=== PATIENT | male | born 1960 | race Asian ===

== ENCOUNTER 2016-04-14 18:49 | Inpatient (IN) | payer MEDICAID ==
[~2016-04-14] VITALS: Ht 200.7 cm; Wt 71.2 kg
[~2016-04-14 18:49] MED LIST: AMIO200T GTB; FOLI1CAP PO; KEP100S GTB; KLO5 GTB; OMEP40CA3 GTB; SEVE0.8P GTB; UDCOL GTB
[2016-04-14] MEDS ORDERED: PIPER-TAZO 3.375 GM IV (PMX) 100 ML IVPB STA (18:53)
[2016-04-14] MEDS ORDERED: VANCOMYCIN 1 GM (PMX) 250 ML IVPB ONE (19:00)
[2016-04-14] MEDS ORDERED: SOD CHLORIDE 0.9% 1,000 ML IV ONE ×2 (19:00→22:00)
--- NOTE | 2016-04-14 19:47 | RADRPT ---
PROCEDURE: XR Chest. CLINICAL INDICATION: Patient experiencing possible Sepsis TECHNIQUE: Single frontal view of the chest was obtained. COMPARISON: 01/19/2016 FINDINGS: The cardiomediastinal silhouette is normal size. Pulmonary vasculature is within normal limits. Th ere is a tracheostomy in place. There is a right internal jugular catheter extending to the cavoatr ial junction region. There is increased markings at the left lung base. There is moderate aortic c alcification. There is mild scarring at the lung apices. No signs of pleural fluid or pneumothorax are seen. The osseous structures and soft tissues are unre markable. IMPRESSION: 1. Tracheostomy and right internal jugular catheter in place. 2. Left base atelectasis, versus minimal infiltrate. 3. Moderate aortic calcification. RPTAT: HBST .Rahul Mcdonnell MD, MD Date Time Electronically viewed and signed by .Rahul Mcdonnell MD, on 04/14/2016 19:47 .T/
[2016-04-14 20:03] LABS: HEMATOCRIT 33.9 % (42.0-52.0); HEMOGLOBIN 11.5 g/dl (14.0-18.0); MEAN CORPUSCULAR HEMOGLOBIN 33.8 pg (29.0-33.0); MEAN CORPUSCULAR HGB CONC 34.1 g/dl (32.0-37.0); MEAN CORPUSCULAR VOLUME 99.2 fl (82.0-101.0); MEAN PLATELET VOLUME 8.5 fl (7.4-10.4); PLATELET COUNT 182 10^3/UL (140-440); RED BLOOD COUNT 3.41 10^6/ul (4.70-6.10); RED CELL DISTRIBUTION WIDTH 17.2 % (11.5-14.5); UNCORRECTED WBC 15.9 10^3/ul (4.8-10.8); WHITE BLOOD COUNT 15.9 10^3/ul (4.8-10.8)
[2016-04-14 20:06] LABS: CONDITION 1; LH ANALYZER COMMENTS 1; SUSPECT 1
[2016-04-14 20:16] LABS: INR 1.07; PROTIME 13.9 Sec (12.2-14.2); PT RATIO 1.1
[2016-04-14 20:17] LABS: PARTIAL THROMBOPLASTIN TIME 41.8 Sec (25.0-35.0)
[2016-04-14 20:43] LABS: ALBUMIN 4.6 g/dl (3.3-4.9)
[2016-04-14 20:45] LABS: CREATININE 5.92 mg/dl (0.61-1.24)
[2016-04-14 20:46] LABS: ALANINE AMINOTRANSFERASE 63 IU/L (13-69); ALBUMIN/GLOBULIN RATIO 1.04; ALKALINE PHOSPHATASE 141 IU/L (42-121); ASPARTATE AMINO TRANSFERASE 47 IU/L (15-46); BILIRUBIN,INDIRECT 0.3 mg/dl (0-1.1); BILIRUBIN,TOTAL 0.3 mg/dl (0.2-1.3); BLOOD UREA NITROGEN 54 mg/dl (7-20); CARBON DIOXIDE 24 mmol/L (21-31); GLUCOSE 112 mg/dl (70-220)
[2016-04-14 20:47] LABS: CALCIUM 11.4 mg/dl (8.4-10.2)
[2016-04-14 20:52] LABS: ANION GAP 27 (8-16); CHLORIDE 96 mmol/L (97-110); POTASSIUM 5.2 mmol/L (3.5-5.1); SODIUM 142 mmol/L (135-144)
[2016-04-14 21:05] LABS: TROPONIN-I < 0.012 ng/ml (0.00-0.12)
[2016-04-14 21:22] LABS: MONOCYTE # 0.5 10^3/ul (0.3-0.9); NEUTROPHIL # 13.4 10^3/ul (1.6-7.5)
[2016-04-14] MEDS ORDERED: ACETAMINOPHEN 325 MG TAB PO PRN (22:00)
[2016-04-14] MEDS ORDERED: ONDANSETRON 4 MG INJ IV PRN (22:00)
--- NOTE | 2016-04-14 22:05 | ERA ---
ER Documentation Chief Complaint Date/Time DATE: 04/14/16 TIME: 21:54 Chief Complaint tachycardia rate 108-110 since 1500, temp as high as 99-100. from SNF HPI This 55-year-old male presents to the room his group home facility because of tachycardia and stated elevated temperature since the middle of the day. There is suspecting pneumonia because the patient is on a ventilator may have coughed. Patient is a dialysis patient does not make urine. No other history is possible as patient is nonverbal. ROS Unobtainable Medications Home Meds Reported Medications Folic Acid/Vitamin B Comp W-C (Nephrocaps Capsule) 1 Mg Capsule, 1 MG PO DAILY, CAP 10/14/15 Sevelamer Carbonate* (Renvela*) 0.8 Gm Powd.pack, 1.6 GM GTB WITH MEALS, PACKET 10/14/15 Levetiracetam* (Keppra* (Ped)) 100 Mg/Ml Liq, 1000 MG GTB DAILY for 30 Days, BOTTLE 10/14/15 Docusate Sodium* (Docusate Sodium* Liq) 50 Mg/5 Ml Liquid, 100 MG GTB BID, ML 10/14/15 Omeprazole* (Prilosec*) 40 Mg Capsule.dr, 40 MG GTB DAILY 04/12/12 Clonazepam* (Klonopin*) 0.5 Mg Tab, 0.5 MG GTB Q12 04/12/12 Amiodarone Hcl* (Amiodarone Hcl*) 200 Mg Tablet, 200 MG GTB DAILY 04/12/12 Allergies Allergies: Coded Allergies: No Known Allergy (Unverified , 11/14/15) PMhx/Soc History of Surgery: Yes (TRACHEOSTOMY, PEG PLACEMENT) Anesthesia Reaction: No Hx Neurological Disorder: Yes (WITH ENCEPHALOPATHY) Hx Respiratory Disorders: Yes (TRACH TO VENT) Hx Cardiac Disorders: Yes (PAROXYSMAL AFIB) Hx Psychiatric Problems: No Hx Miscellaneous Medical Probl: Yes (CHF) Hx Alcohol Use: No Hx Substance Use: No Hx Tobacco Use: No Smoking Status: Never smoker Physical Exam Vitals Vital Signs Date Time Temp Pulse Resp B/P Pulse Ox O2 Delivery O2 Flow Rate FiO2 04/14/16 18:55 98.1 97 20 83/67 100 04/14/16 18:50 98 16 98 30 Physical Exam Const: [] Mild distress, appears uncomfortable on vent Head: Atraumatic Eyes: Normal Conjunctiva, PRL, EOMI may ENT: Normal External Ears, Nose and Mouth., Tympanic membranes clear bilaterally Neck: No deformities or JVD Resp: Childhood upper airway rhonchorous breath sounds bilaterally Cardio: Regular tachycardia, no murmurs Abd: Soft, no apparent tenderness,, non distended. Normal bowel sounds Skin: No petechiae or rashes Ext: No cyanosis,, sacral decubitus ulcers as described in nursing notes. No obvious signs of acute infection surrounding. Neur: Awake and alert, opens eyes and looks around, spot to touch and Result Diagram: 04/14/16194404/14/161944 Results 24 hrs Laboratory Tests Test 04/14/16 19:45 04/14/16 21:12 Activated Partial Thromboplast Time 41.8Sec Alanine Aminotransferase (ALT/SGPT) 63IU/L Albumin 4.6g/dl Albumin/Globulin Ratio 1.04 Alkaline Phosphatase 141IU/L Anion Gap 27 Aspartate Amino Transf (AST/SGOT) 47IU/L Band Neutrophils % 7.0% Blood Morphology Comment Blood Urea Nitrogen 54mg/dl Calcium Level 11.4mg/dl Carbon Dioxide Level 24mmol/L Chloride Level 96mmol/L Creatinine 5.92mg/dl Direct Bilirubin 0.00mg/dl Globulin 4.40g/dl Glucose Level 112mg/dl Hematocrit 33.9% Hemoglobin 11.5g/dl INR International Normalized Ratio 1.07 Indirect Bilirubin 0.3mg/dl Lactic Acid Level 3.1mmol/L 2.7mmol/L Lymphocytes # 1.010^3/ul Lymphocytes % 6.0% Mean Corpuscular Hemoglobin 33.8pg Mean Corpuscular Hemoglobin Concent 34.1g/dl Mean Corpuscular Volume 99.2fl Mean Platelet Volume 8.5fl Monocytes # 0.510^3/ul Monocytes % 3.0% Neutrophils # 13.410^3/ul Neutrophils % 84.0% Platelet Count 28212^3/UL Potassium Level 5.2mmol/L Prothrombin Time 13.9Sec Prothrombin Time Ratio 1.1 Red Blood Count 3.4110^6/ul Red Cell Distribution Width 17.2% Sodium Level 142mmol/L Total Bilirubin 0.3mg/dl Total Protein 9.0g/dl Troponin I < 0.012ng/ml White Blood Count 15.910^3/ul Current Medications Medications (Trade) Dose Ordered Sig/Sujey Route PRN Reason Start Time Stop Time Status Last Admin Dose Admin Vancomycin HCl 250 ml @ 125 mls/hr ONCE ONCE IVPB 04/14/16 19:00 04/14/16 20:59 DC 04/14/16 20:14 Piperacillin Sod/ Tazobactam Sod 100 ml @ 200 mls/hr ONCE STAT IVPB 04/14/16 18:53 04/14/16 19:22 DC 04/14/16 19:49 Sodium Chloride 1,000 ml @ 1,000 mls/hr Q1H ONCE IV 04/14/16 19:00 04/14/16 19:59 DC 04/14/16 19:50 Sodium Chloride (NS) 1,000 ml @ 1,000 mls/hr Q1H ONCE IV 04/14/16 22:00 04/14/16 22:59 Ondansetron HCl (Zofran Inj) 4 mg ER BRIDGE PRN IV NAUSEA AND/OR VOMITING 04/14/16 22:00 04/15/16 21:59 Acetaminophen (Tylenol Tab) 650 mg ER BRIDGE PRN PO MILD PAIN/FEVER 04/14/16 22:00 04/15/16 21:59 Procedures/MDM 55-year-old debilitated male with likely ventilator associated pneumonia with sepsis. Patient has a left elevated lactic acid was given 30 mL/mL fluid bolus. He was dialyzed yesterday and has no signs of pulmonary edema. His also immediately given vancomycin and Zosyn for hospital-acquired infection. Chest x -ray reveals obscuration of the paraspinal paravertebral lines as well as mild left lower lobe infiltrate. Patient did not have any obvious abdominal tenderness and abdomen was soft. She did remain stable on current vent settings. Does have lactic acidosis. Spoke with Dr. Avila who will be admitting the patient. He requests Dr. Nair for pulmonology. Patient is being admitted to telemetry further monitoring as septic condition. EKG interpretation: Normal sinus rhythm rate of 99, first-degree AV block, T- wave inversions in lead V5 and V6, consistent with slightly more pronounced than EKG in February. No ST elevations or depressions concerning for acute ischemia, indeterminate axis. Monitor interpretation sinus tachycardia with intermittent normal sinus rhythm, no other arrhythmias Chest x-ray interpretation, small left lower lobe infiltrate with obscuration of left paraspinal line suspicious for another left-sided infiltrate, no obvious pulmonary edema, no pneumothorax, no fractures Critical care time 41 minutes: This includes management of sepsis in an debilitated patient, very clear fluid fluid administration and patient with dialysis and sepsis, early antibiotic administration, ventilator management, chart review, all to visits the patient's bedside to reassess status discussion with admitting doctor. This is not include any billable procedures. Departure Diagnosis: Primary Impression: Sepsis due to pneumonia Additional Impressions: Lactic acidosis Hyperkalemia Condition: Serious SHERIN BETANCUR DO Apr 14, 2016 22:05
[2016-04-14] MEDS ORDERED: SOD CHLORIDE 0.9% 250 ML IV ONE (22:30)
[2016-04-14] MEDS ORDERED: NA POLYST SULFON 15 GM/60 ML BTL GTB ONE (23:00)
[2016-04-14 23:13] LABS: AADO2 Arterial 89.9 mmHg (7.0-24.0); Allen Test ACCEPTAB; Arterial Base Excess -0.7 mmol/L (-3.0-3); Arterial COHb 0.5 % (0.0-3.0); Arterial Fraction of Oxyhgb 94.6 % (93.0-99.0); Arterial HCO3 23.2 mmol/L (22.0-26.0); Arterial MetHb 0.2 % (0.0-1.5); Arterial Total Hemglobin 11.7 g/dl (12.0-18.0); MODE VENT - AC
[2016-04-15] MEDS ORDERED: ONDANSETRON 4 MG INJ IV PRN
[2016-04-15] MEDS ORDERED: ACETAMINOPHEN 325 MG TAB PO PRN
[2016-04-15] MEDS ORDERED: morphine 2 MG INJ IV PRN
[2016-04-15] MEDS ORDERED: NACL 0.9% 3 ML SYG IV SCH
[2016-04-15] MEDS ORDERED: PIPER-TAZO 3.375 GM IV (PMX) 100 ML IVPB SCH
[2016-04-15] MEDS: HEPARIN 5,000 UNIT/0.5 ML SYG SC SCH ×2 (05:44→14:32)
[2016-04-15 05:47] LABS: ALBUMIN 3.9 g/dl (3.3-4.9); POTASSIUM 4.7 mmol/L (3.5-5.1)
[2016-04-15 05:49] LABS: BILIRUBIN,INDIRECT 0.4 mg/dl (0-1.1); BILIRUBIN,TOTAL 0.4 mg/dl (0.2-1.3); CREATININE 6.25 mg/dl (0.61-1.24)
[2016-04-15 05:50] LABS: CALCIUM 10.4 mg/dl (8.4-10.2); TOTAL PROTEIN 7.8 g/dl (6.1-8.1)
[2016-04-15 05:52] LABS: BASOPHILS % 0.2 % (0.0-2.0); EOSINOPHILS # 0.1 10^3/ul (0.0-0.5); EOSINOPHILS % 0.5 % (0.0-7.0); HEMATOCRIT 30.1 % (42.0-52.0); HEMOGLOBIN 10.2 g/dl (14.0-18.0); LYMPHOCYTES # 0.7 10^3/ul (0.8-2.9); LYMPHOCYTES % 6.4 % (15.0-51.0); MEAN CORPUSCULAR HEMOGLOBIN 33.9 pg (29.0-33.0); MEAN CORPUSCULAR HGB CONC 33.8 g/dl (32.0-37.0); MEAN CORPUSCULAR VOLUME 100.2 fl (82.0-101.0); MEAN PLATELET VOLUME 7.4 fl (7.4-10.4); MONOCYTE # 0.5 10^3/ul (0.3-0.9); MONOCYTES % 5.1 % (0.0-11.0); NEUTROPHIL # 9.2 10^3/ul (1.6-7.5); NEUTROPHILS % 87.8 % (39.0-77.0); PLATELET COUNT 168 10^3/UL (140-440); RED CELL DISTRIBUTION WIDTH 16.5 % (11.5-14.5); UNCORRECTED WBC 10.5 10^3/ul (4.8-10.8); WHITE BLOOD COUNT 10.5 10^3/ul (4.8-10.8)
[2016-04-15] MEDS: PIPER-TAZO 2.25 GM (PMX) 50 ML IVPB SCH ×2 (05:58→14:30)
[2016-04-15 06:01] LABS: CONDITION 1; LH ANALYZER COMMENTS 1
[2016-04-15] MEDS ORDERED: FAMOTIDINE 20 MG INJ IV SCH (09:00)
[2016-04-15] MEDS: FAMOTIDINE 20 MG INJ IV SCH (09:29)
--- NOTE | 2016-04-15 13:05 | CONS ---
DATE OF ADMISSION: 04/14/2016 DATE OF CONSULTATION: 04/14/2016 REASON FOR CONSULTATION: Maintenance hemodialysis with hyperkalemia. REFERRING PHYSICIAN: Dr. Palacio. HISTORY OF PRESENT ILLNESS: This is a 55-year-old male with a past medical history of hypertension, hyperlipidemia, end-stage renal disease on hemodialysis Saturday, and Saturday. The patien t was brought in from a halfway facility because of her fever, tachycardia. The patient had a suspecting pneumonia. The patient is on a ventilator. Has been having some cough. The patient was supposed to get hemodialysis, but did not have hemodialysis and came to the ____ and [place] [facility] [place] fever, sepsis and noted to have hyperkalemia. The patient also received a fluid resuscitation overnight. Also received a treatment for hyperkalem ia, lactic acid was 3.1, calcium was 11.4. At the time of my evaluation, the patient was hemodynami fina stable, awaiting to get hemodialysis. REVIEW OF SYSTEMS: Unable to obtain the patient since the patient is on ventilator. PAST MEDICAL HISTORY: As per HPI. PAST SURGICAL HISTORY: History of tracheostomy, history of dialysis access surgery. 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 FAMILY HISTORY: Not available. PHYSICAL EXAMINATION: VITAL SIGNS: Temperature 98.2, heart rate 105, respiration 18, blood pressure 101/75, saturation is 100% on FIO2 30% on mechanical ventilator. GENERAL: Awake but not cooperative. The patient is on ventilator. HEENT: Tracheostomy in place. LUNGS: With decreased breath sounds at both lung bases, bibasilar crackles. HEART: S1, S2, tachycardia, no murmur. ABDOMEN: Soft. G-tube in place. EXTREMITIES: No clubbing, cyanosis, edema. NEUROLOGICAL: Uncooperative for exam. LABORATORY DATA/DIAGNOSTIC IMAGING: Sodium 142, potassium 5.2, chloride 96, bicarbonate 24, BUN 54, creatinine 5.9, glucose 112, calcium 11.4. LFTs are normal. WBC 10.5, hemoglobin 10.2, platelet c ount is 168. PT 13.9, PTT 41.8, INR 1.07. IMPRESSION: This is a 55-year-old male with: 1. Acute hyperkalemia secondary to missed hemodialysis. 2. Sepsis, possibly secondary to pneumonia. 3. End-stage renal disease on Saturday, , Saturday dialysis schedule. 4. Chronic encephalopathy, status post tracheostomy. 5. Vent dependent respiratory failure. 6. PEG tube placement for nutrition and dysphagia. 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 PLAN: Thank you, Dr. Palacio, for this consultation. The patient is ordered to have a plan to ord er to have hemodialysis today. Potassium has been slightly improved with a potassium of hyperkalemi a treatment. Continue the other intermediate medications. The patient will get IV antibiotics for sepsis. The patient is okay to have IV fluid resuscitation for his sepsis. We will plan for hemodi alysis depending on the patient's course in the hospital. Plan is to do hemodialysis today and then we will reassess him tomorrow for further hemodialysis needs. Dictated By: GEM MULLEN MD, KP/AMNA Conf#: [id number] DID#: [id number]
--- NOTE | 2016-04-15 13:17 | HP ---
Date/Time of Note Date/Time of Note DATE: 04/15/16 TIME: 13:14 Assessment/Plan VTE Prophylaxis VTE Prophylaxis Intervention: LMWH Assessment/Plan Chief Complaint/Hosp Course 1) pnuemonia - intravenous antibiotics 2) respiratory failure - consult pulmonary - continue vent support 3) renal failure - consult nephrology for continued hemodialysis 4) hypertension - monitor blood pressure and continue medications Problems: HPI/ROS Admit Date/Time Admit Date/Time Hx of Present Illness Patient with respiratory failure, hypertension, renal failure on hemodialysis comes in the ER with evidence of sepsis. Patient was found to have pneumonia and so is admitted for further treatment. ROS Subjective hx not possible: pt non-verbal PMH/Family/Social Past Medical History respiratory failure, renal failure Medical History: hypertension, renal disease Social History Alcohol Use: none Smoking Status: Never smoker Exam/Review of Systems Vital Signs Vitals Vital Signs Date Time Temp Pulse Resp B/P Pulse Ox O2 Delivery O2 Flow Rate FiO2 04/15/16 12:58 97 18 100 30 04/15/16 10:41 98.2 101/75 Mechanical Ventilator Intake and Output 04/14/16 04/14/16 04/15/16 15:00 23:00 07:00 Intake Total 1000 ml Balance 1000 ml Exam Constitutional: non-verbal, well developed Respiratory: diminished breath sounds Cardiovascular: regular rate and rhythm Gastrointestinal: non-tender, soft Extremities: normal pulses Labs Result Diagram: 04/15/1651604/15/16516 Medications Medications Current Medications Ondansetron HCl (Zofran Inj) 4 mg Q6H PRN IV NAUSEA AND/OR VOMITING; Start at 00:00 Acetaminophen (Tylenol Tab) 650 mg Q6H PRN PO PAIN LEVEL 1-3 OR FEVER; Start 04/15/16 at 00:00 Morphine Sulfate (morphine) 2 mg Q4H PRN IV PAIN LEVEL 7-10; Start 04/15/16 at 00:00 Heparin Sodium (Porcine) (Heparin (5000 Units/0.5 ml)) 5,000 unit Q8 SC Last administered on 04/15/16at 05:44; Admin Dose 5,000 UNIT; Start 04/15/16 at 06: 00 Famotidine 20 mg 20 mg DAILY IV Last administered on 04/15/16at 09:29; Admin Dose 20 MG; Start 04/15/16 at 09:00 Piperacillin Sod/ Tazobactam Sod (Zosyn 2.25gm/ 50ml (Pmx)) 50 ml @ 200 mls/hr Q8 IVPB Last administered on 04/15/16at 05:58; Admin Dose 200 MLS/HR; Start at 06:00 MARTHA SOSA Apr 15, 2016 13:17
[2016-04-16] VITALS (27 sets, daily range): BP systolic 76–129; BP diastolic 59–96; PULSE 79–116; RESP 13–33; TEMP 98.6; Ht 200.7 cm; Wt 71.2 kg
[2016-04-16] MEDS: HEPARIN 5,000 UNIT/0.5 ML SYG SC SCH ×4 (01:16→21:44)
[2016-04-16] MEDS: PIPER-TAZO 2.25 GM (PMX) 50 ML IVPB SCH ×4 (01:29→21:39)
[2016-04-16] MEDS: FAMOTIDINE 20 MG INJ IV SCH (09:00)
[2016-04-16] MEDS ORDERED: UDREG GTB (13:08)
[2016-04-16] MEDS ORDERED: MIDO5TAB19 GTB (13:09)
[2016-04-16] MEDS ORDERED: CINA60TA GTB (13:10)
[2016-04-16] MEDS ORDERED: NEPH GTB (13:11)
--- NOTE | 2016-04-16 14:41 | CONS ---
Date/Time of Note Date/Time of Note DATE: 04/16/16 TIME: 14:40 Assessment/Plan Assessment/Plan Chief Complaint/Hosp Course IMPRESSION: This is a 55-year-old male with: 1. Acute hyperkalemia secondary to missed hemodialysis.better 2. Sepsis, possibly secondary to pneumonia. 3. End-stage renal disease on Saturday, , Saturday dialysis schedule. 4. Chronic encephalopathy, status post tracheostomy. 5. Vent dependent respiratory failure. 6. PEG tube placement for nutrition and dysphagia. 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 8 hypocalcemia plan hd Problems: Consultation Date/Type/Reason Admit Date/Time Initial Consult Date Type of Consultation: renal Exam/Review of Systems Vital Signs Vitals Vital Signs Date Time Temp Pulse Resp B/P Pulse Ox O2 Delivery O2 Flow Rate FiO2 04/16/16 13:26 88 16 100 30 04/16/16 12:30 97.9 132/96 Mechanical Ventilator Exam Respiratory: diminished breath sounds Cardiovascular: regular rate and rhythm Gastrointestinal: bowel sounds (+), soft Extremities: edema (+) Results Result Diagram: 04/15/1651604/15/16516 Medications Medications Current Medications Ondansetron HCl (Zofran Inj) 4 mg Q6H PRN IV NAUSEA AND/OR VOMITING; Start at 00:00 Acetaminophen (Tylenol Tab) 650 mg Q6H PRN PO PAIN LEVEL 1-3 OR FEVER; Start 04/15/16 at 00:00 Morphine Sulfate (morphine) 2 mg Q4H PRN IV PAIN LEVEL 7-10; Start 04/15/16 at 00:00 Heparin Sodium (Porcine) (Heparin (5000 Units/0.5 ml)) 5,000 unit Q8 SC Last administered on 04/16/16at 14:16; Admin Dose 5,000 UNIT; Start 04/15/16 at 06: 00 Famotidine 20 mg 20 mg DAILY IV Last administered on 04/16/16at 09:00; Admin Dose 20 MG; Start 04/15/16 at 09:00 Piperacillin Sod/ Tazobactam Sod (Zosyn 2.25gm/ 50ml (Pmx)) 50 ml @ 200 mls/hr Q8 IVPB Last administered on 04/16/16at 14:25; Admin Dose 200 MLS/HR; Start at 06:00 CHUYITA PASTOR MD Apr 16, 2016 14:41
--- NOTE | 2016-04-16 15:47 | PN ---
Date/Time of Note Date/Time of Note DATE: 04/16/16 TIME: 15:38 Assessment/Plan VTE Prophylaxis VTE Prophylaxis Intervention: other Assessment/Plan Assessment/Plan 1) pnuemonia - intravenous antibiotics 2 Sepsis - ID consulted 2) respiratory failure - consult pulmonary - continue vent support 3) renal failure - consult nephrology for continued hemodialysis 4) hypertension - monitor blood pressure and continue medications gemma Palacio Subjective 24 Hr Interval Summary Subjective hx not possible: pt non-verbal Constitutional: requiring IVF, requiring O2 Exam/Review of Systems Vital Signs Vitals Vital Signs Date Time Temp Pulse Resp B/P Pulse Ox O2 Delivery O2 Flow Rate FiO2 04/16/16 14:30 98.5 84 20 118/89 99 Mechanical Ventilator 04/16/16 13:26 30 Exam Constitutional: frail, non-verbal Eyes: nl sclera ENMT: nl external ears & nose Respiratory: diminished breath sounds Cardiovascular: nl pulses Gastrointestinal: non-tender, soft Musculoskeletal: muscle weakness Extremities: normal pulses Neurological: lethargic Lymph: nontender Results Result Diagram: 04/15/1651604/15/16516 Medications Medications Current Medications Ondansetron HCl (Zofran Inj) 4 mg Q6H PRN IV NAUSEA AND/OR VOMITING; Start at 00:00 Acetaminophen (Tylenol Tab) 650 mg Q6H PRN PO PAIN LEVEL 1-3 OR FEVER; Start 04/15/16 at 00:00 Morphine Sulfate (morphine) 2 mg Q4H PRN IV PAIN LEVEL 7-10; Start 04/15/16 at 00:00 Heparin Sodium (Porcine) (Heparin (5000 Units/0.5 ml)) 5,000 unit Q8 SC Last administered on 04/16/16at 14:16; Admin Dose 5,000 UNIT; Start 04/15/16 at 06: 00 Famotidine 20 mg 20 mg DAILY IV Last administered on 04/16/16at 09:00; Admin Dose 20 MG; Start 04/15/16 at 09:00 Piperacillin Sod/ Tazobactam Sod (Zosyn 2.25gm/ 50ml (Pmx)) 50 ml @ 200 mls/hr Q8 IVPB Last administered on 04/16/16at 14:25; Admin Dose 200 MLS/HR; Start at 06:00 PAXTON RETANA Apr 16, 2016 15:47
[2016-04-16] MEDS ORDERED: PANTOPRAZOLE (EC) 40 MG TAB PO ONE (16:00)
[2016-04-16] MEDS ORDERED: PANTOPRAZOLE 40 MG INJ IV ONE (17:30)
[2016-04-16] MEDS: SEVELAMER CARBONATE 0.8 GM PKT GTB SCH (17:51)
[2016-04-16] MEDS: DEXTROSE 5%-0.45% NACL 1,000 ML IV SCH (17:51)
[2016-04-16] MEDS: ALBUMIN HUMAN 25% 100 ML IV PRN ×2 (19:24→19:34)
[2016-04-16] MEDS: MIDODRINE 5 MG TAB GTB SCH (19:31)
[2016-04-16] MEDS ORDERED: ALTEPLASE (CATHFLO) 2 MG INJ CATHETER ONE (20:00)
[2016-04-16] MEDS: DOCUSATE SODIUM 10 MG/ML (10ML CUP) GTB SCH (21:42)
[2016-04-16] MEDS: METOCLOPRAMIDE (1 MG/ML) 10 ML CUP GTB SCH (21:42)
[2016-04-16] MEDS: clonAZEPAM 0.5 MG TAB GTB SCH (21:43)
[2016-04-17] VITALS (48 sets, daily range): BP systolic 68–120; BP diastolic 54–98; PULSE 66–98; RESP 13–19
[2016-04-17] MEDS: METOCLOPRAMIDE (1 MG/ML) 10 ML CUP GTB SCH ×3 (05:31→21:29)
[2016-04-17] MEDS: MIDODRINE 5 MG TAB GTB SCH ×3 (05:31→21:29)
[2016-04-17] MEDS: PIPER-TAZO 2.25 GM (PMX) 50 ML IVPB SCH ×3 (05:32→21:28)
[2016-04-17] MEDS: HEPARIN 5,000 UNIT/0.5 ML SYG SC SCH ×3 (05:33→21:51)
[2016-04-17 05:48] LABS: POTASSIUM 3.9 mmol/L (3.5-5.1)
[2016-04-17 05:50] LABS: CREATININE 7.37 mg/dl (0.61-1.24)
[2016-04-17 05:51] LABS: CALCIUM 10.9 mg/dl (8.4-10.2)
[2016-04-17 05:57] LABS: BASOPHILS % 0.4 % (0.0-2.0); EOSINOPHILS # 0.2 10^3/ul (0.0-0.5); EOSINOPHILS % 2.9 % (0.0-7.0); HEMATOCRIT 26.2 % (42.0-52.0); LYMPHOCYTES # 0.8 10^3/ul (0.8-2.9); LYMPHOCYTES % 15.4 % (15.0-51.0); MEAN CORPUSCULAR HEMOGLOBIN 34.3 pg (29.0-33.0); MEAN CORPUSCULAR HGB CONC 34.4 g/dl (32.0-37.0); MEAN CORPUSCULAR VOLUME 99.6 fl (82.0-101.0); MEAN PLATELET VOLUME 7.3 fl (7.4-10.4); MONOCYTE # 0.5 10^3/ul (0.3-0.9); MONOCYTES % 9.1 % (0.0-11.0); NEUTROPHIL # 3.9 10^3/ul (1.6-7.5); NEUTROPHILS % 72.2 % (39.0-77.0); PLATELET COUNT 151 10^3/UL (140-440); RED BLOOD COUNT 2.64 10^6/ul (4.70-6.10); RED CELL DISTRIBUTION WIDTH 16.3 % (11.5-14.5); UNCORRECTED WBC 5.4 10^3/ul (4.8-10.8); WHITE BLOOD COUNT 5.4 10^3/ul (4.8-10.8)
[2016-04-17 06:09] LABS: CONDITION 1; LH ANALYZER COMMENTS 1
[2016-04-17] MEDS: SEVELAMER CARBONATE 0.8 GM PKT GTB SCH ×3 (07:35→17:35)
[2016-04-17] MEDS: MULTIVIT/CA CARB/B CMPLX/FA TAB GTB SCH (09:44)
[2016-04-17] MEDS: CINACALCET 30 MG TAB GTB SCH (09:44)
[2016-04-17] MEDS: clonAZEPAM 0.5 MG TAB GTB SCH ×2 (09:45→21:29)
[2016-04-17] MEDS: DOCUSATE SODIUM 10 MG/ML (10ML CUP) GTB SCH ×2 (09:45→20:14)
[2016-04-17] MEDS: AMIODARONE 200 MG TAB GTB SCH (09:45)
[2016-04-17] MEDS: FAMOTIDINE 20 MG INJ IV SCH (09:49)
[2016-04-17] MEDS: LEVETIRACETAM (100 MG/ML) 5ML CUP GTB SCH (09:49)
--- NOTE | 2016-04-17 13:58 | PN ---
Date/Time of Note Date/Time of Note DATE: 04/17/16 TIME: 13:57 Assessment/Plan VTE Prophylaxis VTE Prophylaxis Intervention: heparin, other Lines/Catheters IV Catheter Type (from Nrs): Peripheral IV Central line still needed: Yes Urinary Cath still in place: No Reason Cath still needed: skin wounds contaminated by urine Assessment/Plan Chief Complaint/Hosp Course 1) pnuemonia - intravenous antibiotics 2) respiratory failure - consult pulmonary - continue vent support 3) renal failure - consult nephrology for continued hemodialysis 4) hypertension - monitor blood pressure and continue medications Problems: Subjective 24 Hr Interval Summary Free Text/Dictation Patient is resting comfortably, tracheostomy in place Exam/Review of Systems Vital Signs Vitals Vital Signs Date Time Temp Pulse Resp B/P Pulse Ox O2 Delivery O2 Flow Rate FiO2 04/17/16 12:10 78 04/17/16 11:10 16 100 30 04/17/16 07:00 104/79 Mechanical Ventilator Trach Collar 04/17/16 04:00 97.5 Intake and Output 04/16/16 04/16/16 04/17/16 15:00 23:00 07:00 Intake Total 50 ml 910 ml 410 ml Output Total 2500 ml 0 ml Balance 50 ml -1590 ml 410 ml Exam Constitutional: well developed Respiratory: diminished breath sounds Cardiovascular: regular rate and rhythm Gastrointestinal: non-tender, soft Results Result Diagram: 04/17/16 0525 04/17/16 0525 Results 24 hrs Laboratory Tests Test 04/16/16 18:14 04/17/16 05:25 Ionized Calcium (Measured) 1.5 H Anion Gap 25 H Basophils # 0.0 Basophils % 0.4 Blood Morphology Comment Blood Urea Nitrogen 51 H Calcium Level 10.9 H Carbon Dioxide Level 25 Chloride Level 101 Creatinine 7.37 H Eosinophils # 0.2 Eosinophils % 2.9 Glucose Level 101 Hematocrit 26.2 L Hemoglobin 9.0 L Lymphocytes # 0.8 Lymphocytes % 15.4 Mean Corpuscular Hemoglobin 34.3 H Mean Corpuscular Hemoglobin Concent 34.4 Mean Corpuscular Volume 99.6 Mean Platelet Volume 7.3 L Monocytes # 0.5 Monocytes % 9.1 Neutrophils # 3.9 Neutrophils % 72.2 Nucleated Red Blood Cells # 0.0 Nucleated Red Blood Cells % 0.0 Platelet Count 151 Potassium Level 3.9 Red Blood Count 2.64 L Red Cell Distribution Width 16.3 H Sodium Level 147 H White Blood Count 5.4 # Medications Medications Current Medications Ondansetron HCl (Zofran Inj) 4 mg Q6H PRN IV NAUSEA AND/OR VOMITING; Start at 00:00 Acetaminophen (Tylenol Tab) 650 mg Q6H PRN PO PAIN LEVEL 1-3 OR FEVER; Start 04/15/16 at 00:00 Morphine Sulfate (morphine) 2 mg Q4H PRN IV PAIN LEVEL 7-10; Start 04/15/16 at 00:00 Heparin Sodium (Porcine) (Heparin (5000 Units/0.5 ml)) 5,000 unit Q8 SC Last administered on 04/17/16 05:33; Admin Dose 5,000 UNIT; Start 04/15/16 at 06: 00 Famotidine 20 mg 20 mg DAILY IV Last administered on 04/17/16 09:49; Admin Dose 20 MG; Start 04/15/16 at 09:00 Piperacillin Sod/ Tazobactam Sod (Zosyn 2.25gm/ 50ml (Pmx)) 50 ml @ 200 mls/hr Q8 IVPB Last administered on 04/17/16 05:32; Admin Dose 200 MLS/HR; Start at 06:00 Amiodarone HCl (Cordarone) 200 mg DAILY GTB Last administered on 04/17/16 09: 45; Admin Dose 200 MG; Start 04/17/16 at 09:00 Cinacalcet (Sensipar) 60 mg DAILY GTB Last administered on 04/17/16 09:44; Admin Dose 60 MG; Start 04/17/16 at 09:00 Clonazepam (Klonopin) 0.5 mg Q12 GTB Last administered on 04/17/16 09:45; Admin Dose 0.5 MG; Start 04/16/16 at 21:00 Docusate Sodium (Colace Liquid Cup) 100 mg BID GTB Last administered on 09:45; Admin Dose 100 MG; Start 04/16/16 at 21:00 Levetiracetam (Keppra Liquid) 1,000 mg DAILY GTB Last administered on 09:49; Admin Dose 1,000 MG; Start 04/17/16 at 09:00 Metoclopramide HCl (Reglan Liq) 10 mg Q8 GTB Last administered on 04/17/16 05 :31; Admin Dose 10 MG; Start 04/16/16 at 22:00 Midodrine (Proamatine) 5 mg Q8 GTB Last administered on 04/17/16at 05:31; Admin Dose 5 MG; Start 04/16/16 at 22:00 Multivit/Ca Carb/ B Cmplx/FA/Prenat 1 tab 1 tab DAILY GTB Last administered on 04/17/16at 09:44; Admin Dose 1 TAB; Start 04/17/16 at 09:00 Dextrose/Sodium Chloride (D5-1/2ns) 1,000 ml @ 40 mls/hr Q24H IV Last administered on 04/16/16at 17:51; Admin Dose 40 MLS/HR; Start 04/16/16 at 16:00 MARTHA SOSA Apr 17, 2016 13:58
[2016-04-17] MEDS: DEXTROSE 5%-0.45% NACL 1,000 ML IV SCH ×2 (16:00→21:28)
--- NOTE | 2016-04-17 17:24 | CONS ---
Date/Time of Note Date/Time of Note DATE: 04/17/16 TIME: 17:23 Assessment/Plan Assessment/Plan Chief Complaint/Hosp Course IMPRESSION: This is a 55-year-old male with: 1. Acute hyperkalemia secondary to missed hemodialysis.better 2. Sepsis, possibly secondary to pneumonia. 3. End-stage renal disease on Saturday, , Saturday dialysis schedule. 4. Chronic encephalopathy, status post tracheostomy. 5. Vent dependent respiratory failure. 6. PEG tube placement for nutrition and dysphagia. 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 8 hypercalcemia plan hd Problems: Consultation Date/Type/Reason Admit Date/Time Apr 14, 2016 at 21:52 Type of Consultation: renal 24 HR Interval Summary Subjective hx not possible: pt non-verbal Exam/Review of Systems Vital Signs Vitals Vital Signs Date Time Temp Pulse Resp B/P Pulse Ox O2 Delivery O2 Flow Rate FiO2 04/17/16 16:00 71 04/17/16 15:45 16 04/17/16 15:30 106/75 100 04/17/16 11:10 30 04/17/16 08:00 98.4 04/17/16 07:00 Mechanical Ventilator Trach Collar Intake and Output 04/16/16 04/16/16 04/17/16 15:00 23:00 07:00 Intake Total 50 ml 910 ml 410 ml Output Total 2500 ml 0 ml Balance 50 ml -1590 ml 410 ml Exam Respiratory: diminished breath sounds Cardiovascular: regular rate and rhythm Gastrointestinal: bowel sounds (+), soft Musculoskeletal: nl extremities to inspection Extremities: normal pulses Results Result Diagram: 04/17/16 0525 04/17/16 0525 Results 24 hrs Laboratory Tests Test 04/16/16 18:14 04/17/16 05:25 Ionized Calcium (Measured) 1.5 H Anion Gap 25 H Basophils # 0.0 Basophils % 0.4 Blood Morphology Comment Blood Urea Nitrogen 51 H Calcium Level 10.9 H Carbon Dioxide Level 25 Chloride Level 101 Creatinine 7.37 H Eosinophils # 0.2 Eosinophils % 2.9 Glucose Level 101 Hematocrit 26.2 L Hemoglobin 9.0 L Lymphocytes # 0.8 Lymphocytes % 15.4 Mean Corpuscular Hemoglobin 34.3 H Mean Corpuscular Hemoglobin Concent 34.4 Mean Corpuscular Volume 99.6 Mean Platelet Volume 7.3 L Monocytes # 0.5 Monocytes % 9.1 Neutrophils # 3.9 Neutrophils % 72.2 Nucleated Red Blood Cells # 0.0 Nucleated Red Blood Cells % 0.0 Platelet Count 151 Potassium Level 3.9 Red Blood Count 2.64 L Red Cell Distribution Width 16.3 H Sodium Level 147 H White Blood Count 5.4 # Medications Medications Current Medications Ondansetron HCl (Zofran Inj) 4 mg Q6H PRN IV NAUSEA AND/OR VOMITING; Start at 00:00 Acetaminophen (Tylenol Tab) 650 mg Q6H PRN PO PAIN LEVEL 1-3 OR FEVER; Start 04/15/16 at 00:00 Morphine Sulfate (morphine) 2 mg Q4H PRN IV PAIN LEVEL 7-10; Start 04/15/16 at 00:00 Heparin Sodium (Porcine) (Heparin (5000 Units/0.5 ml)) 5,000 unit Q8 SC Last administered on 04/17/16 14:50; Admin Dose 5,000 UNIT; Start 04/15/16 at 06: 00 Famotidine 20 mg 20 mg DAILY IV Last administered on 04/17/16at 09:49; Admin Dose 20 MG; Start 04/15/16 at 09:00 Piperacillin Sod/ Tazobactam Sod (Zosyn 2.25gm/ 50ml (Pmx)) 50 ml @ 200 mls/hr Q8 IVPB Last administered on 04/17/16 14:43; Admin Dose 200 MLS/HR; Start at 06:00 Amiodarone HCl (Cordarone) 200 mg DAILY GTB Last administered on 04/17/16 09: 45; Admin Dose 200 MG; Start 04/17/16 at 09:00 Cinacalcet (Sensipar) 60 mg DAILY GTB Last administered on 04/17/16 09:44; Admin Dose 60 MG; Start 04/17/16 at 09:00 Clonazepam (Klonopin) 0.5 mg Q12 GTB Last administered on 04/17/16 09:45; Admin Dose 0.5 MG; Start 04/16/16 at 21:00 Docusate Sodium (Colace Liquid Cup) 100 mg BID GTB Last administered on 09:45; Admin Dose 100 MG; Start 04/16/16 at 21:00 Levetiracetam (Keppra Liquid) 1,000 mg DAILY GTB Last administered on 09:49; Admin Dose 1,000 MG; Start 04/17/16 at 09:00 Metoclopramide HCl (Reglan Liq) 10 mg Q8 GTB Last administered on 04/17/16at 14 :43; Admin Dose 10 MG; Start 04/16/16 at 22:00 Midodrine (Proamatine) 5 mg Q8 GTB Last administered on 04/17/16at 14:42; Admin Dose 5 MG; Start 04/16/16 at 22:00 Multivit/Ca Carb/ B Cmplx/FA/Prenat 1 tab 1 tab DAILY GTB Last administered on 04/17/16 09:44; Admin Dose 1 TAB; Start 04/17/16 at 09:00 Dextrose/Sodium Chloride (D5-1/2ns) 1,000 ml @ 40 mls/hr Q24H IV Last administered on 04/16/16 17:51; Admin Dose 40 MLS/HR; Start 04/16/16 at 16:00 CHUYITA PASTOR MD Apr 17, 2016 17:24
[2016-04-18] VITALS (38 sets, daily range): BP systolic 87–131; BP diastolic 56–99; PULSE 66–98; RESP 12–29
[2016-04-18] MEDS: HEPARIN 5,000 UNIT/0.5 ML SYG SC SCH ×3 (05:08→21:26)
[2016-04-18] MEDS: METOCLOPRAMIDE (1 MG/ML) 10 ML CUP GTB SCH ×3 (05:08→21:24)
[2016-04-18] MEDS: PIPER-TAZO 2.25 GM (PMX) 50 ML IVPB SCH ×3 (05:08→21:25)
[2016-04-18] MEDS: MIDODRINE 5 MG TAB GTB SCH ×3 (05:08→21:25)
[2016-04-18 06:24] LABS: ALBUMIN 4.2 g/dl (3.3-4.9); POTASSIUM 3.6 mmol/L (3.5-5.1)
[2016-04-18 06:27] LABS: ALBUMIN/GLOBULIN RATIO 1.13; BILIRUBIN,INDIRECT 0.3 mg/dl (0-1.1); BILIRUBIN,TOTAL 0.3 mg/dl (0.2-1.3); CALCIUM 9.9 mg/dl (8.4-10.2); CREATININE 8.93 mg/dl (0.61-1.24); TOTAL PROTEIN 7.9 g/dl (6.1-8.1)
[2016-04-18] MEDS: SEVELAMER CARBONATE 0.8 GM PKT GTB SCH ×3 (06:54→18:00)
[2016-04-18] MEDS ORDERED: HEPARIN 1000 UNITS/ML 10 ML INJ CATHETER SCH (07:00)
[2016-04-18] MEDS: AMIODARONE 200 MG TAB GTB SCH (09:00)
[2016-04-18] MEDS: FAMOTIDINE 20 MG INJ IV SCH (09:00)
[2016-04-18] MEDS: clonAZEPAM 0.5 MG TAB GTB SCH ×2 (09:00→21:24)
[2016-04-18] MEDS: MULTIVIT/CA CARB/B CMPLX/FA TAB GTB SCH (09:00)
[2016-04-18] MEDS: DOCUSATE SODIUM 10 MG/ML (10ML CUP) GTB SCH ×2 (09:00→21:00)
[2016-04-18] MEDS: CINACALCET 30 MG TAB GTB SCH (09:00)
[2016-04-18] MEDS: LEVETIRACETAM (100 MG/ML) 5ML CUP GTB SCH (09:00)
--- NOTE | 2016-04-18 12:46 | PN ---
Date/Time of Note Date/Time of Note DATE: 04/18/16 TIME: 12:45 Assessment/Plan VTE Prophylaxis VTE Prophylaxis Intervention: other Lines/Catheters IV Catheter Type (from Nrsg): Peripheral IV Urinary Cath still in place: Yes Reason Cath still needed: skin wounds contaminated by urine Assessment/Plan Chief Complaint/Hosp Course 1) pnuemonia - intravenous antibiotics 2) respiratory failure - consult pulmonary - continue vent support 3) renal failure - consult nephrology for continued hemodialysis 4) hypertension - monitor blood pressure and continue medications Problems: Subjective 24 Hr Interval Summary Free Text/Dictation Patient is resting comfortably, trach in place Exam/Review of Systems Vital Signs Vitals Vital Signs Date Time Temp Pulse Resp B/P Pulse Ox O2 Delivery O2 Flow Rate FiO2 04/18/16 12:00 77 04/18/16 11:05 16 100 30 04/18/16 08:00 98.1 96/68 Mechanical Ventilator Intake and Output 04/17/16 04/17/16 04/18/16 14:59 22:59 06:59 Intake Total 0 ml 210 ml 735 ml Output Total 0 ml 0 ml Balance 0 ml 210 ml 735 ml Exam Constitutional: well developed Neck: supple Respiratory: diminished breath sounds Cardiovascular: regular rate and rhythm Gastrointestinal: non-tender, soft Extremities: normal pulses Results Result Diagram: 04/17/1625 04/18/16 0523 Results 24 hrs Laboratory Tests Test 04/18/16 05:23 Alanine Aminotransferase (ALT/SGPT) 79 H Albumin 4.2 Albumin/Globulin Ratio 1.13 Alkaline Phosphatase 106 Anion Gap 23 H Aspartate Amino Transf (AST/SGOT) 40 Blood Urea Nitrogen 62 H Calcium Level 9.9 Carbon Dioxide Level 23 Chloride Level 101 Creatinine 8.93 H Direct Bilirubin 0.00 Globulin 3.70 H Glucose Level 109 Indirect Bilirubin 0.3 Potassium Level 3.6 Prealbumin 43.8 H Sodium Level 143 Total Bilirubin 0.3 Total Protein 7.9 Medications Medications Current Medications Ondansetron HCl (Zofran Inj) 4 mg Q6H PRN IV NAUSEA AND/OR VOMITING; Start at 00:00 Acetaminophen (Tylenol Tab) 650 mg Q6H PRN PO PAIN LEVEL 1-3 OR FEVER; Start 04/15/16 at 00:00 Morphine Sulfate (morphine) 2 mg Q4H PRN IV PAIN LEVEL 7-10; Start 04/15/16 at 00:00 Heparin Sodium (Porcine) (Heparin (5000 Units/0.5 ml)) 5,000 unit Q8 SC Last administered on 04/18/16 05:08; Admin Dose 5,000 UNIT; Start 04/15/16 at 06: 00 Famotidine 20 mg 20 mg DAILY IV Last administered on 04/17/16 09:49; Admin Dose 20 MG; Start 04/15/16 at 09:00 Piperacillin Sod/ Tazobactam Sod (Zosyn 2.25gm/ 50ml (Pmx)) 50 ml @ 200 mls/hr Q8 IVPB Last administered on 04/18/16 05:08; Admin Dose 200 MLS/HR; Start at 06:00 Amiodarone HCl (Cordarone) 200 mg DAILY GTB Last administered on 04/17/16 09: 45; Admin Dose 200 MG; Start 04/17/16 at 09:00 Cinacalcet (Sensipar) 60 mg DAILY GTB Last administered on 04/17/16 09:44; Admin Dose 60 MG; Start 04/17/16 at 09:00 Clonazepam (Klonopin) 0.5 mg Q12 GTB Last administered on 04/17/16 21:29; Admin Dose 0.5 MG; Start 04/16/16 at 21:00 Docusate Sodium (Colace Liquid Cup) 100 mg BID GTB Last administered on 09:45; Admin Dose 100 MG; Start 04/16/16 at 21:00 Levetiracetam (Keppra Liquid) 1,000 mg DAILY GTB Last administered on 09:49; Admin Dose 1,000 MG; Start 04/17/16 at 09:00 Metoclopramide HCl (Reglan Liq) 10 mg Q8 GTB Last administered on 04/18/16 05 :08; Admin Dose 10 MG; Start 04/16/16 at 22:00 Midodrine (Proamatine) 5 mg Q8 GTB Last administered on 04/18/16 05:08; Admin Dose 5 MG; Start 04/16/16 at 22:00 Multivit/Ca Carb/ B Cmplx/FA/Prenat 1 tab 1 tab DAILY GTB Last administered on 12/27/16at 09:44; Admin Dose 1 TAB; Start 04/17/16 at 09:00 Dextrose/Sodium Chloride (D5-1/2ns) 1,000 ml @ 40 mls/hr Q24H IV Last administered on 04/17/16at 21:28; Admin Dose 40 MLS/HR; Start 04/16/16 at 16:00 MARTHA SOSA Apr 18, 2016 12:46
[2016-04-18] MEDS: DEXTROSE 5%-0.45% NACL 1,000 ML IV SCH (17:58)
--- NOTE | 2016-04-18 19:36 | CONS ---
Date/Time of Note Date/Time of Note DATE: 04/18/16 TIME: 19:35 Assessment/Plan Assessment/Plan Chief Complaint/Hosp Course IMPRESSION: This is a 55-year-old male with: 1. Acute hyperkalemia secondary to missed hemodialysis.better 2. Sepsis, possibly secondary to pneumonia. 3. End-stage renal disease on Saturday, , Saturday dialysis schedule. 4. Chronic encephalopathy, status post tracheostomy. 5. Vent dependent respiratory failure. 6. PEG tube placement for nutrition and dysphagia. 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 8 hypercalcemia hx plan hd Problems: Consultation Date/Type/Reason Admit Date/Time Apr 14, 2016 at 21:52 Type of Consultation: renal 24 HR Interval Summary Subjective hx not possible: pt non-verbal Exam/Review of Systems Vital Signs Vitals Vital Signs Date Time Temp Pulse Resp B/P Pulse Ox O2 Delivery O2 Flow Rate FiO2 04/18/16 17:40 74 16 100 30 04/18/16 08:00 98.1 96/68 Mechanical Ventilator Intake and Output 04/17/16 04/17/16 04/18/16 15:00 23:00 07:00 Intake Total 210 ml 735 ml Output Total 0 ml Balance 210 ml 735 ml Exam Respiratory: diminished breath sounds Cardiovascular: regular rate and rhythm Gastrointestinal: bowel sounds (+), soft Musculoskeletal: nl extremities to inspection Extremities: edema (+) Results Result Diagram: 04/17/16 0525 04/18/16 0523 Results 24 hrs Laboratory Tests Test 04/18/16 05:23 Alanine Aminotransferase (ALT/SGPT) 79 H Albumin 4.2 Albumin/Globulin Ratio 1.13 Alkaline Phosphatase 106 Anion Gap 23 H Aspartate Amino Transf (AST/SGOT) 40 Blood Urea Nitrogen 62 H Calcium Level 9.9 Carbon Dioxide Level 23 Chloride Level 101 Creatinine 8.93 H Direct Bilirubin 0.00 Globulin 3.70 H Glucose Level 109 Indirect Bilirubin 0.3 Potassium Level 3.6 Prealbumin 43.8 H Sodium Level 143 Total Bilirubin 0.3 Total Protein 7.9 Medications Medications Current Medications Ondansetron HCl (Zofran Inj) 4 mg Q6H PRN IV NAUSEA AND/OR VOMITING; Start at 00:00 Acetaminophen (Tylenol Tab) 650 mg Q6H PRN PO PAIN LEVEL 1-3 OR FEVER; Start 04/15/16 at 00:00 Morphine Sulfate (morphine) 2 mg Q4H PRN IV PAIN LEVEL 7-10; Start 04/15/16 at 00:00 Heparin Sodium (Porcine) (Heparin (5000 Units/0.5 ml)) 5,000 unit Q8 SC Last administered on 04/18/16 15:48; Admin Dose 5,000 UNIT; Start 04/15/16 at 06: 00 Famotidine 20 mg 20 mg DAILY IV Last administered on 04/17/16 09:49; Admin Dose 20 MG; Start 04/15/16 at 09:00 Piperacillin Sod/ Tazobactam Sod (Zosyn 2.25gm/ 50ml (Pmx)) 50 ml @ 200 mls/hr Q8 IVPB Last administered on 04/18/16 15:49; Admin Dose 200 MLS/HR; Start at 06:00 Amiodarone HCl (Cordarone) 200 mg DAILY GTB Last administered on 04/17/16 09: 45; Admin Dose 200 MG; Start 04/17/16 at 09:00 Cinacalcet (Sensipar) 60 mg DAILY GTB Last administered on 04/17/16 09:44; Admin Dose 60 MG; Start 04/17/16 at 09:00 Clonazepam (Klonopin) 0.5 mg Q12 GTB Last administered on 04/17/16 21:29; Admin Dose 0.5 MG; Start 04/16/16 at 21:00 Docusate Sodium (Colace Liquid Cup) 100 mg BID GTB Last administered on 09:45; Admin Dose 100 MG; Start 04/16/16 at 21:00 Levetiracetam (Keppra Liquid) 1,000 mg DAILY GTB Last administered on 09:49; Admin Dose 1,000 MG; Start 04/17/16 at 09:00 Metoclopramide HCl (Reglan Liq) 10 mg Q8 GTB Last administered on 04/18/16 15 :49; Admin Dose 10 MG; Start 04/16/16 at 22:00 Midodrine (Proamatine) 5 mg Q8 GTB Last administered on 04/18/16 15:49; Admin Dose 5 MG; Start 04/16/16 at 22:00 Multivit/Ca Carb/ B Cmplx/FA/Prenat 1 tab 1 tab DAILY GTB Last administered on 04/17/16at 09:44; Admin Dose 1 TAB; Start 04/17/16 at 09:00 Dextrose/Sodium Chloride (D5-1/2ns) 1,000 ml @ 40 mls/hr Q24H IV Last administered on 04/18/16at 17:58; Admin Dose 40 MLS/HR; Start 04/16/16 at 16:00 CHUYITA PASTOR MD Apr 18, 2016 19:36
[2016-04-19] VITALS (39 sets, daily range): BP systolic 97–136; BP diastolic 74–100; PULSE 58–80; RESP 14–20
[2016-04-19] MEDS: METOCLOPRAMIDE (1 MG/ML) 10 ML CUP GTB SCH ×3 (05:57→21:03)
[2016-04-19] MEDS: MIDODRINE 5 MG TAB GTB SCH ×3 (05:57→21:04)
[2016-04-19] MEDS: PIPER-TAZO 2.25 GM (PMX) 50 ML IVPB SCH ×3 (05:57→21:05)
[2016-04-19] MEDS: SEVELAMER CARBONATE 0.8 GM PKT GTB SCH ×3 (05:57→17:34)
[2016-04-19] MEDS: HEPARIN 5,000 UNIT/0.5 ML SYG SC SCH ×3 (06:32→21:32)
[2016-04-19] MEDS: DOCUSATE SODIUM 10 MG/ML (10ML CUP) GTB SCH ×2 (09:00→21:03)
[2016-04-19] MEDS: LEVETIRACETAM (100 MG/ML) 5ML CUP GTB SCH (09:41)
[2016-04-19] MEDS: AMIODARONE 200 MG TAB GTB SCH (09:41)
[2016-04-19] MEDS: MULTIVIT/CA CARB/B CMPLX/FA TAB GTB SCH (09:42)
[2016-04-19] MEDS: CINACALCET 30 MG TAB GTB SCH (09:42)
[2016-04-19] MEDS: FAMOTIDINE 20 MG INJ IV SCH (09:42)
[2016-04-19] MEDS: clonAZEPAM 0.5 MG TAB GTB SCH ×2 (09:42→21:03)
--- NOTE | 2016-04-19 12:06 | PN ---
Date/Time of Note Date/Time of Note DATE: 04/19/16 TIME: 12:05 Assessment/Plan VTE Prophylaxis VTE Prophylaxis Intervention: other Lines/Catheters IV Catheter Type (from Nrsg): Peripheral IV Urinary Cath still in place: Yes Reason Cath still needed: skin wounds contaminated by urine Assessment/Plan Chief Complaint/Hosp Course 1) pnuemonia - intravenous antibiotics 2) respiratory failure - consult pulmonary - continue vent support 3) renal failure - consult nephrology for continued hemodialysis 4) hypertension - monitor blood pressure and continue medications Problems: Subjective 24 Hr Interval Summary Free Text/Dictation Patient is comfortable. Exam/Review of Systems Vital Signs Vitals Vital Signs Date Time Temp Pulse Resp B/P Pulse Ox O2 Delivery O2 Flow Rate FiO2 04/19/16 11:05 70 16 100 30 04/19/16 08:00 98.3 122/94 Mechanical Ventilator Intake and Output 04/18/16 04/18/16 04/19/16 15:00 23:00 07:00 Intake Total 550 ml 350 ml 245 ml Output Total 3500 ml 0 ml Balance -2950 ml 350 ml 245 ml Exam Constitutional: well developed Neck: supple Respiratory: diminished breath sounds Cardiovascular: regular rate and rhythm Gastrointestinal: non-tender, soft Results Result Diagram: 04/17/1652404/18/16522 Medications Medications Current Medications Ondansetron HCl (Zofran Inj) 4 mg Q6H PRN IV NAUSEA AND/OR VOMITING; Start at 00:00 Acetaminophen (Tylenol Tab) 650 mg Q6H PRN PO PAIN LEVEL 1-3 OR FEVER; Start 04/15/16 at 00:00 Morphine Sulfate (morphine) 2 mg Q4H PRN IV PAIN LEVEL 7-10; Start 04/15/16 at 00:00 Heparin Sodium (Porcine) (Heparin (5000 Units/0.5 ml)) 5,000 unit Q8 SC Last administered on 04/19/16at 06:32; Admin Dose 5,000 UNIT; Start 04/15/16 at 06: 00 Famotidine 20 mg 20 mg DAILY IV Last administered on 04/19/16at 09:42; Admin Dose 20 MG; Start 04/15/16 at 09:00 Piperacillin Sod/ Tazobactam Sod (Zosyn 2.25gm/ 50ml (Pmx)) 50 ml @ 200 mls/hr Q8 IVPB Last administered on 04/19/16 05:57; Admin Dose 200 MLS/HR; Start at 06:00 Amiodarone HCl (Cordarone) 200 mg DAILY GTB Last administered on 04/19/16 09: 41; Admin Dose 200 MG; Start 04/17/16 at 09:00 Cinacalcet (Sensipar) 60 mg DAILY GTB Last administered on 04/19/16 09:42; Admin Dose 60 MG; Start 04/17/16 at 09:00 Clonazepam (Klonopin) 0.5 mg Q12 GTB Last administered on 04/19/16 09:42; Admin Dose 0.5 MG; Start 04/16/16 at 21:00 Docusate Sodium (Colace Liquid Cup) 100 mg BID GTB Last administered on 09:45; Admin Dose 100 MG; Start 04/16/16 at 21:00 Levetiracetam (Keppra Liquid) 1,000 mg DAILY GTB Last administered on 09:41; Admin Dose 1,000 MG; Start 04/17/16 at 09:00 Metoclopramide HCl (Reglan Liq) 10 mg Q8 GTB Last administered on 04/19/16 05 :57; Admin Dose 10 MG; Start 04/16/16 at 22:00 Midodrine (Proamatine) 5 mg Q8 GTB Last administered on 04/19/16 05:57; Admin Dose 5 MG; Start 04/16/16 at 22:00 Multivit/Ca Carb/ B Cmplx/FA/Prenat 1 tab 1 tab DAILY GTB Last administered on 04/19/16 09:42; Admin Dose 1 TAB; Start 04/17/16 at 09:00 Dextrose/Sodium Chloride (D5-1/2ns) 1,000 ml @ 40 mls/hr Q24H IV Last administered on 04/18/16 17:58; Admin Dose 40 MLS/HR; Start 04/16/16 at 16:00 MARTHA SOSA Apr 19, 2016 12:06
--- NOTE | 2016-04-19 15:40 | CONS ---
Date/Time of Note Date/Time of Note DATE: 04/19/16 TIME: 15:39 Assessment/Plan Assessment/Plan Chief Complaint/Hosp Course IMPRESSION: This is a 55-year-old male with: 1. s/p hyperkalemia 2. Sepsis, possibly secondary to pneumonia. 3. End-stage renal disease on Saturday, , Saturday dialysis schedule. 4. Chronic encephalopathy, status post tracheostomy. 5. Vent dependent respiratory failure. 6. PEG tube placement for nutrition and dysphagia. 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 8 hypercalcemia hx plan hd Problems: Consultation Date/Type/Reason Admit Date/Time Apr 14, 2016 at 21:52 Type of Consultation: renal 24 HR Interval Summary Subjective hx not possible: pt non-verbal Exam/Review of Systems Vital Signs Vitals Vital Signs Date Time Temp Pulse Resp B/P Pulse Ox O2 Delivery O2 Flow Rate FiO2 04/19/16 12:00 70 04/19/16 12:00 50 04/19/16 11:05 16 100 04/19/16 08:00 98.3 122/94 Mechanical Ventilator Intake and Output 04/18/16 04/18/16 04/19/16 15:00 23:00 07:00 Intake Total 550 ml 350 ml 245 ml Output Total 3500 ml 0 ml Balance -2950 ml 350 ml 245 ml Exam Neck: supple Respiratory: clear to auscultation Cardiovascular: regular rate and rhythm Gastrointestinal: soft Extremities: edema (+) Results Result Diagram: 04/17/16 0525 04/18/16 0523 Results 24 hrs Laboratory Tests Test 04/19/16 12:33 Bedside Glucose 99 Medications Medications Current Medications Ondansetron HCl (Zofran Inj) 4 mg Q6H PRN IV NAUSEA AND/OR VOMITING; Start at 00:00 Acetaminophen (Tylenol Tab) 650 mg Q6H PRN PO PAIN LEVEL 1-3 OR FEVER; Start 04/15/16 at 00:00 Morphine Sulfate (morphine) 2 mg Q4H PRN IV PAIN LEVEL 7-10; Start 04/15/16 at 00:00 Heparin Sodium (Porcine) (Heparin (5000 Units/0.5 ml)) 5,000 unit Q8 SC Last administered on 04/19/16at 06:32; Admin Dose 5,000 UNIT; Start 04/15/16 at 06: 00 Famotidine 20 mg 20 mg DAILY IV Last administered on 04/19/16 09:42; Admin Dose 20 MG; Start 04/15/16 at 09:00 Piperacillin Sod/ Tazobactam Sod (Zosyn 2.25gm/ 50ml (Pmx)) 50 ml @ 200 mls/hr Q8 IVPB Last administered on 04/19/16 15:19; Admin Dose 200 MLS/HR; Start at 06:00 Amiodarone HCl (Cordarone) 200 mg DAILY GTB Last administered on 04/19/16 09: 41; Admin Dose 200 MG; Start 04/17/16 at 09:00 Cinacalcet (Sensipar) 60 mg DAILY GTB Last administered on 04/19/16 09:42; Admin Dose 60 MG; Start 04/17/16 at 09:00 Clonazepam (Klonopin) 0.5 mg Q12 GTB Last administered on 04/19/16 09:42; Admin Dose 0.5 MG; Start 04/16/16 at 21:00 Docusate Sodium (Colace Liquid Cup) 100 mg BID GTB Last administered on 09:45; Admin Dose 100 MG; Start 04/16/16 at 21:00 Levetiracetam (Keppra Liquid) 1,000 mg DAILY GTB Last administered on 09:41; Admin Dose 1,000 MG; Start 04/17/16 at 09:00 Metoclopramide HCl (Reglan Liq) 10 mg Q8 GTB Last administered on 04/19/16 15 :19; Admin Dose 10 MG; Start 04/16/16 at 22:00 Midodrine (Proamatine) 5 mg Q8 GTB Last administered on 04/19/16 15:19; Admin Dose 5 MG; Start 04/16/16 at 22:00 Multivit/Ca Carb/ B Cmplx/FA/Prenat 1 tab 1 tab DAILY GTB Last administered on 04/19/16 09:42; Admin Dose 1 TAB; Start 04/17/16 at 09:00 Dextrose/Sodium Chloride (D5-1/2ns) 1,000 ml @ 40 mls/hr Q24H IV Last administered on 04/18/16 17:58; Admin Dose 40 MLS/HR; Start 04/16/16 at 16:00 CHUYITA PASTOR MD Apr 19, 2016 15:40
[2016-04-19] MEDS: DEXTROSE 5%-0.45% NACL 1,000 ML IV SCH (17:34)
[2016-04-20] VITALS (33 sets, daily range): BP systolic 95–144; BP diastolic 50–102; PULSE 60–85; RESP 14–23
[2016-04-20 05:18] LABS: CREATININE 8.79 mg/dl (0.61-1.24)
[2016-04-20 05:19] LABS: CALCIUM 10.1 mg/dl (8.4-10.2)
[2016-04-20] MEDS: MIDODRINE 5 MG TAB GTB SCH ×3 (05:27→23:01)
[2016-04-20] MEDS: PIPER-TAZO 2.25 GM (PMX) 50 ML IVPB SCH ×3 (05:27→23:01)
[2016-04-20] MEDS: METOCLOPRAMIDE (1 MG/ML) 10 ML CUP GTB SCH ×3 (05:27→23:01)
[2016-04-20] MEDS: SEVELAMER CARBONATE 0.8 GM PKT GTB SCH ×3 (05:27→18:32)
[2016-04-20] MEDS: HEPARIN 5,000 UNIT/0.5 ML SYG SC SCH ×3 (05:31→23:06)
[2016-04-20] MEDS: DOCUSATE SODIUM 10 MG/ML (10ML CUP) GTB SCH ×2 (09:00→21:00)
[2016-04-20 10:25] LABS: BASOPHILS % 0.5 % (0.0-2.0); EOSINOPHILS # 0.2 10^3/ul (0.0-0.5); EOSINOPHILS % 3.3 % (0.0-7.0); HEMATOCRIT 28.3 % (42.0-52.0); HEMOGLOBIN 9.4 g/dl (14.0-18.0); LYMPHOCYTES # 1.2 10^3/ul (0.8-2.9); LYMPHOCYTES % 22.9 % (15.0-51.0); MEAN CORPUSCULAR HEMOGLOBIN 33.4 pg (29.0-33.0); MEAN CORPUSCULAR HGB CONC 33.4 g/dl (32.0-37.0); MEAN CORPUSCULAR VOLUME 100.1 fl (82.0-101.0); MEAN PLATELET VOLUME 7.7 fl (7.4-10.4); MONOCYTE # 0.5 10^3/ul (0.3-0.9); MONOCYTES % 10.2 % (0.0-11.0); NEUTROPHIL # 3.3 10^3/ul (1.6-7.5); NEUTROPHILS % 63.1 % (39.0-77.0); PLATELET COUNT 149 10^3/UL (140-440); RED BLOOD COUNT 2.82 10^6/ul (4.70-6.10); RED CELL DISTRIBUTION WIDTH 16.2 % (11.5-14.5); UNCORRECTED WBC 5.2 10^3/ul (4.8-10.8); WHITE BLOOD COUNT 5.2 10^3/ul (4.8-10.8)
[2016-04-20 10:27] LABS: CONDITION 1; LH ANALYZER COMMENTS 1
[2016-04-20] MEDS: AMIODARONE 200 MG TAB GTB SCH (10:50)
[2016-04-20] MEDS: LEVETIRACETAM (100 MG/ML) 5ML CUP GTB SCH (10:51)
[2016-04-20] MEDS: MULTIVIT/CA CARB/B CMPLX/FA TAB GTB SCH (10:52)
[2016-04-20] MEDS: CINACALCET 30 MG TAB GTB SCH (10:52)
[2016-04-20] MEDS: FAMOTIDINE 20 MG INJ IV SCH (10:57)
[2016-04-20] MEDS: clonAZEPAM 0.5 MG TAB GTB SCH ×2 (10:57→21:06)
--- NOTE | 2016-04-20 14:08 | PN ---
Date/Time of Note Date/Time of Note DATE: 04/20/16 TIME: 14:07 Assessment/Plan VTE Prophylaxis VTE Prophylaxis Intervention: other Lines/Catheters IV Catheter Type (from Nrs): Saline Lock Reason Cath still needed: skin wounds contaminated by urine Assessment/Plan Chief Complaint/Hosp Course 1) pnuemonia - intravenous antibiotics 2) respiratory failure - consult pulmonary - continue vent support 3) renal failure - consult nephrology for continued hemodialysis 4) hypertension - monitor blood pressure and continue medications Problems: Subjective 24 Hr Interval Summary Free Text/Dictation Patient is comfortable, trach in place Exam/Review of Systems Vital Signs Vitals Vital Signs Date Time Temp Pulse Resp B/P Pulse Ox O2 Delivery O2 Flow Rate FiO2 04/20/16 13:15 72 18 100 30 04/20/16 06:30 119/92 Mechanical Ventilator 04/20/16 04:00 98.4 Intake and Output 04/19/16 04/19/16 04/20/16 15:00 23:00 07:00 Intake Total 35 ml 425 ml 210 ml Output Total 0 ml 0 ml Balance 35 ml 425 ml 210 ml Exam Constitutional: well developed Neck: supple Respiratory: diminished breath sounds Cardiovascular: regular rate and rhythm Gastrointestinal: non-tender, soft Extremities: normal pulses Results Result Diagram: 04/20/16 0415 04/20/16 0419 Results 24 hrs Laboratory Tests Test 04/20/16 04:15 04/20/16 04:19 Basophils # 0.0 Basophils % 0.5 Blood Morphology Comment Eosinophils # 0.2 Eosinophils % 3.3 Hematocrit 28.3 L Hemoglobin 9.4 L Lymphocytes # 1.2 Lymphocytes % 22.9 Mean Corpuscular Hemoglobin 33.4 H Mean Corpuscular Hemoglobin Concent 33.4 Mean Corpuscular Volume 100.1 Mean Platelet Volume 7.7 Monocytes # 0.5 Monocytes % 10.2 Neutrophils # 3.3 Neutrophils % 63.1 Nucleated Red Blood Cells # 0.0 Nucleated Red Blood Cells % 0.0 Platelet Count 149 Red Blood Count 2.82 L Red Cell Distribution Width 16.2 H White Blood Count 5.2 Anion Gap 27 H Blood Urea Nitrogen 56 H Calcium Level 10.1 Carbon Dioxide Level 21 Chloride Level 102 Creatinine 8.79 H Glucose Level 91 Potassium Level 4.0 Sodium Level 146 H Medications Medications Current Medications Ondansetron HCl (Zofran Inj) 4 mg Q6H PRN IV NAUSEA AND/OR VOMITING; Start at 00:00 Acetaminophen (Tylenol Tab) 650 mg Q6H PRN PO PAIN LEVEL 1-3 OR FEVER; Start 04/15/16 at 00:00 Morphine Sulfate (morphine) 2 mg Q4H PRN IV PAIN LEVEL 7-10 Last administered on 04/19/16 21:04; Admin Dose 2 MG; Start 04/15/16 at 00:00 Heparin Sodium (Porcine) (Heparin (5000 Units/0.5 ml)) 5,000 unit Q8 SC Last administered on 04/20/16 05:31; Admin Dose 5,000 UNIT; Start 04/15/16 at 06: 00 Famotidine 20 mg 20 mg DAILY IV Last administered on 04/20/16 10:57; Admin Dose 20 MG; Start 04/15/16 at 09:00 Piperacillin Sod/ Tazobactam Sod (Zosyn 2.25gm/ 50ml (Pmx)) 50 ml @ 200 mls/hr Q8 IVPB Last administered on 04/20/16 05:27; Admin Dose 200 MLS/HR; Start at 06:00 Amiodarone HCl (Cordarone) 200 mg DAILY GTB Last administered on 04/20/16 10: 50; Admin Dose 200 MG; Start 04/17/16 at 09:00 Cinacalcet (Sensipar) 60 mg DAILY GTB Last administered on 04/20/16 10:52; Admin Dose 60 MG; Start 04/17/16 at 09:00 Clonazepam (Klonopin) 0.5 mg Q12 GTB Last administered on 04/20/16 10:57; Admin Dose 0.5 MG; Start 04/16/16 at 21:00 Docusate Sodium (Colace Liquid Cup) 100 mg BID GTB Last administered on 21:03; Admin Dose 100 MG; Start 04/16/16 at 21:00 Levetiracetam (Keppra Liquid) 1,000 mg DAILY GTB Last administered on 10:51; Admin Dose 1,000 MG; Start 04/17/16 at 09:00 Metoclopramide HCl (Reglan Liq) 10 mg Q8 GTB Last administered on 04/20/16 05 :27; Admin Dose 10 MG; Start 04/16/16 at 22:00 Midodrine (Proamatine) 5 mg Q8 GTB Last administered on 04/20/16at 05:27; Admin Dose 5 MG; Start 04/16/16 at 22:00 Multivit/Ca Carb/ B Cmplx/FA/Prenat 1 tab 1 tab DAILY GTB Last administered on 04/20/16at 10:52; Admin Dose 1 TAB; Start 04/17/16 at 09:00 Dextrose/Sodium Chloride (D5-1/2ns) 1,000 ml @ 40 mls/hr Q24H IV Last administered on 04/19/16 17:34; Admin Dose 40 MLS/HR; Start 04/16/16 at 16:00 MARTHA SOSA Apr 20, 2016 14:08
[2016-04-20] MEDS: DEXTROSE 5%-0.45% NACL 1,000 ML IV SCH ×2 (18:32→22:50)
--- NOTE | 2016-04-20 18:38 | CONS ---
Date/Time of Note Date/Time of Note DATE: 04/20/16 TIME: 18:37 Assessment/Plan Assessment/Plan Chief Complaint/Hosp Course IMPRESSION: This is a 55-year-old male with: 1. s/p hyperkalemia 2. Sepsis, possibly secondary to pneumonia. 3. End-stage renal disease on Saturday, , Saturday dialysis schedule. 4. Chronic encephalopathy, status post tracheostomy. 5. Vent dependent respiratory failure. 6. PEG tube placement for nutrition and dysphagia. 7. group homenursing admin. 8 hypercalcemia hx plan hd Problems: Consultation Date/Type/Reason Admit Date/Time Apr 14, 2016 at 21:52 Type of Consultation: renal 24 HR Interval Summary Subjective hx not possible: pt non-verbal Exam/Review of Systems Vital Signs Vitals Vital Signs Date Time Temp Pulse Resp B/P Pulse Ox O2 Delivery O2 Flow Rate FiO2 04/20/16 17:10 65 16 100 30 04/20/16 06:30 119/92 Mechanical Ventilator 04/20/16 04:00 98.4 Intake and Output 04/19/16 04/19/16 04/20/16 15:00 23:00 07:00 Intake Total 35 ml 425 ml 210 ml Output Total 0 ml 0 ml Balance 35 ml 425 ml 210 ml Exam Neck: supple Respiratory: clear to auscultation Cardiovascular: regular rate and rhythm Gastrointestinal: soft Extremities: edema (+) Results Result Diagram: 04/20/16 0415 04/20/16 0419 Results 24 hrs Laboratory Tests Test 04/20/16 04:15 04/20/16 04:19 Basophils # 0.0 Basophils % 0.5 Blood Morphology Comment Eosinophils # 0.2 Eosinophils % 3.3 Hematocrit 28.3 L Hemoglobin 9.4 L Lymphocytes # 1.2 Lymphocytes % 22.9 Mean Corpuscular Hemoglobin 33.4 H Mean Corpuscular Hemoglobin Concent 33.4 Mean Corpuscular Volume 100.1 Mean Platelet Volume 7.7 Monocytes # 0.5 Monocytes % 10.2 Neutrophils # 3.3 Neutrophils % 63.1 Nucleated Red Blood Cells # 0.0 Nucleated Red Blood Cells % 0.0 Platelet Count 149 Red Blood Count 2.82 L Red Cell Distribution Width 16.2 H White Blood Count 5.2 Anion Gap 27 H Blood Urea Nitrogen 56 H Calcium Level 10.1 Carbon Dioxide Level 21 Chloride Level 102 Creatinine 8.79 H Glucose Level 91 Potassium Level 4.0 Sodium Level 146 H Medications Medications Current Medications Ondansetron HCl (Zofran Inj) 4 mg Q6H PRN IV NAUSEA AND/OR VOMITING; Start at 00:00 Acetaminophen (Tylenol Tab) 650 mg Q6H PRN PO PAIN LEVEL 1-3 OR FEVER; Start 04/15/16 at 00:00 Morphine Sulfate (morphine) 2 mg Q4H PRN IV PAIN LEVEL 7-10 Last administered on 04/19/16 21:04; Admin Dose 2 MG; Start 04/15/16 at 00:00 Heparin Sodium (Porcine) (Heparin (5000 Units/0.5 ml)) 5,000 unit Q8 SC Last administered on 04/20/16 05:31; Admin Dose 5,000 UNIT; Start 04/15/16 at 06: 00 Famotidine 20 mg 20 mg DAILY IV Last administered on 04/20/16 10:57; Admin Dose 20 MG; Start 04/15/16 at 09:00 Piperacillin Sod/ Tazobactam Sod (Zosyn 2.25gm/ 50ml (Pmx)) 50 ml @ 200 mls/hr Q8 IVPB Last administered on 04/20/16 05:27; Admin Dose 200 MLS/HR; Start at 06:00 Amiodarone HCl (Cordarone) 200 mg DAILY GTB Last administered on 04/20/16 10: 50; Admin Dose 200 MG; Start 04/17/16 at 09:00 Cinacalcet (Sensipar) 60 mg DAILY GTB Last administered on 04/20/16 10:52; Admin Dose 60 MG; Start 04/17/16 at 09:00 Clonazepam (Klonopin) 0.5 mg Q12 GTB Last administered on 04/20/16 10:57; Admin Dose 0.5 MG; Start 04/16/16 at 21:00 Docusate Sodium (Colace Liquid Cup) 100 mg BID GTB Last administered on 21:03; Admin Dose 100 MG; Start 04/16/16 at 21:00 Levetiracetam (Keppra Liquid) 1,000 mg DAILY GTB Last administered on 10:51; Admin Dose 1,000 MG; Start 04/17/16 at 09:00 Metoclopramide HCl (Reglan Liq) 10 mg Q8 GTB Last administered on 04/20/16at 05 :27; Admin Dose 10 MG; Start 04/16/16 at 22:00 Midodrine (Proamatine) 5 mg Q8 GTB Last administered on 04/20/16at 05:27; Admin Dose 5 MG; Start 04/16/16 at 22:00 Multivit/Ca Carb/ B Cmplx/FA/Prenat 1 tab 1 tab DAILY GTB Last administered on 04/20/16at 10:52; Admin Dose 1 TAB; Start 04/17/16 at 09:00 Dextrose/Sodium Chloride (D5-1/2ns) 1,000 ml @ 40 mls/hr Q24H IV Last administered on 04/19/16at 17:34; Admin Dose 40 MLS/HR; Start 04/16/16 at 16:00 CHUYITA PASTOR MD Apr 20, 2016 18:38
[2016-04-21] VITALS (34 sets, daily range): BP systolic 86–130; BP diastolic 52–91; PULSE 64–101; RESP 16–20
[2016-04-21] MEDS ORDERED: VITAMIN A & D 5 GM OINT PACKET TOP ONE (00:30)
[2016-04-21] MEDS: METOCLOPRAMIDE (1 MG/ML) 10 ML CUP GTB SCH ×3 (05:54→21:54)
[2016-04-21] MEDS: MIDODRINE 5 MG TAB GTB SCH ×3 (05:57→21:54)
[2016-04-21] MEDS: PIPER-TAZO 2.25 GM (PMX) 50 ML IVPB SCH ×3 (05:57→21:54)
[2016-04-21] MEDS: HEPARIN 5,000 UNIT/0.5 ML SYG SC SCH ×3 (06:08→21:55)
--- NOTE | 2016-04-21 10:03 | PN ---
Date/Time of Note Date/Time of Note DATE: 04/21/16 TIME: 10:02 Assessment/Plan VTE Prophylaxis VTE Prophylaxis Intervention: LMWH Lines/Catheters IV Catheter Type (from Nrsg): Peripheral IV Assessment/Plan Chief Complaint/Hosp Course 1) pnuemonia - intravenous antibiotics 2) respiratory failure - consult pulmonary - continue vent support 3) renal failure - consult nephrology for continued hemodialysis 4) hypertension - monitor blood pressure and continue medications Problems: Subjective 24 Hr Interval Summary Free Text/Dictation Patient awake, trach in place, receiving hemodialysis Exam/Review of Systems Vital Signs Vitals Vital Signs Date Time Temp Pulse Resp B/P Pulse Ox O2 Delivery O2 Flow Rate FiO2 04/21/16 09:45 90 04/21/16 08:20 97.5 20 129/87 99 04/21/16 07:15 30 04/20/16 21:00 Mechanical Ventilator Trach Collar Intake and Output 04/20/16 04/20/16 04/21/16 15:00 23:00 07:00 Intake Total 265 ml 645 ml Output Total 0 ml 0 ml Balance 265 ml 645 ml Exam Constitutional: well developed Head: atraumatic, normocephalic Respiratory: diminished breath sounds Cardiovascular: regular rate and rhythm Gastrointestinal: non-tender, soft Extremities: normal pulses Results Result Diagram: 04/20/16 0415 04/20/16 0419 Medications Medications Current Medications Ondansetron HCl (Zofran Inj) 4 mg Q6H PRN IV NAUSEA AND/OR VOMITING; Start at 00:00 Acetaminophen (Tylenol Tab) 650 mg Q6H PRN PO PAIN LEVEL 1-3 OR FEVER; Start 04/15/16 at 00:00 Morphine Sulfate (morphine) 2 mg Q4H PRN IV PAIN LEVEL 7-10 Last administered on 04/19/16at 21:04; Admin Dose 2 MG; Start 04/15/16 at 00:00 Heparin Sodium (Porcine) (Heparin (5000 Units/0.5 ml)) 5,000 unit Q8 SC Last administered on 04/21/16at 06:08; Admin Dose 5,000 UNIT; Start 04/15/16 at 06: 00 Famotidine 20 mg 20 mg DAILY IV Last administered on 04/20/16at 10:57; Admin Dose 20 MG; Start 04/15/16 at 09:00 Piperacillin Sod/ Tazobactam Sod (Zosyn 2.25gm/ 50ml (Pmx)) 50 ml @ 200 mls/hr Q8 IVPB Last administered on 04/21/16 05:57; Admin Dose 200 MLS/HR; Start at 06:00 Amiodarone HCl (Cordarone) 200 mg DAILY GTB Last administered on 04/20/16 10: 50; Admin Dose 200 MG; Start 04/17/16 at 09:00 Cinacalcet (Sensipar) 60 mg DAILY GTB Last administered on 04/20/16 10:52; Admin Dose 60 MG; Start 04/17/16 at 09:00 Clonazepam (Klonopin) 0.5 mg Q12 GTB Last administered on 04/20/16 21:06; Admin Dose 0.5 MG; Start 04/16/16 at 21:00 Docusate Sodium (Colace Liquid Cup) 100 mg BID GTB Last administered on 21:03; Admin Dose 100 MG; Start 04/16/16 at 21:00 Levetiracetam (Keppra Liquid) 1,000 mg DAILY GTB Last administered on 10:51; Admin Dose 1,000 MG; Start 04/17/16 at 09:00 Metoclopramide HCl (Reglan Liq) 10 mg Q8 GTB Last administered on 04/21/16 05 :54; Admin Dose 10 MG; Start 04/16/16 at 22:00 Midodrine (Proamatine) 5 mg Q8 GTB Last administered on 04/21/16 05:57; Admin Dose 5 MG; Start 04/16/16 at 22:00 Multivit/Ca Carb/ B Cmplx/FA/Prenat 1 tab 1 tab DAILY GTB Last administered on 04/20/16 10:52; Admin Dose 1 TAB; Start 04/17/16 at 09:00 Dextrose/Sodium Chloride (D5-1/2ns) 1,000 ml @ 40 mls/hr Q24H IV Last administered on 04/20/16 22:50; Admin Dose 40 MLS/HR; Start 04/16/16 at 16:00 MARTHA SOSA Apr 21, 2016 10:03
[2016-04-21] MEDS: MULTIVIT/CA CARB/B CMPLX/FA TAB GTB SCH (11:07)
[2016-04-21] MEDS: CINACALCET 30 MG TAB GTB SCH (11:07)
[2016-04-21] MEDS: FAMOTIDINE 20 MG INJ IV SCH (11:07)
[2016-04-21] MEDS: SEVELAMER CARBONATE 0.8 GM PKT GTB SCH ×3 (11:07→18:30)
[2016-04-21] MEDS: LEVETIRACETAM (100 MG/ML) 5ML CUP GTB SCH (11:07)
[2016-04-21] MEDS: AMIODARONE 200 MG TAB GTB SCH (11:07)
[2016-04-21] MEDS: DOCUSATE SODIUM 10 MG/ML (10ML CUP) GTB SCH ×2 (11:09→21:54)
[2016-04-21] MEDS: clonAZEPAM 0.5 MG TAB GTB SCH ×2 (11:09→21:54)
--- NOTE | 2016-04-21 15:32 | CONS ---
Date/Time of Note Date/Time of Note DATE: 04/21/16 TIME: 15:31 Assessment/Plan Assessment/Plan Chief Complaint/Hosp Course IMPRESSION: This is a 55-year-old male with: 1. s/p hyperkalemia 2. Sepsis, possibly secondary to pneumonia. 3. End-stage renal disease on Saturday, , Saturday dialysis schedule. 4. Chronic encephalopathy, status post tracheostomy. 5. Vent dependent respiratory failure. 6. PEG tube placement for nutrition and dysphagia. 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 8 hypercalcemia hx plan hd per pcp team Problems: Consultation Date/Type/Reason Admit Date/Time Apr 14, 2016 at 21:52 Type of Consultation: renal 24 HR Interval Summary Subjective hx not possible: pt non-verbal Exam/Review of Systems Vital Signs Vitals Vital Signs Date Time Temp Pulse Resp B/P Pulse Ox O2 Delivery O2 Flow Rate FiO2 04/21/16 13:00 72 16 100 30 04/21/16 12:33 97.0 130/79 04/20/16 21:00 Mechanical Ventilator Trach Collar Intake and Output 04/20/16 04/20/16 04/21/16 15:00 23:00 07:00 Intake Total 265 ml 645 ml Output Total 0 ml 0 ml Balance 265 ml 645 ml Exam Neck: supple Respiratory: diminished breath sounds Cardiovascular: regular rate and rhythm Gastrointestinal: bowel sounds (+), soft Extremities: edema (+) Results Result Diagram: 04/20/16 0415 04/20/16 0419 Medications Medications Current Medications Ondansetron HCl (Zofran Inj) 4 mg Q6H PRN IV NAUSEA AND/OR VOMITING; Start at 00:00 Acetaminophen (Tylenol Tab) 650 mg Q6H PRN PO PAIN LEVEL 1-3 OR FEVER; Start 04/15/16 at 00:00 Morphine Sulfate (morphine) 2 mg Q4H PRN IV PAIN LEVEL 7-10 Last administered on 04/19/16at 21:04; Admin Dose 2 MG; Start 04/15/16 at 00:00 Heparin Sodium (Porcine) (Heparin (5000 Units/0.5 ml)) 5,000 unit Q8 SC Last administered on 04/21/16at 14:34; Admin Dose 5,000 UNIT; Start 04/15/16 at 06: 00 Famotidine 20 mg 20 mg DAILY IV Last administered on 04/21/16 11:07; Admin Dose 20 MG; Start 04/15/16 at 09:00 Piperacillin Sod/ Tazobactam Sod (Zosyn 2.25gm/ 50ml (Pmx)) 50 ml @ 200 mls/hr Q8 IVPB Last administered on 04/21/16 14:33; Admin Dose 200 MLS/HR; Start at 06:00 Amiodarone HCl (Cordarone) 200 mg DAILY GTB Last administered on 04/21/16 11: 07; Admin Dose 200 MG; Start 04/17/16 at 09:00 Cinacalcet (Sensipar) 60 mg DAILY GTB Last administered on 04/21/16 11:07; Admin Dose 60 MG; Start 04/17/16 at 09:00 Clonazepam (Klonopin) 0.5 mg Q12 GTB Last administered on 04/21/16 11:09; Admin Dose 0.5 MG; Start 04/16/16 at 21:00 Docusate Sodium (Colace Liquid Cup) 100 mg BID GTB Last administered on 11:09; Admin Dose 100 MG; Start 04/16/16 at 21:00 Levetiracetam (Keppra Liquid) 1,000 mg DAILY GTB Last administered on 11:07; Admin Dose 1,000 MG; Start 04/17/16 at 09:00 Metoclopramide HCl (Reglan Liq) 10 mg Q8 GTB Last administered on 04/21/16 14 :33; Admin Dose 10 MG; Start 04/16/16 at 22:00 Midodrine (Proamatine) 5 mg Q8 GTB Last administered on 04/21/16 14:33; Admin Dose 5 MG; Start 04/16/16 at 22:00 Multivit/Ca Carb/ B Cmplx/FA/Prenat 1 tab 1 tab DAILY GTB Last administered on 04/21/16 11:07; Admin Dose 1 TAB; Start 04/17/16 at 09:00 Dextrose/Sodium Chloride (D5-1/2ns) 1,000 ml @ 40 mls/hr Q24H IV Last administered on 04/20/16 22:50; Admin Dose 40 MLS/HR; Start 04/16/16 at 16:00 CHUYITA PASTOR MD Apr 21, 2016 15:32
[2016-04-21] MEDS: DEXTROSE 5%-0.45% NACL 1,000 ML IV SCH (18:35)
[2016-04-22] VITALS (25 sets, daily range): BP systolic 108–137; BP diastolic 55–87; PULSE 63–69; RESP 15–22
[2016-04-22] MEDS: PIPER-TAZO 2.25 GM (PMX) 50 ML IVPB SCH ×3 (05:24→20:44)
[2016-04-22] MEDS: METOCLOPRAMIDE (1 MG/ML) 10 ML CUP GTB SCH ×3 (05:24→20:43)
[2016-04-22] MEDS: MIDODRINE 5 MG TAB GTB SCH ×3 (05:25→20:44)
[2016-04-22] MEDS: HEPARIN 5,000 UNIT/0.5 ML SYG SC SCH ×3 (05:25→20:45)
[2016-04-22] MEDS: DEXTROSE 5%-0.45% NACL 1,000 ML IV SCH ×2 (06:21→16:00)
[2016-04-22 06:52] LABS: BASOPHILS % 0.4 % (0.0-2.0); EOSINOPHILS # 0.2 10^3/ul (0.0-0.5); EOSINOPHILS % 2.9 % (0.0-7.0); HEMATOCRIT 25.8 % (42.0-52.0); HEMOGLOBIN 8.8 g/dl (14.0-18.0); LYMPHOCYTES # 1.2 10^3/ul (0.8-2.9); MEAN CORPUSCULAR HEMOGLOBIN 33.8 pg (29.0-33.0); MEAN CORPUSCULAR HGB CONC 34.2 g/dl (32.0-37.0); MEAN CORPUSCULAR VOLUME 98.9 fl (82.0-101.0); MEAN PLATELET VOLUME 7.4 fl (7.4-10.4); MONOCYTE # 0.4 10^3/ul (0.3-0.9); MONOCYTES % 6.9 % (0.0-11.0); NEUTROPHIL # 3.6 10^3/ul (1.6-7.5); NEUTROPHILS % 67.8 % (39.0-77.0); PLATELET COUNT 157 10^3/UL (140-440); RED BLOOD COUNT 2.61 10^6/ul (4.70-6.10); UNCORRECTED WBC 5.3 10^3/ul (4.8-10.8); WHITE BLOOD COUNT 5.3 10^3/ul (4.8-10.8)
[2016-04-22 07:08] LABS: POTASSIUM 3.9 mmol/L (3.5-5.1)
[2016-04-22 07:09] LABS: CONDITION 1; LH ANALYZER COMMENTS 1
[2016-04-22 07:10] LABS: CREATININE 7.44 mg/dl (0.61-1.24)
[2016-04-22 07:11] LABS: CALCIUM 9.3 mg/dl (8.4-10.2)
[2016-04-22] MEDS: DOCUSATE SODIUM 10 MG/ML (10ML CUP) GTB SCH ×2 (10:33→20:44)
[2016-04-22] MEDS: LEVETIRACETAM (100 MG/ML) 5ML CUP GTB SCH (10:34)
[2016-04-22] MEDS: MULTIVIT/CA CARB/B CMPLX/FA TAB GTB SCH (10:34)
[2016-04-22] MEDS: FAMOTIDINE 20 MG INJ IV SCH (10:35)
[2016-04-22] MEDS: clonAZEPAM 0.5 MG TAB GTB SCH ×2 (10:40→20:46)
[2016-04-22] MEDS: CINACALCET 30 MG TAB GTB SCH (10:41)
[2016-04-22] MEDS: SEVELAMER CARBONATE 0.8 GM PKT GTB SCH ×3 (10:41→18:25)
[2016-04-22] MEDS: AMIODARONE 200 MG TAB GTB SCH (10:44)
--- NOTE | 2016-04-22 12:22 | PN ---
Date/Time of Note Date/Time of Note DATE: 04/22/16 TIME: 12:21 Assessment/Plan VTE Prophylaxis VTE Prophylaxis Intervention: LMWH Lines/Catheters IV C[facility] Type (from [facility] Peripheral IV Urinary Cath still in place: No Assessment/Plan Chief Complaint/Hosp Course 1) pnuemonia - intravenous antibiotics 2) respiratory failure - consult pulmonary - continue vent support 3) renal failure - consult nephrology for continued hemodialysis 4) hypertension - monitor blood pressure and continue medications Problems: Subjective 24 Hr Interval Summary Free Text/Dictation Patient is doing well, still on trach. Exam/Review of Systems Vital Signs Vitals Vital Signs Date Time Temp Pulse Resp B/P Pulse Ox O2 Delivery O2 Flow Rate FiO2 04/22/16 11:11 97.5 65 16 108/68 100 04/22/16 05:31 30 04/20/16 21:00 Mechanical Ventilator Trach Collar Intake and Output 04/21/16 04/21/16 04/22/16 15:00 23:00 07:00 Intake Total 500 ml 50 ml 1105 ml Output Total 2000 ml 0 ml Balance -1500 ml 50 ml 1105 ml Exam Constitutional: well developed Head: atraumatic, normocephalic Neck: supple Respiratory: clear to auscultation Cardiovascular: regular rate and rhythm Gastrointestinal: non-tender, soft Extremities: normal pulses Results Result Diagram: 04/22/16 0555 04/22/16 0555 Results 24 hrs Laboratory Tests Test 04/22/16 05:55 Anion Gap 23 H Basophils # 0.0 Basophils % 0.4 Blood Morphology Comment Blood Urea Nitrogen 45 H Calcium Level 9.3 Carbon Dioxide Level 22 Chloride Level 98 Creatinine 7.44 H Eosinophils # 0.2 Eosinophils % 2.9 Glucose Level 92 Hematocrit 25.8 L Hemoglobin 8.8 L Lymphocytes # 1.2 Lymphocytes % 22.0 Mean Corpuscular Hemoglobin 33.8 H Mean Corpuscular Hemoglobin Concent 34.2 Mean Corpuscular Volume 98.9 Mean Platelet Volume 7.4 Monocytes # 0.4 Monocytes % 6.9 Neutrophils # 3.6 Neutrophils % 67.8 Nucleated Red Blood Cells # 0.0 Nucleated Red Blood Cells % 0.0 Platelet Count 157 Potassium Level 3.9 Red Blood Count 2.61 L Red Cell Distribution Width 16.0 H Sodium Level 139 White Blood Count 5.3 Medications Medications Current Medications Ondansetron HCl (Zofran Inj) 4 mg Q6H PRN IV NAUSEA AND/OR VOMITING; Start at 00:00 Acetaminophen (Tylenol Tab) 650 mg Q6H PRN PO PAIN LEVEL 1-3 OR FEVER; Start 04/15/16 at 00:00 Morphine Sulfate (morphine) 2 mg Q4H PRN IV PAIN LEVEL 7-10 Last administered on 04/19/16at 21:04; Admin Dose 2 MG; Start 04/15/16 at 00:00 Heparin Sodium (Porcine) (Heparin (5000 Units/0.5 ml)) 5,000 unit Q8 SC Last administered on 04/22/16 05:25; Admin Dose 5,000 UNIT; Start 04/15/16 at 06:00 Famotidine 20 mg 20 mg DAILY IV Last administered on 04/22/16 10:35; Admin Dose 20 MG; Start 04/15/16 at 09:00 Piperacillin Sod/ Tazobactam Sod (Zosyn 2.25gm/ 50ml (Pmx)) 50 ml @ 200 mls/hr Q8 IVPB Last administered on 04/22/16 05:24; Admin Dose 200 MLS/HR; Start at 06:00 Amiodarone HCl (Cordarone) 200 mg DAILY GTB Last administered on 04/22/16 10:44 ; Admin Dose 200 MG; Start 04/17/16 at 09:00 Cinacalcet (Sensipar) 60 mg DAILY GTB Last administered on 04/22/16 10:41; Admin Dose 60 MG; Start 04/17/16 at 09:00 Clonazepam (Klonopin) 0.5 mg Q12 GTB Last administered on 04/22/16 10:40; Admin Dose 0.5 MG; Start 04/16/16 at 21:00 Docusate Sodium (Colace Liquid Cup) 100 mg BID GTB Last administered on 10:33; Admin Dose 100 MG; Start 04/16/16 at 21:00 Levetiracetam (Keppra Liquid) 1,000 mg DAILY GTB Last administered on 04/22/16 10:34; Admin Dose 1,000 MG; Start 04/17/16 at 09:00 Metoclopramide HCl (Reglan Liq) 10 mg Q8 GTB Last administered on 04/22/16 05: 24; Admin Dose 10 MG; Start 04/16/16 at 22:00 Midodrine (Proamatine) 5 mg Q8 GTB Last administered on 04/22/16 05:25; Admin Dose 5 MG; Start 04/16/16 at 22:00 Multivit/Ca Carb/ B Cmplx/FA/Prenat 1 tab 1 tab DAILY GTB Last administered on 04/22/16 10:34; Admin Dose 1 TAB; Start 04/17/16 at 09:00 Dextrose/Sodium Chloride (D5-1/2ns) 1,000 ml @ 40 mls/hr Q24H IV Last administered on 04/22/16 06:21; Admin Dose 40 MLS/HR; Start 04/16/16 at 16:00 MARTHA SOSA Apr 22, 2016 12:21
--- NOTE | 2016-04-22 15:21 | CONS ---
Date/Time of Note Date/Time of Note DATE: 04/22/16 TIME: 15:20 Assessment/Plan Assessment/Plan Chief Complaint/Hosp Course IMPRESSION: This is a 55-year-old male with: 1. s/p hyperkalemia 2. Sepsis, possibly secondary to pneumonia. 3. End-stage renal disease on Saturday, , Saturday dialysis schedule. 4. Chronic encephalopathy, status post tracheostomy. 5. Vent dependent respiratory failure. 6. PEG tube placement for nutrition and dysphagia. 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 8 hypercalcemia hx plan hd per pcp team Problems: Consultation Date/Type/Reason Admit Date/Time Apr 14, 2016 at 21:52 Type of Consultation: renal 24 HR Interval Summary Subjective hx not possible: pt non-verbal Exam/Review of Systems Vital Signs Vitals Vital Signs Date Time Temp Pulse Resp B/P Pulse Ox O2 Delivery O2 Flow Rate FiO2 04/22/16 13:02 63 04/22/16 12:19 19 99 30 04/22/16 11:11 97.5 108/68 04/20/16 21:00 Mechanical Ventilator Trach Collar Intake and Output 04/21/16 04/21/16 04/22/16 15:00 23:00 07:00 Intake Total 500 ml 50 ml 1105 ml Output Total 2000 ml 0 ml Balance -1500 ml 50 ml 1105 ml Exam ENMT: nl external ears & nose Neck: supple Respiratory: clear to auscultation Cardiovascular: regular rate and rhythm Gastrointestinal: soft Extremities: edema (better) Results Result Diagram: 04/22/16 0555 04/22/16 0555 Results 24 hrs Laboratory Tests Test 04/22/16 05:55 Anion Gap 23 H Basophils # 0.0 Basophils % 0.4 Blood Morphology Comment Blood Urea Nitrogen 45 H Calcium Level 9.3 Carbon Dioxide Level 22 Chloride Level 98 Creatinine 7.44 H Eosinophils # 0.2 Eosinophils % 2.9 Glucose Level 92 Hematocrit 25.8 L Hemoglobin 8.8 L Lymphocytes # 1.2 Lymphocytes % 22.0 Mean Corpuscular Hemoglobin 33.8 H Mean Corpuscular Hemoglobin Concent 34.2 Mean Corpuscular Volume 98.9 Mean Platelet Volume 7.4 Monocytes # 0.4 Monocytes % 6.9 Neutrophils # 3.6 Neutrophils % 67.8 Nucleated Red Blood Cells # 0.0 Nucleated Red Blood Cells % 0.0 Platelet Count 157 Potassium Level 3.9 Red Blood Count 2.61 L Red Cell Distribution Width 16.0 H Sodium Level 139 White Blood Count 5.3 Medications Medications Current Medications Ondansetron HCl (Zofran Inj) 4 mg Q6H PRN IV NAUSEA AND/OR VOMITING; Start at 00:00 Acetaminophen (Tylenol Tab) 650 mg Q6H PRN PO PAIN LEVEL 1-3 OR FEVER; Start 04/15/16 at 00:00 Morphine Sulfate (morphine) 2 mg Q4H PRN IV PAIN LEVEL 7-10 Last administered on 04/19/16at 21:04; Admin Dose 2 MG; Start 04/15/16 at 00:00 Heparin Sodium (Porcine) (Heparin (5000 Units/0.5 ml)) 5,000 unit Q8 SC Last administered on 04/22/16 14:46; Admin Dose 5,000 UNIT; Start 04/15/16 at 06:00 Famotidine 20 mg 20 mg DAILY IV Last administered on 04/22/16 10:35; Admin Dose 20 MG; Start 04/15/16 at 09:00 Piperacillin Sod/ Tazobactam Sod (Zosyn 2.25gm/ 50ml (Pmx)) 50 ml @ 200 mls/hr Q8 IVPB Last administered on 04/22/16 14:33; Admin Dose 200 MLS/HR; Start at 06:00 Amiodarone HCl (Cordarone) 200 mg DAILY GTB Last administered on 04/22/16 10:44 ; Admin Dose 200 MG; Start 04/17/16 at 09:00 Cinacalcet (Sensipar) 60 mg DAILY GTB Last administered on 04/22/16 10:41; Admin Dose 60 MG; Start 04/17/16 at 09:00 Clonazepam (Klonopin) 0.5 mg Q12 GTB Last administered on 04/22/16 10:40; Admin Dose 0.5 MG; Start 04/16/16 at 21:00 Docusate Sodium (Colace Liquid Cup) 100 mg BID GTB Last administered on 10:33; Admin Dose 100 MG; Start 04/16/16 at 21:00 Levetiracetam (Keppra Liquid) 1,000 mg DAILY GTB Last administered on 04/22/16 10:34; Admin Dose 1,000 MG; Start 04/17/16 at 09:00 Metoclopramide HCl (Reglan Liq) 10 mg Q8 GTB Last administered on 04/22/16 14: 34; Admin Dose 10 MG; Start 04/16/16 at 22:00 Midodrine (Proamatine) 5 mg Q8 GTB Last administered on 04/22/16 14:44; Admin Dose 5 MG; Start 04/16/16 at 22:00 Multivit/Ca Carb/ B Cmplx/FA/Prenat 1 tab 1 tab DAILY GTB Last administered on 04/22/16 10:34; Admin Dose 1 TAB; Start 04/17/16 at 09:00 Dextrose/Sodium Chloride (D5-1/2ns) 1,000 ml @ 40 mls/hr Q24H IV Last administered on 04/22/16 06:21; Admin Dose 40 MLS/HR; Start 04/16/16 at 16:00 CHUYITA PASTOR MD Apr 22, 2016 15:21
[2016-04-23] VITALS (30 sets, daily range): BP systolic 90–133; BP diastolic 54–90; PULSE 59–79; RESP 15–20
[2016-04-23] MEDS ORDERED: VITAMIN A & D 5 GM OINT PACKET TOP ONE (00:33)
[2016-04-23] MEDS: PIPER-TAZO 2.25 GM (PMX) 50 ML IVPB SCH ×3 (05:03→21:44)
[2016-04-23] MEDS: MIDODRINE 5 MG TAB GTB SCH ×3 (05:04→21:47)
[2016-04-23] MEDS: METOCLOPRAMIDE (1 MG/ML) 10 ML CUP GTB SCH ×3 (05:04→21:44)
[2016-04-23] MEDS: HEPARIN 5,000 UNIT/0.5 ML SYG SC SCH ×3 (05:05→21:46)
[2016-04-23] MEDS: CINACALCET 30 MG TAB GTB SCH ×2 (09:00→12:13)
[2016-04-23] MEDS: LEVETIRACETAM (100 MG/ML) 5ML CUP GTB SCH (09:19)
[2016-04-23] MEDS: DOCUSATE SODIUM 10 MG/ML (10ML CUP) GTB SCH ×2 (09:19→21:00)
[2016-04-23] MEDS: MULTIVIT/CA CARB/B CMPLX/FA TAB GTB SCH (09:19)
[2016-04-23] MEDS: SEVELAMER CARBONATE 0.8 GM PKT GTB SCH ×3 (09:19→17:10)
[2016-04-23] MEDS: AMIODARONE 200 MG TAB GTB SCH (09:20)
[2016-04-23] MEDS: FAMOTIDINE 20 MG INJ IV SCH (09:20)
[2016-04-23] MEDS: clonAZEPAM 0.5 MG TAB GTB SCH ×2 (09:21→20:25)
[2016-04-23] MEDS: DEXTROSE 5%-0.45% NACL 1,000 ML IV SCH ×2 (12:18→16:00)
--- NOTE | 2016-04-23 13:25 | PN ---
Date/Time of Note Date/Time of Note DATE: 04/23/16 TIME: 13:24 Assessment/Plan VTE Prophylaxis VTE Prophylaxis Intervention: LMWH Lines/Catheters IV Catheter Type (from Nrs): Peripheral IV Urinary Cath still in place: No Assessment/Plan Chief Complaint/Hosp Course 1) pnuemonia - intravenous antibiotics 2) respiratory failure - consult pulmonary - continue vent support 3) renal failure - consult nephrology for continued hemodialysis 4) hypertension - monitor blood pressure and continue medications Problems: Subjective 24 Hr Interval Summary Free Text/Dictation Patient is doing well, trach in place Exam/Review of Systems Vital Signs Vitals Vital Signs Date Time Temp Pulse Resp B/P Pulse Ox O2 Delivery O2 Flow Rate FiO2 04/23/16 12:26 66 04/23/16 11:58 16 99 04/23/16 11:13 98.0 119/73 04/23/16 08:30 30 04/22/16 08:10 Mechanical Ventilator Intake and Output 04/22/16 04/22/16 04/23/16 15:00 23:00 07:00 Intake Total 260 ml 1110 ml Balance 260 ml 1110 ml Exam Constitutional: well developed Neck: supple Respiratory: clear to auscultation Cardiovascular: regular rate and rhythm Gastrointestinal: non-tender, soft Extremities: normal pulses Results Result Diagram: 04/22/16 0555 04/22/16 0555 Results 24 hrs Laboratory Tests Test 04/23/16 11:56 Bedside Glucose 98 Medications Medications Current Medications Ondansetron HCl (Zofran Inj) 4 mg Q6H PRN IV NAUSEA AND/OR VOMITING; Start at 00:00 Acetaminophen (Tylenol Tab) 650 mg Q6H PRN PO PAIN LEVEL 1-3 OR FEVER; Start 04/15/16 at 00:00 Morphine Sulfate (morphine) 2 mg Q4H PRN IV PAIN LEVEL 7-10 Last administered on 04/19/16at 21:04; Admin Dose 2 MG; Start 04/15/16 at 00:00 Heparin Sodium (Porcine) (Heparin (5000 Units/0.5 ml)) 5,000 unit Q8 SC Last administered on 04/23/16 05:05; Admin Dose 5,000 UNIT; Start 04/15/16 at 06:00 Famotidine 20 mg 20 mg DAILY IV Last administered on 04/23/16 09:20; Admin Dose 20 MG; Start 04/15/16 at 09:00 Piperacillin Sod/ Tazobactam Sod (Zosyn 2.25gm/ 50ml (Pmx)) 50 ml @ 200 mls/hr Q8 IVPB Last administered on 04/23/16 05:03; Admin Dose 200 MLS/HR; Start at 06:00 Amiodarone HCl (Cordarone) 200 mg DAILY GTB Last administered on 04/23/16 09:20 ; Admin Dose 200 MG; Start 04/17/16 at 09:00 Cinacalcet (Sensipar) 60 mg DAILY GTB Last administered on 04/23/16 12:13; Admin Dose 60 MG; Start 04/17/16 at 09:00 Clonazepam (Klonopin) 0.5 mg Q12 GTB Last administered on 04/23/16 09:21; Admin Dose 0.5 MG; Start 04/16/16 at 21:00 Docusate Sodium (Colace Liquid Cup) 100 mg BID GTB Last administered on 09:19; Admin Dose 100 MG; Start 04/16/16 at 21:00 Levetiracetam (Keppra Liquid) 1,000 mg DAILY GTB Last administered on 04/23/16 09:19; Admin Dose 1,000 MG; Start 04/17/16 at 09:00 Metoclopramide HCl (Reglan Liq) 10 mg Q8 GTB Last administered on 04/23/16 05: 04; Admin Dose 10 MG; Start 04/16/16 at 22:00 Midodrine (Proamatine) 5 mg Q8 GTB Last administered on 04/23/16 05:04; Admin Dose 5 MG; Start 04/16/16 at 22:00 Multivit/Ca Carb/ B Cmplx/FA/Prenat 1 tab 1 tab DAILY GTB Last administered on 04/23/16 09:19; Admin Dose 1 TAB; Start 04/17/16 at 09:00 Dextrose/Sodium Chloride (D5-1/2ns) 1,000 ml @ 40 mls/hr Q24H IV Last administered on 04/23/16 12:18; Admin Dose 40 MLS/HR; Start 04/16/16 at 16:00 MARTHA SOSA 2, 2017 13:25
--- NOTE | 2016-04-23 13:57 | CONS ---
Date/Time of Note Date/Time of Note DATE: 04/23/16 TIME: 13:57 Assessment/Plan Assessment/Plan Chief Complaint/Hosp Course IMPRESSION: This is a 55-year-old male with: 1. s/p hyperkalemia 2. Sepsis, possibly secondary to pneumonia. 3. End-stage renal disease on Saturday, , Saturday dialysis schedule. 4. Chronic encephalopathy, status post tracheostomy. 5. Vent dependent respiratory failure. 6. PEG tube placement for nutrition and dysphagia. 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 8 hypercalcemia hx plan hd per pcp team Problems: Consultation Date/Type/Reason Admit Date/Time Apr 14, 2016 at 21:52 Type of Consultation: renal 24 HR Interval Summary Subjective hx not possible: pt non-verbal Exam/Review of Systems Vital Signs Vitals Vital Signs Date Time Temp Pulse Resp B/P Pulse Ox O2 Delivery O2 Flow Rate FiO2 04/23/16 13:29 72 16 99 04/23/16 11:13 98.0 119/73 04/23/16 08:30 30 04/22/16 08:10 Mechanical Ventilator Intake and Output 04/22/16 04/22/16 04/23/16 15:00 23:00 07:00 Intake Total 260 ml 1110 ml Balance 260 ml 1110 ml Exam Respiratory: clear to auscultation Cardiovascular: regular rate and rhythm Results Result Diagram: 04/22/16 0555 04/22/16 0555 Results 24 hrs Laboratory Tests Test 04/23/16 11:56 Bedside Glucose 98 Medications Medications Current Medications Ondansetron HCl (Zofran Inj) 4 mg Q6H PRN IV NAUSEA AND/OR VOMITING; Start at 00:00 Acetaminophen (Tylenol Tab) 650 mg Q6H PRN PO PAIN LEVEL 1-3 OR FEVER; Start 04/15/16 at 00:00 Morphine Sulfate (morphine) 2 mg Q4H PRN IV PAIN LEVEL 7-10 Last administered on 04/19/16at 21:04; Admin Dose 2 MG; Start 04/15/16 at 00:00 Heparin Sodium (Porcine) (Heparin (5000 Units/0.5 ml)) 5,000 unit Q8 SC Last administered on 04/23/16t 13:49; Admin Dose 5,000 UNIT; Start 04/15/16 at 06:00 Famotidine 20 mg 20 mg DAILY IV Last administered on 04/23/16 09:20; Admin Dose 20 MG; Start 04/15/16 at 09:00 Piperacillin Sod/ Tazobactam Sod (Zosyn 2.25gm/ 50ml (Pmx)) 50 ml @ 200 mls/hr Q8 IVPB Last administered on 04/23/16 13:37; Admin Dose 200 MLS/HR; Start at 06:00 Amiodarone HCl (Cordarone) 200 mg DAILY GTB Last administered on 04/23/16 09:20 ; Admin Dose 200 MG; Start 04/17/16 at 09:00 Cinacalcet (Sensipar) 60 mg DAILY GTB Last administered on 04/23/16 12:13; Admin Dose 60 MG; Start 04/17/16 at 09:00 Clonazepam (Klonopin) 0.5 mg Q12 GTB Last administered on 04/23/16 09:21; Admin Dose 0.5 MG; Start 04/16/16 at 21:00 Docusate Sodium (Colace Liquid Cup) 100 mg BID GTB Last administered on 09:19; Admin Dose 100 MG; Start 04/16/16 at 21:00 Levetiracetam (Keppra Liquid) 1,000 mg DAILY GTB Last administered on 04/23/16 09:19; Admin Dose 1,000 MG; Start 04/17/16 at 09:00 Metoclopramide HCl (Reglan Liq) 10 mg Q8 GTB Last administered on 04/23/16 13: 37; Admin Dose 10 MG; Start 04/16/16 at 22:00 Midodrine (Proamatine) 5 mg Q8 GTB Last administered on 04/23/16 13:37; Admin Dose 5 MG; Start 04/16/16 at 22:00 Multivit/Ca Carb/ B Cmplx/FA/Prenat 1 tab 1 tab DAILY GTB Last administered on 04/23/16 09:19; Admin Dose 1 TAB; Start 04/17/16 at 09:00 Dextrose/Sodium Chloride (D5-1/2ns) 1,000 ml @ 40 mls/hr Q24H IV Last administered on 04/23/16 12:18; Admin Dose 40 MLS/HR; Start 04/16/16 at 16:00 CHUYITA PASTOR MD Apr 23, 2016 13:57
[2016-04-24] VITALS (23 sets, daily range): BP systolic 103–130; BP diastolic 64–84; PULSE 60–66; RESP 15–20
[2016-04-24] MEDS: HEPARIN 5,000 UNIT/0.5 ML SYG SC SCH ×3 (05:32→21:31)
[2016-04-24] MEDS: MIDODRINE 5 MG TAB GTB SCH ×3 (05:33→21:28)
[2016-04-24] MEDS: METOCLOPRAMIDE (1 MG/ML) 10 ML CUP GTB SCH ×3 (05:33→21:28)
[2016-04-24] MEDS: PIPER-TAZO 2.25 GM (PMX) 50 ML IVPB SCH ×3 (05:33→21:29)
[2016-04-24] MEDS: LEVETIRACETAM (100 MG/ML) 5ML CUP GTB SCH (08:56)
[2016-04-24] MEDS: SEVELAMER CARBONATE 0.8 GM PKT GTB SCH ×3 (08:56→17:38)
[2016-04-24] MEDS: CINACALCET 30 MG TAB GTB SCH (08:56)
[2016-04-24] MEDS: DOCUSATE SODIUM 10 MG/ML (10ML CUP) GTB SCH ×2 (08:57→21:28)
[2016-04-24] MEDS: AMIODARONE 200 MG TAB GTB SCH (08:57)
[2016-04-24] MEDS: MULTIVIT/CA CARB/B CMPLX/FA TAB GTB SCH (08:57)
[2016-04-24] MEDS: FAMOTIDINE 20 MG INJ IV SCH (09:01)
[2016-04-24] MEDS: clonAZEPAM 0.5 MG TAB GTB SCH ×2 (09:01→21:35)
--- NOTE | 2016-04-24 12:31 | PN ---
Date/Time of Note Date/Time of Note DATE: 04/24/16 TIME: 12:30 Assessment/Plan VTE Prophylaxis VTE Prophylaxis Intervention: LMWH Lines/Catheters IV Catheter Type (from Nrs): Peripheral IV Urinary Cath still in place: No Assessment/Plan Chief Complaint/Hosp Course 1) pnuemonia - intravenous antibiotics 2) respiratory failure - consult pulmonary - continue vent support 3) renal failure - consult nephrology for continued hemodialysis 4) hypertension - monitor blood pressure and continue medications Problems: Subjective 24 Hr Interval Summary Free Text/Dictation Patient remain alert but on vent via trach Exam/Review of Systems Vital Signs Vitals Vital Signs Date Time Temp Pulse Resp B/P Pulse Ox O2 Delivery O2 Flow Rate FiO2 04/24/16 11:18 98.3 88 18 103/64 99 04/24/16 11:16 30 04/24/16 00:00 Mechanical Ventilator Intake and Output 04/23/16 04/23/16 04/24/16 15:00 23:00 07:00 Intake Total 440 ml 1100 ml 350 ml Output Total 3000 ml Balance 440 ml -1900 ml 350 ml Exam Constitutional: well developed Neck: supple Respiratory: clear to auscultation Cardiovascular: regular rate and rhythm Gastrointestinal: non-tender, soft Results Result Diagram: 04/22/16 0555 04/22/16 0555 Medications Medications Current Medications Ondansetron HCl (Zofran Inj) 4 mg Q6H PRN IV NAUSEA AND/OR VOMITING; Start at 00:00 Acetaminophen (Tylenol Tab) 650 mg Q6H PRN PO PAIN LEVEL 1-3 OR FEVER; Start 04/15/16 at 00:00 Morphine Sulfate (morphine) 2 mg Q4H PRN IV PAIN LEVEL 7-10 Last administered on 04/19/16at 21:04; Admin Dose 2 MG; Start 04/15/16 at 00:00 Heparin Sodium (Porcine) (Heparin (5000 Units/0.5 ml)) 5,000 unit Q8 SC Last administered on 04/24/16 05:32; Admin Dose 5,000 UNIT; Start 04/15/16 at 06:00 Famotidine 20 mg 20 mg DAILY IV Last administered on 04/24/16 09:01; Admin Dose 20 MG; Start 04/15/16 at 09:00 Piperacillin Sod/ Tazobactam Sod (Zosyn 2.25gm/ 50ml (Pmx)) 50 ml @ 200 mls/hr Q8 IVPB Last administered on 04/24/16 05:33; Admin Dose 200 MLS/HR; Start at 06:00 Amiodarone HCl (Cordarone) 200 mg DAILY GTB Last administered on 04/24/16 08:57 ; Admin Dose 200 MG; Start 04/17/16 at 09:00 Cinacalcet (Sensipar) 60 mg DAILY GTB Last administered on 04/24/16 08:56; Admin Dose 60 MG; Start 04/17/16 at 09:00 Clonazepam (Klonopin) 0.5 mg Q12 GTB Last administered on 04/24/16 09:01; Admin Dose 0.5 MG; Start 04/16/16 at 21:00 Docusate Sodium (Colace Liquid Cup) 100 mg BID GTB Last administered on 09:19; Admin Dose 100 MG; Start 04/16/16 at 21:00 Levetiracetam (Keppra Liquid) 1,000 mg DAILY GTB Last administered on 04/24/16 08:56; Admin Dose 1,000 MG; Start 04/17/16 at 09:00 Metoclopramide HCl (Reglan Liq) 10 mg Q8 GTB Last administered on 04/24/16 05: 33; Admin Dose 10 MG; Start 04/16/16 at 22:00 Midodrine (Proamatine) 5 mg Q8 GTB Last administered on 04/24/16 05:33; Admin Dose 5 MG; Start 04/16/16 at 22:00 Multivit/Ca Carb/ B Cmplx/FA/Prenat 1 tab 1 tab DAILY GTB Last administered on 04/24/16 08:57; Admin Dose 1 TAB; Start 04/17/16 at 09:00 Dextrose/Sodium Chloride (D5-1/2ns) 1,000 ml @ 40 mls/hr Q24H IV Last administered on 04/23/16 12:18; Admin Dose 40 MLS/HR; Start 04/16/16 at 16:00 MARTHA SOSA Apr 24, 2016 12:30
[2016-04-24] MEDS: DEXTROSE 5%-0.45% NACL 1,000 ML IV SCH ×2 (13:27→15:54)
[2016-04-25] VITALS (30 sets, daily range): BP systolic 86–128; BP diastolic 56–75; PULSE 60–82; RESP 16–22
[2016-04-25] MEDS: MIDODRINE 5 MG TAB GTB SCH ×3 (05:37→21:04)
[2016-04-25] MEDS: PIPER-TAZO 2.25 GM (PMX) 50 ML IVPB SCH ×3 (05:37→21:11)
[2016-04-25] MEDS: METOCLOPRAMIDE (1 MG/ML) 10 ML CUP GTB SCH ×3 (05:37→21:11)
[2016-04-25 05:38] LABS: BASOPHILS % 0.4 % (0.0-2.0); EOSINOPHILS # 0.1 10^3/ul (0.0-0.5); EOSINOPHILS % 2.1 % (0.0-7.0); HEMATOCRIT 26.6 % (42.0-52.0); HEMOGLOBIN 9.1 g/dl (14.0-18.0); LYMPHOCYTES # 1.1 10^3/ul (0.8-2.9); MEAN CORPUSCULAR HEMOGLOBIN 33.6 pg (29.0-33.0); MEAN CORPUSCULAR HGB CONC 34.2 g/dl (32.0-37.0); MEAN CORPUSCULAR VOLUME 98.2 fl (82.0-101.0); MEAN PLATELET VOLUME 7.4 fl (7.4-10.4); MONOCYTE # 0.3 10^3/ul (0.3-0.9); MONOCYTES % 4.8 % (0.0-11.0); NEUTROPHIL # 4.6 10^3/ul (1.6-7.5); NEUTROPHILS % 74.7 % (39.0-77.0); PLATELET COUNT 148 10^3/UL (140-440); RED BLOOD COUNT 2.71 10^6/ul (4.70-6.10); RED CELL DISTRIBUTION WIDTH 15.5 % (11.5-14.5); UNCORRECTED WBC 6.2 10^3/ul (4.8-10.8); WHITE BLOOD COUNT 6.2 10^3/ul (4.8-10.8)
[2016-04-25 05:40] LABS: POTASSIUM 4.1 mmol/L (3.5-5.1)
[2016-04-25] MEDS: HEPARIN 5,000 UNIT/0.5 ML SYG SC SCH ×3 (05:40→21:12)
[2016-04-25 05:43] LABS: CONDITION 1; CREATININE 8.71 mg/dl (0.61-1.24); LH ANALYZER COMMENTS 1; SUSPECT 1
[2016-04-25 05:44] LABS: CALCIUM 9.1 mg/dl (8.4-10.2)
[2016-04-25] MEDS: FAMOTIDINE 20 MG INJ IV SCH (08:35)
[2016-04-25] MEDS: LEVETIRACETAM (100 MG/ML) 5ML CUP GTB SCH (08:35)
[2016-04-25] MEDS: MULTIVIT/CA CARB/B CMPLX/FA TAB GTB SCH (08:35)
[2016-04-25] MEDS: AMIODARONE 200 MG TAB GTB SCH (08:35)
[2016-04-25] MEDS: SEVELAMER CARBONATE 0.8 GM PKT GTB SCH ×3 (08:35→17:32)
[2016-04-25] MEDS: DOCUSATE SODIUM 10 MG/ML (10ML CUP) GTB SCH ×2 (08:36→21:00)
[2016-04-25] MEDS: CINACALCET 30 MG TAB GTB SCH (08:36)
[2016-04-25] MEDS: clonAZEPAM 0.5 MG TAB GTB SCH ×2 (08:36→21:03)
--- NOTE | 2016-04-25 12:20 | PN ---
Date/Time of Note Date/Time of Note DATE: 04/25/16 TIME: 12:19 Assessment/Plan VTE Prophylaxis VTE Prophylaxis Intervention: LMWH Lines/Catheters [facility] permacath Urinary Cath still in place: No Assessment/Plan Chief Complaint/Hosp Course 1) pnuemonia - intravenous antibiotics 2) respiratory failure - consult pulmonary - continue vent support 3) renal failure - consult nephrology for continued hemodialysis 4) hypertension - monitor blood pressure and continue medications Problems: Subjective 24 Hr Interval Summary Free Text/Dictation Patient remains the same, trach in place, receiving hemodialysis Exam/Review of Systems Vital Signs Vitals Vital Signs Date Time Temp Pulse Resp B/P Pulse Ox O2 Delivery O2 Flow Rate FiO2 04/25/16 11:36 69 16 96 30 04/25/16 11:34 98.4 103/69 04/24/16 00:00 Mechanical Ventilator Intake and Output 04/24/16 04/24/16 04/25/16 15:00 23:00 07:00 Intake Total 370 ml 475 ml 350 ml Balance 370 ml 475 ml 350 ml Exam Constitutional: well developed Head: atraumatic, normocephalic Neck: supple Respiratory: diminished breath sounds Cardiovascular: regular rate and rhythm Gastrointestinal: non-tender, soft Extremities: normal pulses Results Result Diagram: 04/25/16 0500 04/25/16 0500 Results 24 hrs Laboratory Tests Test 04/25/16 05:00 Anion Gap 26 H Basophils # 0.0 Basophils % 0.4 Blood Morphology Comment Blood Urea Nitrogen 52 H Calcium Level 9.1 Carbon Dioxide Level 21 Chloride Level 94 L Creatinine 8.71 H Eosinophils # 0.1 Eosinophils % 2.1 Glucose Level 98 Hematocrit 26.6 L Hemoglobin 9.1 L Lymphocytes # 1.1 Lymphocytes % 18.0 Mean Corpuscular Hemoglobin 33.6 H Mean Corpuscular Hemoglobin Concent 34.2 Mean Corpuscular Volume 98.2 Mean Platelet Volume 7.4 Monocytes # 0.3 Monocytes % 4.8 Neutrophils # 4.6 Neutrophils % 74.7 Nucleated Red Blood Cells # 0.0 Nucleated Red Blood Cells % 0.0 Platelet Count 148 Potassium Level 4.1 Red Blood Count 2.71 L Red Cell Distribution Width 15.5 H Sodium Level 137 White Blood Count 6.2 Medications Medications Current Medications Ondansetron HCl (Zofran Inj) 4 mg Q6H PRN IV NAUSEA AND/OR VOMITING; Start at 00:00 Acetaminophen (Tylenol Tab) 650 mg Q6H PRN PO PAIN LEVEL 1-3 OR FEVER; Start 04/15/16 at 00:00 Morphine Sulfate (morphine) 2 mg Q4H PRN IV PAIN LEVEL 7-10 Last administered on 04/19/16at 21:04; Admin Dose 2 MG; Start 04/15/16 at 00:00 Heparin Sodium (Porcine) (Heparin (5000 Units/0.5 ml)) 5,000 unit Q8 SC Last administered on 04/25/16 05:40; Admin Dose 5,000 UNIT; Start 04/15/16 at 06:00 Famotidine 20 mg 20 mg DAILY IV Last administered on 04/25/16 08:35; Admin Dose 20 MG; Start 04/15/16 at 09:00 Piperacillin Sod/ Tazobactam Sod (Zosyn 2.25gm/ 50ml (Pmx)) 50 ml @ 200 mls/hr Q8 IVPB Last administered on 04/25/16 05:37; Admin Dose 200 MLS/HR; Start at 06:00 Amiodarone HCl (Cordarone) 200 mg DAILY GTB Last administered on 04/25/16 08:35 ; Admin Dose 200 MG; Start 04/17/16 at 09:00 Cinacalcet (Sensipar) 60 mg DAILY GTB Last administered on 04/25/16 08:36; Admin Dose 60 MG; Start 04/17/16 at 09:00 Clonazepam (Klonopin) 0.5 mg Q12 GTB Last administered on 04/25/16 08:36; Admin Dose 0.5 MG; Start 04/16/16 at 21:00 Docusate Sodium (Colace Liquid Cup) 100 mg BID GTB Last administered on 21:28; Admin Dose 100 MG; Start 04/16/16 at 21:00 Levetiracetam (Keppra Liquid) 1,000 mg DAILY GTB Last administered on 04/25/16 08:35; Admin Dose 1,000 MG; Start 04/17/16 at 09:00 Metoclopramide HCl (Reglan Liq) 10 mg Q8 GTB Last administered on 04/25/16 05: 37; Admin Dose 10 MG; Start 04/16/16 at 22:00 Midodrine (Proamatine) 5 mg Q8 GTB Last administered on 04/25/16 05:37; Admin Dose 5 MG; Start 04/16/16 at 22:00 Multivit/Ca Carb/ B Cmplx/FA/Prenat 1 tab 1 tab DAILY GTB Last administered on 04/25/16 08:35; Admin Dose 1 TAB; Start 04/17/16 at 09:00 Dextrose/Sodium Chloride (D5-1/2ns) 1,000 ml @ 40 mls/hr Q24H IV Last administered on 04/24/16 13:27; Admin Dose 40 MLS/HR; Start 04/16/16 at 16:00 MARTHA SOSA Apr 25, 2016 12:20
[2016-04-25] MEDS: DEXTROSE 5%-0.45% NACL 1,000 ML IV SCH ×2 (14:34→16:00)
--- NOTE | 2016-04-25 19:12 | CONS ---
Date/Time of Note Date/Time of Note DATE: 04/25/16 TIME: 19:10 Assessment/Plan Assessment/Plan Chief Complaint/Hosp Course IMPRESSION: This is a 55-year-old male with: 1. s/p hyperkalemia 2. Sepsis, possibly secondary to pneumonia. 3. End-stage renal disease on Saturday, , Saturday dialysis schedule. 4. Chronic encephalopathy, status post tracheostomy. 5. Vent dependent respiratory failure. 6. PEG tube placement for nutrition and dysphagia. 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 8 hypercalcemia hx plan hd TODAY per pcp team Problems: Consultation Date/Type/Reason Admit Date/Time Apr 14, 2016 at 21:52 Type of Consultation: renal 24 HR Interval Summary Constitutional: no complaints Exam/Review of Systems Vital Signs Vitals Vital Signs Date Time Temp Pulse Resp B/P Pulse Ox O2 Delivery O2 Flow Rate FiO2 04/25/16 16:58 65 16 98 30 04/25/16 15:05 98.5 110/63 04/24/16 00:00 Mechanical Ventilator Intake and Output 04/24/16 04/24/16 04/25/16 14:59 22:59 06:59 Intake Total 850 ml 675 ml 350 ml Balance 850 ml 675 ml 350 ml Exam Neck: supple Respiratory: clear to auscultation Cardiovascular: regular rate and rhythm Gastrointestinal: soft Musculoskeletal: nl extremities to inspection Extremities: normal pulses Results Result Diagram: 04/25/16 0500 04/25/16 0500 Results 24 hrs Laboratory Tests Test 04/25/16 05:00 Anion Gap 26 H Basophils # 0.0 Basophils % 0.4 Blood Morphology Comment Blood Urea Nitrogen 52 H Calcium Level 9.1 Carbon Dioxide Level 21 Chloride Level 94 L Creatinine 8.71 H Eosinophils # 0.1 Eosinophils % 2.1 Glucose Level 98 Hematocrit 26.6 L Hemoglobin 9.1 L Lymphocytes # 1.1 Lymphocytes % 18.0 Mean Corpuscular Hemoglobin 33.6 H Mean Corpuscular Hemoglobin Concent 34.2 Mean Corpuscular Volume 98.2 Mean Platelet Volume 7.4 Monocytes # 0.3 Monocytes % 4.8 Neutrophils # 4.6 Neutrophils % 74.7 Nucleated Red Blood Cells # 0.0 Nucleated Red Blood Cells % 0.0 Platelet Count 148 Potassium Level 4.1 Red Blood Count 2.71 L Red Cell Distribution Width 15.5 H Sodium Level 137 White Blood Count 6.2 Medications Medications Current Medications Ondansetron HCl (Zofran Inj) 4 mg Q6H PRN IV NAUSEA AND/OR VOMITING; Start at 00:00 Acetaminophen (Tylenol Tab) 650 mg Q6H PRN PO PAIN LEVEL 1-3 OR FEVER; Start 04/15/16 at 00:00 Morphine Sulfate (morphine) 2 mg Q4H PRN IV PAIN LEVEL 7-10 Last administered on 04/19/16at 21:04; Admin Dose 2 MG; Start 04/15/16 at 00:00 Heparin Sodium (Porcine) (Heparin (5000 Units/0.5 ml)) 5,000 unit Q8 SC Last administered on 04/25/16 14:40; Admin Dose 5,000 UNIT; Start 04/15/16 at 06:00 Famotidine 20 mg 20 mg DAILY IV Last administered on 04/25/16 08:35; Admin Dose 20 MG; Start 04/15/16 at 09:00 Piperacillin Sod/ Tazobactam Sod (Zosyn 2.25gm/ 50ml (Pmx)) 50 ml @ 200 mls/hr Q8 IVPB Last administered on 04/25/16 14:33; Admin Dose 200 MLS/HR; Start at 06:00 Amiodarone HCl (Cordarone) 200 mg DAILY GTB Last administered on 04/25/16 08:35 ; Admin Dose 200 MG; Start 04/17/16 at 09:00 Cinacalcet (Sensipar) 60 mg DAILY GTB Last administered on 04/25/16 08:36; Admin Dose 60 MG; Start 04/17/16 at 09:00 Clonazepam (Klonopin) 0.5 mg Q12 GTB Last administered on 04/25/16 08:36; Admin Dose 0.5 MG; Start 04/16/16 at 21:00 Docusate Sodium (Colace Liquid Cup) 100 mg BID GTB Last administered on 21:28; Admin Dose 100 MG; Start 04/16/16 at 21:00 Levetiracetam (Keppra Liquid) 1,000 mg DAILY GTB Last administered on 04/25/16 08:35; Admin Dose 1,000 MG; Start 04/17/16 at 09:00 Metoclopramide HCl (Reglan Liq) 10 mg Q8 GTB Last administered on 04/25/16 14: 33; Admin Dose 10 MG; Start 04/16/16 at 22:00 Midodrine (Proamatine) 5 mg Q8 GTB Last administered on 04/25/16 14:33; Admin Dose 5 MG; Start 04/16/16 at 22:00 Multivit/Ca Carb/ B Cmplx/FA/Prenat 1 tab 1 tab DAILY GTB Last administered on 04/25/16 08:35; Admin Dose 1 TAB; Start 04/17/16 at 09:00 Dextrose/Sodium Chloride (D5-1/2ns) 1,000 ml @ 40 mls/hr Q24H IV Last administered on 04/25/16 14:34; Admin Dose 40 MLS/HR; Start 04/16/16 at 16:00 CHUYITA PASTOR MD Apr 25, 2016 19:11
[2016-04-26] VITALS (23 sets, daily range): BP systolic 99–125; BP diastolic 62–72; PULSE 61–75; RESP 16–28
[2016-04-26] MEDS: METOCLOPRAMIDE (1 MG/ML) 10 ML CUP GTB SCH ×3 (05:59→21:09)
[2016-04-26] MEDS: PIPER-TAZO 2.25 GM (PMX) 50 ML IVPB SCH ×3 (06:00→21:09)
[2016-04-26] MEDS: MIDODRINE 5 MG TAB GTB SCH ×3 (06:00→21:09)
[2016-04-26] MEDS: HEPARIN 5,000 UNIT/0.5 ML SYG SC SCH ×3 (06:06→21:19)
[2016-04-26] MEDS: DOCUSATE SODIUM 10 MG/ML (10ML CUP) GTB SCH ×2 (10:54→21:00)
[2016-04-26] MEDS: LEVETIRACETAM (100 MG/ML) 5ML CUP GTB SCH (10:54)
[2016-04-26] MEDS: SEVELAMER CARBONATE 0.8 GM PKT GTB SCH ×3 (10:54→17:31)
[2016-04-26] MEDS: CINACALCET 30 MG TAB GTB SCH (10:55)
[2016-04-26] MEDS: clonAZEPAM 0.5 MG TAB GTB SCH ×2 (10:55→21:09)
[2016-04-26] MEDS: FAMOTIDINE 20 MG TAB GTB SCH (10:55)
[2016-04-26] MEDS: MULTIVIT/CA CARB/B CMPLX/FA TAB GTB SCH (10:55)
[2016-04-26] MEDS: AMIODARONE 200 MG TAB GTB SCH (10:56)
--- NOTE | 2016-04-26 12:34 | PN ---
Date/Time of Note Date/Time of Note DATE: 04/26/16 TIME: 12:33 Assessment/Plan VTE Prophylaxis VTE Prophylaxis Intervention: LMWH Lines/Catheters IV Catheter Type (from Nrs): Permacath Urinary Cath still in place: No Assessment/Plan Chief Complaint/Hosp Course 1) pnuemonia - intravenous antibiotics 2) respiratory failure - consult pulmonary - continue vent support 3) renal failure - consult nephrology for continued hemodialysis 4) hypertension - monitor blood pressure and continue medications possibly discharge tomorrow Problems: Subjective 24 Hr Interval Summary Free Text/Dictation Patient is awake, trach in place Exam/Review of Systems Vital Signs Vitals Vital Signs Date Time Temp Pulse Resp B/P Pulse Ox O2 Delivery O2 Flow Rate FiO2 04/26/16 11:18 98.6 20 99/62 99 04/26/16 11:00 63 30 04/24/16 00:00 Mechanical Ventilator Intake and Output 04/25/16 04/25/16 04/26/16 15:00 23:00 07:00 Intake Total 800 ml 500 ml Output Total 2000 ml Balance -1200 ml 500 ml Exam Constitutional: well developed Head: atraumatic, normocephalic Neck: supple Respiratory: diminished breath sounds Cardiovascular: regular rate and rhythm Gastrointestinal: non-tender, soft Extremities: normal pulses Results Result Diagram: 04/25/16 0500 04/25/16 0500 Medications Medications Current Medications Ondansetron HCl (Zofran Inj) 4 mg Q6H PRN IV NAUSEA AND/OR VOMITING; Start at 00:00 Acetaminophen (Tylenol Tab) 650 mg Q6H PRN PO PAIN LEVEL 1-3 OR FEVER; Start 04/15/16 at 00:00 Morphine Sulfate (morphine) 2 mg Q4H PRN IV PAIN LEVEL 7-10 Last administered on 04/19/16at 21:04; Admin Dose 2 MG; Start 04/15/16 at 00:00 Heparin Sodium (Porcine) 5000 unit 5,000 unit Q8 SC Last administered on 06:06; Admin Dose 5,000 UNIT; Start 04/15/16 at 06:00 Piperacillin Sod/ Tazobactam Sod (Zosyn 2.25gm/ 50ml (Pmx)) 50 ml @ 200 mls/hr Q8 IVPB Last administered on 04/26/16 06:00; Admin Dose 200 MLS/HR; Start at 06:00 Amiodarone HCl (Cordarone) 200 mg DAILY GTB Last administered on 04/26/16 10:56 ; Admin Dose 200 MG; Start 04/17/16 at 09:00 Cinacalcet (Sensipar) 60 mg DAILY GTB Last administered on 04/26/16 10:55; Admin Dose 60 MG; Start 04/17/16 at 09:00 Clonazepam (Klonopin) 0.5 mg Q12 GTB Last administered on 04/26/16 10:55; Admin Dose 0.5 MG; Start 04/16/16 at 21:00 Docusate Sodium (Colace Liquid Cup) 100 mg BID GTB Last administered on 10:54; Admin Dose 100 MG; Start 04/16/16 at 21:00 Levetiracetam (Keppra Liquid) 1,000 mg DAILY GTB Last administered on 04/26/16 10:54; Admin Dose 1,000 MG; Start 04/17/16 at 09:00 Metoclopramide HCl (Reglan Liq) 10 mg Q8 GTB Last administered on 04/26/16 05: 59; Admin Dose 10 MG; Start 04/16/16 at 22:00 Midodrine (Proamatine) 5 mg Q8 GTB Last administered on 04/26/16 06:00; Admin Dose 5 MG; Start 04/16/16 at 22:00 Multivit/Ca Carb/ B Cmplx/FA/Prenat 1 tab 1 tab DAILY GTB Last administered on 04/26/16 10:55; Admin Dose 1 TAB; Start 04/17/16 at 09:00 Dextrose/Sodium Chloride (D5-1/2ns) 1,000 ml @ 40 mls/hr Q24H IV Last administered on 04/25/16 14:34; Admin Dose 40 MLS/HR; Start 04/16/16 at 16:00 Famotidine (Pepcid) 20 mg DAILY GTB Last administered on 04/26/16 10:55; Admin Dose 20 MG; Start 04/26/16 at 09:00 MARTHA SOSA Apr 26, 2016 12:34
--- NOTE | 2016-04-26 13:46 | CONS ---
Date/Time of Note Date/Time of Note DATE: 04/26/16 TIME: 13:45 Assessment/Plan Assessment/Plan Chief Complaint/Hosp Course IMPRESSION: This is a 55-year-old male with: 1. s/p hyperkalemia 2. Sepsis, possibly secondary to pneumonia. 3. End-stage renal disease on Saturday, , Saturday dialysis schedule. 4. Chronic encephalopathy, status post tracheostomy. 5. Vent dependent respiratory failure. 6. PEG tube placement for nutrition and dysphagia. 7. [facility] 8 hypercalcemia hx plan hd stable per pcp team for dc planning Problems: Consultation Date/Type/Reason Admit Date/Time Apr 14, 2016 at 21:52 Type of Consultation: renal 24 HR Interval Summary Subjective hx not possible: pt non-verbal Exam/Review of Systems Vital Signs Vitals Vital Signs Date Time Temp Pulse Resp B/P Pulse Ox O2 Delivery O2 Flow Rate FiO2 04/26/16 13:10 63 16 99 30 04/26/16 11:18 98.6 99/62 04/24/16 00:00 Mechanical Ventilator Intake and Output 04/25/16 04/25/16 04/26/16 15:00 23:00 07:00 Intake Total 800 ml 500 ml Output Total 2000 ml Balance -1200 ml 500 ml Exam Neck: supple Respiratory: clear to auscultation Cardiovascular: regular rate and rhythm Gastrointestinal: soft Results Result Diagram: 04/25/16 0500 04/25/16 0500 Medications Medications Current Medications Ondansetron HCl (Zofran Inj) 4 mg Q6H PRN IV NAUSEA AND/OR VOMITING; Start at 00:00 Acetaminophen (Tylenol Tab) 650 mg Q6H PRN PO PAIN LEVEL 1-3 OR FEVER; Start 04/15/16 at 00:00 Morphine Sulfate (morphine) 2 mg Q4H PRN IV PAIN LEVEL 7-10 Last administered on 04/19/16at 21:04; Admin Dose 2 MG; Start 04/15/16 at 00:00 Heparin Sodium (Porcine) 5000 unit 5,000 unit Q8 SC Last administered on 06:06; Admin Dose 5,000 UNIT; Start 04/15/16 at 06:00 Piperacillin Sod/ Tazobactam Sod (Zosyn 2.25gm/ 50ml (Pmx)) 50 ml @ 200 mls/hr Q8 IVPB Last administered on 04/26/16 06:00; Admin Dose 200 MLS/HR; Start at 06:00 Amiodarone HCl (Cordarone) 200 mg DAILY GTB Last administered on 04/26/16 10:56 ; Admin Dose 200 MG; Start 04/17/16 at 09:00 Cinacalcet (Sensipar) 60 mg DAILY GTB Last administered on 04/26/16 10:55; Admin Dose 60 MG; Start 04/17/16 at 09:00 Clonazepam (Klonopin) 0.5 mg Q12 GTB Last administered on 04/26/16 10:55; Admin Dose 0.5 MG; Start 04/16/16 at 21:00 Docusate Sodium (Colace Liquid Cup) 100 mg BID GTB Last administered on 10:54; Admin Dose 100 MG; Start 04/16/16 at 21:00 Levetiracetam (Keppra Liquid) 1,000 mg DAILY GTB Last administered on 04/26/16 10:54; Admin Dose 1,000 MG; Start 04/17/16 at 09:00 Metoclopramide HCl (Reglan Liq) 10 mg Q8 GTB Last administered on 04/26/16 05: 59; Admin Dose 10 MG; Start 04/16/16 at 22:00 Midodrine (Proamatine) 5 mg Q8 GTB Last administered on 04/26/16 06:00; Admin Dose 5 MG; Start 04/16/16 at 22:00 Multivit/Ca Carb/ B Cmplx/FA/Prenat 1 tab 1 tab DAILY GTB Last administered on 04/26/16 10:55; Admin Dose 1 TAB; Start 04/17/16 at 09:00 Dextrose/Sodium Chloride (D5-1/2ns) 1,000 ml @ 40 mls/hr Q24H IV Last administered on 04/25/16 14:34; Admin Dose 40 MLS/HR; Start 04/16/16 at 16:00 Famotidine (Pepcid) 20 mg DAILY GTB Last administered on 04/26/16 10:55; Admin Dose 20 MG; Start 04/26/16 at 09:00 CHUYITA PASTOR MD Apr 26, 2016 13:46
[2016-04-26] MEDS: DEXTROSE 5%-0.45% NACL 1,000 ML IV SCH (17:31)
[2016-04-27] VITALS (27 sets, daily range): BP systolic 85–125; BP diastolic 42–82; PULSE 62–90; RESP 15–20
[2016-04-27] MEDS: METOCLOPRAMIDE (1 MG/ML) 10 ML CUP GTB SCH ×2 (06:04→15:50)
[2016-04-27] MEDS: MIDODRINE 5 MG TAB GTB SCH ×2 (06:05→15:55)
[2016-04-27] MEDS: PIPER-TAZO 2.25 GM (PMX) 50 ML IVPB SCH ×2 (06:05→15:51)
[2016-04-27 06:12] LABS: POTASSIUM 4.2 mmol/L (3.5-5.1)
[2016-04-27 06:15] LABS: CREATININE 8.62 mg/dl (0.61-1.24)
[2016-04-27 06:16] LABS: BASOPHILS % 0.3 % (0.0-2.0); CALCIUM 8.9 mg/dl (8.4-10.2); EOSINOPHILS # 0.1 10^3/ul (0.0-0.5); EOSINOPHILS % 1.9 % (0.0-7.0); HEMATOCRIT 25.1 % (42.0-52.0); HEMOGLOBIN 8.9 g/dl (14.0-18.0); LYMPHOCYTES # 1.2 10^3/ul (0.8-2.9); LYMPHOCYTES % 16.3 % (15.0-51.0); MEAN CORPUSCULAR HEMOGLOBIN 34.2 pg (29.0-33.0); MEAN CORPUSCULAR HGB CONC 35.4 g/dl (32.0-37.0); MEAN CORPUSCULAR VOLUME 96.8 fl (82.0-101.0); MEAN PLATELET VOLUME 7.9 fl (7.4-10.4); MONOCYTE # 0.4 10^3/ul (0.3-0.9); MONOCYTES % 5.8 % (0.0-11.0); NEUTROPHIL # 5.5 10^3/ul (1.6-7.5); NEUTROPHILS % 75.7 % (39.0-77.0); PLATELET COUNT 136 10^3/UL (140-440); RED CELL DISTRIBUTION WIDTH 15.2 % (11.5-14.5); UNCORRECTED WBC 7.3 10^3/ul (4.8-10.8); WHITE BLOOD COUNT 7.3 10^3/ul (4.8-10.8)
[2016-04-27] MEDS: HEPARIN 5,000 UNIT/0.5 ML SYG SC SCH ×2 (06:20→15:54)
[2016-04-27 06:21] LABS: CONDITION 1; LH ANALYZER COMMENTS 1
[2016-04-27] MEDS: DOCUSATE SODIUM 10 MG/ML (10ML CUP) GTB SCH (09:00)
[2016-04-27] MEDS: SEVELAMER CARBONATE 0.8 GM PKT GTB SCH ×3 (09:21→15:56)
[2016-04-27] MEDS: AMIODARONE 200 MG TAB GTB SCH (09:21)
[2016-04-27] MEDS: CINACALCET 30 MG TAB GTB SCH (09:22)
[2016-04-27] MEDS: LEVETIRACETAM (100 MG/ML) 5ML CUP GTB SCH (09:22)
[2016-04-27] MEDS: clonAZEPAM 0.5 MG TAB GTB SCH (09:22)
[2016-04-27] MEDS: FAMOTIDINE 20 MG TAB GTB SCH (09:22)
[2016-04-27] MEDS: MULTIVIT/CA CARB/B CMPLX/FA TAB GTB SCH (09:22)
--- NOTE | 2016-04-27 15:07 | DS ---
Date/Time of Note Date/Time of Note DATE: 04/27/16 TIME: 15:06 Discharge Summary Admission/Discharge Info Admit Date/Time Apr 14, 2016 at 21:52 Discharge Date/Time 04/27/16 Final Diagnosis 1) pneumonia 2) respiratory failure 3) end stage renal failure Patient Condition: Fair Hx of Present Illness Patient with respiratory failure, hypertension, renal failure on hemodialysis comes in the ER with evidence of sepsis. Patient was found to have pneumonia and so is admitted for further treatment. Hospital Course Patient with renal failure on hemodialysis, respiratory failure on trach comes in with pneumonia. Patient treated with antibiotics and gradually improved. Once stable, he was sent back to subacute IMPRESSION: This is a 55-year-old male with: 1. s/p hyperkalemia 2. Sepsis, possibly secondary to pneumonia. 3. End-stage renal disease on Saturday, , Saturday dialysis schedule. 4. Chronic encephalopathy, status post tracheostomy. 5. Vent dependent respiratory failure. 6. PEG tube placement for nutrition and dysphagia. 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 8 hypercalcemia hx plan hd stable per pcp team for dc planning Home Meds Reported Medications Multivit/Ca Carb/B Cmplx/Fa* (Oumou-Jayesh*) 1 Tab Tab, 1 TAB GTB DAILY, TAB 04/16/16 Cinacalcet* (Sensipar*) 60 Mg Tablet, 60 MG GTB DAILY, TAB 04/16/16 Midodrine* (Midodrine*) 5 Mg Tablet, 5 MG GTB Q8H, TAB HOLD IF SBP>130 04/16/16 Metoclopramide* (Reglan*) 10 Mg/10 Ml Soln, 10 MG GTB Q8, ML 04/16/16 Sevelamer Carbonate* (Renvela*) 0.8 Gm Powd.pack, 1.6 GM GTB WITH MEALS, PACKET 10/14/15 Levetiracetam* (Keppra* (Ped)) 100 Mg/Ml Liq, 1000 MG GTB DAILY for 30 Days, BOTTLE 10/14/15 Docusate Sodium* (Docusate Sodium* Liq) 50 Mg/5 Ml Liquid, 100 MG GTB BID, ML 10/14/15 Omeprazole* (Prilosec*) 40 Mg Capsule., 40 MG GTB DAILY 04/12/12 Clonazepam* (Klonopin*) 0.5 Mg Tab, 0.5 MG GTB Q12 04/12/12 Amiodarone Hcl* (Amiodarone Hcl*) 200 Mg Tablet, 200 MG GTB DAILY 04/12/12 Pending Labs Laboratory Tests Test 04/27/16 05:30 Anion Gap 23 (8-16) Basophils # 0.010^3/ul (0.0-0.1) Basophils % 0.3% (0.0-2.0) Blood Morphology Comment Blood Urea Nitrogen 44mg/dl (7-20) Calcium Level 8.9mg/dl (8.4-10.2) Carbon Dioxide Level 21mmol/L (21-31) Chloride Level 93mmol/L (97-110) Creatinine 8.62mg/dl (0.61-1.24) Eosinophils # 0.110^3/ul (0.0-0.5) Eosinophils % 1.9% (0.0-7.0) Glucose Level 94mg/dl (70-220) Hematocrit 25.1% (42.0-52.0) Hemoglobin 8.9g/dl (14.0-18.0) Lymphocytes # 1.210^3/ul (0.8-2.9) Lymphocytes % 16.3% (15.0-51.0) Mean Corpuscular Hemoglobin 34.2pg (29.0-33.0) Mean Corpuscular Hemoglobin Concent 35.4g/dl (32.0-37.0) Mean Corpuscular Volume 96.8fl (82.0-101.0) Mean Platelet Volume 7.9fl (7.4-10.4) Monocytes # 0.410^3/ul (0.3-0.9) Monocytes % 5.8% (0.0-11.0) Neutrophils # 5.510^3/ul (1.6-7.5) Neutrophils % 75.7% (39.0-77.0) Nucleated Red Blood Cells # 0.010^3/ul (0.0-0.0) Nucleated Red Blood Cells % 0.0/100WBC (0.0-0.0) Platelet Count 61960^3/UL (140-440) Potassium Level 4.2mmol/L (3.5-5.1) Red Blood Count 2.6010^6/ul (4.70-6.10) Red Cell Distribution Width 15.2% (11.5-14.5) Sodium Level 133mmol/L (135-144) White Blood Count 7.310^3/ul (4.8-10.8) MARTHA SOSA Apr 27, 2016 15:07
[2016-04-27] MEDS: DEXTROSE 5%-0.45% NACL 1,000 ML IV SCH (15:55)
--- NOTE | 2016-04-27 17:25 | CONS ---
Date/Time of Note Date/Time of Note DATE: 04/27/16 TIME: 17:24 Assessment/Plan Assessment/Plan Chief Complaint/Hosp Course IMPRESSION: This is a 55-year-old male with: 1. s/p hyperkalemia 2. Sepsis, possibly secondary to pneumonia. 3. End-stage renal disease on Saturday, , Saturday dialysis schedule. 4. Chronic encephalopathy, status post tracheostomy. 5. Vent dependent respiratory failure. 6. PEG tube placement for nutrition and dysphagia. 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 8 hypercalcemia hx plan hd stable renal stable Problems: Consultation Date/Type/Reason Admit Date/Time Apr 14, 2016 at 21:52 Type of Consultation: renal 24 HR Interval Summary Subjective hx not possible: pt non-verbal Exam/Review of Systems Vital Signs Vitals Vital Signs Date Time Temp Pulse Resp B/P Pulse Ox O2 Delivery O2 Flow Rate FiO2 04/27/16 16:33 72 04/27/16 15:30 16 04/27/16 15:21 98.2 102/70 100 04/27/16 15:00 30 04/24/16 00:00 Mechanical Ventilator Intake and Output 04/26/16 04/26/16 04/27/16 15:00 23:00 07:00 Intake Total 430 ml 50 ml Balance 430 ml 50 ml Exam Neck: supple Respiratory: clear to auscultation Cardiovascular: regular rate and rhythm Gastrointestinal: soft Results Result Diagram: 04/27/16 0530 04/27/16 0530 Results 24 hrs Laboratory Tests Test 04/27/16 05:30 Anion Gap 23 H Basophils # 0.0 Basophils % 0.3 Blood Morphology Comment Blood Urea Nitrogen 44 H Calcium Level 8.9 Carbon Dioxide Level 21 Chloride Level 93 L Creatinine 8.62 H Eosinophils # 0.1 Eosinophils % 1.9 Glucose Level 94 Hematocrit 25.1 L Hemoglobin 8.9 L Lymphocytes # 1.2 Lymphocytes % 16.3 Mean Corpuscular Hemoglobin 34.2 H Mean Corpuscular Hemoglobin Concent 35.4 Mean Corpuscular Volume 96.8 Mean Platelet Volume 7.9 Monocytes # 0.4 Monocytes % 5.8 Neutrophils # 5.5 Neutrophils % 75.7 Nucleated Red Blood Cells # 0.0 Nucleated Red Blood Cells % 0.0 Platelet Count 136 L Potassium Level 4.2 Red Blood Count 2.60 L Red Cell Distribution Width 15.2 H Sodium Level 133 L White Blood Count 7.3 Medications Medications Current Medications Ondansetron HCl (Zofran Inj) 4 mg Q6H PRN IV NAUSEA AND/OR VOMITING; Start at 00:00 Acetaminophen (Tylenol Tab) 650 mg Q6H PRN PO PAIN LEVEL 1-3 OR FEVER; Start 04/15/16 at 00:00 Morphine Sulfate (morphine) 2 mg Q4H PRN IV PAIN LEVEL 7-10 Last administered on 04/19/16at 21:04; Admin Dose 2 MG; Start 04/15/16 at 00:00 Heparin Sodium (Porcine) 5000 unit 5,000 unit Q8 SC Last administered on 15:54; Admin Dose 5,000 UNIT; Start 04/15/16 at 06:00 Piperacillin Sod/ Tazobactam Sod (Zosyn 2.25gm/ 50ml (Pmx)) 50 ml @ 200 mls/hr Q8 IVPB Last administered on 04/27/16 15:51; Admin Dose 200 MLS/HR; Start at 06:00 Amiodarone HCl (Cordarone) 200 mg DAILY GTB Last administered on 04/27/16 09:21 ; Admin Dose 200 MG; Start 04/17/16 at 09:00 Cinacalcet (Sensipar) 60 mg DAILY GTB Last administered on 04/27/16 09:22; Admin Dose 60 MG; Start 04/17/16 at 09:00 Clonazepam (Klonopin) 0.5 mg Q12 GTB Last administered on 04/27/16 09:22; Admin Dose 0.5 MG; Start 04/16/16 at 21:00 Docusate Sodium (Colace Liquid Cup) 100 mg BID GTB Last administered on 10:54; Admin Dose 100 MG; Start 04/16/16 at 21:00 Levetiracetam (Keppra Liquid) 1,000 mg DAILY GTB Last administered on 04/27/16 09:22; Admin Dose 1,000 MG; Start 04/17/16 at 09:00 Metoclopramide HCl (Reglan Liq) 10 mg Q8 GTB Last administered on 04/27/16 15: 50; Admin Dose 10 MG; Start 04/16/16 at 22:00 Midodrine (Proamatine) 5 mg Q8 GTB Last administered on 04/27/16 15:55; Admin Dose 5 MG; Start 04/16/16 at 22:00 Multivit/Ca Carb/ B Cmplx/FA/Prenat 1 tab 1 tab DAILY GTB Last administered on 04/27/16 09:22; Admin Dose 1 TAB; Start 04/17/16 at 09:00 Dextrose/Sodium Chloride (D5-1/2ns) 1,000 ml @ 40 mls/hr Q24H IV Last administered on 04/27/16 15:55; Admin Dose 40 MLS/HR; Start 04/16/16 at 16:00 Famotidine (Pepcid) 20 mg DAILY GTB Last administered on 04/27/16 09:22; Admin Dose 20 MG; Start 04/26/16 at 09:00 CHUYITA PASTOR MD Apr 27, 2016 17:25
== END 2016-04-27 19:50 | DRG 870 ==
LOC: E/R 18:49 → ICU 21:52 → TEL 04-20 22:35
PROVIDERS: ADMIT Internal Medicine; ATTEND Internal Medicine
PROC: 5A1955Z Respiratory Ventilation, Greater than 96 Consecutive Hours (ICD-10-PCS; principal; 2016-04-15)
PROC: 5A1D60Z (ICD-10-PCS; 2016-04-15)
DX: A41.9 Sepsis, unspecified organism (principal); J18.9 Pneumonia, unspecified organism; Z99.11 Dependence on respirator [ventilator] status; G93.49 Other encephalopathy; J96.10 Chronic respiratory failure, unspecified whether with hypoxia or hypercapnia; Z93.0 Tracheostomy status; N18.6 End stage renal disease; I12.0 Hypertensive chronic kidney disease with stage 5 chronic kidney disease or end stage renal disease; R13.10 Dysphagia, unspecified; E87.5 Hyperkalemia; E83.51 Hypocalcemia; Z93.1 Gastrostomy status
CPT/HCPCS: 36415; 36600; 71010; 80048; 80053; 82330; 82803; 82962; 83605; 84134; 84484; 85025; 85610; 85730; 87040; 87081; 90935; 93005; 94002; 94003; 96365; 96366; 96372; 96375; 96376; C9113; J1644; J2270; J2543; J2997; J3370; J7030; J7040; P9047

== ENCOUNTER 2016-08-22 09:32 | Inpatient (IN) | payer MEDICAID ==
[~2016-08-22] VITALS: Ht 170.2 cm; Wt 77.2 kg
[~2016-08-22 09:32] MED LIST changes: +CINA60TA GTB; +CLON-429 GTB; -FOLI1CAP PO; -KLO5 GTB; +MIDO5TAB19 GTB; +NEPH GTB; +UDREG GTB
--- NOTE | 2016-08-22 10:13 | RADRPT ---
PROCEDURE: Chest Radiograph. CLINICAL INDICATION: Respiratory distress. TECHNIQUE: Single frontal chest radiograph. COMPARISON: Chest radiograph 04/14/2016 FINDINGS: A right chest wall tunneled hemodialysis catheter and tracheostomy tube remain in place. Heart size is within normal limits. Atherosclerotic calcifications are present. There is moderate bibasilar atelectasis. No confluent or lobar infiltrate is seen. No pleural effusion is noted. The bones a re intact. IMPRESSION: 1. Bibasilar atelectasis. 2. Atherosclerotic vascular disease. RPTAT: KK .Connor Shukla MD, MD Date Time Electronically viewed and signed by .Connor Shukla MD, on 08/22/2016 10:13 .B/
[2016-08-22 10:31] LABS: ADD SCAN DIFF NO
[2016-08-22 10:38] LABS: BASOPHILS % 0.2 % (0.0-2.0); EOSINOPHILS # 0.1 10^3/ul (0.0-0.5); HEMOGLOBIN 11.2 g/dl (14.0-18.0); LYMPHOCYTES # 1.2 10^3/ul (0.8-2.9); LYMPHOCYTES % 9.9 % (15.0-51.0); MEAN PLATELET VOLUME 10.3 fl (7.4-10.4); MONOCYTE # 0.9 10^3/ul (0.3-0.9); MONOCYTES % 6.9 % (0.0-11.0); NEUTROPHIL # 10.2 10^3/ul (1.6-7.5); NEUTROPHILS % 80.9 % (39.0-77.0); PLATELET COUNT 157 10^3/UL (140-415); RED CELL DISTRIBUTION WIDTH 17.2 % (11.5-14.5); WHITE BLOOD COUNT 12.6 10^3/ul (4.8-10.8)
[2016-08-22 10:44] LABS: ALBUMIN 4.6 g/dl (3.3-4.9)
[2016-08-22 10:45] LABS: POTASSIUM 5.1 mmol/L (3.5-5.1)
[2016-08-22 10:47] LABS: BILIRUBIN,INDIRECT 0.3 mg/dl (0-1.1); BILIRUBIN,TOTAL 0.3 mg/dl (0.2-1.3); CREATININE 7.56 mg/dl (0.61-1.24); TOTAL PROTEIN 9.2 g/dl (6.1-8.1)
[2016-08-22 10:48] LABS: MAGNESIUM 2.6 mg/dl (1.7-2.5)
[2016-08-22 10:54] LABS: INR 1.05; PROTIME 13.7 Sec (12.2-14.2); PT RATIO 1.1
[2016-08-22 10:59] LABS: TROPONIN-I 0.017 ng/ml (0.00-0.12)
[2016-08-22] MEDS ORDERED: VANCOMYCIN 1 GM (PMX) 250 ML IVPB SCH (12:30)
[2016-08-22] MEDS ORDERED: PIPER-TAZO 3.375 GM IV (PMX) 100 ML IVPB ONE (12:30)
[2016-08-22] MEDS ORDERED: ONDANSETRON 4 MG INJ IV PRN ×2 (13:00→17:30)
[2016-08-22] MEDS ORDERED: SOD CHLORIDE 0.9% 1,000 ML IV ONE ×2 (13:00)
[2016-08-22] MEDS ORDERED: ACETAMINOPHEN 325 MG TAB PO PRN ×2 (13:00→17:30)
--- NOTE | 2016-08-22 13:15 | ERA ---
ER Documentation Chief Complaint Date/Time DATE: 08/22/16 TIME: 12:58 Chief Complaint respiratory distress during dialysis HPI This 56-year-old male was sent from dialysis for respiratory distress and hypotension. He is a noncommunicative trach vent patient with a history of anoxic brain injury. No fevers were reported. There were only able to remove approximately 700 mL. History is not obtainable from the patient. ROS Unobtainable secondary to clinical condition. Medications Home Meds Reported Medications Multivit/Ca Carb/B Cmplx/Fa* (Oumou-Jayesh*) 1 Tab Tab, 1 TAB GTB DAILY, TAB 04/16/16 Cinacalcet* (Sensipar*) 60 Mg Tablet, 60 MG GTB DAILY, TAB 04/16/16 Midodrine* (Midodrine*) 5 Mg Tablet, 5 MG GTB Q8H, TAB HOLD IF SBP>130 04/16/16 Metoclopramide* (Reglan*) 10 Mg/10 Ml Soln, 10 MG GTB Q8, ML 04/16/16 Sevelamer Carbonate* (Renvela*) 0.8 Gm Powd.pack, 1.6 GM GTB WITH MEALS, PACKET 10/14/15 Levetiracetam* (Keppra* (Ped)) 100 Mg/Ml Liq, 1000 MG GTB DAILY for 30 Days, BOTTLE 10/14/15 Docusate Sodium* (Docusate Sodium* Liq) 50 Mg/5 Ml Liquid, 100 MG GTB BID, ML 10/14/15 Omeprazole* (Prilosec*) 40 Mg Capsule.dr, 40 MG GTB DAILY 04/12/12 Clonazepam* (Klonopin*) 0.5 Mg Tab, 0.5 MG GTB Q12 04/12/12 Amiodarone Hcl* (Amiodarone Hcl*) 200 Mg Tablet, 200 MG GTB DAILY 04/12/12 Allergies Allergies: Coded Allergies: No Known Allergy (Unverified , 08/22/16) PMhx/Soc History of Surgery: Yes (TRACHEOSTOMY, PEG PLACEMENT) Anesthesia Reaction: No Hx Neurological Disorder: Yes (ENCEPHALOPATHY) Hx Respiratory Disorders: Yes (TRACH -VENT DEPENDENT) Hx Cardiac Disorders: Yes (PAROXYSMAL AFIB) Hx Psychiatric Problems: No Hx Miscellaneous Medical Probl: No Hx Alcohol Use: No Hx Substance Use: No Hx Tobacco Use: No Smoking Status: Never smoker Physical Exam Vitals Vital Signs Date Time Temp Pulse Resp B/P Pulse Ox O2 Delivery O2 Flow Rate FiO2 08/22/16 12:30 107/66 08/22/16 12:07 99 25 84/63 99 Mechanical Ventilator 08/22/16 09:56 106 24 98 30 08/22/16 09:35 98.2 104 24 105/62 100 Physical Exam Const: [] Mild distress Head: Atraumatic Eyes: Normal Conjunctiva ENT: Normal External Ears, Nose and Mouth. Neck: Full range of motion..~No JVD Resp: Decreased bibasilar breath sounds, mild tachypnea Cardio: Regular tachycardia, no murmurs Abd: Soft, non tender, non distended. Normal bowel sounds Skin: No petechiae or rashes Back: No midline or flank tenderness Ext: No cyanosis, bilateral feet and soft ankle boots. Distal pulses intact all 4 extremities Neur: Awake and alert, unresponsive at baseline, moves head and occasionally moves extremities with inability to cooperate with any commands per Result Diagram: 08/22/16 0955 08/22/16 0955 Results 24 hrs Laboratory Tests Test 08/22/16 09:55 White Blood Count 12.610^3/ul Red Blood Count 3.5010^6/ul Hemoglobin 11.2g/dl Hematocrit 35.0% Mean Corpuscular Volume 100.0fl Mean Corpuscular Hemoglobin 32.0pg Mean Corpuscular Hemoglobin Concent 32.0g/dl Red Cell Distribution Width 17.2% Platelet Count 73134^3/UL Mean Platelet Volume 10.3fl Neutrophils % 80.9% Lymphocytes % 9.9% Monocytes % 6.9% Eosinophils % 1.0% Basophils % 0.2% Nucleated Red Blood Cells % 0.0/100WBC Neutrophils # 10.210^3/ul Lymphocytes # 1.210^3/ul Monocytes # 0.910^3/ul Eosinophils # 0.110^3/ul Basophils # 0.010^3/ul Nucleated Red Blood Cells # 0.010^3/ul Prothrombin Time 13.7Sec Prothrombin Time Ratio 1.1 INR International Normalized Ratio 1.05 Activated Partial Thromboplast Time 99.0Sec Sodium Level 137mmol/L Potassium Level 5.1mmol/L Chloride Level 103mmol/L Carbon Dioxide Level 16mmol/L Anion Gap 23 Blood Urea Nitrogen 77mg/dl Creatinine 7.56mg/dl Glucose Level 135mg/dl Lactic Acid Level 1.4mmol/L Calcium Level 9.0mg/dl Magnesium Level 2.6mg/dl Total Bilirubin 0.3mg/dl Direct Bilirubin 0.00mg/dl Indirect Bilirubin 0.3mg/dl Aspartate Amino Transf (AST/SGOT) 41IU/L Alanine Aminotransferase (ALT/SGPT) 65IU/L Alkaline Phosphatase 189IU/L Troponin I 0.017ng/ml B-Type Natriuretic Peptide 1550PG/ML Total Protein 9.2g/dl Albumin 4.6g/dl Globulin 4.60g/dl Albumin/Globulin Ratio 1.00 Current Medications Medications (Trade) Dose Ordered Sig/Sujey Route PRN Reason Start Time Stop Time Status Last Admin Dose Admin Piperacillin Sod/ Tazobactam Sod 100 ml @ 200 mls/hr ONCE ONCE IVPB 08/22/16 12:30 08/22/16 12:59 08/22/16 12:19 Vancomycin HCl (Vancocin) 250 ml @ 125 mls/hr ONCE IVPB 08/22/16 12:30 08/22/16 14:29 Ondansetron HCl (Zofran Inj) 4 mg ER BRIDGE PRN IV NAUSEA AND/OR VOMITING 08/22/16 13:00 08/23/16 12:59 Acetaminophen 650 mg 650 mg ER BRIDGE PRN PO MILD PAIN/FEVER 08/22/16 13:00 08/23/16 12:59 Sodium Chloride 1,000 ml @ 1,000 mls/hr Q1H ONCE IV 08/22/16 13:00 08/22/16 13:59 UNV Sodium Chloride (NS) 1,000 ml @ 1,000 mls/hr Q1H ONCE IV 08/22/16 13:00 08/22/16 13:59 UNV Procedures/MDM Sepsis and debilitated dialysis patient. Source is possible pneumonia as I do see possible consolidation in medial right lung. Patient does not make urine currently. Patient was given 2 L of normal saline after which she developed mild bibasilar rales. 30 cc/kg was not completed because of fluid overload signs after 2 L. This did help resolve the patient's hypotension. White count was elevated on laboratories at that point thank and Zosyn were started for healthcare acquired infection with sepsis criteria. Ordering a CT of the abdomen and pelvis to rule out any intra-abdominal source as the patient cannot state if he has pain. I spoke with Dr. Palacio who will be admitting the patient to telemetry. EKG interpretation: Sinus tachycardia rate of 106, left axis deviation, no ST or T-wave changes concerning for acute ischemia, QT prolongation of 565 radiation monitor interpretation and persistent sinus tachycardia followed by normal sinus rhythm after fluid administration. No other arrhythmias Chest x-ray interpretation: This is a possible infiltrate surrounding the pulmonary vasculature of the medial right lung, I see no pneumothorax, no pulmonary edema, no fractures Critical care time 37 minutes: This includes treatment of sepsis and patient with multiple comorbidities, very careful fluid administration dialysis patients showing some signs of fluid overload, early antibiotic administration, multiple visits the patient's bedside to reassess status and consideration of invasive procedures such as central line and mechanical ventilation, chart reviewed, discussion with admitting doctor. This is not included any billable procedures Departure Diagnosis: Primary Impression: Sepsis Additional Impressions: Hypotension Normocytic anemia Acute on chronic renal failure Respiratory distress Condition: Serious SHERIN BETANCUR DO August 22, 2016 13:13
[2016-08-22 14:39] LABS: AADO2 Arterial 87.8 mmHg (7.0-24.0); Allen Test ACCEPTAB; Arterial COHb 0.4 % (0.0-3.0); Arterial Fraction of Oxyhgb 95.8 % (93.0-99.0); Arterial HCO3 14.5 mmol/L (22.0-26.0); Arterial MetHb 0.1 % (0.0-1.5); Arterial Total Hemglobin 11.3 g/dl (12.0-18.0); MODE VENT - AC
--- NOTE | 2016-08-22 17:10 | RADRPT ---
PROCEDURE: CT Abdomen and Pelvis without contrast. CLINICAL INDICATION: Sepsis. TECHNIQUE: CT scan of the abdomen and pelvis without contrast was performed on a multi-slice CT [facility] without intravenous contrast. Coronal and sagittal reformatted images were obtained from the axial source images. Images were reviewed on a high-resolution PACS workstation. One or more of the following does reduction techniques were used: Automated exposure control; adjustment of the mA an d/or kV according to patient size; use of the aorta of reconstruction technique. The total exam CTD I equals 18.5 mGy and the total exam DLP equals 1220.4 mGy-cm. COMPARISON: None available FINDINGS: Evaluation of the lung bases is limited by breathing artifact. There is moderate bibasilar atelecta sis.. Heart size is normal, and there is no evidence of pericardial thickening or effusion. Severe coronary artery calcifications are present The liver, spleen, and pancreas are normal given limitations of a noncontrast CT examination. A gal lstone is seen within the gallbladder.. The adrenal glands are normal. The kidneys are atrophic with multiple bilateral renal cysts. No re nal calcification or hydronephrosis is seen The aorta is of normal caliber. Atherosclerotic calcifications are present. There is no retroperito derrick lymph node enlargment. There is no evidence of large or small bowel obstruction. A normal appendix is identified. No antwon e fluid or fluid collections are identified. No inflammatory changes are seen. The prostate is mildly enlarged. No enlarged pelvic sidewall lymph nodes are seen. The bladder is d ecompressed and collapsed. No free fluid is identified. There are small bilateral inguinal hernias containing only fat. The bones are moderately demineralized.. IMPRESSION: 1. No CT source for sepsis identified in the abdomen or pelvis. 2. Moderate bibasilar atelectasis. 3. Cholelithiasis. 4. Atrophic kidneys with multiple cysts. 5. Atherosclerotic vascular disease including severe coronary artery calcifications. 6. Small bilateral inguinal hernias containing only fat. RPTAT: HJBF .Connor Shukla MD, MD Date Time Electronically viewed and signed by .Connor Shukla MD, MD on 08/22/2016 17:10 .B/
[2016-08-22] MEDS ORDERED: DOCUSATE SODIUM 100 MG CAP PO PRN (17:30)
[2016-08-22] MEDS ORDERED: NACL 0.9% 3 ML SYG IV SCH (17:30)
[2016-08-22] MEDS ORDERED: morphine 2 MG INJ IV PRN (17:30)
--- NOTE | 2016-08-22 18:04 | HP ---
DATE OF ADMISSION: 08/22/2016 CHIEF COMPLAINT: Respiratory distress during dialysis. HISTORY OF PRESENT ILLNESS: The patient is a 56-year-old male with history of chronic anoxic enceph alopathy, seizure disorder, hypertension, hyperlipidemia, end-stage renal disease, hemodialysis depe ndent, ventilator dependent respiratory failure, and dysphagia with G-tube. The patient was sent fr hemodialysis center for respiratory distress and hypotension. The patient is noncommunicative, a nd on evaluation in the emergency room, the patient was noted to have leukocytosis, was tachycardic and hypotensive. The patient underwent a chest x-ray which revealed bibasilar atelectasis, atherosc lerotic vascular disease. The patient underwent a 12-lead EKG which showed sinus tachycardia with l eft axis deviation, no ST or T-wave changes concerning for acute ischemia. The patient was diagnose d with sepsis and possible underlying pneumonia and was started on broad spectrum antibiotics. The patient was not able to complete hemodialysis in the hemodialysis center. Only 700 mL of fluid were removed. The patient received IV fluids which helped with hypotension. The patient will be admitt ed for further evaluation and management. PAST MEDICAL HISTORY: Per HPI. PAST SURGICAL HISTORY: Status post hemodialysis catheter placement, status post tracheostomy, statu s post G-tube placement. FAMILY HISTORY: Noncontributory. SOCIAL HISTORY: The patient is a resident of [facility] facility. ALLERGIES: NO KNOWN ALLERGIES. MEDICATIONS ON ADMISSION: Include 1. Oumou-Jayesh. 2. Sensipar. 3. Midodrine. 4. Reglan. 5. Renvela. 6. Keppra. 7. Colace. 8. Omeprazole. 9. Klonopin. 10. Amiodarone. The patient also has a history of paroxysmal atrial fibrillation. REVIEW OF SYSTEMS: Unable to obtain due to patient's condition. PHYSICAL ASSESSMENT: GENERAL: Well-developed, well-nourished gentleman currently awake, is nonverbal, does not follow an y commands. VITAL SIGNS: Temperature is 98.2, pulse is 83, blood pressure is 94/69, respiratory rate 19, oxygen saturation 100% on 30% FIO2. HEENT: Head is atraumatic, normocephalic. Pupils equal, round, reactive to light and accommodation . Oral mucosa is pink and moist. NECK: Supple. Tracheostomy on the base of the neck. LUNGS: Diminished at the bases. Scattered rhonchi bilaterally. CARDIOVASCULAR: Normal S1, S2. No murmurs, gallops, clicks, rubs noted. ABDOMEN: Protuberant, soft, nondistended, nontender. G-tube present with intact stoma. EXTREMITIES: Bilateral lower extremities contracted. Pulses equal bilaterally. There is no edema, clubbing, or cyanosis. NEUROLOGIC: The patient is awake, opens eyes. Does not follow any commands. SKIN: No apparent rash or petechiae noted. LABORATORY DATA: On admission, CBC: White blood cells 12.6, hemoglobin 11.1, hematocrit 35.0, plat elets 157. Chemistry: Sodium is 137, potassium 4.1, chloride 103, carbon dioxide 16, anion gap 23, BUN is 77, creatinine 7.56, glucose 135. AST 41, ALT 65, alkaline phosphatase is 189. PT 30.7, IN R is 1.05, PTT is 99.0. ASSESSMENT AND PLAN 1. Sepsis, most likely secondary to healthcare-acquired pneumonia. We will continue the patient on broad spectrum antibiotics. Dr. Cali is asked to see patient in infectious disease consultation. Continue to follow up on blood cultures. 2. Possible healthcare-acquired pneumonia. 3. Acute on chronic ventilator-dependent respiratory failure with tracheostomy. Dr. Palma is ask ed to see the patient from pulmonology standpoint. Continue ventilatory support and bronchodilators . 4. End-stage renal disease, hemodialysis dependent. Dr. Ordonez will be following the patient in [facility] hrology consultation. Continue hemodialysis. 5. Chronic encephalopathy. 6. Hypertension. The patient currently is hypotensive. Continue to monitor blood pressure. 7. Hyperlipidemia. Continue statin. 8. Seizure disorder. Continue Keppra. 9. Dysphagia with PEG. 10. We will continue heparin for deep venous thrombosis prophylaxis and Protonix for peptic ulcer d isease prophylaxis. 11. Obtain sputum culture. Further recommendations based on clinical course. Plan of care discussed with Dr. Connelly. Dictated By: MARCELO HYMAN ASL INTERPRETER for BLESSING CONNELLY MD SR/NTS Conf#: [id number] DID#: [id number]
[2016-08-22] MEDS: SEVELAMER CARBONATE 0.8 GM PKT GTB SCH (18:30)
[2016-08-22] MEDS: MIDODRINE 5 MG TAB GTB SCH (18:30)
[2016-08-22 19:30] VITALS: BP 102/66; PULSE 92; RESP 16
[2016-08-22 19:40] VITALS: Ht 170.2 cm; Wt 77.2 kg
[2016-08-22 20:00] VITALS: PULSE 90
[2016-08-22 20:14] VITALS: BP 102/66; RESP 20
--- NOTE | 2016-08-22 20:39 | CONS ---
Date/Time of Note Date/Time of Note DATE: 08/22/16 TIME: 20:37 Assessment/Plan Assessment/Plan Chief Complaint/Hosp Course [id number] A/P ESRD HTN SEPSIS ASHD HCAP PLAN HD Problems: Consultation Date/Type/Reason Admit Date/Time August 22, 2016 at 12:50 Initial Consult Date Type of Consultation: renal Exam/Review of Systems Vital Signs Vitals Vital Signs Date Time Temp Pulse Resp B/P Pulse Ox O2 Delivery O2 Flow Rate FiO2 08/22/16 20:14 97.6 92 20 102/66 99 08/22/16 19:19 30 08/22/16 12:07 Mechanical Ventilator Exam Respiratory: diminished breath sounds Cardiovascular: regular rate and rhythm Gastrointestinal: bowel sounds, soft Extremities: edema Results Result Diagram: 08/22/16 0955 08/22/16 0955 Results 24 hrs Laboratory Tests Test 08/22/16 09:55 08/22/16 13:17 08/22/16 15:30 08/22/16 17:30 White Blood Count 12.6 #H Red Blood Count 3.50 #L Hemoglobin 11.2 #L Hematocrit 35.0 #L Mean Corpuscular Volume 100.0 Mean Corpuscular Hemoglobin 32.0 Mean Corpuscular Hemoglobin Concent 32.0 Red Cell Distribution Width 17.2 H Platelet Count 157 Mean Platelet Volume 10.3 # Neutrophils % 80.9 H Lymphocytes % 9.9 L Monocytes % 6.9 Eosinophils % 1.0 Basophils % 0.2 Nucleated Red Blood Cells % 0.0 Neutrophils # 10.2 H Lymphocytes # 1.2 Monocytes # 0.9 Eosinophils # 0.1 Basophils # 0.0 Nucleated Red Blood Cells # 0.0 Prothrombin Time 13.7 Prothrombin Time Ratio 1.1 INR International Normalized Ratio 1.05 Activated Partial Thromboplast Time 99.0 *H Sodium Level 137 Potassium Level 5.1 Chloride Level 103 Carbon Dioxide Level 16 L Anion Gap 23 H Blood Urea Nitrogen 77 H Creatinine 7.56 H Glucose Level 135 Lactic Acid Level 1.4 1.8 1.8 Calcium Level 9.0 Magnesium Level 2.6 H Total Bilirubin 0.3 Direct Bilirubin 0.00 Indirect Bilirubin 0.3 Aspartate Amino Transf (AST/SGOT) 41 Alanine Aminotransferase (ALT/SGPT) 65 Alkaline Phosphatase 189 H Troponin I 0.017 B-Type Natriuretic Peptide 1550 H Total Protein 9.2 H Albumin 4.6 Globulin 4.60 H Albumin/Globulin Ratio 1.00 Blood Gas Specimen Source Blood arterial Arterial Blood Date Drawn 08/22/2016 2:20:04 PM Arterial Blood pH (Temp corrected) 7.337 L Arterial Blood pCO2 (Temp correct) 27.6 L Arterial Blood pO2 (Temp corrected) 93.7 Arterial Blood HCO3 14.5 L Arterial Blood Base Excess -10.0 L Arterial Blood Oxygen Saturation 96.3 Damaso Test ACCEPTAB Arterial Blood Gas Puncture Site Right Radial Arterial Blood Carboxyhemoglobin 0.4 Arterial Blood Methemoglobin 0.1 Blood Gas A-a O2 Differential 87.8 H Oxyhemoglobin Percent 95.8 Total Hemoglobin 11.3 L Blood Gas Temperature 37.0 Blood Gas Respiration Rate 16.0 Blood Gas Actual Respiration Rate 21 Blood Gas Modality VENT - AC FiO2 30.0 Blood Gas Tidal Volume 500.0 Blood Gas Low PEEP Setting 5.0 Blood Gas Notified Whom JLD Blood Gas Notified Time 08/22/2016 2:39:02 PM Medications Medications Current Medications Amiodarone HCl (Cordarone) 200 mg DAILY GTB ; Start 08/23/16 at 09:00 Cinacalcet (Sensipar) 60 mg DAILY GTB ; Start 08/23/16 at 09:00 Docusate Sodium (Colace Liquid Cup) 100 mg BID GTB ; Start 08/22/16 at 21:00 Levetiracetam (Keppra Liq (Ped)) 1,000 mg DAILY GTB ; Start 08/23/16 at 09:00 Midodrine (Proamatine) 5 mg Q8H GTB Last administered on 08/22/16t 18:30; Admin Dose 5 MG; Start 08/22/16 at 17:30 Multivit/Ca Carb/ B Cmplx/FA/Prenat (Oumou-Jayesh) 1 tab DAILY GTB ; Start 08/23/16 at 09:00 Ondansetron HCl (Zofran Inj) 4 mg Q6H PRN IV NAUSEA AND/OR VOMITING; Start 08/22 at 17:30 Acetaminophen (Tylenol Tab) 650 mg Q6H PRN PO PAIN LEVEL 1-3 OR FEVER; Start at 17:30 Morphine Sulfate (morphine) 2 mg Q4H PRN IV PAIN LEVEL 7-10; Start 08/22/16 at 17:30 Docusate Sodium (Colace) 100 mg Q12H PRN PO CONSTIPATION; Start 08/22/16 at 17: 30 Pantoprazole (Protonix Iv) 40 mg DAILY@06 IV ; Start 08/23/16 at 06:00 Heparin Sodium (Porcine) (Heparin (5000 Units/0.5 ml)) 5,000 unit Q12 SC ; Start 08/22/16 at 21:00 CHUYITA PASTOR MD August 22, 2016 20:39
[2016-08-22] MEDS ORDERED: NACL 3% FOR INHALATION 15 ML NEBU NEB ONE (21:00)
[2016-08-22 21:42] VITALS: RESP 16
[2016-08-22] MEDS: DOCUSATE SODIUM 10 MG/ML (10ML CUP) GTB SCH (22:31)
[2016-08-22] MEDS: HEPARIN 5,000 UNIT/0.5 ML VIAL SC SCH (22:48)
--- NOTE | 2016-08-22 23:15 | CONS ---
DATE OF ADMISSION: 08/22/2016 DATE OF CONSULTATION: 08/22/2016 TYPE OF CONSULTATION: Nephrology. Thank you Dr. Adelaida White and Dr. Brannon Palacio, For kindly asking us to see the patient in consultation. A 56-year-old male with history of chronic and nonspecific encephalopathy, ESRD, hypertension, dyslipidemia, tracheostomy, G-tube placement. Was at [facility] and noted to have possible sepsis, transferred here for further management. The patient's blood pressure is 102/76, respirations 32, temperature 97.6. The patient's WBC is 12.6, hematocrit 35.0, platelet count of 157. Potassium 5.1, CO2 16, creatinine 7.56. Chest x-ray shows bibasilar atelectasis, atherosclerotic vascular disease. Patient has abdominopelvic CT scan. It shows no CT source for sepsis, moderate bibasilar atelectasis, cholelithiasis, atrophic kidneys with multiple cysts, atherosclerotic vascular disease including severe coronary artery calcifications, small bilateral inguinal hernia containing only fat. The patient is admitted. PAST MEDICAL HISTORY: Please review the old chart. The patient has sepsis, ESRD, encephalopathy, vent-dependent respiratory failure, G-tube placement, tracheostomy, and hypercalcemia. ALLERGIES: unknown FAMILY HISTORY: Cannot be obtained. SOCIAL HISTORY: Cannot be obtained. MEDICATION HISTORY: Listed as patient is on: 1. Amiodarone. 2. Sensipar. 3. Clonidine. 4. Docusate sodium. 5. Keppra. 6. Reglan. 7. Midodrine. 8. Multiple vitamins. 9. Omeprazole. 10. Renvela. REVIEW OF SYSTEMS: Cannot be obtained. PHYSICAL EXAMINATION: GENERAL: The patient is encephalopathic. VITAL SIGNS: Pulse 90, blood pressure of 96/75. HEENT: Head is atraumatic, normocephalic. Pupils are reactive. NECK: Tracheostomy in place. LUNGS: Rhonchi. CARDIOVASCULAR: S1, S2 normal. ABDOMEN: Distended. Bowel sounds +. EXTREMITIES: No cyanosis, clubbing. Edema positive. CENTRAL NERVOUS SYSTEM: The patient has encephalopathy. LABORATORY DATA: As mentioned above. IMPRESSION: 1. Systemic inflammatory response syndrome. 2. End-stage renal disease. 3. Hypertension. 4. Anemia. 5. Leukocytosis. 6. Metabolic acidosis. 7. Atherosclerotic heart disease. 8. Atrophic kidney. 9. Renal cysts. 10. Inguinal hernia. 11. Hypercalcemia history. 12. Elevated BNP. PLAN: To continue antibiotics. The patient is currently on amiodarone, Sensipar, Keppra, Zosyn. Other treatment as per Dr. Palacio. Thank you, Dr. Palacio, for kindly asking me to see this patient in nephrology consultation. Dictated By: CHUYITA CHARLES/AMNA Conf#: [id number] DID#: [id number] MTDD
[2016-08-22 23:32] VITALS: RESP 16
[2016-08-23] VITALS (31 sets, daily range): BP systolic 88–112; BP diastolic 50–61; PULSE 85–124; RESP 11–32
[2016-08-23] MEDS: MIDODRINE 5 MG TAB GTB SCH ×3 (01:41→17:23)
[2016-08-23] MEDS: PANTOPRAZOLE 40 MG INJ IV SCH (06:04)
[2016-08-23] MEDS ORDERED: PENDING SANTYL ORDER FOR WOUND CARE XX PRN (07:00)
[2016-08-23] MEDS: MULTIVIT/CA CARB/B CMPLX/FA TAB GTB SCH (08:21)
[2016-08-23] MEDS: CINACALCET 30 MG TAB GTB SCH (08:21)
[2016-08-23] MEDS: DOCUSATE SODIUM 10 MG/ML (10ML CUP) GTB SCH ×2 (08:21→21:29)
[2016-08-23] MEDS: SEVELAMER CARBONATE 0.8 GM PKT GTB SCH ×3 (08:21→17:22)
[2016-08-23] MEDS: AMIODARONE 200 MG TAB GTB SCH (08:22)
--- NOTE | 2016-08-23 08:56 | RADRPT ---
PROCEDURE: XR Chest. CLINICAL INDICATION: Pneumonia TECHNIQUE: Chest AP portable COMPARISON: 08/22/2016 FINDINGS: Tracheostomy tube. Right internal jugular tunnel dialysis catheter. The mediastinal structures are unremarkable. There is calcification of the thoracic aorta (consiste nt with atherosclerosis). The heart is normal in size and configuration. The pulmonary vascularity is normal. There is mild bibasilar subsegmental atelectasis. No consolidation is identified. The pleural spaces are unremarkable. The osseous structures are unremarkable. IMPRESSION: Calcification of the thoracic aorta (consistent with atherosclerosis). Mild bibasilar subsegmental atelectasis RPTAT: HGDB .Jhoan Dunbar MD, MD Date Time Electronically viewed and signed by .Jhoan Dunbar MD, on 08/23/2016 08:56 .B/
[2016-08-23] MEDS: HEPARIN 5,000 UNIT/0.5 ML VIAL SC SCH ×2 (09:00→21:30)
[2016-08-23] MEDS ORDERED: LEVETIRACETAM (100 MG/ML PO SYG) GTB SCH (09:00)
[2016-08-23 11:21] LABS: ADD SCAN DIFF NO
[2016-08-23 11:26] LABS: BASOPHILS % 0.1 % (0.0-2.0); EOSINOPHILS # 0.1 10^3/ul (0.0-0.5); EOSINOPHILS % 1.2 % (0.0-7.0); HEMOGLOBIN 9.9 g/dl (14.0-18.0); LYMPHOCYTES # 0.9 10^3/ul (0.8-2.9); LYMPHOCYTES % 8.9 % (15.0-51.0); MEAN CORPUSCULAR HEMOGLOBIN 31.8 pg (29.0-33.0); MEAN CORPUSCULAR HGB CONC 30.9 g/dl (32.0-37.0); MEAN CORPUSCULAR VOLUME 102.9 fl (82.0-101.0); MEAN PLATELET VOLUME 10.2 fl (7.4-10.4); MONOCYTE # 0.6 10^3/ul (0.3-0.9); MONOCYTES % 6.1 % (0.0-11.0); NEUTROPHILS % 82.8 % (39.0-77.0); NUCLEATED RED BLOOD CELLS% 0.2 /100WBC (0.0-0.0); PLATELET COUNT 174 10^3/UL (140-415); RED BLOOD COUNT 3.11 10^6/ul (4.70-6.10); RED CELL DISTRIBUTION WIDTH 17.2 % (11.5-14.5); WHITE BLOOD COUNT 9.7 10^3/ul (4.8-10.8)
[2016-08-23 11:46] LABS: POTASSIUM 3.7 mmol/L (3.5-5.1)
[2016-08-23 11:49] LABS: CREATININE 5.89 mg/dl (0.61-1.24)
[2016-08-23 11:50] LABS: CALCIUM 9.6 mg/dl (8.4-10.2)
[2016-08-23] MEDS ORDERED: AMIKACIN IV PER PHARMACY XX SCH (12:30)
--- NOTE | 2016-08-23 12:42 | CONS ---
DATE OF ADMISSION: 08/22/2016 DATE OF CONSULTATION: 08/23/2016 TYPE OF CONSULTATION: Infectious Disease. REASON FOR CONSULTATION: Antibiotic management. HISTORY OF PRESENT ILLNESS: Luis Juan is a 56-year-old Sinhala male who comes in with respiratory d istress during dialysis. His problems include: 1. Chronic anoxic encephalopathy. 2. Seizure disorder. 3. Hypertension. 4. Hyperlipidemia. 5. End-stage renal disease on hemodialysis. 6. Ventilator-dependent respiratory failure. 7. Status post tracheostomy. 8. Dysphagia with G-tube. The patient was sent from the hemodialysis center for respiratory distress and hypotension. He is n oncommunicative. He is noted to have leukocytosis, tachycardia and was hypotensive. A chest x-ray revealed bibasilar atelectasis and atherosclerotic vascular disease. He underwent a 12-lead EKG whi ch showed sinus tachycardia with left axis deviation. The patient was diagnosed with sepsis and pos sible underlying pneumonia and started on broad-spectrum antibiotics. He was not able to complete h is hemodialysis in the hemodialysis center and only 700 mL were removed. On admission, his white co unt was 12.6, H and H 11.1 and 35, platelet count 157,000. BUN and creatinine 77/7.56, glucose 135, AST 41, ALT 65, alkaline phosphatase 189. PAST MEDICAL HISTORY: Operations as outlined. FAMILY HISTORY: Noncontributory. SOCIAL HISTORY: He is a resident of a longterm facility. We have no history of smoking, dri nking or abuse of drugs. ALLERGIES: NONE TO PENICILLIN, SULFA OR FOODS. MEDICATIONS: Per chart. REVIEW OF SYSTEMS: As per HPI. PHYSICAL EXAMINATION: GENERAL: The patient is a chronically ill-appearing male who is awake, but nonverbal. VITAL SIGNS: Stable. Blood pressure is 94/69. He is afebrile. SKIN: Without generalized rash. HEENT: Within normal limits. NECK: Supple. Tracheostomy is in place. LYMPH NODES: None palpable. CHEST: Decreased breath sounds at the bases with occasional scattered rhonchi. HEART: Without murmur or gallop. ABDOMEN: Soft, protuberant, nontender. G-tube present without exudate. EXTREMITIES: Without cyanosis, clubbing, or edema. He has contractures of lower extremities. RECTAL AND GENITAL: Deferred. NEUROLOGIC: The patient is nonverbal, does not follow commands. Otherwise, there are no other foca l neurological abnormalities. IMPRESSION AND PLAN: The patient comes in septic, probably from healthcare-acquired pneumonia. He was placed on broad-spectrum antibiotics and is currently on vancomycin and Zosyn. We will continue him on this regimen. The Zosyn, I believe, was a onetime order, but he now is on Zosyn and vancomy apoorva. I will dictate my findings to Dr. Palacio and Dr. Ordonez. Dictated By: SERGEY OLSON MD, JD/AMNA Conf#: [id number] DID#: [id number]
--- NOTE | 2016-08-23 12:52 | CONS ---
Date/Time of Note Date/Time of Note DATE: 08/23/16 TIME: 12:49 Assessment/Plan Assessment/Plan Additional Assessment/Plan Ventilator settings; AC of 16, tidal volume 500, PEEP of 5, 30% FiO2. Chest x-ray was reviewed from today which is totally clear. Blood cultures are positive for gram-positive cocci in clusters. Assessment recommendations; 1. Patient admitted for gram-positive sepsis. 2. Chronic renal failure, on hemodialysis. 3. Chronic respiratory failure, ventilator dependent. 4. Stable seizure disorder. 5. Hypertension. 6. Hyperlipidemia. 7. History of severe anoxic brain injury. Continue current treatment. Consider stopping Zosyn. Consultation Date/Type/Reason Admit Date/Time August 22, 2016 at 12:50 Date of Consultation: August 23, 2016 Type of Consultation: Pulmonary Reason for Consultation Pulmonary consultations requested for evaluation of chronic respiratory failure. History presenting any; patient is a 56-year-old oriented male who was admitted yesterday transferred over from longterm after the patient while undergoing dialysis developed hypotension. The patient because of her history of underlying severe anoxic brain injury is unable to give any history whatsoever and remains noncommunicative. She was obtained from medical records. Past medical history; 1. Patient with history of chronic respiratory failure, remains ventilator dependent. 2. Chronic renal failure, on hemodialysis. 3. Seizure disorder. 4. Hypertension. 5. Hyperlipidemia. 6. Status post tracheostomy and G-tube placement. Medications; were reviewed. Allergies; none. Social history; family history; occupational history; not available. Review of systems; unable to be obtained. General exam; middle-aged male, on ventilator via tracheostomy currently in no distress. Patient is awake but unresponsive to any commands. Social History Smoking Status: Never smoker Exam/Review of Systems Vital Signs Vitals Vital Signs Date Time Temp Pulse Resp B/P Pulse Ox O2 Delivery O2 Flow Rate FiO2 08/23/16 12:21 93 08/23/16 12:00 98.3 16 92/55 99 08/23/16 11:18 30 08/22/16 19:30 Mechanical Ventilator Trach Collar Intake and Output 08/22/16 08/22/16 08/23/16 15:00 23:00 07:00 Intake Total 185 ml Balance 185 ml Exam HEENT exam is; supple neck, no JVD. No lymphadenopathy. Midline trachea. No thyromegaly. Pharynx is clear. Tracheostomy placed with clean insertion site. Chest examination; clear to auscultation. S1-S2 audible, no murmurs. Regular rhythm. Abdomen examination; soft, no organomegaly. No distention. G-tube in place. Bowel sounds audible. Extremity examination; no peripheral edema. COSTUME DIRECTOR examination; patient is awake but does not follow any commands. Results Result Diagram: 08/23/16 1030 08/23/16 1030 Results 24 hrs Laboratory Tests Test 08/22/16 13:17 08/22/16 15:30 08/22/16 17:30 08/23/16 10:30 Blood Gas Specimen Source Blood arterial Arterial Blood Date Drawn 08/22/2016 2:20:04 PM Arterial Blood pH (Temp corrected) 7.337 L Arterial Blood pCO2 (Temp correct) 27.6 L Arterial Blood pO2 (Temp corrected) 93.7 Arterial Blood HCO3 14.5 L Arterial Blood Base Excess -10.0 L Arterial Blood Oxygen Saturation 96.3 Damaso Test ACCEPTAB Arterial Blood Gas Puncture Site Right Radial Arterial Blood Carboxyhemoglobin 0.4 Arterial Blood Methemoglobin 0.1 Blood Gas A-a O2 Differential 87.8 H Oxyhemoglobin Percent 95.8 Total Hemoglobin 11.3 L Blood Gas Temperature 37.0 Blood Gas Respiration Rate 16.0 Blood Gas Actual Respiration Rate 21 Blood Gas Modality VENT - AC FiO2 30.0 Blood Gas Tidal Volume 500.0 Blood Gas Low PEEP Setting 5.0 Blood Gas Notified Whom JLD Blood Gas Notified Time 08/22/2016 2:39:02 PM Lactic Acid Level 1.8 1.8 White Blood Count 9.7 # Red Blood Count 3.11 L Hemoglobin 9.9 L Hematocrit 32.0 L Mean Corpuscular Volume 102.9 H Mean Corpuscular Hemoglobin 31.8 Mean Corpuscular Hemoglobin Concent 30.9 L Red Cell Distribution Width 17.2 H Platelet Count 174 Mean Platelet Volume 10.2 Neutrophils % 82.8 H Lymphocytes % 8.9 L Monocytes % 6.1 Eosinophils % 1.2 Basophils % 0.1 Nucleated Red Blood Cells % 0.2 H Neutrophils # 8.0 H Lymphocytes # 0.9 Monocytes # 0.6 Eosinophils # 0.1 Basophils # 0.0 Nucleated Red Blood Cells # 0.0 Sodium Level 144 Potassium Level 3.7 Chloride Level 105 Carbon Dioxide Level 21 Anion Gap 22 H Blood Urea Nitrogen 51 H Creatinine 5.89 H Glucose Level 129 Calcium Level 9.6 Medications Medications Current Medications Amiodarone HCl (Cordarone) 200 mg DAILY GTB Last administered on 08/23/16 08:22 ; Admin Dose 200 MG; Start 08/23/16 at 09:00 Cinacalcet (Sensipar) 60 mg DAILY GTB Last administered on 08/23/16 08:21; Admin Dose 60 MG; Start 08/23/16 at 09:00 Docusate Sodium (Colace Liquid Cup) 100 mg BID GTB Last administered on 08:21; Admin Dose 100 MG; Start 08/22/16 at 21:00 Midodrine (Proamatine) 5 mg Q8H GTB Last administered on 08/23/16 09:22; Admin Dose 5 MG; Start 08/22/16 at 17:30 Multivit/Ca Carb/ B Cmplx/FA/Prenat (Oumou-Jayesh) 1 tab DAILY GTB Last administered on 08/23/16 08:21; Admin Dose 1 TAB; Start 08/23/16 at 09:00 Ondansetron HCl (Zofran Inj) 4 mg Q6H PRN IV NAUSEA AND/OR VOMITING; Start 08/22 at 17:30 Acetaminophen (Tylenol Tab) 650 mg Q6H PRN PO PAIN LEVEL 1-3 OR FEVER; Start at 17:30 Morphine Sulfate (morphine) 2 mg Q4H PRN IV PAIN LEVEL 7-10; Start 08/22/16 at 17:30 Docusate Sodium (Colace) 100 mg Q12H PRN PO CONSTIPATION; Start 08/22/16 at 17: 30 Pantoprazole (Protonix Iv) 40 mg DAILY@06 IV Last administered on 08/23/16 06: 04; Admin Dose 40 MG; Start 08/23/16 at 06:00 Heparin Sodium (Porcine) (Heparin (5000 Units/0.5 ml)) 5,000 unit Q12 SC Last administered on 08/22/16 22:48; Admin Dose 5,000 UNIT; Start 08/22/16 at 21:00 [facility] This patient mayorga... PRN PRN XX WOUND CARE; Start 08/23/16 at 07:00 Levetiracetam (Keppra Liquid) 1,000 mg DAILY GTB ; Start 08/24/16 at 09:00 Amikacin Sulfate (Amikacin Iv Per Pharmacy) AMIKACIN PER PHARMACY NOTE XX ; Start 08/23/16 at 12:30; Status ALMA HARRIS August 23, 2016 12:52
--- NOTE | 2016-08-23 14:21 | PN ---
Date/Time of Note Date/Time of Note DATE: 08/23/16 TIME: 14:18 Assessment/Plan VTE Prophylaxis VTE Prophylaxis Intervention: SCD's Lines/Catheters IV Catheter Type (from [facility]): [facility] Urinary Cath still in place: No Assessment/Plan Chief Complaint/Hosp Course ASSESSMENT AND PLAN - Sepsis, most likely secondary to healthcare-acquired pneumonia. Continue the patient on broad spectrum antibiotics. Dr. Karely burns in infectious disease consultation. Continue to follow up on blood cultures. - Possible healthcare-acquired pneumonia. - GPC bacteremia - Acute on chronic ventilator-dependent respiratory failure with tracheostomy. is following from pulmonology standpoint. Continue ventilatory support and bronchodilators. - End-stage renal disease, hemodialysis dependent. Dr. Ivan following the patient in nephrology consultation. Continue hemodialysis. - Chronic encephalopathy. - Hypertension. The patient currently is hypotensive. Continue to monitor blood pressure. - Hyperlipidemia. Continue statin. - Seizure disorder. Continue Keppra. - Dysphagia with PEG. Continue heparin for deep venous thrombosis prophylaxis and Protonix for peptic ulcer disease prophylaxis. Further recommendations based on clinical course. Plan of care discussed with Dr. Palacio. Problems: Exam/Review of Systems Vital Signs Vitals Vital Signs Date Time Temp Pulse Resp B/P Pulse Ox O2 Delivery O2 Flow Rate FiO2 08/23/16 12:21 93 08/23/16 12:00 98.3 16 92/55 99 08/23/16 11:18 30 08/22/16 19:30 Mechanical Ventilator Trach Collar Intake and Output 08/22/16 08/22/16 08/23/16 15:00 23:00 07:00 Intake Total 185 ml Balance 185 ml Exam GENERAL: Well-developed, well-nourished gentleman currently awake, is nonverbal , does not follow any commands. HEENT: Head is atraumatic, normocephalic. Pupils equal, round, reactive to light and accommodation. Oral mucosa is pink and moist. NECK: Supple. Tracheostomy on the base of the neck. LUNGS: Diminished at the bases. Scattered rhonchi bilaterally. CARDIOVASCULAR: Normal S1, S2. No murmurs, gallops, clicks, rubs noted. ABDOMEN: Protuberant, soft, nondistended, nontender. G-tube present with intact stoma. EXTREMITIES: Bilateral lower extremities contracted. Pulses equal bilaterally. There is no edema, clubbing, or cyanosis. NEUROLOGIC: The patient is awake, opens eyes. Does not follow any commands. SKIN: No apparent rash or petechiae noted. Results Result Diagram: 08/23/16 1030 08/23/16 1030 Results 24 hrs Laboratory Tests Test 08/22/16 15:30 08/22/16 17:30 08/23/16 10:30 Lactic Acid Level 1.8 1.8 White Blood Count 9.7 # Red Blood Count 3.11 L Hemoglobin 9.9 L Hematocrit 32.0 L Mean Corpuscular Volume 102.9 H Mean Corpuscular Hemoglobin 31.8 Mean Corpuscular Hemoglobin Concent 30.9 L Red Cell Distribution Width 17.2 H Platelet Count 174 Mean Platelet Volume 10.2 Neutrophils % 82.8 H Lymphocytes % 8.9 L Monocytes % 6.1 Eosinophils % 1.2 Basophils % 0.1 Nucleated Red Blood Cells % 0.2 H Neutrophils # 8.0 H Lymphocytes # 0.9 Monocytes # 0.6 Eosinophils # 0.1 Basophils # 0.0 Nucleated Red Blood Cells # 0.0 Sodium Level 144 Potassium Level 3.7 Chloride Level 105 Carbon Dioxide Level 21 Anion Gap 22 H Blood Urea Nitrogen 51 H Creatinine 5.89 H Glucose Level 129 Calcium Level 9.6 Medications Medications Current Medications Amiodarone HCl (Cordarone) 200 mg DAILY GTB Last administered on 08/23/16 08:22 ; Admin Dose 200 MG; Start 08/23/16 at 09:00 Cinacalcet (Sensipar) 60 mg DAILY GTB Last administered on 08/23/16 08:21; Admin Dose 60 MG; Start 08/23/16 at 09:00 Docusate Sodium (Colace Liquid Cup) 100 mg BID GTB Last administered on 08:21; Admin Dose 100 MG; Start 08/22/16 at 21:00 Midodrine (Proamatine) 5 mg Q8H GTB Last administered on 08/23/16 09:22; Admin Dose 5 MG; Start 08/22/16 at 17:30 Multivit/Ca Carb/ B Cmplx/FA/Prenat (Oumou-Jayesh) 1 tab DAILY GTB Last administered on 08/23/16 08:21; Admin Dose 1 TAB; Start 08/23/16 at 09:00 Ondansetron HCl (Zofran Inj) 4 mg Q6H PRN IV NAUSEA AND/OR VOMITING; Start 08/22 at 17:30 Acetaminophen (Tylenol Tab) 650 mg Q6H PRN PO PAIN LEVEL 1-3 OR FEVER; Start at 17:30 Morphine Sulfate (morphine) 2 mg Q4H PRN IV PAIN LEVEL 7-10; Start 08/22/16 at 17:30 Docusate Sodium (Colace) 100 mg Q12H PRN PO CONSTIPATION; Start 08/22/16 at 17: 30 Pantoprazole (Protonix Iv) 40 mg DAILY@06 IV Last administered on 08/23/16 06: 04; Admin Dose 40 MG; Start 08/23/16 at 06:00 Heparin Sodium (Porcine) (Heparin (5000 Units/0.5 ml)) 5,000 unit Q12 SC Last administered on 08/22/16 22:48; Admin Dose 5,000 UNIT; Start 08/22/16 at 21:00 [facility]isc[facility] This patient mayorga... PRN PRN XX WOUND CARE; Start 08/23/16 at 07:00 Levetiracetam (Keppra Liquid) 1,000 mg DAILY GTB ; Start 08/24/16 at 09:00 Amikacin Sulfate AMIKACIN PER PHARMACY NOTE XX ; Start 08/23/16 at 12:30 Amikacin Sulfate/ Sodium Chloride (Amikacin/NS) 102 ml @ 102 mls/hr NOW IVPB ; Start 08/23/16 at 14:30; Stop 08/23/16 at 15:29 MARCELO HYMAN August 23, 2016 14:21
[2016-08-23] MEDS ORDERED: AMIKACIN 500 MG in SOD CHLORIDE 0.9% 100 ML IVPB SCH (14:30)
[2016-08-23] MEDS: METOCLOPRAMIDE 10 MG INJ IV SCH (17:22)
--- NOTE | 2016-08-23 17:56 | CONS ---
Date/Time of Note Date/Time of Note DATE: 08/23/16 TIME: 17:55 Assessment/Plan Assessment/Plan Chief Complaint/Hosp Course consult A/P ESRD HTN SEPSIS ASHD HCAP PLAN HD Problems: Consultation Date/Type/Reason Admit Date/Time August 22, 2016 at 12:50 Type of Consultation: renal 24 HR Interval Summary Subjective hx not possible: pt non-verbal Exam/Review of Systems Vital Signs Vitals Vital Signs Date Time Temp Pulse Resp B/P Pulse Ox O2 Delivery O2 Flow Rate FiO2 08/23/16 17:26 95 25 95 30 08/23/16 15:57 97.4 95/56 08/22/16 19:30 Mechanical Ventilator Trach Collar Intake and Output 08/22/16 08/22/16 08/23/16 14:59 22:59 06:59 Intake Total 185 ml Balance 185 ml Exam ENMT: nl external ears & nose Neck: supple Respiratory: diminished breath sounds Cardiovascular: regular rate and rhythm Gastrointestinal: bowel sounds (+), soft Results Result Diagram: 08/23/16 1030 08/23/16 1030 Results 24 hrs Laboratory Tests Test 08/23/16 10:30 White Blood Count 9.7 # Red Blood Count 3.11 L Hemoglobin 9.9 L Hematocrit 32.0 L Mean Corpuscular Volume 102.9 H Mean Corpuscular Hemoglobin 31.8 Mean Corpuscular Hemoglobin Concent 30.9 L Red Cell Distribution Width 17.2 H Platelet Count 174 Mean Platelet Volume 10.2 Neutrophils % 82.8 H Lymphocytes % 8.9 L Monocytes % 6.1 Eosinophils % 1.2 Basophils % 0.1 Nucleated Red Blood Cells % 0.2 H Neutrophils # 8.0 H Lymphocytes # 0.9 Monocytes # 0.6 Eosinophils # 0.1 Basophils # 0.0 Nucleated Red Blood Cells # 0.0 Sodium Level 144 Potassium Level 3.7 Chloride Level 105 Carbon Dioxide Level 21 Anion Gap 22 H Blood Urea Nitrogen 51 H Creatinine 5.89 H Glucose Level 129 Calcium Level 9.6 Medications Medications Current Medications Amiodarone HCl (Cordarone) 200 mg DAILY GTB Last administered on 08/23/16 08:22 ; Admin Dose 200 MG; Start 08/23/16 at 09:00 Cinacalcet (Sensipar) 60 mg DAILY GTB Last administered on 08/23/16 08:21; Admin Dose 60 MG; Start 08/23/16 at 09:00 Docusate Sodium (Colace Liquid Cup) 100 mg BID GTB Last administered on 08:21; Admin Dose 100 MG; Start 08/22/16 at 21:00 Midodrine (Proamatine) 5 mg Q8H GTB Last administered on 08/23/16 17:23; Admin Dose 5 MG; Start 08/22/16 at 17:30 Multivit/Ca Carb/ B Cmplx/FA/Prenat (Oumou-Jayesh) 1 tab DAILY GTB Last administered on 08/23/16 08:21; Admin Dose 1 TAB; Start 08/23/16 at 09:00 Ondansetron HCl (Zofran Inj) 4 mg Q6H PRN IV NAUSEA AND/OR VOMITING; Start 08/22 at 17:30 Acetaminophen (Tylenol Tab) 650 mg Q6H PRN PO PAIN LEVEL 1-3 OR FEVER; Start at 17:30 Morphine Sulfate (morphine) 2 mg Q4H PRN IV PAIN LEVEL 7-10; Start 08/22/16 at 17:30 Docusate Sodium (Colace) 100 mg Q12H PRN PO CONSTIPATION; Start 08/22/16 at 17: 30 Pantoprazole (Protonix Iv) 40 mg DAILY@06 IV Last administered on 08/23/16 06: 04; Admin Dose 40 MG; Start 08/23/16 at 06:00 Heparin Sodium (Porcine) (Heparin (5000 Units/0.5 ml)) 5,000 unit Q12 SC Last administered on 08/22/16 22:48; Admin Dose 5,000 UNIT; Start 08/22/16 at 21:00 Miscellaneous Information (Pending Santyl Order For Wound Care) This patient mayorga... PRN PRN XX WOUND CARE; Start 08/23/16 at 07:00 Levetiracetam (Keppra Liquid) 1,000 mg DAILY GTB ; Start 08/24/16 at 09:00 Amikacin Sulfate (Amikacin Iv Per Pharmacy) AMIKACIN PER PHARMACY NOTE XX ; Start 08/23/16 at 12:30 Metoclopramide HCl (Reglan) 5 mg Q6 IV Last administered on 08/23/16 17:22; Admin Dose 5 MG; Start 08/23/16 at 18:00 CHUYITA PASTOR MD August 23, 2016 17:56
[2016-08-24] VITALS (23 sets, daily range): BP systolic 98–111; BP diastolic 59–68; PULSE 71–93; RESP 11–22
[2016-08-24] MEDS: MIDODRINE 5 MG TAB GTB SCH ×3 (02:29→17:05)
[2016-08-24] MEDS: METOCLOPRAMIDE 10 MG INJ IV SCH ×4 (02:29→17:04)
[2016-08-24] MEDS: PANTOPRAZOLE 40 MG INJ IV SCH (05:28)
[2016-08-24 06:35] LABS: ADD SCAN DIFF NO
[2016-08-24 06:41] LABS: BASOPHILS % 0.4 % (0.0-2.0); EOSINOPHILS # 0.3 10^3/ul (0.0-0.5); EOSINOPHILS % 3.6 % (0.0-7.0); HEMATOCRIT 30.4 % (42.0-52.0); HEMOGLOBIN 9.5 g/dl (14.0-18.0); LYMPHOCYTES # 1.4 10^3/ul (0.8-2.9); LYMPHOCYTES % 17.5 % (15.0-51.0); MEAN CORPUSCULAR HEMOGLOBIN 32.4 pg (29.0-33.0); MEAN CORPUSCULAR HGB CONC 31.3 g/dl (32.0-37.0); MEAN CORPUSCULAR VOLUME 103.8 fl (82.0-101.0); MONOCYTE # 0.6 10^3/ul (0.3-0.9); MONOCYTES % 7.4 % (0.0-11.0); NEUTROPHIL # 5.5 10^3/ul (1.6-7.5); NEUTROPHILS % 69.8 % (39.0-77.0); PLATELET COUNT 172 10^3/UL (140-415); RED BLOOD COUNT 2.93 10^6/ul (4.70-6.10); RED CELL DISTRIBUTION WIDTH 17.3 % (11.5-14.5); WHITE BLOOD COUNT 7.8 10^3/ul (4.8-10.8)
[2016-08-24 07:09] LABS: CALCIUM 9.6 mg/dl (8.4-10.2); CREATININE 7.43 mg/dl (0.61-1.24); POTASSIUM 4.4 mmol/L (3.5-5.1)
[2016-08-24] MEDS: LEVETIRACETAM (100 MG/ML) 5ML CUP GTB SCH (09:00)
[2016-08-24] MEDS: SEVELAMER CARBONATE 0.8 GM PKT GTB SCH ×3 (09:00→17:04)
[2016-08-24] MEDS: DOCUSATE SODIUM 10 MG/ML (10ML CUP) GTB SCH ×2 (09:00→21:20)
[2016-08-24] MEDS: MULTIVIT/CA CARB/B CMPLX/FA TAB GTB SCH (09:01)
[2016-08-24] MEDS: CINACALCET 30 MG TAB GTB SCH (09:01)
[2016-08-24] MEDS: HEPARIN 5,000 UNIT/0.5 ML VIAL SC SCH ×2 (09:14→21:26)
--- NOTE | 2016-08-24 10:17 | CONS ---
Date/Time of Note Date/Time of Note DATE: 08/24/16 TIME: 10:16 Assessment/Plan Assessment/Plan Chief Complaint/Hosp Course 1. ESRD 2. HTN 3. SEPSIS 4. ASHD 5. HCAP Problems: Additional Assessment/Plan 1. Kidney optimization Consultation Date/Type/Reason Admit Date/Time August 22, 2016 at 12:50 Initial Consult Date 08/23/16 Type of Consultation: renal Reason for Consultation Dr Ordonez 24 HR Interval Summary Subjective hx not possible: pt non-verbal Exam/Review of Systems Vital Signs Vitals Vital Signs Date Time Temp Pulse Resp B/P Pulse Ox O2 Delivery O2 Flow Rate FiO2 08/24/16 09:15 89 08/24/16 07:36 98.0 11 98/59 94 08/24/16 05:34 30 08/22/16 19:30 Mechanical Ventilator Trach Collar Intake and Output 08/23/16 08/23/16 08/24/16 15:00 23:00 07:00 Intake Total 500 ml 762 ml 380 ml Output Total 2500 ml Balance -2000 ml 762 ml 380 ml Exam Constitutional: alert Psych: no complaints Head: normocephalic Eyes: nl conjunctiva Neck: supple Respiratory: clear to auscultation Cardiovascular: regular rate and rhythm Gastrointestinal: soft Genitourinary - Male: nl penis Results Result Diagram: 08/24/16 0545 08/24/16 0545 Results 24 hrs Laboratory Tests Test 08/23/16 10:30 08/24/16 05:45 White Blood Count 9.7 # 7.8 Red Blood Count 3.11 L 2.93 L Hemoglobin 9.9 L 9.5 L Hematocrit 32.0 L 30.4 L Mean Corpuscular Volume 102.9 H 103.8 H Mean Corpuscular Hemoglobin 31.8 32.4 Mean Corpuscular Hemoglobin Concent 30.9 L 31.3 L Red Cell Distribution Width 17.2 H 17.3 H Platelet Count 174 172 Mean Platelet Volume 10.2 10.0 Neutrophils % 82.8 H 69.8 Lymphocytes % 8.9 L 17.5 Monocytes % 6.1 7.4 Eosinophils % 1.2 3.6 Basophils % 0.1 0.4 Nucleated Red Blood Cells % 0.2 H 0.0 Neutrophils # 8.0 H 5.5 Lymphocytes # 0.9 1.4 Monocytes # 0.6 0.6 Eosinophils # 0.1 0.3 Basophils # 0.0 0.0 Nucleated Red Blood Cells # 0.0 0.0 Sodium Level 144 143 Potassium Level 3.7 4.4 Chloride Level 105 108 Carbon Dioxide Level 21 19 L Anion Gap 22 H 20 H Blood Urea Nitrogen 51 H 77 H Creatinine 5.89 H 7.43 H Glucose Level 129 116 Calcium Level 9.6 9.6 Medications Medications Current Medications Amiodarone HCl (Cordarone) 200 mg DAILY GTB Last administered on 08/23/16 08:22 ; Admin Dose 200 MG; Start 08/23/16 at 09:00 Cinacalcet (Sensipar) 60 mg DAILY GTB Last administered on 08/24/16 09:01; Admin Dose 60 MG; Start 08/23/16 at 09:00 Docusate Sodium (Colace Liquid Cup) 100 mg BID GTB Last administered on 09:00; Admin Dose 100 MG; Start 08/22/16 at 21:00 Midodrine (Proamatine) 5 mg Q8H GTB Last administered on 08/24/16 09:00; Admin Dose 5 MG; Start 08/22/16 at 17:30 Multivit/Ca Carb/ B Cmplx/FA/Prenat (Oumou-Jayesh) 1 tab DAILY GTB Last administered on 08/24/16 09:01; Admin Dose 1 TAB; Start 08/23/16 at 09:00 Ondansetron HCl (Zofran Inj) 4 mg Q6H PRN IV NAUSEA AND/OR VOMITING; Start 08/22 at 17:30 Acetaminophen (Tylenol Tab) 650 mg Q6H PRN PO PAIN LEVEL 1-3 OR FEVER; Start at 17:30 Morphine Sulfate (morphine) 2 mg Q4H PRN IV PAIN LEVEL 7-10; Start 08/22/16 at 17:30 Docusate Sodium (Colace) 100 mg Q12H PRN PO CONSTIPATION; Start 08/22/16 at 17: 30 Pantoprazole (Protonix Iv) 40 mg DAILY@06 IV Last administered on 08/24/16 05: 28; Admin Dose 40 MG; Start 08/23/16 at 06:00 Heparin Sodium (Porcine) (Heparin (5000 Units/0.5 ml)) 5,000 unit Q12 SC Last administered on 08/24/16 09:14; Admin Dose 5,000 UNIT; Start 08/22/16 at 21:00 Miscellaneous Information (Pending Santyl Order For Wound Care) This patient mayorga... PRN PRN XX WOUND CARE; Start 08/23/16 at 07:00 Levetiracetam (Keppra Liquid) 1,000 mg DAILY GTB Last administered on 08/24/16 09:00; Admin Dose 1,000 MG; Start 08/24/16 at 09:00 Amikacin Sulfate (Amikacin Iv Per Pharmacy) AMIKACIN PER PHARMACY NOTE XX ; Start 08/23/16 at 12:30 Metoclopramide HCl (Reglan) 5 mg Q6 IV Last administered on 08/24/16 05:28; Admin Dose 5 MG; Start 08/23/16 at 18:00 KAMINI HUANG August 24, 2016 10:17
[2016-08-24] MEDS: AMIODARONE 200 MG TAB GTB SCH (11:07)
--- NOTE | 2016-08-24 11:15 | CONS ---
Date/Time of Note Date/Time of Note DATE: 08/24/16 TIME: 11:13 Assessment/Plan Assessment/Plan Additional Assessment/Plan Current ventilator setting; AC of 14, tidal volume 500, PEEP of 5, 30% FiO2. Assessment recommendations; next 1. Patient admitted for gram-positive bacteremia leading to hypotension and sepsis with significant clinical improvement. 2. End-stage renal disease, on hemodialysis. 3. Seizure disorder. 4. History of hypertension. 5. Chronic respiratory failure, history of anoxic brain injury. Consider stopping amikacin. Continue vancomycin. Continue other supportive measures. Consultation Date/Type/Reason Admit Date/Time August 22, 2016 at 12:50 Initial Consult Date 08/23/16 Type of Consultation: Pulmonary 24 HR Interval Summary Free Text/Dictation Patient condition remains stable. Has remained hemodynamically stable. Patient remains awake but does not follow any commands. Exam; middle-aged male, on ventilator via tracheostomy currently in no distress. Exam/Review of Systems Vital Signs Vitals Vital Signs Date Time Temp Pulse Resp B/P Pulse Ox O2 Delivery O2 Flow Rate FiO2 08/24/16 09:15 89 08/24/16 08:00 30 08/24/16 07:36 98.0 11 98/59 94 08/22/16 19:30 Mechanical Ventilator Trach Collar Intake and Output 08/23/16 08/23/16 08/24/16 15:00 23:00 07:00 Intake Total 500 ml 762 ml 380 ml Output Total 2500 ml Balance -2000 ml 762 ml 380 ml Exam HEENT exam is; supple neck, no JVD. No lymphadenopathy. Midline trachea. No thyromegaly. Tracheostomy placed with clean insertion site. Chest examination; clear to auscultation. S1-S2 audible, no murmurs. Regular rhythm. Abdomen examination; soft, no organomegaly. Nondistended. G-tube in place. Bowel sounds audible. Extremity examination; no peripheral edema. WIRE TESTER examination; patient remains awake but does not follow any commands. Results Result Diagram: 08/24/16 0545 08/24/16 0545 Results 24 hrs Laboratory Tests Test 08/24/16 05:45 White Blood Count 7.8 Red Blood Count 2.93 L Hemoglobin 9.5 L Hematocrit 30.4 L Mean Corpuscular Volume 103.8 H Mean Corpuscular Hemoglobin 32.4 Mean Corpuscular Hemoglobin Concent 31.3 L Red Cell Distribution Width 17.3 H Platelet Count 172 Mean Platelet Volume 10.0 Neutrophils % 69.8 Lymphocytes % 17.5 Monocytes % 7.4 Eosinophils % 3.6 Basophils % 0.4 Nucleated Red Blood Cells % 0.0 Neutrophils # 5.5 Lymphocytes # 1.4 Monocytes # 0.6 Eosinophils # 0.3 Basophils # 0.0 Nucleated Red Blood Cells # 0.0 Sodium Level 143 Potassium Level 4.4 Chloride Level 108 Carbon Dioxide Level 19 L Anion Gap 20 H Blood Urea Nitrogen 77 H Creatinine 7.43 H Glucose Level 116 Calcium Level 9.6 Medications Medications Current Medications Amiodarone HCl (Cordarone) 200 mg DAILY GTB Last administered on 08/23/16 08:22 ; Admin Dose 200 MG; Start 08/23/16 at 09:00 Cinacalcet (Sensipar) 60 mg DAILY GTB Last administered on 08/24/16 09:01; Admin Dose 60 MG; Start 08/23/16 at 09:00 Docusate Sodium (Colace Liquid Cup) 100 mg BID GTB Last administered on 09:00; Admin Dose 100 MG; Start 08/22/16 at 21:00 Midodrine (Proamatine) 5 mg Q8H GTB Last administered on 08/24/16 09:00; Admin Dose 5 MG; Start 08/22/16 at 17:30 Multivit/Ca Carb/ B Cmplx/FA/Prenat (Oumou-Jayesh) 1 tab DAILY GTB Last administered on 08/24/16 09:01; Admin Dose 1 TAB; Start 08/23/16 at 09:00 Ondansetron HCl (Zofran Inj) 4 mg Q6H PRN IV NAUSEA AND/OR VOMITING; Start 08/22 at 17:30 Acetaminophen (Tylenol Tab) 650 mg Q6H PRN PO PAIN LEVEL 1-3 OR FEVER; Start at 17:30 Morphine Sulfate (morphine) 2 mg Q4H PRN IV PAIN LEVEL 7-10; Start 08/22/16 at 17:30 Docusate Sodium (Colace) 100 mg Q12H PRN PO CONSTIPATION; Start 08/22/16 at 17: 30 Pantoprazole (Protonix Iv) 40 mg DAILY@06 IV Last administered on 08/24/16 05: 28; Admin Dose 40 MG; Start 08/23/16 at 06:00 Heparin Sodium (Porcine) (Heparin (5000 Units/0.5 ml)) 5,000 unit Q12 SC Last administered on 08/24/16 09:14; Admin Dose 5,000 UNIT; Start 08/22/16 at 21:00 Miscellaneous Information (Pending Santyl Order For Wound Care) This patient mayorga... PRN PRN XX WOUND CARE; Start 08/23/16 at 07:00 Levetiracetam (Keppra Liquid) 1,000 mg DAILY GTB Last administered on 08/24/16 09:00; Admin Dose 1,000 MG; Start 08/24/16 at 09:00 Amikacin Sulfate (Amikacin Iv Per Pharmacy) AMIKACIN PER PHARMACY NOTE XX ; Start 08/23/16 at 12:30 Metoclopramide HCl (Reglan) 5 mg Q6 IV Last administered on 08/24/16 05:28; Admin Dose 5 MG; Start 08/23/16 at 18:00 ALMA LOUIS August 24, 2016 11:15
[2016-08-24] MEDS ORDERED: VANCOMYCIN IV PER PHARMACY XX SCH (11:30)
[2016-08-24] MEDS ORDERED: VANCOMYCIN 1.5 GM in SOD CHLORIDE 0.9% 250 ML IVPB SCH (12:30)
[2016-08-24] MEDS ORDERED: VANCOMYCIN 1 GM in NS 250 ML IVPB SCH (13:30)
--- NOTE | 2016-08-24 13:35 | PN ---
DATE: 08/24/2016 SUBJECTIVE: No events overnight, no fevers. The patient is nonverbal, noncommunicative, lying comf ortably in bed. LABORATORY DATA: WBC 7.8, platelets 172, no shift, no bands. INDWELLINGS: Trach, PEG, right chest Perm-A-Cath. MICROBIOLOGY: Blood culture growing gram-positive cocci in pairs and clusters. MRSA swab came back negative. DIAGNOSTICS: CT of the abdomen and pelvis on admission revealed moderate bibasilar atelectasis, cho lelithiasis. A chest x-ray showed bibasilar atelectasis. ANTIMICROBIALS: The patient is on: 1. Vancomycin. 2. Amikacin. PHYSICAL EXAMINATION: GENERAL: This is a chronically ill-appearing, middle-aged man who is in no distress. HEENT: Head atraumatic, normocephalic. Sclerae anicteric. Buccal mucosa dry. NECK: Supple. Tracheostomy present. CHEST: Rise symmetrical. Breath sounds diminished at the bases. HEART: S1, S2. ABDOMEN: Soft, bowel tones present. EXTREMITIES: Without cyanosis. Bilateral trace edema. ASSESSMENT: 1. Sepsis with bacteremia and tachycardia on admission. 2. Gram-positive cocci bacteremia, rule out line sepsis. 3. Possible pneumonia. 4. End-stage renal disease, hemodialysis dependent. 5. Chronic respiratory failure. 6. Chronic encephalopathy. PLAN: The patient remains stable, on appropriate antimicrobials which we are going to continue. Pe nding final cultures. We will repeat blood cultures with hemodialysis from [place]. Dictated By: CARRIE MEYERS [employer] SAL[employer] CONSULTANT for SERGEY PEDROZA/AMNA Conf#: [id number] DID#: [id number]
--- NOTE | 2016-08-24 13:48 | PN ---
Date/Time of Note Date/Time of Note DATE: 08/24/16 TIME: 13:47 Assessment/Plan VTE Prophylaxis VTE Prophylaxis Intervention: SCD's Lines/Catheters IV C[facility]ter Type [facility]from [facility] Saline Lock Urinary Cath still in place: No Assessment/Plan Chief Complaint/Hosp Course ASSESSMENT AND PLAN - Sepsis, most likely secondary to healthcare-acquired pneumonia. Continue the patient on broad spectrum antibiotics. Dr. Karely burns in infectious disease consultation. Continue to follow up on blood cultures. - Possible healthcare-acquired pneumonia. - GPC bacteremia - Acute on chronic ventilator-dependent respiratory failure with tracheostomy. is following from pulmonology standpoint. Continue ventilatory support and bronchodilators. - End-stage renal disease, hemodialysis dependent. Dr. Ivan following the patient in nephrology consultation. Continue hemodialysis. - Chronic encephalopathy. - Hypertension. The patient currently is hypotensive. Continue to monitor blood pressure. - Hyperlipidemia. Continue statin. - Seizure disorder. Continue Keppra. - Dysphagia with PEG. Continue heparin for deep venous thrombosis prophylaxis and Protonix for peptic ulcer disease prophylaxis. Further recommendations based on clinical course. Plan of care discussed with Dr. Palacio. Problems: Subjective 24 Hr Interval Summary Free Text/Dictation Patient's continues to have large amount of secretions from the tracheostomy, no fever nausea vomiting per RN. Exam/Review of Systems Vital Signs Vitals Vital Signs Date Time Temp Pulse Resp B/P Pulse Ox O2 Delivery O2 Flow Rate FiO2 08/24/16 12:53 90 08/24/16 11:40 17 94 30 08/24/16 11:31 98.5 110/67 08/22/16 19:30 Mechanical Ventilator Trach Collar Intake and Output 08/23/16 08/23/16 08/24/16 14:59 22:59 06:59 Intake Total 500 ml 762 ml 380 ml Output Total 2500 ml Balance -2000 ml 762 ml 380 ml Exam GENERAL: Well-developed, well-nourished gentleman currently awake, is nonverbal , does not follow any commands. HEENT: Head is atraumatic, normocephalic. Pupils equal, round, reactive to light and accommodation. Oral mucosa is pink and moist. NECK: Supple. Tracheostomy on the base of the neck. LUNGS: Diminished at the bases. Scattered rhonchi bilaterally. CARDIOVASCULAR: Normal S1, S2. No murmurs, gallops, clicks, rubs noted. ABDOMEN: Protuberant, soft, nondistended, nontender. G-tube present with intact stoma. EXTREMITIES: Bilateral lower extremities contracted. Pulses equal bilaterally. There is no edema, clubbing, or cyanosis. NEUROLOGIC: The patient is awake, opens eyes. Does not follow any commands. SKIN: No apparent rash or petechiae noted. Results Result Diagram: 08/24/16 0545 08/24/16 05 Results 24 hrs Laboratory Tests Test 08/24/16 05:45 08/24/16 12:18 White Blood Count 7.8 Red Blood Count 2.93 L Hemoglobin 9.5 L Hematocrit 30.4 L Mean Corpuscular Volume 103.8 H Mean Corpuscular Hemoglobin 32.4 Mean Corpuscular Hemoglobin Concent 31.3 L Red Cell Distribution Width 17.3 H Platelet Count 172 Mean Platelet Volume 10.0 Neutrophils % 69.8 Lymphocytes % 17.5 Monocytes % 7.4 Eosinophils % 3.6 Basophils % 0.4 Nucleated Red Blood Cells % 0.0 Neutrophils # 5.5 Lymphocytes # 1.4 Monocytes # 0.6 Eosinophils # 0.3 Basophils # 0.0 Nucleated Red Blood Cells # 0.0 Sodium Level 143 Potassium Level 4.4 Chloride Level 108 Carbon Dioxide Level 19 L Anion Gap 20 H Blood Urea Nitrogen 77 H Creatinine 7.43 H Glucose Level 116 Calcium Level 9.6 Random Vancomycin Level 10.1 Medications Medications Current Medications Amiodarone HCl (Cordarone) 200 mg DAILY GTB Last administered on 08/24/16 11:07 ; Admin Dose 200 MG; Start 08/23/16 at 09:00 Cinacalcet (Sensipar) 60 mg DAILY GTB Last administered on 08/24/16 09:01; Admin Dose 60 MG; Start 08/23/16 at 09:00 Docusate Sodium (Colace Liquid Cup) 100 mg BID GTB Last administered on 09:00; Admin Dose 100 MG; Start 08/22/16 at 21:00 Midodrine (Proamatine) 5 mg Q8H GTB Last administered on 08/24/16 09:00; Admin Dose 5 MG; Start 08/22/16 at 17:30 Multivit/Ca Carb/ B Cmplx/FA/Prenat (Oumou-Jayesh) 1 tab DAILY GTB Last administered on 08/24/16 09:01; Admin Dose 1 TAB; Start 08/23/16 at 09:00 Ondansetron HCl (Zofran Inj) 4 mg Q6H PRN IV NAUSEA AND/OR VOMITING; Start 08/22 at 17:30 Acetaminophen (Tylenol Tab) 650 mg Q6H PRN PO PAIN LEVEL 1-3 OR FEVER; Start at 17:30 Morphine Sulfate (morphine) 2 mg Q4H PRN IV PAIN LEVEL 7-10; Start 08/22/16 at 17:30 Docusate Sodium (Colace) 100 mg Q12H PRN PO CONSTIPATION; Start 08/22/16 at 17: 30 Pantoprazole (Protonix Iv) 40 mg DAILY@06 IV Last administered on 08/24/16 05: 28; Admin Dose 40 MG; Start 08/23/16 at 06:00 Heparin Sodium (Porcine) (Heparin (5000 Units/0.5 ml)) 5,000 unit Q12 SC Last administered on 08/24/16 09:14; Admin Dose 5,000 UNIT; Start 08/22/16 at 21:00 Miscellaneous Information (Pending Santyl Order For Wound Care) This patient mayorga... PRN PRN XX WOUND CARE; Start 08/23/16 at 07:00 Levetiracetam (Keppra Liquid) 1,000 mg DAILY GTB Last administered on 08/24/16 09:00; Admin Dose 1,000 MG; Start 08/24/16 at 09:00 Amikacin Sulfate (Amikacin Iv Per Pharmacy) AMIKACIN PER PHARMACY NOTE XX ; Start 08/23/16 at 12:30 Metoclopramide HCl 5 mg 5 mg Q6 IV Last administered on 08/24/16 11:08; Admin Dose 5 MG; Start 08/23/16 at 18:00 Vancomycin HCl (Vancocin) 250 ml @ 125 mls/hr ONCE IVPB Last administered on 13:24; Admin Dose 125 MLS/HR; Start 08/24/16 at 13:30; Stop 08/24/16 at 16 :00 MARCELO HYMAN August 24, 2016 13:48
[2016-08-25] VITALS (30 sets, daily range): BP systolic 101–125; BP diastolic 64–78; PULSE 80–104; RESP 16–23
[2016-08-25] MEDS: METOCLOPRAMIDE 10 MG INJ IV SCH ×4 (00:29→18:24)
[2016-08-25] MEDS: MIDODRINE 5 MG TAB GTB SCH ×3 (00:31→18:25)
[2016-08-25] MEDS: PANTOPRAZOLE 40 MG INJ IV SCH (05:27)
[2016-08-25 06:53] LABS: ADD SCAN DIFF NO
[2016-08-25 06:59] LABS: BASOPHILS % 0.3 % (0.0-2.0); EOSINOPHILS # 0.2 10^3/ul (0.0-0.5); EOSINOPHILS % 3.3 % (0.0-7.0); HEMATOCRIT 29.7 % (42.0-52.0); HEMOGLOBIN 9.4 g/dl (14.0-18.0); LYMPHOCYTES # 1.3 10^3/ul (0.8-2.9); LYMPHOCYTES % 18.2 % (15.0-51.0); MEAN CORPUSCULAR HEMOGLOBIN 33.1 pg (29.0-33.0); MEAN CORPUSCULAR HGB CONC 31.6 g/dl (32.0-37.0); MEAN CORPUSCULAR VOLUME 104.6 fl (82.0-101.0); MEAN PLATELET VOLUME 9.9 fl (7.4-10.4); MONOCYTE # 0.5 10^3/ul (0.3-0.9); MONOCYTES % 6.9 % (0.0-11.0); NEUTROPHIL # 5.1 10^3/ul (1.6-7.5); NEUTROPHILS % 69.8 % (39.0-77.0); PLATELET COUNT 184 10^3/UL (140-415); RED BLOOD COUNT 2.84 10^6/ul (4.70-6.10); RED CELL DISTRIBUTION WIDTH 16.8 % (11.5-14.5); WHITE BLOOD COUNT 7.3 10^3/ul (4.8-10.8)
[2016-08-25 07:35] LABS: CALCIUM 9.7 mg/dl (8.4-10.2); CREATININE 9.65 mg/dl (0.61-1.24); POTASSIUM 4.5 mmol/L (3.5-5.1)
[2016-08-25] MEDS: AMIODARONE 200 MG TAB GTB SCH (09:00)
[2016-08-25] MEDS: MULTIVIT/CA CARB/B CMPLX/FA TAB GTB SCH (10:01)
[2016-08-25] MEDS: LEVETIRACETAM (100 MG/ML) 5ML CUP GTB SCH (10:01)
[2016-08-25] MEDS: DOCUSATE SODIUM 10 MG/ML (10ML CUP) GTB SCH ×2 (10:01→21:40)
[2016-08-25] MEDS: CINACALCET 30 MG TAB GTB SCH (10:01)
[2016-08-25] MEDS: SEVELAMER CARBONATE 0.8 GM PKT GTB SCH ×3 (10:01→18:24)
[2016-08-25] MEDS: HEPARIN 5,000 UNIT/0.5 ML VIAL SC SCH ×2 (10:12→21:41)
--- NOTE | 2016-08-25 11:12 | CONS ---
Date/Time of Note Date/Time of Note DATE: 08/25/16 TIME: 11:10 Consult Date/Type/Reason Admit Date/Time August 22, 2016 at 12:50 Initial Consult Date 08/23/16 Type of Consultation: Pulmonary Subjective Patient continues mechanical ventilation appears comfortable at rest Objective Vital Signs Date Time Temp Pulse Resp B/P Pulse Ox O2 Delivery O2 Flow Rate FiO2 08/25/16 09:40 98 08/25/16 09:40 20 08/25/16 09:20 96 30 08/25/16 08:04 98.1 107/67 08/22/16 19:30 Mechanical Ventilator Trach Collar Intake and Output 08/24/16 08/24/16 08/25/16 15:00 23:00 07:00 Intake Total 855 ml 580 ml Balance 855 ml 580 ml Exam PHYSICAL EXAMINATION GENERAL: Elderly gentleman, on mechanical ventilation VITAL SIGNS: see below. HEENT: Pupils equal, round, and reactive to light. Tracheostomy site clean and intact. CARDIAC: S1, S2, no added sounds or murmurs CHEST: Diminished air entry bilaterally. ABDOMEN: Mildly distended. Bowel sounds present no guarding or rebound EXTREMITIES: No cyanosis, clubbing edema +1 NEUROLOGIC: Generalized weakness Results/Medications Result Diagram: 08/25/16 0533 08/25/16 0535 Results 24 hrs Laboratory Tests Test 08/24/16 12:18 08/25/16 05:33 08/25/16 05:35 Random Vancomycin Level 10.1 White Blood Count 7.3 Red Blood Count 2.84 L Hemoglobin 9.4 L Hematocrit 29.7 L Mean Corpuscular Volume 104.6 H Mean Corpuscular Hemoglobin 33.1 H Mean Corpuscular Hemoglobin Concent 31.6 L Red Cell Distribution Width 16.8 H Platelet Count 184 Mean Platelet Volume 9.9 Neutrophils % 69.8 Lymphocytes % 18.2 Monocytes % 6.9 Eosinophils % 3.3 Basophils % 0.3 Nucleated Red Blood Cells % 0.0 Neutrophils # 5.1 Lymphocytes # 1.3 Monocytes # 0.5 Eosinophils # 0.2 Basophils # 0.0 Nucleated Red Blood Cells # 0.0 Sodium Level 145 H Potassium Level 4.5 Chloride Level 109 Carbon Dioxide Level 18 L Anion Gap 23 H Blood Urea Nitrogen 98 H Creatinine 9.65 #H Glucose Level 118 Calcium Level 9.7 Medications Current Medications Amiodarone HCl (Cordarone) 200 mg DAILY GTB Last administered on 08/24/16 11:07 ; Admin Dose 200 MG; Start 08/23/16 at 09:00 Cinacalcet (Sensipar) 60 mg DAILY GTB Last administered on 08/25/16 10:01; Admin Dose 60 MG; Start 08/23/16 at 09:00 Docusate Sodium (Colace Liquid Cup) 100 mg BID GTB Last administered on 10:01; Admin Dose 100 MG; Start 08/22/16 at 21:00 Midodrine (Proamatine) 5 mg Q8H GTB Last administered on 08/25/16 10:00; Admin Dose 5 MG; Start 08/22/16 at 17:30 Multivit/Ca Carb/ B Cmplx/FA/Prenat (Oumou-Jayesh) 1 tab DAILY GTB Last administered on 08/25/16 10:01; Admin Dose 1 TAB; Start 08/23/16 at 09:00 Ondansetron HCl (Zofran Inj) 4 mg Q6H PRN IV NAUSEA AND/OR VOMITING; Start 08/22 at 17:30 Acetaminophen (Tylenol Tab) 650 mg Q6H PRN PO PAIN LEVEL 1-3 OR FEVER; Start at 17:30 Morphine Sulfate (morphine) 2 mg Q4H PRN IV PAIN LEVEL 7-10; Start 08/22/16 at 17:30 Docusate Sodium (Colace) 100 mg Q12H PRN PO CONSTIPATION; Start 08/22/16 at 17: 30 Pantoprazole (Protonix Iv) 40 mg DAILY@06 IV Last administered on 08/25/16 05: 27; Admin Dose 40 MG; Start 08/23/16 at 06:00 Heparin Sodium (Porcine) (Heparin (5000 Units/0.5 ml)) 5,000 unit Q12 SC Last administered on 08/25/16 10:12; Admin Dose 5,000 UNIT; Start 08/22/16 at 21:00 Miscellaneous Information (Pending Santyl Order For Wound Care) This patient mayorga... PRN PRN XX WOUND CARE; Start 08/23/16 at 07:00 Levetiracetam (Keppra Liquid) 1,000 mg DAILY GTB Last administered on 08/25/16 10:01; Admin Dose 1,000 MG; Start 08/24/16 at 09:00 Amikacin Sulfate (Amikacin Iv Per Pharmacy) AMIKACIN PER PHARMACY NOTE XX ; Start 08/23/16 at 12:30 Metoclopramide HCl (Reglan) 5 mg Q6 IV Last administered on 08/25/16 05:32; Admin Dose 5 MG; Start 08/23/16 at 18:00 Assessment/Plan Chief Complaint/Hosp Course Assessment 1. Vent dependent respiratory failure 2. Gram-positive sepsis 3. End-stage renal failure on hemodialysis 4. History of encephalopathy, seizure disorder, anoxic brain injury 5. Dysphagia with G-tube Plan 1. Continue hemodialysis as tolerated 2. Continue mechanical ventilation 3. Continue DVT GI prophylaxis 4. Continue tube feeding Disposition Okay for transfer back to long-term facility Problems: MACKENZIE LUJAN MD, [facility] August 25, 2016 11:12
[2016-08-25] MEDS: AMIKACIN 325 MG in SOD CHLORIDE 0.9% 100 ML IVPB SCH (13:51)
--- NOTE | 2016-08-25 14:47 | PN ---
Date/Time of Note Date/Time of Note DATE: 08/25/16 TIME: 14:46 Assessment/Plan VTE Prophylaxis VTE Prophylaxis Intervention: other Lines/Catheters IV Catheter Type (from [facility], [place]): Saline Lock Urinary Cath still in place: No Assessment/Plan Assessment/Plan - Sepsis, most likely secondary to healthcare-acquired pneumonia. Continue the patient on broad spectrum antibiotics. Dr. Karely burns in infectious disease consultation. Continue to follow up on blood cultures. - Possible healthcare-acquired pneumonia. - GPC bacteremia - Acute on chronic ventilator-dependent respiratory failure with tracheostomy. is following from pulmonology standpoint. Continue ventilatory support and bronchodilators. - End-stage renal disease, hemodialysis dependent. Dr. Ivan following the patient in nephrology consultation. Continue hemodialysis. - Chronic encephalopathy. - Hypertension. The patient currently is hypotensive. Continue to monitor blood pressure. - Hyperlipidemia. Continue statin. - Seizure disorder. Continue Keppra. - Dysphagia with PEG. Continue heparin for deep venous thrombosis prophylaxis and Protonix for peptic ulcer disease prophylaxis. Further recommendations based on clinical course. Plan of care discussed with Dr. Palacio. Subjective 24 Hr Interval Summary Free Text/Dictation NAD, had HD - 2.5 L removed, afebrile, no acute events reported overnight- staff. Constitutional: requiring IVF, requiring O2 Exam/Review of Systems Vital Signs Vitals Vital Signs Date Time Temp Pulse Resp B/P Pulse Ox O2 Delivery O2 Flow Rate FiO2 08/25/16 14:38 30 08/25/16 13:40 91 20 96 08/25/16 12:10 98.0 102/69 08/22/16 19:30 Mechanical Ventilator Trach Collar Intake and Output 08/24/16 08/24/16 08/25/16 15:00 23:00 07:00 Intake Total 855 ml 580 ml Balance 855 ml 580 ml Exam Constitutional: non-verbal Eyes: nl sclera ENMT: nl external ears & nose Neck: non-tender Respiratory: diminished breath sounds, other (trac intact) Gastrointestinal: non-tender, other (gt intavt, toleraes gt feeding), soft Musculoskeletal: muscle weakness Extremities: normal pulses Neurological: lethargic Skin: other Results Result Diagram: 08/25/16 0533 08/25/16 0535 Results 24 hrs Laboratory Tests Test 08/25/16 05:33 08/25/16 05:35 White Blood Count 7.3 Red Blood Count 2.84 L Hemoglobin 9.4 L Hematocrit 29.7 L Mean Corpuscular Volume 104.6 H Mean Corpuscular Hemoglobin 33.1 H Mean Corpuscular Hemoglobin Concent 31.6 L Red Cell Distribution Width 16.8 H Platelet Count 184 Mean Platelet Volume 9.9 Neutrophils % 69.8 Lymphocytes % 18.2 Monocytes % 6.9 Eosinophils % 3.3 Basophils % 0.3 Nucleated Red Blood Cells % 0.0 Neutrophils # 5.1 Lymphocytes # 1.3 Monocytes # 0.5 Eosinophils # 0.2 Basophils # 0.0 Nucleated Red Blood Cells # 0.0 Sodium Level 145 H Potassium Level 4.5 Chloride Level 109 Carbon Dioxide Level 18 L Anion Gap 23 H Blood Urea Nitrogen 98 H Creatinine 9.65 #H Glucose Level 118 Calcium Level 9.7 Medications Medications Current Medications Amiodarone HCl (Cordarone) 200 mg DAILY GTB Last administered on 08/24/16 11:07 ; Admin Dose 200 MG; Start 08/23/16 at 09:00 Cinacalcet (Sensipar) 60 mg DAILY GTB Last administered on 08/25/16 10:01; Admin Dose 60 MG; Start 08/23/16 at 09:00 Docusate Sodium (Colace Liquid Cup) 100 mg BID GTB Last administered on 10:01; Admin Dose 100 MG; Start 08/22/16 at 21:00 Midodrine (Proamatine) 5 mg Q8H GTB Last administered on 08/25/16 10:00; Admin Dose 5 MG; Start 08/22/16 at 17:30 Multivit/Ca Carb/ B Cmplx/FA/Prenat (Oumou-Jayesh) 1 tab DAILY GTB Last administered on 08/25/16 10:01; Admin Dose 1 TAB; Start 08/23/16 at 09:00 Ondansetron HCl (Zofran Inj) 4 mg Q6H PRN IV NAUSEA AND/OR VOMITING; Start 08/22 at 17:30 Acetaminophen (Tylenol Tab) 650 mg Q6H PRN PO PAIN LEVEL 1-3 OR FEVER; Start at 17:30 Morphine Sulfate (morphine) 2 mg Q4H PRN IV PAIN LEVEL 7-10; Start 08/22/16 at 17:30 Docusate Sodium (Colace) 100 mg Q12H PRN PO CONSTIPATION; Start 08/22/16 at 17: 30 Pantoprazole (Protonix Iv) 40 mg DAILY@06 IV Last administered on 08/25/16 05: 27; Admin Dose 40 MG; Start 08/23/16 at 06:00 Heparin Sodium (Porcine) (Heparin (5000 Units/0.5 ml)) 5,000 unit Q12 SC Last administered on 08/25/16 10:12; Admin Dose 5,000 UNIT; Start 08/22/16 at 21:00 Miscellaneous Information (Pending Santyl Order For Wound Care) This patient mayorga... PRN PRN XX WOUND CARE; Start 08/23/16 at 07:00 Levetiracetam (Keppra Liquid) 1,000 mg DAILY GTB Last administered on 08/25/16 10:01; Admin Dose 1,000 MG; Start 08/24/16 at 09:00 Amikacin Sulfate (Amikacin Iv Per Pharmacy) AMIKACIN PER PHARMACY NOTE XX ; Start 08/23/16 at 12:30 Metoclopramide HCl (Reglan) 5 mg Q6 IV Last administered on 08/25/16 13:52; Admin Dose 5 MG; Start 08/23/16 at 18:00 PAXTON RETANA August 25, 2016 14:47
--- NOTE | 2016-08-25 15:06 | CONS ---
Date/Time of Note Date/Time of Note DATE: 08/25/16 TIME: 15:05 Assessment/Plan Assessment/Plan Chief Complaint/Hosp Course 1. ESRD 2. HTN 3. SEPSIS 4. ASHD 5. HCAP Problems: Additional Assessment/Plan 1. Increase water intake by 100 ml q 4 hours flush Consultation Date/Type/Reason Admit Date/Time August 22, 2016 at 12:50 Initial Consult Date 08/23/16 Type of Consultation: nephrology Reason for Consultation dr Ordonez Exam/Review of Systems Vital Signs Vitals Vital Signs Date Time Temp Pulse Resp B/P Pulse Ox O2 Delivery O2 Flow Rate FiO2 08/25/16 14:38 30 08/25/16 13:40 91 20 96 08/25/16 12:10 98.0 102/69 08/22/16 19:30 Mechanical Ventilator Trach Collar Intake and Output 08/24/16 08/24/16 08/25/16 15:00 23:00 07:00 Intake Total 855 ml 580 ml Balance 855 ml 580 ml Exam Constitutional: alert Psych: no complaints Head: normocephalic Eyes: nl conjunctiva ENMT: nl external ears & nose Neck: other (tracheostomy) Respiratory: clear to auscultation, diminished breath sounds Cardiovascular: regular rate and rhythm Gastrointestinal: other (g tibe), soft Results Result Diagram: 08/25/16 0533 08/25/16 0535 Results 24 hrs Laboratory Tests Test 08/25/16 05:33 08/25/16 05:35 White Blood Count 7.3 Red Blood Count 2.84 L Hemoglobin 9.4 L Hematocrit 29.7 L Mean Corpuscular Volume 104.6 H Mean Corpuscular Hemoglobin 33.1 H Mean Corpuscular Hemoglobin Concent 31.6 L Red Cell Distribution Width 16.8 H Platelet Count 184 Mean Platelet Volume 9.9 Neutrophils % 69.8 Lymphocytes % 18.2 Monocytes % 6.9 Eosinophils % 3.3 Basophils % 0.3 Nucleated Red Blood Cells % 0.0 Neutrophils # 5.1 Lymphocytes # 1.3 Monocytes # 0.5 Eosinophils # 0.2 Basophils # 0.0 Nucleated Red Blood Cells # 0.0 Sodium Level 145 H Potassium Level 4.5 Chloride Level 109 Carbon Dioxide Level 18 L Anion Gap 23 H Blood Urea Nitrogen 98 H Creatinine 9.65 #H Glucose Level 118 Calcium Level 9.7 Medications Medications Current Medications Amiodarone HCl (Cordarone) 200 mg DAILY GTB Last administered on 08/24/16 11:07 ; Admin Dose 200 MG; Start 08/23/16 at 09:00 Cinacalcet (Sensipar) 60 mg DAILY GTB Last administered on 08/25/16 10:01; Admin Dose 60 MG; Start 08/23/16 at 09:00 Docusate Sodium (Colace Liquid Cup) 100 mg BID GTB Last administered on 10:01; Admin Dose 100 MG; Start 08/22/16 at 21:00 Midodrine (Proamatine) 5 mg Q8H GTB Last administered on 08/25/16 10:00; Admin Dose 5 MG; Start 08/22/16 at 17:30 Multivit/Ca Carb/ B Cmplx/FA/Prenat (Oumou-Jayesh) 1 tab DAILY GTB Last administered on 08/25/16 10:01; Admin Dose 1 TAB; Start 08/23/16 at 09:00 Ondansetron HCl (Zofran Inj) 4 mg Q6H PRN IV NAUSEA AND/OR VOMITING; Start 08/22 at 17:30 Acetaminophen (Tylenol Tab) 650 mg Q6H PRN PO PAIN LEVEL 1-3 OR FEVER; Start at 17:30 Morphine Sulfate (morphine) 2 mg Q4H PRN IV PAIN LEVEL 7-10; Start 08/22/16 at 17:30 Docusate Sodium (Colace) 100 mg Q12H PRN PO CONSTIPATION; Start 08/22/16 at 17: 30 Pantoprazole (Protonix Iv) 40 mg DAILY@06 IV Last administered on 08/25/16 05: 27; Admin Dose 40 MG; Start 08/23/16 at 06:00 Heparin Sodium (Porcine) (Heparin (5000 Units/0.5 ml)) 5,000 unit Q12 SC Last administered on 08/25/16 10:12; Admin Dose 5,000 UNIT; Start 08/22/16 at 21:00 Miscellaneous Information (Pending Santyl Order For Wound Care) This patient mayorga... PRN PRN XX WOUND CARE; Start 08/23/16 at 07:00 Levetiracetam (Keppra Liquid) 1,000 mg DAILY GTB Last administered on 08/25/16 10:01; Admin Dose 1,000 MG; Start 08/24/16 at 09:00 Amikacin Sulfate (Amikacin Iv Per Pharmacy) AMIKACIN PER PHARMACY NOTE XX ; Start 08/23/16 at 12:30 Metoclopramide HCl (Reglan) 5 mg Q6 IV Last administered on 08/25/16 13:52; Admin Dose 5 MG; Start 08/23/16 at 18:00 KAMINI HUANG August 25, 2016 15:06
--- NOTE | 2016-08-25 20:21 | CONS ---
Date/Time of Note Date/Time of Note DATE: 08/25/16 TIME: 20:19 Assessment/Plan Assessment/Plan Chief Complaint/Hosp Course SUBJECTIVE: No events overnight, no fevers. The patient is nonverbal, noncommunicative, lying comfortably in bed. INDWELLINGS: Trach, PEG, right chest Perm-A-Cath. MICROBIOLOGY: Blood culture growing gram-positive cocci in pairs and clusters. MRSA swab came back negative. DIAGNOSTICS: CT of the abdomen and pelvis on admission revealed moderate bibasilar atelectasis, cholelithiasis. A chest x-ray showed bibasilar atelectasis. ANTIMICROBIALS: The patient is on: 1. Vancomycin. 2. Amikacin. PHYSICAL EXAMINATION: GENERAL: This is a chronically ill-appearing, middle-aged man who is in no distress. HEENT: Head atraumatic, normocephalic. Sclerae anicteric. Buccal mucosa dry. NECK: Supple. Tracheostomy present. CHEST: Rise symmetrical. Breath sounds diminished at the bases. HEART: S1, S2. ABDOMEN: Soft, bowel tones present. EXTREMITIES: Without cyanosis. Bilateral trace edema. ASSESSMENT: 1. Sepsis with bacteremia and tachycardia on admission. 2. Gram-positive cocci bacteremia, rule out line sepsis. 3. Possible pneumonia. 4. End-stage renal disease, hemodialysis dependent. 5. Chronic respiratory failure. 6. Chronic encephalopathy. PLAN: The patient remains stable. Pending final cultures. Pending repeat blood cultures with hemodialysis from [place]. JESSICA staff Problems: Consultation Date/Type/Reason Admit Date/Time August 22, 2016 at 12:50 Initial Consult Date 08/23/16 Type of Consultation: ID Exam/Review of Systems Vital Signs Vitals Vital Signs Date Time Temp Pulse Resp B/P Pulse Ox O2 Delivery O2 Flow Rate FiO2 08/25/16 20:08 97.4 98 20 111/73 96 08/25/16 19:57 30 08/22/16 19:30 Mechanical Ventilator Trach Collar Intake and Output 08/24/16 08/24/16 08/25/16 15:00 23:00 07:00 Intake Total 855 ml 580 ml Balance 855 ml 580 ml Results Result Diagram: 08/25/16 0533 08/25/16 0535 Results 24 hrs Laboratory Tests Test 08/25/16 05:33 08/25/16 05:35 White Blood Count 7.3 Red Blood Count 2.84 L Hemoglobin 9.4 L Hematocrit 29.7 L Mean Corpuscular Volume 104.6 H Mean Corpuscular Hemoglobin 33.1 H Mean Corpuscular Hemoglobin Concent 31.6 L Red Cell Distribution Width 16.8 H Platelet Count 184 Mean Platelet Volume 9.9 Neutrophils % 69.8 Lymphocytes % 18.2 Monocytes % 6.9 Eosinophils % 3.3 Basophils % 0.3 Nucleated Red Blood Cells % 0.0 Neutrophils # 5.1 Lymphocytes # 1.3 Monocytes # 0.5 Eosinophils # 0.2 Basophils # 0.0 Nucleated Red Blood Cells # 0.0 Sodium Level 145 H Potassium Level 4.5 Chloride Level 109 Carbon Dioxide Level 18 L Anion Gap 23 H Blood Urea Nitrogen 98 H Creatinine 9.65 #H Glucose Level 118 Calcium Level 9.7 Medications Medications Current Medications Amiodarone HCl (Cordarone) 200 mg DAILY GTB Last administered on 08/24/16 11:07 ; Admin Dose 200 MG; Start 08/23/16 at 09:00 Cinacalcet (Sensipar) 60 mg DAILY GTB Last administered on 08/25/16 10:01; Admin Dose 60 MG; Start 08/23/16 at 09:00 Docusate Sodium (Colace Liquid Cup) 100 mg BID GTB Last administered on 10:01; Admin Dose 100 MG; Start 08/22/16 at 21:00 Midodrine (Proamatine) 5 mg Q8H GTB Last administered on 08/25/16 18:25; Admin Dose 5 MG; Start 08/22/16 at 17:30 Multivit/Ca Carb/ B Cmplx/FA/Prenat (Oumou-Jayesh) 1 tab DAILY GTB Last administered on 08/25/16 10:01; Admin Dose 1 TAB; Start 08/23/16 at 09:00 Ondansetron HCl (Zofran Inj) 4 mg Q6H PRN IV NAUSEA AND/OR VOMITING; Start 08/22 at 17:30 Acetaminophen (Tylenol Tab) 650 mg Q6H PRN PO PAIN LEVEL 1-3 OR FEVER; Start at 17:30 Morphine Sulfate (morphine) 2 mg Q4H PRN IV PAIN LEVEL 7-10; Start 08/22/16 at 17:30 Docusate Sodium (Colace) 100 mg Q12H PRN PO CONSTIPATION; Start 08/22/16 at 17: 30 Pantoprazole (Protonix Iv) 40 mg DAILY@06 IV Last administered on 08/25/16 05: 27; Admin Dose 40 MG; Start 08/23/16 at 06:00 Heparin Sodium (Porcine) (Heparin (5000 Units/0.5 ml)) 5,000 unit Q12 SC Last administered on 08/25/16 10:12; Admin Dose 5,000 UNIT; Start 08/22/16 at 21:00 Miscellaneous Information (Pending Santyl Order For Wound Care) This patient mayorga... PRN PRN XX WOUND CARE; Start 08/23/16 at 07:00 Levetiracetam (Keppra Liquid) 1,000 mg DAILY GTB Last administered on 08/25/16 10:01; Admin Dose 1,000 MG; Start 08/24/16 at 09:00 Amikacin Sulfate (Amikacin Iv Per Pharmacy) AMIKACIN PER PHARMACY NOTE XX ; Start 08/23/16 at 12:30 Metoclopramide HCl (Reglan) 5 mg Q6 IV Last administered on 08/25/16 18:24; Admin Dose 5 MG; Start 08/23/16 at 18:00 CARRIE MEYERS NP August 25, 2016 20:21
[2016-08-26] VITALS (26 sets, daily range): BP systolic 108–131; BP diastolic 67–90; PULSE 84–100; RESP 15–20
[2016-08-26] MEDS: METOCLOPRAMIDE 10 MG INJ IV SCH ×4 (00:38→17:17)
[2016-08-26] MEDS: MIDODRINE 5 MG TAB GTB SCH ×3 (00:41→17:17)
[2016-08-26] MEDS: PANTOPRAZOLE 40 MG INJ IV SCH (05:01)
[2016-08-26 05:50] LABS: ADD SCAN DIFF NO
[2016-08-26 06:00] LABS: BASOPHILS % 0.3 % (0.0-2.0); EOSINOPHILS # 0.2 10^3/ul (0.0-0.5); EOSINOPHILS % 2.1 % (0.0-7.0); HEMATOCRIT 30.7 % (42.0-52.0); HEMOGLOBIN 9.7 g/dl (14.0-18.0); LYMPHOCYTES # 1.5 10^3/ul (0.8-2.9); LYMPHOCYTES % 18.9 % (15.0-51.0); MEAN CORPUSCULAR HEMOGLOBIN 33.3 pg (29.0-33.0); MEAN CORPUSCULAR HGB CONC 31.6 g/dl (32.0-37.0); MEAN CORPUSCULAR VOLUME 105.5 fl (82.0-101.0); MEAN PLATELET VOLUME 9.5 fl (7.4-10.4); MONOCYTE # 0.6 10^3/ul (0.3-0.9); MONOCYTES % 7.2 % (0.0-11.0); NEUTROPHIL # 5.6 10^3/ul (1.6-7.5); NEUTROPHILS % 69.9 % (39.0-77.0); NUCLEATED RED BLOOD CELLS% 0.3 /100WBC (0.0-0.0); PLATELET COUNT 187 10^3/UL (140-415); RED BLOOD COUNT 2.91 10^6/ul (4.70-6.10); RED CELL DISTRIBUTION WIDTH 16.9 % (11.5-14.5)
[2016-08-26 06:28] LABS: CALCIUM 9.9 mg/dl (8.4-10.2); CREATININE 10.03 mg/dl (0.61-1.24); POTASSIUM 4.7 mmol/L (3.5-5.1)
[2016-08-26] MEDS: SEVELAMER CARBONATE 0.8 GM PKT GTB SCH ×3 (08:39→17:17)
[2016-08-26] MEDS: LEVETIRACETAM (100 MG/ML) 5ML CUP GTB SCH (08:40)
[2016-08-26] MEDS: CINACALCET 30 MG TAB GTB SCH (08:40)
[2016-08-26] MEDS: AMIODARONE 200 MG TAB GTB SCH (08:40)
[2016-08-26] MEDS: DOCUSATE SODIUM 10 MG/ML (10ML CUP) GTB SCH ×2 (08:40→20:22)
[2016-08-26] MEDS: MULTIVIT/CA CARB/B CMPLX/FA TAB GTB SCH (08:41)
[2016-08-26] MEDS: HEPARIN 5,000 UNIT/0.5 ML VIAL SC SCH ×2 (08:42→20:23)
--- NOTE | 2016-08-26 14:16 | CONS ---
Date/Time of Note Date/Time of Note DATE: 08/26/16 TIME: 14:15 Consult Date/Type/Reason Admit Date/Time August 22, 2016 at 12:50 Initial Consult Date 08/23/16 Type of Consultation: pulmonary Subjective Patient comfortable no new events continues mechanical ventilation Objective Vital Signs Date Time Temp Pulse Resp B/P Pulse Ox O2 Delivery O2 Flow Rate FiO2 08/26/16 12:33 84 08/26/16 12:08 98.2 18 131/90 100 08/26/16 11:00 30 08/22/16 19:30 Mechanical Ventilator Trach Collar Intake and Output 08/25/16 08/25/16 08/26/16 14:59 22:59 06:59 Intake Total 500 ml 681.3 ml 880 ml Output Total 3000 ml Balance -2500 ml 681.3 ml 880 ml Exam PHYSICAL EXAMINATION GENERAL: Elderly gentleman, on mechanical ventilation VITAL SIGNS: see below. HEENT: Pupils equal, round, and reactive to light. Tracheostomy site clean and intact. CARDIAC: S1, S2, no added sounds or murmurs CHEST: Diminished air entry bilaterally. ABDOMEN: Mildly distended. Bowel sounds present no guarding or rebound EXTREMITIES: No cyanosis, clubbing edema +1 NEUROLOGIC: Generalized weakness Results/Medications Result Diagram: 08/26/16 0530 08/26/16 0530 Results 24 hrs Laboratory Tests Test 08/26/16 05:30 White Blood Count 8.0 Red Blood Count 2.91 L Hemoglobin 9.7 L Hematocrit 30.7 L Mean Corpuscular Volume 105.5 H Mean Corpuscular Hemoglobin 33.3 H Mean Corpuscular Hemoglobin Concent 31.6 L Red Cell Distribution Width 16.9 H Platelet Count 187 Mean Platelet Volume 9.5 Neutrophils % 69.9 Lymphocytes % 18.9 Monocytes % 7.2 Eosinophils % 2.1 Basophils % 0.3 Nucleated Red Blood Cells % 0.3 H Neutrophils # 5.6 Lymphocytes # 1.5 Monocytes # 0.6 Eosinophils # 0.2 Basophils # 0.0 Nucleated Red Blood Cells # 0.0 Sodium Level 143 Potassium Level 4.7 Chloride Level 108 Carbon Dioxide Level 17 L Anion Gap 23 H Blood Urea Nitrogen 101 H Creatinine 10.03 H Glucose Level 132 Calcium Level 9.9 Medications Current Medications Amiodarone HCl (Cordarone) 200 mg DAILY GTB Last administered on 08/26/16 08:40 ; Admin Dose 200 MG; Start 08/23/16 at 09:00 Cinacalcet (Sensipar) 60 mg DAILY GTB Last administered on 08/26/16 08:40; Admin Dose 60 MG; Start 08/23/16 at 09:00 Docusate Sodium (Colace Liquid Cup) 100 mg BID GTB Last administered on 08:40; Admin Dose 100 MG; Start 08/22/16 at 21:00 Midodrine (Proamatine) 5 mg Q8H GTB Last administered on 08/26/16 08:41; Admin Dose 5 MG; Start 08/22/16 at 17:30 Multivit/Ca Carb/ B Cmplx/FA/Prenat (Oumou-Jayesh) 1 tab DAILY GTB Last administered on 08/26/16 08:41; Admin Dose 1 TAB; Start 08/23/16 at 09:00 Ondansetron HCl (Zofran Inj) 4 mg Q6H PRN IV NAUSEA AND/OR VOMITING; Start 08/22 at 17:30 Acetaminophen (Tylenol Tab) 650 mg Q6H PRN PO PAIN LEVEL 1-3 OR FEVER; Start at 17:30 Morphine Sulfate (morphine) 2 mg Q4H PRN IV PAIN LEVEL 7-10; Start 08/22/16 at 17:30 Docusate Sodium (Colace) 100 mg Q12H PRN PO CONSTIPATION; Start 08/22/16 at 17: 30 Pantoprazole (Protonix Iv) 40 mg DAILY@06 IV Last administered on 08/26/16 05: 01; Admin Dose 40 MG; Start 08/23/16 at 06:00 Heparin Sodium (Porcine) (Heparin (5000 Units/0.5 ml)) 5,000 unit Q12 SC Last administered on 08/26/16 08:42; Admin Dose 5,000 UNIT; Start 08/22/16 at 21:00 Miscellaneous Information (Pending Santyl Order For Wound Care) This patient mayorga... PRN PRN XX WOUND CARE; Start 08/23/16 at 07:00 Levetiracetam (Keppra Liquid) 1,000 mg DAILY GTB Last administered on 08/26/16 08:40; Admin Dose 1,000 MG; Start 08/24/16 at 09:00 Amikacin Sulfate (Amikacin Iv Per Pharmacy) AMIKACIN PER PHARMACY NOTE XX ; Start 08/23/16 at 12:30 Metoclopramide HCl (Reglan) 5 mg Q6 IV Last administered on 08/26/16t 12:20; Admin Dose 5 MG; Start 08/23/16 at 18:00 Miscellaneous Information (*Rx Drug Level Order Reminder*) RANDOM VANCOMYCIN LEVEL ... ONCE ONCE XX ; Start 08/27/16 at 05:00; Stop 08/27/16 at 05:01 Assessment/Plan Chief Complaint/Hosp Course Assessment 1. Vent dependent respiratory failure 2. Gram-positive sepsis 3. End-stage renal failure on hemodialysis 4. History of encephalopathy, seizure disorder, anoxic brain injury 5. Dysphagia with G-tube Plan 1. Continue hemodialysis as tolerated 2. Continue mechanical ventilation 3. Continue DVT GI prophylaxis 4. Continue tube feeding Disposition Okay for transfer back to [facility] facility, discussed with QUALITY ENGINEER for primary team Problems: MACKENZIE LUJAN MD, [facility] August 26, 2016 14:16
--- NOTE | 2016-08-26 14:23 | PDOCDIS ---
Discharge Instructions CONDITION Patient Condition: Stable HOME CARE INSTRUCTIONS: Special Diet: npo ACTIVITY: Bathing Restrictions: Sponge Bath PAXTON RETANA August 26, 2016 14:23
--- NOTE | 2016-08-26 14:27 | DS ---
Date/Time of Note Date/Time of Note DATE: 08/26/16 TIME: 14:27 Discharge Summary Admission/Discharge Info Admit Date/Time August 22, 2016 at 12:50 Discharge Date/Time Hospital Course Assessment 1. Vent dependent respiratory failure 2. Gram-positive sepsis 3. End-stage renal failure on hemodialysis 4. History of encephalopathy, seizure disorder, anoxic brain injury 5. Dysphagia with G-tube Plan 1. Continue hemodialysis as tolerated 2. Continue mechanical ventilation 3. Continue DVT GI prophylaxis 4. Continue tube feeding Disposition Okay for transfer back to long-term facility, discussed with SLIP OPERATOR for primary team Home Meds Reported Medications Multivit/Ca Carb/B Cmplx/Fa* (Oumou-Jayesh*) 1 Tab Tab, 1 TAB GTB DAILY, TAB 04/16/16 Cinacalcet* (Sensipar*) 60 Mg Tablet, 60 MG GTB DAILY, TAB 04/16/16 Midodrine* (Midodrine*) 5 Mg Tablet, 5 MG GTB Q8H, TAB HOLD IF SBP>130 04/16/16 Metoclopramide* (Reglan*) 10 Mg/10 Ml Soln, 10 MG GTB Q8, ML 04/16/16 Sevelamer Carbonate* (Renvela*) 0.8 Gm Powd.pack, 1.6 GM GTB WITH MEALS, PACKET 10/14/15 Levetiracetam* (Keppra* (Ped)) 100 Mg/Ml Liq, 1000 MG GTB DAILY for 30 Days, BOTTLE 10/14/15 Docusate Sodium* (Docusate Sodium* Liq) 50 Mg/5 Ml Liquid, 100 MG GTB BID, ML 10/14/15 Omeprazole* (Prilosec*) 40 Mg Capsule., 40 MG GTB DAILY 04/12/12 Clonazepam* (Klonopin*) 0.5 Mg Tab, 0.5 MG GTB Q12 04/12/12 Amiodarone Hcl* (Amiodarone Hcl*) 200 Mg Tablet, 200 MG GTB DAILY 04/12/12 Pending Labs Laboratory Tests Test 08/26/16 05:30 White Blood Count 8.010^3/ul (4.8-10.8) Red Blood Count 2.9110^6/ul (4.70-6.10) Hemoglobin 9.7g/dl (14.0-18.0) Hematocrit 30.7% (42.0-52.0) Mean Corpuscular Volume 105.5fl (82.0-101.0) Mean Corpuscular Hemoglobin 33.3pg (29.0-33.0) Mean Corpuscular Hemoglobin Concent 31.6g/dl (32.0-37.0) Red Cell Distribution Width 16.9% (11.5-14.5) Platelet Count 61110^3/UL (140-415) Mean Platelet Volume 9.5fl (7.4-10.4) Neutrophils % 69.9% (39.0-77.0) Lymphocytes % 18.9% (15.0-51.0) Monocytes % 7.2% (0.0-11.0) Eosinophils % 2.1% (0.0-7.0) Basophils % 0.3% (0.0-2.0) Nucleated Red Blood Cells % 0.3/100WBC (0.0-0.0) Neutrophils # 5.610^3/ul (1.6-7.5) Lymphocytes # 1.510^3/ul (0.8-2.9) Monocytes # 0.610^3/ul (0.3-0.9) Eosinophils # 0.210^3/ul (0.0-0.5) Basophils # 0.010^3/ul (0.0-0.1) Nucleated Red Blood Cells # 0.010^3/ul (0.0-0.0) Sodium Level 143mmol/L (135-144) Potassium Level 4.7mmol/L (3.5-5.1) Chloride Level 108mmol/L (97-110) Carbon Dioxide Level 17mmol/L (21-31) Anion Gap 23 (8-16) Blood Urea Nitrogen 101mg/dl (7-20) Creatinine 10.03mg/dl (0.61-1.24) Glucose Level 132mg/dl (70-220) Calcium Level 9.9mg/dl (8.4-10.2) PAXTON RETANA August 26, 2016 14:27
--- NOTE | 2016-08-26 16:23 | CONS ---
Date/Time of Note Date/Time of Note DATE: 08/26/16 TIME: 16:22 Assessment/Plan Assessment/Plan Chief Complaint/Hosp Course SUBJECTIVE: No events overnight, no fevers. The patient is nonverbal, noncommunicative, lying comfortably in bed. INDWELLINGS: Trach, PEG, right chest Perm-A-Cath. MICROBIOLOGY: Blood culture growing Staph. MRSA swab came back negative. DIAGNOSTICS: CT of the abdomen and pelvis on admission revealed moderate bibasilar atelectasis, cholelithiasis. A chest x-ray showed bibasilar atelectasis. ANTIMICROBIALS: The patient is on: 1. Vancomycin. 2. Amikacin. PHYSICAL EXAMINATION: GENERAL: This is a chronically ill-appearing, middle-aged man who is in no distress. HEENT: Head atraumatic, normocephalic. Sclerae anicteric. Buccal mucosa dry. NECK: Supple. Tracheostomy present. CHEST: Rise symmetrical. Breath sounds diminished at the bases. HEART: S1, S2. ABDOMEN: Soft, bowel tones present. EXTREMITIES: Without cyanosis. Bilateral trace edema. ASSESSMENT: 1. Sepsis with bacteremia and tachycardia on admission. 2. Staph bacteremia, possible line sepsis. 3. Possible pneumonia. 4. End-stage renal disease, hemodialysis dependent. 5. Chronic respiratory failure. 6. Chronic encephalopathy. 7. VRE + stool colonization PLAN: The patient remains stable. Pending repeat blood cultures with hemodialysis from [place]. Continue abx [facility] staff Problems: Consultation Date/Type/Reason Admit Date/Time August 22, 2016 at 12:50 Initial Consult Date 08/23/16 Type of Consultation: id Exam/Review of Systems Vital Signs Vitals Vital Signs Date Time Temp Pulse Resp B/P Pulse Ox O2 Delivery O2 Flow Rate FiO2 08/26/16 16:17 85 08/26/16 16:01 97.8 18 117/81 98 08/26/16 15:20 30 08/22/16 19:30 Mechanical Ventilator Trach Collar Intake and Output 08/25/16 08/25/16 08/26/16 15:00 23:00 07:00 Intake Total 601.3 ml 580 ml 880 ml Output Total 3000 ml Balance -2398.7 ml 580 ml 880 ml Results Result Diagram: 08/26/16 0530 08/26/16 0530 Results 24 hrs Laboratory Tests Test 08/26/16 05:30 White Blood Count 8.0 Red Blood Count 2.91 L Hemoglobin 9.7 L Hematocrit 30.7 L Mean Corpuscular Volume 105.5 H Mean Corpuscular Hemoglobin 33.3 H Mean Corpuscular Hemoglobin Concent 31.6 L Red Cell Distribution Width 16.9 H Platelet Count 187 Mean Platelet Volume 9.5 Neutrophils % 69.9 Lymphocytes % 18.9 Monocytes % 7.2 Eosinophils % 2.1 Basophils % 0.3 Nucleated Red Blood Cells % 0.3 H Neutrophils # 5.6 Lymphocytes # 1.5 Monocytes # 0.6 Eosinophils # 0.2 Basophils # 0.0 Nucleated Red Blood Cells # 0.0 Sodium Level 143 Potassium Level 4.7 Chloride Level 108 Carbon Dioxide Level 17 L Anion Gap 23 H Blood Urea Nitrogen 101 H Creatinine 10.03 H Glucose Level 132 Calcium Level 9.9 Medications Medications Current Medications Amiodarone HCl (Cordarone) 200 mg DAILY GTB Last administered on 08/26/16 08:40 ; Admin Dose 200 MG; Start 08/23/16 at 09:00 Cinacalcet (Sensipar) 60 mg DAILY GTB Last administered on 08/26/16 08:40; Admin Dose 60 MG; Start 08/23/16 at 09:00 Docusate Sodium (Colace Liquid Cup) 100 mg BID GTB Last administered on 08:40; Admin Dose 100 MG; Start 08/22/16 at 21:00 Midodrine (Proamatine) 5 mg Q8H GTB Last administered on 08/26/16 08:41; Admin Dose 5 MG; Start 08/22/16 at 17:30 Multivit/Ca Carb/ B Cmplx/FA/Prenat (Oumou-Jayesh) 1 tab DAILY GTB Last administered on 08/26/16 08:41; Admin Dose 1 TAB; Start 08/23/16 at 09:00 Ondansetron HCl (Zofran Inj) 4 mg Q6H PRN IV NAUSEA AND/OR VOMITING; Start 08/22 at 17:30 Acetaminophen (Tylenol Tab) 650 mg Q6H PRN PO PAIN LEVEL 1-3 OR FEVER; Start at 17:30 Morphine Sulfate (morphine) 2 mg Q4H PRN IV PAIN LEVEL 7-10; Start 08/22/16 at 17:30 Docusate Sodium (Colace) 100 mg Q12H PRN PO CONSTIPATION; Start 08/22/16 at 17: 30 Pantoprazole (Protonix Iv) 40 mg DAILY@06 IV Last administered on 08/26/16 05: 01; Admin Dose 40 MG; Start 08/23/16 at 06:00 Heparin Sodium (Porcine) (Heparin (5000 Units/0.5 ml)) 5,000 unit Q12 SC Last administered on 08/26/16 08:42; Admin Dose 5,000 UNIT; Start 08/22/16 at 21:00 Miscellaneous Information (Pending Santyl Order For Wound Care) This patient mayorga... PRN PRN XX WOUND CARE; Start 08/23/16 at 07:00 Levetiracetam (Keppra Liquid) 1,000 mg DAILY GTB Last administered on 08/26/16 08:40; Admin Dose 1,000 MG; Start 08/24/16 at 09:00 Amikacin Sulfate (Amikacin Iv Per Pharmacy) AMIKACIN PER PHARMACY NOTE XX ; Start 08/23/16 at 12:30 Metoclopramide HCl (Reglan) 5 mg Q6 IV Last administered on 08/26/16 12:20; Admin Dose 5 MG; Start 08/23/16 at 18:00 Miscellaneous Information (*Rx Drug Level Order Reminder*) RANDOM VANCOMYCIN LEVEL ... ONCE ONCE XX ; Start 08/27/16 at 05:00; Stop 08/27/16 at 05:01 CARRIE MEYERS NP August 26, 2016 16:23
[2016-08-27] VITALS (31 sets, daily range): BP systolic 89–128; BP diastolic 47–92; PULSE 82–100; RESP 16–29
[2016-08-27] MEDS: METOCLOPRAMIDE 10 MG INJ IV SCH ×4 (00:32→17:31)
[2016-08-27] MEDS: MIDODRINE 5 MG TAB GTB SCH ×3 (00:32→17:31)
[2016-08-27] MEDS: PANTOPRAZOLE 40 MG INJ IV SCH (05:20)
[2016-08-27 06:35] LABS: CALCIUM 10.1 mg/dl (8.4-10.2); CREATININE 11.62 mg/dl (0.61-1.24); POTASSIUM 4.5 mmol/L (3.5-5.1)
[2016-08-27] MEDS: MULTIVIT/CA CARB/B CMPLX/FA TAB GTB SCH (08:43)
[2016-08-27] MEDS: LEVETIRACETAM (100 MG/ML) 5ML CUP GTB SCH (08:43)
[2016-08-27] MEDS: SEVELAMER CARBONATE 0.8 GM PKT GTB SCH ×3 (08:43→17:31)
[2016-08-27] MEDS: DOCUSATE SODIUM 10 MG/ML (10ML CUP) GTB SCH ×2 (08:43→20:48)
[2016-08-27] MEDS: CINACALCET 30 MG TAB GTB SCH (08:43)
[2016-08-27] MEDS: HEPARIN 5,000 UNIT/0.5 ML VIAL SC SCH ×2 (08:45→20:50)
[2016-08-27] MEDS: AMIODARONE 200 MG TAB GTB SCH (08:45)
--- NOTE | 2016-08-27 11:16 | CONS ---
Date/Time of Note Date/Time of Note DATE: 08/27/16 TIME: 11:15 Consult Date/Type/Reason Admit Date/Time August 22, 2016 at 12:50 Initial Consult Date 08/23/16 Type of Consultation: pulmonary ICU Subjective Patient comfortable this morning Objective Vital Signs Date Time Temp Pulse Resp B/P Pulse Ox O2 Delivery O2 Flow Rate FiO2 08/27/16 09:35 96 19 100 30 08/27/16 07:23 97.9 118/65 Intake and Output 08/26/16 08/26/16 08/27/16 15:00 23:00 07:00 Intake Total 780 ml 880 ml Balance 780 ml 880 ml Exam PHYSICAL EXAMINATION GENERAL: Elderly gentleman, on mechanical ventilation VITAL SIGNS: see below. HEENT: Pupils equal, round, and reactive to light. Tracheostomy site clean and intact. CARDIAC: S1, S2, no added sounds or murmurs CHEST: Diminished air entry bilaterally. ABDOMEN: Mildly distended. Bowel sounds present no guarding or rebound EXTREMITIES: No cyanosis, clubbing edema +1 NEUROLOGIC: Generalized weakness Results/Medications Result Diagram: 08/26/16 0530 08/27/16 0528 Results 24 hrs Laboratory Tests Test 08/27/16 05:28 Sodium Level 143 Potassium Level 4.5 Chloride Level 106 Carbon Dioxide Level 17 L Anion Gap 25 H Blood Urea Nitrogen 123 H Creatinine 11.62 H Glucose Level 127 Calcium Level 10.1 Random Vancomycin Level 17.6 Medications Current Medications Amiodarone HCl (Cordarone) 200 mg DAILY GTB Last administered on 08/26/16 08:40 ; Admin Dose 200 MG; Start 08/23/16 at 09:00 Cinacalcet (Sensipar) 60 mg DAILY GTB Last administered on 08/27/16 08:43; Admin Dose 60 MG; Start 08/23/16 at 09:00 Docusate Sodium (Colace Liquid Cup) 100 mg BID GTB Last administered on 08:43; Admin Dose 100 MG; Start 08/22/16 at 21:00 Midodrine (Proamatine) 5 mg Q8H GTB Last administered on 08/27/16 08:43; Admin Dose 5 MG; Start 08/22/16 at 17:30 Multivit/Ca Carb/ B Cmplx/FA/Prenat (Oumou-Jayesh) 1 tab DAILY GTB Last administered on 08/27/16 08:43; Admin Dose 1 TAB; Start 08/23/16 at 09:00 Ondansetron HCl (Zofran Inj) 4 mg Q6H PRN IV NAUSEA AND/OR VOMITING; Start 08/22 at 17:30 Acetaminophen (Tylenol Tab) 650 mg Q6H PRN PO PAIN LEVEL 1-3 OR FEVER; Start at 17:30 Morphine Sulfate (morphine) 2 mg Q4H PRN IV PAIN LEVEL 7-10; Start 08/22/16 at 17:30 Docusate Sodium (Colace) 100 mg Q12H PRN PO CONSTIPATION; Start 08/22/16 at 17: 30 Pantoprazole (Protonix Iv) 40 mg DAILY@06 IV Last administered on 08/27/16 05: 20; Admin Dose 40 MG; Start 08/23/16 at 06:00 Heparin Sodium (Porcine) (Heparin (5000 Units/0.5 ml)) 5,000 unit Q12 SC Last administered on 08/27/16 08:45; Admin Dose 5,000 UNIT; Start 08/22/16 at 21:00 Miscellaneous Information (Pending Santyl Order For Wound Care) This patient mayorga... PRN PRN XX WOUND CARE; Start 08/23/16 at 07:00 Levetiracetam (Keppra Liquid) 1,000 mg DAILY GTB Last administered on 08/27/16 08:43; Admin Dose 1,000 MG; Start 08/24/16 at 09:00 Amikacin Sulfate (Amikacin Iv Per Pharmacy) AMIKACIN PER PHARMACY NOTE XX ; Start 08/23/16 at 12:30 Metoclopramide HCl (Reglan) 5 mg Q6 IV Last administered on 08/27/16 05:19; Admin Dose 5 MG; Start 08/23/16 at 18:00 Assessment/Plan Chief Complaint/Hosp Course Assessment 1. Vent dependent respiratory failure 2. Gram-positive sepsis 3. End-stage renal failure on hemodialysis 4. History of encephalopathy, seizure disorder, anoxic brain injury 5. Dysphagia with G-tube Plan 1. Continue hemodialysis as tolerated 2. Continue mechanical ventilation 3. Continue DVT GI prophylaxis 4. Continue tube feeding Disposition Okay for transfer [facility], discussed with TE[employer] NETWORK ENGINEER for primary team Problems: VADGAMA,MACKENZIE V. MD, FCCP August 27, 2016 11:16
[2016-08-27] MEDS: AMIKACIN 325 MG in SOD CHLORIDE 0.9% 100 ML IVPB SCH (11:31)
--- NOTE | 2016-08-27 13:34 | CONS ---
Date/Time of Note Date/Time of Note DATE: 08/27/16 TIME: 13:33 Assessment/Plan Assessment/Plan Chief Complaint/Hosp Course SUBJECTIVE: No events overnight, no fevers. The patient is nonverbal, noncommunicative, lying comfortably in bed. INDWELLINGS: Trach, PEG, right chest Perm-A-Cath. MICROBIOLOGY: Blood culture growing Staph. MRSA swab came back negative. ANTIMICROBIALS: The patient is on: 1. Vancomycin. 2. Amikacin. PHYSICAL EXAMINATION: GENERAL: This is a chronically ill-appearing, middle-aged man who is in no distress. HEENT: Head atraumatic, normocephalic. Sclerae anicteric. Buccal mucosa dry. NECK: Supple. Tracheostomy present. CHEST: Rise symmetrical. Breath sounds diminished at the bases. HEART: S1, S2. ABDOMEN: Soft, bowel tones present. EXTREMITIES: Without cyanosis. Bilateral trace edema. ASSESSMENT: 1. Sepsis with bacteremia and tachycardia on admission. 2. Staph bacteremia, possible line sepsis. 3. Possible pneumonia. 4. End-stage renal disease, hemodialysis dependent. 5. Chronic respiratory failure. 6. Chronic encephalopathy. 7. VRE + stool colonization PLAN: The patient remains stable. Pending repeat blood cultures, continue Vancomycin, change Amikacin to Gentamicin [facility] staff Problems: Consultation Date/Type/Reason Admit Date/Time August 22, 2016 at 12:50 Initial Consult Date 08/23/16 Type of Consultation: ID Exam/Review of Systems Vital Signs Vitals Vital Signs Date Time Temp Pulse Resp B/P Pulse Ox O2 Delivery O2 Flow Rate FiO2 08/27/16 12:22 88 08/27/16 11:35 17 98 30 08/27/16 11:18 98.6 122/74 Intake and Output 08/26/16 08/26/16 08/27/16 15:00 23:00 07:00 Intake Total 780 ml 880 ml Balance 780 ml 880 ml Results Result Diagram: 08/26/16 0530 08/27/16 0528 Results 24 hrs Laboratory Tests Test 08/27/16 05:28 Sodium Level 143 Potassium Level 4.5 Chloride Level 106 Carbon Dioxide Level 17 L Anion Gap 25 H Blood Urea Nitrogen 123 H Creatinine 11.62 H Glucose Level 127 Calcium Level 10.1 Random Vancomycin Level 17.6 Medications Medications Current Medications Amiodarone HCl (Cordarone) 200 mg DAILY GTB Last administered on 08/26/16 08:40 ; Admin Dose 200 MG; Start 08/23/16 at 09:00 Cinacalcet (Sensipar) 60 mg DAILY GTB Last administered on 08/27/16 08:43; Admin Dose 60 MG; Start 08/23/16 at 09:00 Docusate Sodium (Colace Liquid Cup) 100 mg BID GTB Last administered on 08:43; Admin Dose 100 MG; Start 08/22/16 at 21:00 Midodrine (Proamatine) 5 mg Q8H GTB Last administered on 08/27/16 08:43; Admin Dose 5 MG; Start 08/22/16 at 17:30 Multivit/Ca Carb/ B Cmplx/FA/Prenat (Oumou-Jayesh) 1 tab DAILY GTB Last administered on 08/27/16 08:43; Admin Dose 1 TAB; Start 08/23/16 at 09:00 Ondansetron HCl (Zofran Inj) 4 mg Q6H PRN IV NAUSEA AND/OR VOMITING; Start 08/22 at 17:30 Acetaminophen (Tylenol Tab) 650 mg Q6H PRN PO PAIN LEVEL 1-3 OR FEVER; Start at 17:30 Morphine Sulfate (morphine) 2 mg Q4H PRN IV PAIN LEVEL 7-10; Start 08/22/16 at 17:30 Docusate Sodium (Colace) 100 mg Q12H PRN PO CONSTIPATION; Start 08/22/16 at 17: 30 Pantoprazole (Protonix Iv) 40 mg DAILY@06 IV Last administered on 08/27/16 05: 20; Admin Dose 40 MG; Start 08/23/16 at 06:00 Heparin Sodium (Porcine) (Heparin (5000 Units/0.5 ml)) 5,000 unit Q12 SC Last administered on 08/27/16 08:45; Admin Dose 5,000 UNIT; Start 08/22/16 at 21:00 Miscellaneous Information (Pending Santyl Order For Wound Care) This patient mayorga... PRN PRN XX WOUND CARE; Start 08/23/16 at 07:00 Levetiracetam (Keppra Liquid) 1,000 mg DAILY GTB Last administered on 08/27/16 08:43; Admin Dose 1,000 MG; Start 08/24/16 at 09:00 Amikacin Sulfate (Amikacin Iv Per Pharmacy) AMIKACIN PER PHARMACY NOTE XX ; Start 08/23/16 at 12:30 Metoclopramide HCl (Reglan) 5 mg Q6 IV Last administered on 08/27/16 11:51; Admin Dose 5 MG; Start 08/23/16 at 18:00 CARRIE MEYERS NP August 27, 2016 13:34
[2016-08-27] MEDS ORDERED: GENTAMICIN IV PER PHARMACY XX SCH (14:00)
[2016-08-27] MEDS ORDERED: GENTAMICIN 120 MG/NS (PMX) 100 ML IVPB SCH (16:00)
[2016-08-27] MEDS ORDERED: GENTAMICIN 100 MG/50 ML NS IVPB SCH (16:00)
--- NOTE | 2016-08-27 18:56 | PN ---
Date/Time of Note Date/Time of Note DATE: 08/27/16 TIME: 18:53 Assessment/Plan VTE Prophylaxis VTE Prophylaxis Intervention: SCD's Lines/Catheters IV C[facility]ter Type [facility]from [facility] Urinary Cath still in place: No Assessment/Plan Chief Complaint/Hosp Course ASSESSMENT AND PLAN - Sepsis, most likely secondary to healthcare-acquired pneumonia. Continue the patient on broad spectrum antibiotics. Dr. Karely burns in infectious disease consultation. Continue to follow up on repeat blood cultures. - Possible healthcare-acquired pneumonia. -Staph bacteremia, follow-up on repeat blood cultures. - Acute on chronic ventilator-dependent respiratory failure with tracheostomy. is following from pulmonology standpoint. Continue ventilatory support and bronchodilators. - End-stage renal disease, hemodialysis dependent. Dr. Ivan following the patient in nephrology consultation. Continue hemodialysis. - Chronic encephalopathy. - Hypertension. The patient currently is hypotensive. Continue to monitor blood pressure. - Hyperlipidemia. Continue statin. - Seizure disorder. Continue Keppra. - Dysphagia with PEG. Continue heparin for deep venous thrombosis prophylaxis and Protonix for peptic ulcer disease prophylaxis. Further recommendations based on clinical course. Plan of care discussed with Dr. Palacio. Problems: Subjective 24 Hr Interval Summary Free Text/Dictation No acute events overnight, comfortable on ventilator without distress, tolerates G-tube feeding well, afebrile. Exam/Review of Systems Vital Signs Vitals Vital Signs Date Time Temp Pulse Resp B/P Pulse Ox O2 Delivery O2 Flow Rate FiO2 08/27/16 17:46 89 17 98 30 08/27/16 15:10 98.5 116/65 Intake and Output 08/26/16 08/26/16 08/27/16 15:00 23:00 07:00 Intake Total 780 ml 880 ml Balance 780 ml 880 ml Exam GENERAL: Well-developed, well-nourished gentleman currently awake, is nonverbal , does not follow any commands. HEENT: Head is atraumatic, normocephalic. Pupils equal, round, reactive to light and accommodation. Oral mucosa is pink and moist. NECK: Supple. Tracheostomy on the base of the neck. LUNGS: Diminished at the bases. Scattered rhonchi bilaterally. CARDIOVASCULAR: Normal S1, S2. No murmurs, gallops, clicks, rubs noted. ABDOMEN: Protuberant, soft, nondistended, nontender. G-tube present with intact stoma. EXTREMITIES: Bilateral lower extremities contracted. Pulses equal bilaterally. There is no edema, clubbing, or cyanosis. NEUROLOGIC: The patient is awake, opens eyes. Does not follow any commands. SKIN: No apparent rash or petechiae noted. Results Result Diagram: 08/26/16 0530 08/27/16 0528 Results 24 hrs Laboratory Tests Test 08/27/16 05:28 Sodium Level 143 Potassium Level 4.5 Chloride Level 106 Carbon Dioxide Level 17 L Anion Gap 25 H Blood Urea Nitrogen 123 H Creatinine 11.62 H Glucose Level 127 Calcium Level 10.1 Random Vancomycin Level 17.6 Medications Medications Current Medications Amiodarone HCl (Cordarone) 200 mg DAILY GTB Last administered on 08/26/16 08:40 ; Admin Dose 200 MG; Start 08/23/16 at 09:00 Cinacalcet (Sensipar) 60 mg DAILY GTB Last administered on 08/27/16 08:43; Admin Dose 60 MG; Start 08/23/16 at 09:00 Docusate Sodium (Colace Liquid Cup) 100 mg BID GTB Last administered on 08:43; Admin Dose 100 MG; Start 08/22/16 at 21:00 Midodrine (Proamatine) 5 mg Q8H GTB Last administered on 08/27/16 17:31; Admin Dose 5 MG; Start 08/22/16 at 17:30 Multivit/Ca Carb/ B Cmplx/FA/Prenat (Oumou-Jayesh) 1 tab DAILY GTB Last administered on 08/27/16 08:43; Admin Dose 1 TAB; Start 08/23/16 at 09:00 Ondansetron HCl (Zofran Inj) 4 mg Q6H PRN IV NAUSEA AND/OR VOMITING; Start 08/22 at 17:30 Acetaminophen (Tylenol Tab) 650 mg Q6H PRN PO PAIN LEVEL 1-3 OR FEVER; Start at 17:30 Morphine Sulfate (morphine) 2 mg Q4H PRN IV PAIN LEVEL 7-10; Start 08/22/16 at 17:30 Docusate Sodium (Colace) 100 mg Q12H PRN PO CONSTIPATION; Start 08/22/16 at 17: 30 Pantoprazole (Protonix Iv) 40 mg DAILY@06 IV Last administered on 08/27/16 05: 20; Admin Dose 40 MG; Start 08/23/16 at 06:00 Heparin Sodium (Porcine) (Heparin (5000 Units/0.5 ml)) 5,000 unit Q12 SC Last administered on 08/27/16 08:45; Admin Dose 5,000 UNIT; Start 08/22/16 at 21:00 [facility] This patient mayorga... PRN PRN XX WOUND CARE; Start 08/23/16 at 07:00 Levetiracetam (Keppra Liquid) 1,000 mg DAILY GTB Last administered on 08/27/16 08:43; Admin Dose 1,000 MG; Start 08/24/16 at 09:00 Metoclopramide HCl (Reglan) 5 mg Q6 IV Last administered on 08/27/16 17:31; Admin Dose 5 MG; Start 08/23/16 at 18:00 Gentamicin Sulfate GENTAMICIN PER PHARMACY NOTE XX ; Start 08/27/16 at 14:00 Vancomycin HCl/ Sodium Chloride (Vancocin/NS) 150 ml @ 75 mls/hr ONCE IVPB ; Start 08/27/16 at 20:00; Stop 08/27/16 at 23:59 MARCELO HYMAN August 27, 2016 18:55
[2016-08-27] MEDS ORDERED: VANCOMYCIN 750 MG in SOD CHLORIDE 0.9% 150 ML IVPB SCH (20:00)
--- NOTE | 2016-08-27 23:13 | CONS ---
Date/Time of Note Date/Time of Note DATE: 08/27/16 TIME: 23:12 Assessment/Plan Assessment/Plan Chief Complaint/Hosp Course consult A/P ESRD HTN SEPSIS ASHD HCAP PLAN HDck lans Problems: Consultation Date/Type/Reason Admit Date/Time August 22, 2016 at 12:50 Type of Consultation: renal 24 HR Interval Summary Constitutional: no complaints Exam/Review of Systems Vital Signs Vitals Vital Signs Date Time Temp Pulse Resp B/P Pulse Ox O2 Delivery O2 Flow Rate FiO2 08/27/16 21:37 30 08/27/16 21:22 85 29 97 08/27/16 19:21 98.7 93/60 Intake and Output 08/26/16 08/26/16 08/27/16 15:00 23:00 07:00 Intake Total 780 ml 880 ml Balance 780 ml 880 ml Exam Neck: supple Respiratory: clear to auscultation Cardiovascular: regular rate and rhythm Gastrointestinal: bowel sounds (+), soft Genitourinary - Male: nl penis Musculoskeletal: nl extremities to inspection Results Result Diagram: 08/26/16 0530 08/27/16 0528 Results 24 hrs Laboratory Tests Test 08/27/16 05:28 Sodium Level 143 Potassium Level 4.5 Chloride Level 106 Carbon Dioxide Level 17 L Anion Gap 25 H Blood Urea Nitrogen 123 H Creatinine 11.62 H Glucose Level 127 Calcium Level 10.1 Random Vancomycin Level 17.6 Medications Medications Current Medications Amiodarone HCl (Cordarone) 200 mg DAILY GTB Last administered on 08/26/16 08:40 ; Admin Dose 200 MG; Start 08/23/16 at 09:00 Cinacalcet (Sensipar) 60 mg DAILY GTB Last administered on 08/27/16 08:43; Admin Dose 60 MG; Start 08/23/16 at 09:00 Docusate Sodium (Colace Liquid Cup) 100 mg BID GTB Last administered on 20:48; Admin Dose 100 MG; Start 08/22/16 at 21:00 Midodrine (Proamatine) 5 mg Q8H GTB Last administered on 08/27/16 17:31; Admin Dose 5 MG; Start 08/22/16 at 17:30 Multivit/Ca Carb/ B Cmplx/FA/Prenat (Oumou-Jayesh) 1 tab DAILY GTB Last administered on 08/27/16 08:43; Admin Dose 1 TAB; Start 08/23/16 at 09:00 Ondansetron HCl (Zofran Inj) 4 mg Q6H PRN IV NAUSEA AND/OR VOMITING; Start 08/22 at 17:30 Acetaminophen (Tylenol Tab) 650 mg Q6H PRN PO PAIN LEVEL 1-3 OR FEVER; Start at 17:30 Morphine Sulfate (morphine) 2 mg Q4H PRN IV PAIN LEVEL 7-10; Start 08/22/16 at 17:30 Docusate Sodium (Colace) 100 mg Q12H PRN PO CONSTIPATION; Start 08/22/16 at 17: 30 Pantoprazole (Protonix Iv) 40 mg DAILY@06 IV Last administered on 08/27/16 05: 20; Admin Dose 40 MG; Start 08/23/16 at 06:00 Heparin Sodium (Porcine) (Heparin (5000 Units/0.5 ml)) 5,000 unit Q12 SC Last administered on 08/27/16 20:50; Admin Dose 5,000 UNIT; Start 08/22/16 at 21:00 Miscellaneous Information (Pending Santyl Order For Wound Care) This patient mayorga... PRN PRN XX WOUND CARE; Start 08/23/16 at 07:00 Levetiracetam (Keppra Liquid) 1,000 mg DAILY GTB Last administered on 08/27/16 08:43; Admin Dose 1,000 MG; Start 08/24/16 at 09:00 Metoclopramide HCl (Reglan) 5 mg Q6 IV Last administered on 08/27/16 17:31; Admin Dose 5 MG; Start 08/23/16 at 18:00 Gentamicin Sulfate GENTAMICIN PER PHARMACY NOTE XX ; Start 08/27/16 at 14:00 Vancomycin HCl/ Sodium Chloride (Vancocin/NS) 150 ml @ 75 mls/hr ONCE IVPB Last administered on 08/27/16 20:48; Admin Dose 75 MLS/HR; Start 08/27/16 at 20: 00; Stop 08/27/16 at 23:59 CHUYITA PASTOR MD August 27, 2016 23:13
[2016-08-28] VITALS (19 sets, daily range): BP systolic 90–108; BP diastolic 62–69; PULSE 75–89; RESP 16–19
[2016-08-28] MEDS: METOCLOPRAMIDE 10 MG INJ IV SCH ×4 (00:35→17:57)
[2016-08-28] MEDS: MIDODRINE 5 MG TAB GTB SCH ×3 (00:43→17:57)
[2016-08-28] MEDS: PANTOPRAZOLE 40 MG INJ IV SCH (05:05)
[2016-08-28] MEDS: DOCUSATE SODIUM 10 MG/ML (10ML CUP) GTB SCH (08:12)
[2016-08-28] MEDS: LEVETIRACETAM (100 MG/ML) 5ML CUP GTB SCH (08:12)
[2016-08-28] MEDS: SEVELAMER CARBONATE 0.8 GM PKT GTB SCH ×3 (08:12→17:57)
[2016-08-28] MEDS: CINACALCET 30 MG TAB GTB SCH (08:12)
[2016-08-28] MEDS: AMIODARONE 200 MG TAB GTB SCH (08:13)
[2016-08-28] MEDS: MULTIVIT/CA CARB/B CMPLX/FA TAB GTB SCH (08:17)
[2016-08-28] MEDS: HEPARIN 5,000 UNIT/0.5 ML VIAL SC SCH (08:26)
[2016-08-28] MEDS ORDERED: GENTAMICIN 80 MG/NS (PMX) 50 ML IVPB SCH (09:00)
[2016-08-28 09:11] LABS: CALCIUM 9.6 mg/dl (8.4-10.2); CREATININE 10.38 mg/dl (0.61-1.24); POTASSIUM 4.1 mmol/L (3.5-5.1)
--- NOTE | 2016-08-28 12:00 | CONS ---
Date/Time of Note Date/Time of Note DATE: 08/28/16 TIME: 11:59 Consult Date/Type/Reason Admit Date/Time August 22, 2016 at 12:50 Initial Consult Date 08/23/16 Type of Consultation: pulmonary Subjective Comfortable at rest Objective Vital Signs Date Time Temp Pulse Resp B/P Pulse Ox O2 Delivery O2 Flow Rate FiO2 08/28/16 11:46 98.0 80 16 104/66 98 08/28/16 09:15 30 08/28/16 00:41 Mechanical Ventilator Intake and Output 08/27/16 08/27/16 08/28/16 15:00 23:00 07:00 Intake Total 401.3 ml 830 ml 580 ml Output Total 3000 ml Balance -2598.7 ml 830 ml 580 ml Exam PHYSICAL EXAMINATION GENERAL: Elderly gentleman, on mechanical ventilation VITAL SIGNS: see below. HEENT: Pupils equal, round, and reactive to light. Tracheostomy site clean and intact. CARDIAC: S1, S2, no added sounds or murmurs CHEST: Diminished air entry bilaterally. ABDOMEN: Mildly distended. Bowel sounds present no guarding or rebound EXTREMITIES: No cyanosis, clubbing edema +1 NEUROLOGIC: Generalized weakness Results/Medications Result Diagram: 08/26/16 0530 08/28/16 0700 Results 24 hrs Laboratory Tests Test 08/28/16 07:00 Sodium Level 140 Potassium Level 4.1 Chloride Level 105 Carbon Dioxide Level 19 L Anion Gap 20 H Blood Urea Nitrogen 109 H Creatinine 10.38 H Glucose Level 114 Calcium Level 9.6 Medications Current Medications Amiodarone HCl (Cordarone) 200 mg DAILY GTB Last administered on 08/28/16 08:13 ; Admin Dose 200 MG; Start 08/23/16 at 09:00 Cinacalcet (Sensipar) 60 mg DAILY GTB Last administered on 08/28/16 08:12; Admin Dose 60 MG; Start 08/23/16 at 09:00 Docusate Sodium (Colace Liquid Cup) 100 mg BID GTB Last administered on 08:12; Admin Dose 100 MG; Start 08/22/16 at 21:00 Midodrine (Proamatine) 5 mg Q8H GTB Last administered on 08/28/16 08:48; Admin Dose 5 MG; Start 08/22/16 at 17:30 Multivit/Ca Carb/ B Cmplx/FA/Prenat (Oumou-Jayesh) 1 tab DAILY GTB Last administered on 08/28/16 08:17; Admin Dose 1 TAB; Start 08/23/16 at 09:00 Ondansetron HCl (Zofran Inj) 4 mg Q6H PRN IV NAUSEA AND/OR VOMITING; Start 08/22 at 17:30 Acetaminophen (Tylenol Tab) 650 mg Q6H PRN PO PAIN LEVEL 1-3 OR FEVER; Start at 17:30 Morphine Sulfate (morphine) 2 mg Q4H PRN IV PAIN LEVEL 7-10; Start 08/22/16 at 17:30 Docusate Sodium (Colace) 100 mg Q12H PRN PO CONSTIPATION; Start 08/22/16 at 17: 30 Pantoprazole (Protonix Iv) 40 mg DAILY@06 IV Last administered on 08/28/16 05: 05; Admin Dose 40 MG; Start 08/23/16 at 06:00 Heparin Sodium (Porcine) (Heparin (5000 Units/0.5 ml)) 5,000 unit Q12 SC Last administered on 08/28/16 08:26; Admin Dose 5,000 UNIT; Start 08/22/16 at 21:00 Miscellaneous Information [facility] This patient mayorga... PRN PRN XX WOUND CARE; Start 08/23/16 at 07:00 Levetiracetam (Keppra Liquid) 1,000 mg DAILY GTB Last administered on 08/28/16 08:12; Admin Dose 1,000 MG; Start 08/24/16 at 09:00 Metoclopramide HCl (Reglan) 5 mg Q6 IV Last administered on 08/28/16 11:48; Admin Dose 5 MG; Start 08/23/16 at 18:00 Gentamicin Sulfate (Gentamicin Iv Per Pharmacy) GENTAMICIN PER PHARMACY NOTE XX ; Start 08/27/16 at 14:00 Assessment/Plan Chief Complaint/Hosp Course Assessment 1. Vent dependent respiratory failure 2. Gram-positive sepsis 3. End-stage renal failure on hemodialysis 4. History of encephalopathy, seizure disorder, anoxic brain injury 5. Dysphagia with G-tube Plan 1. Continue hemodialysis as tolerated 2. Continue mechanical ventilation 3. Continue DVT GI prophylaxis 4. Continue tube feeding Disposition Okay for transfer back to intermediate facility, Problems: MACKENZIE LUJAN MD, [facility] August 28, 2016 12:00
--- NOTE | 2016-08-28 14:20 | CONS ---
Date/Time of Note Date/Time of Note DATE: 08/28/16 TIME: 14:19 Assessment/Plan Assessment/Plan Chief Complaint/Hosp Course SUBJECTIVE: No events overnight, no fevers. The patient is nonverbal, noncommunicative, lying comfortably in bed. INDWELLINGS: Trach, PEG, right chest Perm-A-Cath. MICROBIOLOGY: Blood culture growing Staph. MRSA swab came back negative. ANTIMICROBIALS: The patient is on: 1. Vancomycin. 2. Gentamicin. PHYSICAL EXAMINATION: GENERAL: This is a chronically ill-appearing, middle-aged man who is in no distress. HEENT: Head atraumatic, normocephalic. Sclerae anicteric. Buccal mucosa dry. NECK: Supple. Tracheostomy present. CHEST: Rise symmetrical. Breath sounds diminished at the bases. HEART: S1, S2. ABDOMEN: Soft, bowel tones present. EXTREMITIES: Without cyanosis. Bilateral trace edema. ASSESSMENT: 1. Sepsis with bacteremia and tachycardia on admission. 2. Staph bacteremia, possible line sepsis. 3. Possible pneumonia. 4. End-stage renal disease, hemodialysis dependent. 5. Chronic respiratory failure. 6. Chronic encephalopathy. 7. VRE + stool colonization PLAN: The patient remains stable. Repeat blood cultures neg, pending SNF, will complete abx for 2 weeks [facility] staff Problems: Consultation Date/Type/Reason Admit Date/Time August 22, 2016 at 12:50 Initial Consult Date 08/23/16 Type of Consultation: ID Exam/Review of Systems Vital Signs Vitals Vital Signs Date Time Temp Pulse Resp B/P Pulse Ox O2 Delivery O2 Flow Rate FiO2 08/28/16 13:59 78 08/28/16 13:40 16 98 30 08/28/16 11:46 98.0 104/66 08/28/16 00:41 Mechanical Ventilator Intake and Output 08/27/16 08/27/16 08/28/16 15:00 23:00 07:00 Intake Total 401.3 ml 830 ml 580 ml Output Total 3000 ml Balance -2598.7 ml 830 ml 580 ml Results Result Diagram: 08/26/16 0530 08/28/16 0700 Results 24 hrs Laboratory Tests Test 08/28/16 07:00 Sodium Level 140 Potassium Level 4.1 Chloride Level 105 Carbon Dioxide Level 19 L Anion Gap 20 H Blood Urea Nitrogen 109 H Creatinine 10.38 H Glucose Level 114 Calcium Level 9.6 Medications Medications Current Medications Amiodarone HCl (Cordarone) 200 mg DAILY GTB Last administered on 08/28/16 08:13 ; Admin Dose 200 MG; Start 08/23/16 at 09:00 Cinacalcet (Sensipar) 60 mg DAILY GTB Last administered on 08/28/16 08:12; Admin Dose 60 MG; Start 08/23/16 at 09:00 Docusate Sodium (Colace Liquid Cup) 100 mg BID GTB Last administered on 08:12; Admin Dose 100 MG; Start 08/22/16 at 21:00 Midodrine (Proamatine) 5 mg Q8H GTB Last administered on 08/28/16 08:48; Admin Dose 5 MG; Start 08/22/16 at 17:30 Multivit/Ca Carb/ B Cmplx/FA/Prenat (Oumou-Jayesh) 1 tab DAILY GTB Last administered on 08/28/16 08:17; Admin Dose 1 TAB; Start 08/23/16 at 09:00 Ondansetron HCl (Zofran Inj) 4 mg Q6H PRN IV NAUSEA AND/OR VOMITING; Start 08/22 at 17:30 Acetaminophen (Tylenol Tab) 650 mg Q6H PRN PO PAIN LEVEL 1-3 OR FEVER; Start at 17:30 Morphine Sulfate (morphine) 2 mg Q4H PRN IV PAIN LEVEL 7-10; Start 08/22/16 at 17:30 Docusate Sodium (Colace) 100 mg Q12H PRN PO CONSTIPATION; Start 08/22/16 at 17: 30 Pantoprazole (Protonix Iv) 40 mg DAILY@06 IV Last administered on 08/28/16 05: 05; Admin Dose 40 MG; Start 08/23/16 at 06:00 Heparin Sodium (Porcine) (Heparin (5000 Units/0.5 ml)) 5,000 unit Q12 SC Last administered on 08/28/16 08:26; Admin Dose 5,000 UNIT; Start 08/22/16 at 21:00 Miscellaneous Information (Pending Santyl Order For Wound Care) This patient mayorga... PRN PRN XX WOUND CARE; Start 08/23/16 at 07:00 Levetiracetam (Keppra Liquid) 1,000 mg DAILY GTB Last administered on 08/28/16 08:12; Admin Dose 1,000 MG; Start 08/24/16 at 09:00 Metoclopramide HCl (Reglan) 5 mg Q6 IV Last administered on 08/28/16 11:48; Admin Dose 5 MG; Start 08/23/16 at 18:00 Gentamicin Sulfate (Gentamicin Iv Per Pharmacy) GENTAMICIN PER PHARMACY NOTE XX ; Start 08/27/16 at 14:00 CARRIE MEYERS NP August 28, 2016 14:20
--- NOTE | 2016-08-28 14:23 | PN ---
Date/Time of Note Date/Time of Note DATE: 08/28/16 TIME: 14:21 Assessment/Plan VTE Prophylaxis VTE Prophylaxis Intervention: SCD's Lines/Catheters IV [facility]ine [facility] Urinary Cath still in place: No Assessment/Plan Chief Complaint/Hosp Course ASSESSMENT AND PLAN - Sepsis, most likely secondary to healthcare-acquired pneumonia. Continue the patient on broad spectrum antibiotics. Dr. Karely burns in infectious disease consultation. Continue to follow up on repeat blood cultures. - Possible healthcare-acquired pneumonia. -Staph bacteremia, follow-up on repeat blood cultures. - Acute on chronic ventilator-dependent respiratory failure with tracheostomy. is following from pulmonology standpoint. Continue ventilatory support and bronchodilators. - End-stage renal disease, hemodialysis dependent. Dr. Ivan following the patient in nephrology consultation. Continue hemodialysis. - Chronic encephalopathy. - Hypertension. The patient currently is hypotensive. Continue to monitor blood pressure. - Hyperlipidemia. Continue statin. - Seizure disorder. Continue Keppra. - Dysphagia with PEG. Anticipate discharge to half-way facility with gentamicin with each hemodialysis 7 days and vancomycin pharmacy to dose for10 more days per ID recommendations. Continue heparin for deep venous thrombosis prophylaxis and Protonix for peptic ulcer disease prophylaxis. Further recommendations based on clinical course. Plan of care discussed with Dr. Palacio. Problems: Subjective 24 Hr Interval Summary Free Text/Dictation No acute events overnight, patient remains afebrile. Exam/Review of Systems Vital Signs Vitals Vital Signs Date Time Temp Pulse Resp B/P Pulse Ox O2 Delivery O2 Flow Rate FiO2 08/28/16 13:59 78 08/28/16 13:40 16 98 30 08/28/16 11:46 98.0 104/66 08/28/16 00:41 Mechanical Ventilator Intake and Output 08/27/16 08/27/16 08/28/16 15:00 23:00 07:00 Intake Total 401.3 ml 830 ml 580 ml Output Total 3000 ml Balance -2598.7 ml 830 ml 580 ml Exam GENERAL: Well-developed, well-nourished gentleman currently awake, is nonverbal , does not follow any commands. HEENT: Head is atraumatic, normocephalic. Pupils equal, round, reactive to light and accommodation. Oral mucosa is pink and moist. NECK: Supple. Tracheostomy on the base of the neck. LUNGS: Diminished at the bases. Scattered rhonchi bilaterally. CARDIOVASCULAR: Normal S1, S2. No murmurs, gallops, clicks, rubs noted. ABDOMEN: Protuberant, soft, nondistended, nontender. G-tube present with intact stoma. EXTREMITIES: Bilateral lower extremities contracted. Pulses equal bilaterally. There is no edema, clubbing, or cyanosis. NEUROLOGIC: The patient is awake, opens eyes. Does not follow any commands. SKIN: No apparent rash or petechiae noted. Results Result Diagram: 08/26/16 0530 08/28/16 0700 Results 24 hrs Laboratory Tests Test 08/28/16 07:00 Sodium Level 140 Potassium Level 4.1 Chloride Level 105 Carbon Dioxide Level 19 L Anion Gap 20 H Blood Urea Nitrogen 109 H Creatinine 10.38 H Glucose Level 114 Calcium Level 9.6 Medications Medications Current Medications Amiodarone HCl (Cordarone) 200 mg DAILY GTB Last administered on 08/28/16 08:13 ; Admin Dose 200 MG; Start 08/23/16 at 09:00 Cinacalcet (Sensipar) 60 mg DAILY GTB Last administered on 08/28/16 08:12; Admin Dose 60 MG; Start 08/23/16 at 09:00 Docusate Sodium (Colace Liquid Cup) 100 mg BID GTB Last administered on 08:12; Admin Dose 100 MG; Start 08/22/16 at 21:00 Midodrine (Proamatine) 5 mg Q8H GTB Last administered on 08/28/16 08:48; Admin Dose 5 MG; Start 08/22/16 at 17:30 Multivit/Ca Carb/ B Cmplx/FA/Prenat (Oumou-Jayesh) 1 tab DAILY GTB Last administered on 08/28/16 08:17; Admin Dose 1 TAB; Start 08/23/16 at 09:00 Ondansetron HCl (Zofran Inj) 4 mg Q6H PRN IV NAUSEA AND/OR VOMITING; Start 08/22 at 17:30 Acetaminophen (Tylenol Tab) 650 mg Q6H PRN PO PAIN LEVEL 1-3 OR FEVER; Start at 17:30 Morphine Sulfate (morphine) 2 mg Q4H PRN IV PAIN LEVEL 7-10; Start 08/22/16 at 17:30 Docusate Sodium (Colace) 100 mg Q12H PRN PO CONSTIPATION; Start 08/22/16 at 17: 30 Pantoprazole (Protonix Iv) 40 mg DAILY@06 IV Last administered on 08/28/16 05: 05; Admin Dose 40 MG; Start 08/23/16 at 06:00 Heparin Sodium (Porcine) (Heparin (5000 Units/0.5 ml)) 5,000 unit Q12 SC Last administered on 08/28/16 08:26; Admin Dose 5,000 UNIT; Start 08/22/16 at 21:00 Miscellaneous Information (Pending Santyl Order For Wound Care) This patient mayorga... PRN PRN XX WOUND CARE; Start 08/23/16 at 07:00 Levetiracetam (Keppra Liquid) 1,000 mg DAILY GTB Last administered on 08/28/16 08:12; Admin Dose 1,000 MG; Start 08/24/16 at 09:00 Metoclopramide HCl (Reglan) 5 mg Q6 IV Last administered on 08/28/16 11:48; Admin Dose 5 MG; Start 08/23/16 at 18:00 Gentamicin Sulfate (Gentamicin Iv Per Pharmacy) GENTAMICIN PER PHARMACY NOTE XX ; Start 08/27/16 at 14:00 MARCELO HYMAN August 28, 2016 14:23
--- NOTE | 2016-08-28 21:34 | CONS ---
Date/Time of Note Date/Time of Note DATE: 08/28/16 TIME: 21:34 Assessment/Plan Assessment/Plan Chief Complaint/Hosp Course consult A/P ESRD HTN SEPSIS ASHD HCAP PLAN snf Problems: Consultation Date/Type/Reason Admit Date/Time August 22, 2016 at 12:50 Type of Consultation: renal Exam/Review of Systems Vital Signs Vitals Vital Signs Date Time Temp Pulse Resp B/P Pulse Ox O2 Delivery O2 Flow Rate FiO2 08/28/16 17:55 84 16 97 30 08/28/16 15:26 98.5 101/62 08/28/16 00:41 Mechanical Ventilator Intake and Output 08/27/16 08/27/16 08/28/16 15:00 23:00 07:00 Intake Total 401.3 ml 830 ml 580 ml Output Total 3000 ml Balance -2598.7 ml 830 ml 580 ml Exam Respiratory: clear to auscultation Cardiovascular: regular rate and rhythm Gastrointestinal: soft Results Result Diagram: 08/26/16 0530 08/28/16 0700 Results 24 hrs Laboratory Tests Test 08/28/16 07:00 Sodium Level 140 Potassium Level 4.1 Chloride Level 105 Carbon Dioxide Level 19 L Anion Gap 20 H Blood Urea Nitrogen 109 H Creatinine 10.38 H Glucose Level 114 Calcium Level 9.6 CHUYITA PASTOR MD August 28, 2016 21:34
== END 2016-08-28 18:37 | DRG 870 ==
LOC: E/R 09:32 → TEL 12:50
PROVIDERS: ADMIT Internal Medicine; ATTEND Internal Medicine
PROC: 5A1955Z Respiratory Ventilation, Greater than 96 Consecutive Hours (ICD-10-PCS; principal; 2016-08-22)
PROC: 5A1D60Z (ICD-10-PCS; 2016-08-23)
DX: A41.1 Sepsis due to other specified staphylococcus (principal); J96.20 Acute and chronic respiratory failure, unspecified whether with hypoxia or hypercapnia; J18.9 Pneumonia, unspecified organism; Z99.11 Dependence on respirator [ventilator] status; G93.1 Anoxic brain damage, not elsewhere classified; Z93.0 Tracheostomy status; E87.2 Acidosis; N18.6 End stage renal disease; I12.0 Hypertensive chronic kidney disease with stage 5 chronic kidney disease or end stage renal disease; I48.0 Paroxysmal atrial fibrillation; R13.10 Dysphagia, unspecified; D64.9 Anemia, unspecified; E78.5 Hyperlipidemia, unspecified; G40.909 Epilepsy, unspecified, not intractable, without status epilepticus; I25.10 Atherosclerotic heart disease of native coronary artery without angina pectoris; Z99.2 Dependence on renal dialysis; Z93.1 Gastrostomy status
CPT/HCPCS: 36415; 36600; 71010; 74176; 80048; 80053; 80202; 82803; 83605; 83735; 83880; 84484; 85025; 85610; 85730; 87040; 87070; 87081; 89220; 90935; 93005; 94002; 94003; 94799; 96374; 96375; C9113; J0278; J1580; J1644; J2543; J2765; J3370; J7030; J7050

== ENCOUNTER 2016-09-22 17:16 | Inpatient (IN) | payer MEDICAID ==
[~2016-09-22] VITALS: Ht 170.2 cm; Wt 85.0 kg
[2016-09-22 17:30] VITALS: Ht 170.2 cm; Wt 85.0 kg
--- NOTE | 2016-09-22 19:20 | ERA ---
ER Documentation Chief Complaint Date/Time DATE: 09/22/16 TIME: 19:18 Chief Complaint BIB [facility]UL[facility] FOR EVAL OF TACHYCARDIA. PT MISSED HD TODAY DR TAYLOR HPI 56-year-old male history of chronic encephalopathy, ventilator dependence, dialysis who presents for internal tachycardia at dialysis. He missed dialysis today and was sent by Dr. Taylor. The patient appears to be being treated for ESBL bacteremia, unknown antibiotics. Remainder of HPI is extremely limited. ROS All systems reviewed and are negative except as per history of present illness. Medications Home Meds Reported Medications Multivit/Ca Carb/B Cmplx/Fa* (Oumou-Jayesh*) 1 Tab Tab, 1 TAB GTB DAILY, TAB 04/16/16 Cinacalcet* (Sensipar*) 60 Mg Tablet, 60 MG GTB DAILY, TAB 04/16/16 Midodrine* (Midodrine*) 5 Mg Tablet, 5 MG GTB Q8H, TAB HOLD IF SBP>130 04/16/16 Metoclopramide* (Reglan*) 10 Mg/10 Ml Soln, 10 MG GTB Q8, ML 04/16/16 Sevelamer Carbonate* (Renvela*) 0.8 Gm Powd.pack, 1.6 GM GTB WITH MEALS, PACKET 10/14/15 Levetiracetam* (Keppra* (Ped)) 100 Mg/Ml Liq, 1000 MG GTB DAILY for 30 Days, BOTTLE 10/14/15 Docusate Sodium* (Docusate Sodium* Liq) 50 Mg/5 Ml Liquid, 100 MG GTB BID, ML 10/14/15 Omeprazole* (Prilosec*) 40 Mg Capsule., 40 MG GTB DAILY 04/12/12 Clonazepam* (Klonopin*) 0.5 Mg Tab, 0.5 MG GTB Q12 04/12/12 Amiodarone Hcl* (Amiodarone Hcl*) 200 Mg Tablet, 200 MG GTB DAILY 04/12/12 Allergies Allergies: Coded Allergies: No Known Allergy (Unverified , 08/26/16) PMhx/Soc History of Surgery: No Anesthesia Reaction: No Hx Neurological Disorder: Yes (Seizure, encephalpathy) Hx Respiratory Disorders: Yes (respiratory failure, trach- vent dependent) Hx Cardiac Disorders: Yes (paroxysmal a-fib) Hx Psychiatric Problems: No Hx Miscellaneous Medical Probl: No Hx Alcohol Use: No Hx Substance Use: No Hx Tobacco Use: No FmHx Family History: No diabetes Physical Exam Vitals Vital Signs Date Time Temp Pulse Resp B/P Pulse Ox O2 Delivery O2 Flow Rate FiO2 09/22/16 19:15 104 15 94 30 09/22/16 17:30 97.3 113 163 113/65 97 Physical Exam General: No significant distress Head: Normocephalic, atraumatic. Eyes: Pupils equally reactive, EOM intact ENT: Moist mucous membranes Neck: Supple, no lymphadenopathy Respiratory: Lungs clear bilaterally, no distress Cardiovascular: RRR, no murmurs, rubs, or gallops Abdominal: Soft, non-tender, non-distended, no peritoneal signs : Deferred MSK: Limited movement of all 4 extremities, no bony abnormalities Neurologic: Limited exam, and encephalopathic, limited movement of all 4 extremities Skin: No rash, no significant breakdown Psych: Unable to assess Result Diagram: 09/22/16193909/22/161939 Results 24 hrs Laboratory Tests Test 09/22/16 19:40 White Blood Count 7.410^3/ul Red Blood Count 2.1210^6/ul Hemoglobin 6.8g/dl Hematocrit 20.6% Mean Corpuscular Volume 97.2fl Mean Corpuscular Hemoglobin 32.1pg Mean Corpuscular Hemoglobin Concent 33.0g/dl Red Cell Distribution Width 16.9% Platelet Count 76917^3/UL Mean Platelet Volume 10.0fl Neutrophils % 82.0% Band Neutrophils % 1.0% Lymphocytes % 12.0% Monocytes % 1.0% Eosinophils % 4.0% Neutrophils # 6.110^3/ul Lymphocytes # 0.910^3/ul Monocytes # 0.110^3/ul Eosinophils # 0.310^3/ul Anisocytosis 1+ Prothrombin Time 14.2Sec Prothrombin Time Ratio 1.1 INR International Normalized Ratio 1.10 Activated Partial Thromboplast Time 41.1Sec Sodium Level 142mmol/L Potassium Level 3.9mmol/L Chloride Level 100mmol/L Carbon Dioxide Level 27mmol/L Anion Gap 19 Blood Urea Nitrogen 55mg/dl Creatinine 7.35mg/dl Glucose Level 121mg/dl Lactic Acid Level 0.9mmol/L Calcium Level 11.2mg/dl Total Bilirubin 0.1mg/dl Direct Bilirubin 0.00mg/dl Indirect Bilirubin 0.1mg/dl Aspartate Amino Transf (AST/SGOT) 20IU/L Alanine Aminotransferase (ALT/SGPT) 33IU/L Alkaline Phosphatase 97IU/L Troponin I < 0.012ng/ml Total Protein 8.3g/dl Albumin 4.5g/dl Globulin 3.80g/dl Albumin/Globulin Ratio 1.18 Current Medications Medications (Trade) Dose Ordered Sig/Sujey Route PRN Reason Start Time Stop Time Status Last Admin Dose Admin Sodium Chloride (NS) 250 ml @ 0 mls/hr Q0M ONCE IV 09/22/16 20:11 09/22/16 20:13 DC Ondansetron HCl (Zofran Inj) 4 mg ER BRIDGE PRN IV NAUSEA AND/OR VOMITING 09/22/16 21:30 09/23/16 21:29 Acetaminophen (Tylenol Tab) 650 mg ER BRIDGE PRN PO MILD PAIN/FEVER 09/22/16 21:30 09/23/16 21:29 Procedures/MDM EKG, MONITORS, & DIAGNOSTIC IMAGING: EKG: I reviewed and interpreted a 12-lead EKG. Rhythm: Junctional Ectopy: None Intervals: No abnormalities ST segments: No elevations or depressions T waves: No contiguous inversions Chest x-ray: I reviewed and interpreted a 1 view of the chest Mediastinum: No enlargement Cardiac silhouette: No cardiomegaly Airspace: Clear lung barnett bilaterally without evidence of pneumothorax Bones: No evidence of fracture LAB INTERPRETATION: Anemia MEDICAL DECISION MAKING: The patient presents for incidental tachycardia. Unclear significance possible dehydration. Patient does have a recent history of ESBL bacteremia. However, I do not believe this is consistent with sepsis. I will continue to screen with blood cultures and lactic acid. The patient will require hospitalization for dialysis. I spoke to Dr. Lara Taylor who referred the patient to the emergency room. Dr Palacio to admit. ER COURSE: The patient has evidence of anemia likely the source of the patient's tachycardia. The patient is nonverbal and no family was available. The patient will benefit from 2 units packed red blood cells benefits outweigh the risks. The document was signed and placed in the chart. I kept the patient and/or family informed of laboratory and diagnostic imaging results throughout the emergency room course. DISPOSITION PLAN: Telemetry admission CONSULTATION: Accepting care team and consultations: I discussed the current laboratory data, diagnostic imaging and emergency care provided. Admitting team: Dr. Palacio Admitting team indication: Insurance directed Consulting services:, Nephrology Dr. Momo Taylor Departure Diagnosis: Primary Impression: End stage kidney disease Additional Impression: Anemia Qualified Code: D64.9 - Anemia, unspecified type Condition: Stable KAILEE PIERCE MD Sep 22, 2016 19:20
[2016-09-22 20:02] LABS: ADD SCAN DIFF NO
[2016-09-22 20:07] LABS: ABNORMAL IP MESSAGE 1; HEMATOCRIT 20.6 % (42.0-52.0); MEAN CORPUSCULAR HEMOGLOBIN 32.1 pg (29.0-33.0); MEAN CORPUSCULAR VOLUME 97.2 fl (82.0-101.0); PLATELET COUNT 230 10^3/UL (140-415); RED BLOOD COUNT 2.12 10^6/ul (4.70-6.10); RED CELL DISTRIBUTION WIDTH 16.9 % (11.5-14.5); WHITE BLOOD COUNT 7.4 10^3/ul (4.8-10.8)
[2016-09-22 20:11] LABS: HEMOGLOBIN 6.8 g/dl (14.0-18.0)
[2016-09-22] MEDS ORDERED: SOD CHLORIDE 0.9% 250 ML IV ONE (20:11)
[2016-09-22 20:21] LABS: ALANINE AMINOTRANSFERASE 33 IU/L (13-69); ALBUMIN 4.5 g/dl (3.3-4.9); ALBUMIN/GLOBULIN RATIO 1.18; ALKALINE PHOSPHATASE 97 IU/L (42-121); ANION GAP 19 (8-16); ASPARTATE AMINO TRANSFERASE 20 IU/L (15-46); BILIRUBIN,INDIRECT 0.1 mg/dl (0-1.1); BILIRUBIN,TOTAL 0.1 mg/dl (0.2-1.3); BLOOD UREA NITROGEN 55 mg/dl (7-20); CALCIUM 11.2 mg/dl (8.4-10.2); CARBON DIOXIDE 27 mmol/L (21-31); CHLORIDE 100 mmol/L (97-110); CREATININE 7.35 mg/dl (0.61-1.24); GLUCOSE 121 mg/dl (70-220); POTASSIUM 3.9 mmol/L (3.5-5.1); SODIUM 142 mmol/L (135-144); TOTAL PROTEIN 8.3 g/dl (6.1-8.1)
[2016-09-22 20:33] LABS: INR 1.1; PROTIME 14.2 Sec (12.2-14.2); PT RATIO 1.1
[2016-09-22 20:35] LABS: TROPONIN-I < 0.012 ng/ml (0.00-0.12)
[2016-09-22 20:55] LABS: PARTIAL THROMBOPLASTIN TIME 41.1 Sec (25.0-35.0)
[2016-09-22 20:56] LABS: EOSINOPHILS # 0.3 10^3/ul (0.0-0.5); LYMPHOCYTES # 0.9 10^3/ul (0.8-2.9); MONOCYTE # 0.1 10^3/ul (0.3-0.9); NEUTROPHIL # 6.1 10^3/ul (1.6-7.5)
[2016-09-22 20:58] LABS: ANISOCYTOSIS 1+
[2016-09-22] MEDS ORDERED: ACETAMINOPHEN 325 MG TAB PO PRN (21:30)
[2016-09-22] MEDS ORDERED: ONDANSETRON 4 MG INJ IV PRN (21:30)
--- NOTE | 2016-09-22 22:05 | RADRPT ---
PROCEDURE: XR Chest. CLINICAL INDICATION: Sepsis. TECHNIQUE: Single frontal chest x-ray. COMPARISON: 08/23/2016 FINDINGS: Right internal jugular central venous line tip is at the junction of right atrium and SVC. Tracheos mariangel tube is unchanged. Heart is enlarged. There are atherosclerotic calcifications of the aortic knob.. There is no congestive heart failure.. There is increased right greater left basilar atelect asis versus infiltrate.. There is no pleural effusion. There is no pneumothorax. The osseous stru ctures are unremarkable. IMPRESSION: Cardiomegaly. No definite CHF. Increased right greater than left basilar atelectasis versus infilt rate. Otherwise no change. RPTAT: HMVK .Haja Garcia MD, MD Date Time Electronically viewed and signed by .Haja Garcia MD, on 09/22/2016 22:05 .K/
[2016-09-22 22:28] VITALS: TEMP 99.7
[2016-09-22 23:25] VITALS: PULSE 100
[2016-09-22 23:30] VITALS: BP 124/84; PULSE 107; RESP 20
[2016-09-23] VITALS (31 sets, daily range): BP systolic 103–149; BP diastolic 58–86; PULSE 96–128; RESP 13–30
[2016-09-23] MEDS ORDERED: MIDODRINE 5 MG TAB GTB SCH (00:30)
[2016-09-23] MEDS ORDERED: PANTOPRAZOLE (EC) 40 MG TAB PO SCH (06:00)
[2016-09-23] MEDS: METOCLOPRAMIDE (1 MG/ML) 10 ML CUP GTB SCH ×3 (06:55→22:25)
[2016-09-23] MEDS: LANSOPRAZOLE 30 MG CAP GTB SCH (06:55)
[2016-09-23 07:12] LABS: ADD SCAN DIFF NO
[2016-09-23 07:14] LABS: BASOPHILS % 0.3 % (0.0-2.0); EOSINOPHILS # 0.1 10^3/ul (0.0-0.5); HEMATOCRIT 26.2 % (42.0-52.0); HEMOGLOBIN 8.5 g/dl (14.0-18.0); LYMPHOCYTES # 0.8 10^3/ul (0.8-2.9); LYMPHOCYTES % 12.6 % (15.0-51.0); MEAN CORPUSCULAR HEMOGLOBIN 30.1 pg (29.0-33.0); MEAN CORPUSCULAR HGB CONC 32.4 g/dl (32.0-37.0); MEAN CORPUSCULAR VOLUME 92.9 fl (82.0-101.0); MEAN PLATELET VOLUME 10.3 fl (7.4-10.4); MONOCYTE # 0.4 10^3/ul (0.3-0.9); MONOCYTES % 6.5 % (0.0-11.0); NEUTROPHILS % 78.1 % (39.0-77.0); PLATELET COUNT 225 10^3/UL (140-415); RED BLOOD COUNT 2.82 10^6/ul (4.70-6.10); RED CELL DISTRIBUTION WIDTH 17.5 % (11.5-14.5); WHITE BLOOD COUNT 6.5 10^3/ul (4.8-10.8)
[2016-09-23 07:45] LABS: ALBUMIN 4.5 g/dl (3.3-4.9); ALBUMIN/GLOBULIN RATIO 1.15; BILIRUBIN,INDIRECT 0.1 mg/dl (0-1.1); BILIRUBIN,TOTAL 0.1 mg/dl (0.2-1.3); CALCIUM 11.4 mg/dl (8.4-10.2); CREATININE 8.1 mg/dl (0.61-1.24); POTASSIUM 4.1 mmol/L (3.5-5.1); TOTAL PROTEIN 8.4 g/dl (6.1-8.1)
[2016-09-23] MEDS ORDERED: LEVETIRACETAM (100 MG/ML) 5ML CUP GTB SCH (09:00)
[2016-09-23] MEDS ORDERED: LEVETIRACETAM (100 MG/ML PO SYG) GTB SCH (09:00)
[2016-09-23] MEDS ORDERED: NON-FORMULARY/PATIENT OWN MED (Omeprazole* (Prilosec*) 40 MG) GTB SCH (09:00)
[2016-09-23] MEDS: AMIODARONE 200 MG TAB GTB SCH (09:00)
[2016-09-23] MEDS ORDERED: morphine 2 MG INJ IV PRN (10:30)
[2016-09-23] MEDS ORDERED: VANCOMYCIN IV PER PHARMACY XX SCH (10:30)
[2016-09-23] MEDS: MULTIVIT/CA CARB/B CMPLX/FA TAB GTB SCH (10:46)
[2016-09-23] MEDS: CINACALCET 30 MG TAB GTB SCH (10:46)
[2016-09-23] MEDS: METOPROLOL 25 MG TAB GTB SCH ×2 (10:46→20:50)
[2016-09-23] MEDS: ASPIRIN 81 MG TAB GTB SCH (10:46)
[2016-09-23] MEDS: DOCUSATE SODIUM 10 MG/ML (10ML CUP) GTB SCH ×2 (10:47→20:50)
[2016-09-23] MEDS: LEVETIRACETAM (100 MG/ML) 5ML CUP GTB SCH (10:47)
[2016-09-23] MEDS: SEVELAMER CARBONATE 0.8 GM PKT GTB SCH ×3 (10:47→18:25)
[2016-09-23] MEDS: clonAZEPAM 0.5 MG TAB GTB SCH ×2 (10:53→20:50)
--- NOTE | 2016-09-23 11:30 | HP ---
DATE OF ADMISSION: 09/22/2016 CHIEF COMPLAINT AND HISTORY OF PRESENT ILLNESS: History has been obtained from medical record as th e patient is nonverbal. The patient is a 56-year-old gentleman well known to me from previous [facility] admissions. The patient has history of cardiac arrest leading to anoxic encephalopathy, hyperten phillip, seizure disorder, paroxysmal atrial fibrillation, chronic systolic dysfunction with last docum ented EF of 45% back in 2012. The patient was recently admitted at [facility], septic shock, possibly from line sepsis. The patient, at [facility], did have a repeat echocardiogr am done due to bacteremia, and EF was noted to be 60% to 65%. The patient was also noted to be tach ycardic. The patient was sent to a subacute facility for continuation of antibiotics. The patient again was noted to be tachycardic yesterday and was sent to [facility] ER for further evalu ation. Dialysis ambulance did not pick him up due to tachycardia. Heart rate was in 120s. Metopro lol 25 mg was ordered, and the patient was subsequently transferred to [facility] ER. The patient, in the ER, was noted to have hemoglobin of 6.8. Heart rate was 113. The patient was satur ating 94% on FIO2 of 30%. The patient was afebrile, although last night he did spike a temperature of 99.7. Blood cultures were sent from ER. The patient is being transfused. The patient did not h ave any recent breakthrough seizure. No reported hematemesis or melena. No reported abdominal dist ention. The patient does have edema, especially in both upper extremities. The patient is nonverba l since he had anoxic brain injury several years ago. REVIEW OF SYSTEMS: Therefore limited. PAST MEDICAL HISTORY: As above. The patient also had anemia of chronic kidney disease. PAST SURGICAL HISTORY: Status post tracheostomy and G-tube placement and dialysis catheter placemen t, history of AV fistula placement. FAMILY HISTORY: Noncontributory for patient's condition. SOCIAL HISTORY: The patient is and has children and [facility]. PHYSICAL EXAMINATION: GENERAL: The patient is lethargic but arousable, remains nonverbal. VITAL SIGNS: T-maximum 99.7, heart rate 123, respirations 28, blood pressure 125/81, O2 saturation 98% on FIO2 30%. HEENT: No eye discharge or redness. The patient has mild conjunctival edema of the left eye. Nose and ears normal. NECK: Tracheostomy in place. Oropharynx examination could not be done. CHEST: Revealed diminished air entry at bases. No use of accessory muscles. CARDIOVASCULAR: S1, S2 normal. No murmur. ABDOMEN: Soft, nondistended, nontender. EXTREMITIES: Edema present. NEUROLOGIC: The patient is lethargic but arousable; however, nonverbal. He does not have any spont aneous movement. LABORATORY DATA: Done upon admission, WBC 7.4, hemoglobin 6.8, platelets 230. Sodium 142, potassiu m 3.9, BUN 35, creatinine 7.3, glucose 121. Lactic acid 0.9, calcium 9.4. Liver enzymes normal. IMPRESSION: 1. Anemia of chronic disease. 2. Paroxysmal atrial fibrillation with possible uncontrolled heart rate. The patient will be malik nued on amiodarone, and we will add metoprolol for rate control. We will also add aspirin. During the previous patient several admissions, the patient was not in atrial fibrillation and was seen by Dr. Refugio Dickerson several years ago, and we will notify him again for his recommendation. 3. Recent possible line sepsis. The patient has gram-positive cocci and also gram-negative rods in his blood culture done at [facility]. We will continue vancomycin and meropenem. We will also obt ain consultation from Dr. Rodney who has seen him in the past. 4. End-stage renal disease. We will notify Dr. Momo Ordonez for dialysis. 5. Seizure disorder. Continue Keppra. 6. Hypertension. We will try to control blood pressure with metoprolol. We will do followup CBC. The patient is being transfused, and will also continue Aricept upon disch arge as before. Further recommendation depends on hospital course. The patient's prognosis for any meaningful recov abhishek is poor. Family is aware of his poor prognosis. Dictated By: BLESSING [employer]ELDS/AMNA Conf#: [id number] DID#: [id number]
[2016-09-23] MEDS ORDERED: VANCOMYCIN 1.75 GM in SOD CHLORIDE 0.9% 500 ML IVPB SCH (12:00)
[2016-09-23] MEDS: TOBRAMYCIN 0.3% 5 ML OPH LEFT EYE SCH ×3 (12:00→23:43)
--- NOTE | 2016-09-23 12:19 | CONS ---
Date/Time of Note Date/Time of Note DATE: 09/23/16 TIME: 11:50 Assessment/Plan Assessment/Plan Chief Complaint/Hosp Course - probable recurrent sepsis; possible etiologies include recurrent bacteremia, HCAP/tracheobronchitis, Cdiff (diarrhea noted) - h/o polymicrobial infections: h/o 05/2016 due to E. faecalis bacteremia and C. glabrata fungemia in 05/2016; CoNS bacteremia in early 08/2016; XDR-klebsiella bacteremia in mid-08/2016. at [facility] on 09/13/2016 was negative for valvular vegetation. 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 Pt had full TB workup at [facility]: AFB of sputum was negative x3, MTB PCR was negative x2. ID senior consumer insights consultant there recommended deferring anti-latent tuberculosis treatment until all 3 sputum samples are negative for AFB [id number] - anoxic brain injury after cardiac arrest - encephalopathy - ESRD on HD. A new permacath was placed on 09/14/2016 at [facility] - seizure disorder - s/p cardiac arrest - A fib - seizure disorder - VDRF - GT dependent status recommendations - pending results: blood cultures x2 from 09/22/2016 - I recommend and have ordered: blood culture x2 from HD catheter, stool for culture and C diff, sputum culture, culture of discharge from L conjunctiva - I recommend: continuing empiric IV vancomycin and meropenem for now - Pt has Q TB gold positive status. Pt had full TB workup at [facility]: AFB of sputum was negative x3, MTB PCR was negative x2. ID senior consumer insights consultant there recommended deferring anti-latent tuberculosis treatment until all 3 sputum samples are negative for AFB [id number]. We will request microbiology results from [facility] - keep Pt on contact isolation management d/w Pt's RN and HD nurse Problems: Consultation Date/Type/Reason Admit Date/Time Sep 22, 2016 at 21:05 Date of Consultation: Sep 23, 2016 Type of Consultation: ID Reason for Consultation probable recurrent sepsis Referring Provider: BLESSING PALACIO MD Hx of Present Illness This is a 56 yo male SNF resident with h/o cardiac arrest leading to anoxic brain injury, encephalopathy; he also has h/o ESRD on HD, seizure disorder, A fib. Pt has had multiple admissions at [facility] and [facility]. Pt was admitted at [facility] in 05/2016 due to E. faecalis bacteremia and C. glabrata fungemia, which was thought to be associated with infected PICC. At the beginning of 08/2016, Pt was admitted at [facility] due to recurrent sepsis. Pt was found out to have CoNS bacteremia; his sputum culture grew pseudomonas, morganella and ESBL+E. coli. Pt received IV vancomycin and gentamicin, and was eventually sent to [facility]. In mid-August 2016, Pt was re-admitted at [facility] due to septic shock. Pt's blood cultures from 09/06/2016 grew proteus (2/2 sets), CoNS (1 out of 2 sets only though), sputum culture from 09/07/2016 grew pseudomonas and providencia, blood cultures from 09/09/2016 and 09/10/2016 grew XDR-klebsiella. The source of his polymicrobial bacteremia was thought to be his HD catheter, and both TLC and HD catheter were removed. [facility] on 09/13/2016 was negative for valvular vegetation. A new permacath was placed on 09/14/2016. Pt received multiple antibiotics there. According to the discharge summary, Pt was scheduled to receive pip/tazo for proteus and pseudomonas through 09/25/2016. Of note, Pt tested positive for Q TB gold positive at [facility]. Pt had full TB workup at [facility]: AFB of sputum was negative x3, MTB PCR was negative x2. ID senior consumer insights consultant there recommended deferring anti-latent tuberculosis treatment until all 3 sputum samples are negative for AFB [id number]. Pt was sent to [facility] on 09/18/2016; however, because tachycardic and was transferred to [facility] on 09/22/2016. Overnight, he had temp 99.7F. Dr. Palacio requested ID consultation on this Pt. Subjective hx not possible: pt non-verbal, pt critical, pt critical status Past Medical History Medical History: coronary artery disease, renal disease, other (h/o anoxic brain injury, encephalopathy, VDRF, GT dependence, Sz, anemia, A fib, ESRD on HD ) Social History Smoking Status: Unknown if ever smoked Exam/Review of Systems Vital Signs Vitals Vital Signs Date Time Temp Pulse Resp B/P Pulse Ox O2 Delivery O2 Flow Rate FiO2 09/23/16 11:44 99.2 85 18 149/73 98 09/23/16 11:10 30 09/22/16 23:30 Mechanical Ventilator Intake and Output 09/22/16 09/22/16 09/23/16 15:00 23:00 07:00 Intake Total 400 ml Balance 400 ml Exam Constitutional: non-verbal Head: atraumatic, normocephalic Eyes: other (L conjunctivitis, inflammed corner of L eyelid) Neck: other (trach) Respiratory: crackles/rales Cardiovascular: nl pulses, regular rate and rhythm Gastrointestinal: non-tender, other (GT), soft Genitourinary - Male: nl penis, nl scrotum Musculoskeletal: No swelling Extremities: No edema Neurological: unresponsive Skin: nl turgor Lymph: other (facial edema) Results Result Diagram: 09/23/16 0550 09/23/16 0550 Results 24 hrs Laboratory Tests Test 09/22/16 19:40 09/22/16 22:15 09/23/16 00:43 09/23/16 05:50 White Blood Count 7.4 6.5 Red Blood Count 2.12 #L 2.82 #L Hemoglobin 6.8 #*L 8.5 #L Hematocrit 20.6 #L 26.2 #L Mean Corpuscular Volume 97.2 92.9 Mean Corpuscular Hemoglobin 32.1 30.1 Mean Corpuscular Hemoglobin Concent 33.0 32.4 Red Cell Distribution Width 16.9 H 17.5 H Platelet Count 230 # 225 Mean Platelet Volume 10.0 10.3 Neutrophils % 82.0 H 78.1 H Band Neutrophils % 1.0 Lymphocytes % 12.0 L 12.6 L Monocytes % 1.0 6.5 Eosinophils % 4.0 2.0 Neutrophils # 6.1 5.0 Lymphocytes # 0.9 0.8 Monocytes # 0.1 L 0.4 Eosinophils # 0.3 0.1 Anisocytosis 1+ Prothrombin Time 14.2 Prothrombin Time Ratio 1.1 INR International Normalized Ratio 1.10 Activated Partial Thromboplast Time 41.1 H Sodium Level 142 146 H Potassium Level 3.9 4.1 Chloride Level 100 102 Carbon Dioxide Level 27 27 Anion Gap 19 H 21 H Blood Urea Nitrogen 55 H 55 H Creatinine 7.35 H 8.10 H Glucose Level 121 107 Lactic Acid Level 0.9 1.6 1.0 Calcium Level 11.2 H 11.4 H Total Bilirubin 0.1 L 0.1 L Direct Bilirubin 0.00 0.00 Indirect Bilirubin 0.1 0.1 Aspartate Amino Transf (AST/SGOT) 20 23 Alanine Aminotransferase (ALT/SGPT) 33 37 Alkaline Phosphatase 97 99 Troponin I < 0.012 Total Protein 8.3 H 8.4 H Albumin 4.5 4.5 Globulin 3.80 H 3.90 H Albumin/Globulin Ratio 1.18 1.15 Basophils % 0.3 Nucleated Red Blood Cells % 0.0 Basophils # 0.0 Nucleated Red Blood Cells # 0.0 Medications Medications Current Medications Amiodarone HCl (Cordarone) 200 mg DAILY GTB Last administered on 09/23/16 09:00 ; Admin Dose 200 MG; Start 09/23/16 at 09:00 Cinacalcet (Sensipar) 60 mg DAILY GTB Last administered on 09/23/16 10:46; Admin Dose 60 MG; Start 09/23/16 at 09:00 Clonazepam (Klonopin) 0.5 mg Q12 GTB Last administered on 09/23/16 10:53; Admin Dose 0.5 MG; Start 09/23/16 at 09:00 Docusate Sodium (Colace Liquid Cup) 100 mg BID GTB Last administered on 10:47; Admin Dose 100 MG; Start 09/23/16 at 09:00 Metoclopramide HCl (Reglan Liq) 10 mg Q8 GTB Last administered on 09/23/16 06: 55; Admin Dose 10 MG; Start 09/23/16 at 06:00 Multivit/Ca Carb/ B Cmplx/FA/Prenat (Oumou-Jayesh) 1 tab DAILY GTB Last administered on 09/23/16 10:46; Admin Dose 1 TAB; Start 09/23/16 at 09:00 Levetiracetam (Keppra Liquid) 1,000 mg DAILY GTB Last administered on 09/23/16 10:47; Admin Dose 1,000 MG; Start 09/23/16 at 09:00 Lansoprazole 30 mg 30 mg DAILY@06 GTB Last administered on 09/23/16 06:55; Admin Dose 30 MG; Start 09/23/16 at 06:00 Meropenem (Merrem 500 Mg/ 100 ml (Pmx)) 100 ml @ 200 mls/hr Q24H IVPB ; Start 09/23/16 at 21:00 Metoprolol Tartrate (Lopressor) 25 mg BID GTB Last administered on 09/23/16 10: 46; Admin Dose 25 MG; Start 09/23/16 at 10:30 Aspirin (Aspirin) 81 mg DAILY GTB Last administered on 09/23/16 10:46; Admin Dose 81 MG; Start 09/23/16 at 10:30 Acetaminophen (Tylenol Tab) 500 mg Q4H PRN PO PAIN AND OR ELEVATED TEMP; Start 09/23/16 at 10:30 Morphine Sulfate 2 mg 2 mg Q4H PRN IV PAIN LEVEL 4-7; Start 09/23/16 at 10:30 Vancomycin HCl/ Sodium Chloride (Vancocin/NS) 500 ml @ 125 mls/hr NOW IVPB ; Start 09/23/16 at 12:00; Stop 09/23/16 at 15:59 JUAREZ HENSON M.D. Sep 23, 2016 12:07
--- NOTE | 2016-09-23 13:27 | CONS ---
Date/Time of Note Date/Time of Note DATE: 09/23/16 TIME: 13:24 Assessment/Plan Assessment/Plan Chief Complaint/Hosp Course [id number] A/P ESRD SIRS AMS ANASARCA HTN SEIZURE PLAN HD Problems: Consultation Date/Type/Reason Admit Date/Time Sep 22, 2016 at 21:05 Initial Consult Date 09/23/16 Type of Consultation: renal Referring Provider: BLESSING CONNELLY MD 24 HR Interval Summary Subjective hx not possible: pt non-verbal Constitutional: No chills Exam/Review of Systems Vital Signs Vitals Vital Signs Date Time Temp Pulse Resp B/P Pulse Ox O2 Delivery O2 Flow Rate FiO2 09/23/16 12:10 120 09/23/16 11:58 98.6 20 116/77 98 09/23/16 11:10 30 09/22/16 23:30 Mechanical Ventilator Intake and Output 09/22/16 09/22/16 09/23/16 15:00 23:00 07:00 Intake Total 400 ml Balance 400 ml Exam Neck: supple Respiratory: diminished breath sounds Cardiovascular: regular rate and rhythm Gastrointestinal: bowel sounds (+), soft Extremities: edema (++) Neurological: other (no change) Results Result Diagram: 09/23/16 0550 09/23/16 0550 Results 24 hrs Laboratory Tests Test 09/22/16 19:40 09/22/16 22:15 09/23/16 00:43 09/23/16 05:50 White Blood Count 7.4 6.5 Red Blood Count 2.12 #L 2.82 #L Hemoglobin 6.8 #*L 8.5 #L Hematocrit 20.6 #L 26.2 #L Mean Corpuscular Volume 97.2 92.9 Mean Corpuscular Hemoglobin 32.1 30.1 Mean Corpuscular Hemoglobin Concent 33.0 32.4 Red Cell Distribution Width 16.9 H 17.5 H Platelet Count 230 # 225 Mean Platelet Volume 10.0 10.3 Neutrophils % 82.0 H 78.1 H Band Neutrophils % 1.0 Lymphocytes % 12.0 L 12.6 L Monocytes % 1.0 6.5 Eosinophils % 4.0 2.0 Neutrophils # 6.1 5.0 Lymphocytes # 0.9 0.8 Monocytes # 0.1 L 0.4 Eosinophils # 0.3 0.1 Anisocytosis 1+ Prothrombin Time 14.2 Prothrombin Time Ratio 1.1 INR International Normalized Ratio 1.10 Activated Partial Thromboplast Time 41.1 H Sodium Level 142 146 H Potassium Level 3.9 4.1 Chloride Level 100 102 Carbon Dioxide Level 27 27 Anion Gap 19 H 21 H Blood Urea Nitrogen 55 H 55 H Creatinine 7.35 H 8.10 H Glucose Level 121 107 Lactic Acid Level 0.9 1.6 1.0 Calcium Level 11.2 H 11.4 H Total Bilirubin 0.1 L 0.1 L Direct Bilirubin 0.00 0.00 Indirect Bilirubin 0.1 0.1 Aspartate Amino Transf (AST/SGOT) 20 23 Alanine Aminotransferase (ALT/SGPT) 33 37 Alkaline Phosphatase 97 99 Troponin I < 0.012 Total Protein 8.3 H 8.4 H Albumin 4.5 4.5 Globulin 3.80 H 3.90 H Albumin/Globulin Ratio 1.18 1.15 Basophils % 0.3 Nucleated Red Blood Cells % 0.0 Basophils # 0.0 Nucleated Red Blood Cells # 0.0 Medications Medications Current Medications Amiodarone HCl (Cordarone) 200 mg DAILY GTB Last administered on 09/23/16 09:00 ; Admin Dose 200 MG; Start 09/23/16 at 09:00 Cinacalcet (Sensipar) 60 mg DAILY GTB Last administered on 09/23/16 10:46; Admin Dose 60 MG; Start 09/23/16 at 09:00 Clonazepam (Klonopin) 0.5 mg Q12 GTB Last administered on 09/23/16 10:53; Admin Dose 0.5 MG; Start 09/23/16 at 09:00 Docusate Sodium (Colace Liquid Cup) 100 mg BID GTB Last administered on 10:47; Admin Dose 100 MG; Start 09/23/16 at 09:00 Metoclopramide HCl (Reglan Liq) 10 mg Q8 GTB Last administered on 09/23/16 06: 55; Admin Dose 10 MG; Start 09/23/16 at 06:00 Multivit/Ca Carb/ B Cmplx/FA/Prenat (Oumou-Jayesh) 1 tab DAILY GTB Last administered on 09/23/16 10:46; Admin Dose 1 TAB; Start 09/23/16 at 09:00 Levetiracetam (Keppra Liquid) 1,000 mg DAILY GTB Last administered on 09/23/16 10:47; Admin Dose 1,000 MG; Start 09/23/16 at 09:00 Lansoprazole 30 mg 30 mg DAILY@06 GTB Last administered on 09/23/16 06:55; Admin Dose 30 MG; Start 09/23/16 at 06:00 Meropenem (Merrem 500 Mg/ 100 ml (Pmx)) 100 ml @ 200 mls/hr Q24H IVPB ; Start 09/23/16 at 21:00 Metoprolol Tartrate (Lopressor) 25 mg BID GTB Last administered on 09/23/16 10: 46; Admin Dose 25 MG; Start 09/23/16 at 10:30 Aspirin (Aspirin) 81 mg DAILY GTB Last administered on 09/23/16 10:46; Admin Dose 81 MG; Start 09/23/16 at 10:30 Acetaminophen (Tylenol Tab) 500 mg Q4H PRN PO PAIN AND OR ELEVATED TEMP; Start 09/23/16 at 10:30 Morphine Sulfate 2 mg 2 mg Q4H PRN IV PAIN LEVEL 4-7; Start 09/23/16 at 10:30 Vancomycin HCl/ Sodium Chloride (Vancocin/NS) 500 ml @ 125 mls/hr NOW IVPB Last administered on 09/23/16 12:46; Admin Dose 125 MLS/HR; Start 09/23/16 at 12: 00; Stop 09/23/16 at 15:59 Tobramycin Sulfate (Tobrex 0.3% Oph Drop) 1 drop Q6 LEFT EYE ; Start 09/23/16 at 12:00; Stop 09/30/16 at 11:59 CHUYITA PASTOR MD Sep 23, 2016 13:27
--- NOTE | 2016-09-23 18:17 | CONS ---
DATE OF ADMISSION: 09/22/2016 DATE OF CONSULTATION: 09/23/2016 NEPHROLOGY CONSULTATION Thank you, Dr. Brannon Palacio, for kindly asking me to see this patient in nephrology consultation . HISTORY OF PRESENT ILLNESS: This is a 56-year-old male, who has a history of encephalopathy. As pe r discussion with the nurse from the post-acute, the patient recently discharged from [facility] for ESBL infection, noted to have swelling of the upper and lower extremities and did no t go to the dialysis center, presented here for further management. The patient himself is unable t o give any detailed history. PAST MEDICAL HISTORY: Positive for history of hypertension, seizure disorder, tracheostomy, G-tube placement, encephalopathy, history of cardiac arrest, history of atrial fibrillation, history of chronic systolic dysfunction, history of ejection fraction 45%, history of multiple dialysis cath eter sepsis, catheter placement and removal. ALLERGIES: CANNOT BE OBTAINED. FAMILY HISTORY: Cannot be obtained. SOCIAL HISTORY: Cannot be obtained. MEDICATION HISTORY: Includes patient on: 1. Meropenem. 2. Vancomycin. 3. Tylenol. 4. Amiodarone. 5. Aspirin. 6. Sensipar. 7. Klonopin. 8. Docusate sodium. 9. Prevacid. 10. Keppra. 11. Reglan. 12. Metoprolol. 13. Midodrine. 14. Morphine. 15. Multiple vitamins. 16. Zofran. 17. Protonix. 18. Renvela. 19. Tobramycin 20. Vancomycin. 21. Prilosec. REVIEW OF SYSTEMS: Cannot be obtained. PHYSICAL EXAMINATION: GENERAL: The patient is encephalopathic. VITAL SIGNS: Pulse 120, blood pressure 116/77. HEENT: Head is unchanged. Pupils are equal, reactive. NECK: Supple. Tracheostomy in place. LUNGS: Rhonchi noted. CARDIOVASCULAR: S1, S2 normal. ABDOMEN: Distended. Bowel sounds positive. G-tube in place. EXTREMITIES: No cyanosis, clubbing. Edema positive. CENTRAL NERVOUS SYSTEM: The patient is encephalopathic and noncommunicative. LABORATORY DATA: Hemoglobin 6.8. Sodium 146, potassium 4.1. IMPRESSION: 1. Anemia. 2. End-stage renal disease. 3. Hypertension. 4. G-tube placement. 5. Tracheostomy. 6. Ejection fraction 45%. 7. History of chronic systolic dysfunction. 8. History of multiple catheter related infections. 9. History of extended vjiavakl-zmgg-dhcxphykx infection recently. 10. The patient has anasarca. PLAN: To continue renal diet, hemodialysis. Other treatment as per Dr. Brannon Palacio. Thank you, Dr. Brannon Palacio, for kindly asking me to see this patient in nephrology consultation . Dictated By: CHUYITA PASTOR MD BS/NTS Conf#: [id number] DID#: [id number]
[2016-09-23] MEDS: MEROPENEM 500 MG/100 ML (PMX) 100 ML IVPB SCH (20:51)
[2016-09-24] VITALS (32 sets, daily range): BP systolic 100–139; BP diastolic 66–88; PULSE 88–130; RESP 19–29
[2016-09-24] MEDS: LANSOPRAZOLE 30 MG CAP GTB SCH (06:05)
[2016-09-24] MEDS: METOCLOPRAMIDE (1 MG/ML) 10 ML CUP GTB SCH ×3 (06:05→21:00)
[2016-09-24] MEDS: TOBRAMYCIN 0.3% 5 ML OPH LEFT EYE SCH ×4 (06:06→21:01)
[2016-09-24 07:08] LABS: ADD SCAN DIFF NO
[2016-09-24 07:12] LABS: BASOPHILS % 0.4 % (0.0-2.0); EOSINOPHILS # 0.1 10^3/ul (0.0-0.5); EOSINOPHILS % 1.7 % (0.0-7.0); HEMATOCRIT 26.6 % (42.0-52.0); HEMOGLOBIN 8.5 g/dl (14.0-18.0); LYMPHOCYTES # 1.2 10^3/ul (0.8-2.9); LYMPHOCYTES % 15.6 % (15.0-51.0); MEAN PLATELET VOLUME 10.4 fl (7.4-10.4); MONOCYTE # 0.7 10^3/ul (0.3-0.9); MONOCYTES % 8.3 % (0.0-11.0); NEUTROPHIL # 5.8 10^3/ul (1.6-7.5); NEUTROPHILS % 73.6 % (39.0-77.0); PLATELET COUNT 233 10^3/UL (140-415); RED BLOOD COUNT 2.83 10^6/ul (4.70-6.10); RED CELL DISTRIBUTION WIDTH 17.6 % (11.5-14.5); WHITE BLOOD COUNT 7.9 10^3/ul (4.8-10.8)
[2016-09-24 07:52] LABS: CALCIUM 10.5 mg/dl (8.4-10.2); CREATININE 6.17 mg/dl (0.61-1.24)
--- NOTE | 2016-09-24 08:19 | CONS ---
DATE OF ADMISSION: 09/22/2016 DATE OF CONSULTATION: 09/23/2016 REFERRING PHYSICIAN: Brannon Palacio MD REASON FOR EVALUATION: Paroxysmal atrial fibrillation, tachycardia. HISTORY OF PRESENT ILLNESS: Mr. Juan is an unfortunate 56-year-old gentleman with history of anoxic encephalopathy, seizure disorder, hypertension, hyperlipidemia, end-stage renal disease on hemodialy sis, prior questionable history of atrial fibrillation, comes to the hospital now for evaluation of tachycardia and shortness of breath. The patient is currently admitted for blood pressure support. He is anemic. I have been asked to see the patient in consultation because of history of atrial fib rillation. He is in sinus rhythm now on telemetry. I do not appreciate any episodes of atrial fibr illation while the patient has been here. For now, he is in sinus tachycardia. The patient just re ceived a blood transfusion. Conservative therapy is expected. Followup with a 2D echo and provide recommendations as needed. With regards to atrial fibrillation, the patient has anemia, high risk f or bleeding, and I think aspirin would be sufficient, which he is on right now. PAST MEDICAL HISTORY: 1. Hypertension. 2. Dyslipidemia. 3. History of paroxysmal atrial fibrillation, unconfirmed. 4. History of hypertension. 5. History of heart failure with preserved ejection fraction. 6. End-stage renal disease on hemodialysis. 7. History of anoxic brain injury secondary to cardiac arrest. 8. History of epilepsy. ALLERGIES: NO KNOWN DRUG ALLERGIES. SOCIAL HISTORY: The patient does not smoke, does not drink, does not use drugs. FAMILY HISTORY: Negative for sudden cardiac . There is history of diabetes in the family. MEDICATIONS: Here are: 1. Meropenem. 2. Vancomycin. 2. Metoprolol 25 mg p.o. b.i.d. 3. Aspirin 81 mg . 4. Morphine sulfate for pain. 5. Amiodarone 200 mg p.o. once a day via G-tube. 6. Clonazepam. 7. Docusate. 8. Multivitamins. 9. Levitra. . 10. Lansoprazole REVIEW OF SYSTEMS: CONSTITUTIONAL: The patient is not able to provide review because of his encephalopathy but per karen se there have been no fevers, no chills, tachycardia.. HEENT: No changes in vision or hearing. CARDIAC: No chest pain reported now. RESPIRATORY: Shortness of breath. GASTROINTESTINAL: No nausea, vomiting, diarrhea, constipation. GENITOURINARY: No dysuria, hematuria. NEUROLOGIC: History of encephalopathy. PSYCHIATRIC: History of psychiatric illness, but currently encephalopathic. PHYSICAL EXAMINATION: VITAL SIGNS: Temperature is 98.7, heart rate is 120s and sinus, blood pressure . GENERAL: He is a well-nourished gentleman, in no distress. HEAD: Normocephalic, atraumatic. NECK: He has trach in place. HEART: Regular tachycardic soft holosystolic murmur present in mid chest. LUNGS: Coarse at bases. ABDOMEN: Distended, bowel sounds are present. There is no hepatosplenomegaly. GENITOURINARY: Exam is intact. , EXTREMITIES: No clubbing, cyanosis, trace edema. SKIN: Showed NEUROLOGICAL: He is able to move. He is not moving his extremities. LABORATORY DATA: White blood cell count 6.5, hemoglobin 6.8 on presentation, now 8.5. He is receiv ing blood transfusion platelets 225. INR is 1.0. Sodium 146, potassium 4.1. His BUN is ____ _, creatinine is 0.1. ASSESSMENT AND PLAN: 1. The patient has history fibrillation, now with significant anemia as well as atrial fibrillation has been confirmed, I think it is reasonable to continue current therapy for now, aspirin 81 mg is fine if he can tolerate it. The patient is on amiodarone. We will hold discontinuing his amiodaron e now. 2. Hypertension. Blood pressure well maintained. Continue to follow sinus coordinatio n. No described. Hopefully, will respond to blood transfusion. 3. Respiratory failure: Continue respiratory therapy as indicated. 4. End-stage renal disease, on hemodialysis. Monitor for . 5. History of anoxic brain injury. No significant change is expected. I would like to thank Dr. Palacio for referring this patient for my evaluation. Dictated By: ALEM DIAZ MD ML/AMNA Conf#: [id number] DID#: [id number]
[2016-09-24] MEDS: SEVELAMER CARBONATE 0.8 GM PKT GTB SCH ×3 (09:32→18:20)
[2016-09-24] MEDS: DOCUSATE SODIUM 10 MG/ML (10ML CUP) GTB SCH ×2 (09:32→21:00)
[2016-09-24] MEDS: LEVETIRACETAM (100 MG/ML) 5ML CUP GTB SCH (09:32)
[2016-09-24] MEDS: CINACALCET 30 MG TAB GTB SCH (09:33)
[2016-09-24] MEDS: ASPIRIN 81 MG TAB GTB SCH (09:33)
[2016-09-24] MEDS: MULTIVIT/CA CARB/B CMPLX/FA TAB GTB SCH (09:33)
[2016-09-24] MEDS: METOPROLOL 25 MG TAB GTB SCH ×2 (09:36→21:01)
[2016-09-24] MEDS: clonAZEPAM 0.5 MG TAB GTB SCH ×2 (09:36→21:00)
[2016-09-24] MEDS: AMIODARONE 200 MG TAB GTB SCH (09:37)
[2016-09-24] MEDS: ACETAMINOPHEN 500 MG TAB PO PRN (13:16)
--- NOTE | 2016-09-24 17:45 | PN ---
Date/Time of Note Date/Time of Note DATE: 09/24/16 TIME: 17:39 Assessment/Plan VTE Prophylaxis VTE Prophylaxis Intervention: SCD's Lines/Catheters IV [facility]ter Type (from [facility]): MARY LOU Urinary Cath still in place: No Assessment/Plan Chief Complaint/Hosp Course Continues to have low-grade fever, sinus rhythm on telemetry. - Anemia of chronic disease. Status post blood transfusion. - Paroxysmal atrial fibrillation with possible uncontrolled heart rate. Continue aspirin and amiodarone. Dr. Dickerson is following and cardiology consultation. - Recent possible line sepsis. The patient has gram-positive cocci and also gram-negative rods in his blood culture done at [facility]. We will continue vancomycin and meropenem. Dr. Cross is following in infection disease consultation. Follow up on cultures. - End-stage renal disease, hemodynamic hemodialysis dependent. Dr. Ordonez is following in nephrology consultation. Continue on hemodialysis. -Ventilator dependent respiratory failure. - Seizure disorder. Continue Keppra. -Status post cardiac arrest by history Further recommendations based on clinical course. Plan of care discussed with Dr. Palacio. Problems: Exam/Review of Systems Vital Signs Vitals Vital Signs Date Time Temp Pulse Resp B/P Pulse Ox O2 Delivery O2 Flow Rate FiO2 09/24/16 17:18 99 21 98 30 09/24/16 16:16 99.6 139/85 09/22/16 23:30 Mechanical Ventilator Intake and Output 09/23/16 09/23/16 09/24/16 15:00 23:00 07:00 Intake Total 690 ml 1020 ml 780 ml Output Total 2000 ml Balance -1310 ml 1020 ml 780 ml Exam Constitutional: frail, non-verbal Neck: other (Tracheostomy) Respiratory: diminished breath sounds, other (Rhonchi bilaterally) Cardiovascular: nl pulses, regular rate and rhythm Gastrointestinal: non-tender, other (G-tube), soft Neurological: other (Contracted extremities) Additional Comments Right chest permacath Results Result Diagram: 09/24/16 0525 09/24/16 0525 Results 24 hrs Laboratory Tests Test 09/24/16 05:25 White Blood Count 7.9 # Red Blood Count 2.83 L Hemoglobin 8.5 L Hematocrit 26.6 L Mean Corpuscular Volume 94.0 Mean Corpuscular Hemoglobin 30.0 Mean Corpuscular Hemoglobin Concent 32.0 Red Cell Distribution Width 17.6 H Platelet Count 233 Mean Platelet Volume 10.4 Neutrophils % 73.6 Lymphocytes % 15.6 Monocytes % 8.3 Eosinophils % 1.7 Basophils % 0.4 Nucleated Red Blood Cells % 0.0 Neutrophils # 5.8 Lymphocytes # 1.2 Monocytes # 0.7 Eosinophils # 0.1 Basophils # 0.0 Nucleated Red Blood Cells # 0.0 Sodium Level 141 Potassium Level 4.0 Chloride Level 101 Carbon Dioxide Level 27 Anion Gap 17 H Blood Urea Nitrogen 40 #H Creatinine 6.17 H Glucose Level 132 Calcium Level 10.5 H Medications Medications Current Medications Amiodarone HCl (Cordarone) 200 mg DAILY GTB Last administered on 09/24/16 09:37 ; Admin Dose 200 MG; Start 09/23/16 at 09:00 Cinacalcet (Sensipar) 60 mg DAILY GTB Last administered on 09/24/16 09:33; Admin Dose 60 MG; Start 09/23/16 at 09:00 Clonazepam (Klonopin) 0.5 mg Q12 GTB Last administered on 09/24/16 09:36; Admin Dose 0.5 MG; Start 09/23/16 at 09:00 Docusate Sodium (Colace Liquid Cup) 100 mg BID GTB Last administered on 09:32; Admin Dose 100 MG; Start 09/23/16 at 09:00 Metoclopramide HCl (Reglan Liq) 10 mg Q8 GTB Last administered on 09/24/16 14: 19; Admin Dose 10 MG; Start 09/23/16 at 06:00 Multivit/Ca Carb/ B Cmplx/FA/Prenat (Oumou-Jayesh) 1 tab DAILY GTB Last administered on 09/24/16 09:33; Admin Dose 1 TAB; Start 09/23/16 at 09:00 Levetiracetam (Keppra Liquid) 1,000 mg DAILY GTB Last administered on 09/24/16 09:32; Admin Dose 1,000 MG; Start 09/23/16 at 09:00 Lansoprazole 30 mg 30 mg DAILY@06 GTB Last administered on 09/24/16 06:05; Admin Dose 30 MG; Start 09/23/16 at 06:00 Meropenem (Merrem 500 Mg/ 100 ml (Pmx)) 100 ml @ 200 mls/hr Q24H IVPB Last administered on 09/23/16 20:51; Admin Dose 200 MLS/HR; Start 09/23/16 at 21:00 Metoprolol Tartrate (Lopressor) 25 mg BID GTB Last administered on 09/24/16 09: 36; Admin Dose 25 MG; Start 09/23/16 at 10:30 Aspirin (Aspirin) 81 mg DAILY GTB Last administered on 09/24/16 09:33; Admin Dose 81 MG; Start 09/23/16 at 10:30 Acetaminophen (Tylenol Tab) 500 mg Q4H PRN PO PAIN AND OR ELEVATED TEMP Last administered on 09/24/16 13:16; Admin Dose 500 MG; Start 09/23/16 at 10:30 Morphine Sulfate (morphine) 2 mg Q4H PRN IV PAIN LEVEL 4-7; Start 09/23/16 at 10 :30 Tobramycin Sulfate (Tobrex 0.3% Oph Drop) 1 drop Q6 LEFT EYE Last administered on 09/24/16 14:19; Admin Dose 1 DROP; Start 09/23/16 at 12:00; Stop 09/30/16 at 11:59 Miscellaneous Information (*Rx Drug Level Order Reminder*) 1 ONCE ONCE XX ; Start 09/25/16 at 05:00; Stop 09/25/16 at 05:01 MARCELO HYMAN Sep 24, 2016 17:45
--- NOTE | 2016-09-24 18:41 | CONS ---
Date/Time of Note Date/Time of Note DATE: 09/24/16 TIME: 18:37 Assessment/Plan Assessment/Plan Chief Complaint/Hosp Course IMP: 1.PAF-currently in [place] 2.Resp failure chronic s/p trach 3.HTN 4.anemia 5.ESRD Recc: -Tele -Continue asa as tolerated given anemia -Continue amio/BB Problems: Consultation Date/Type/Reason Admit Date/Time Sep 22, 2016 at 21:05 Initial Consult Date 09/23/16 Type of Consultation: Cardiology Reason for Consultation PAF Referring Provider: BLESSING CONNELLY MD Exam/Review of Systems Vital Signs Vitals Vital Signs Date Time Temp Pulse Resp B/P Pulse Ox O2 Delivery O2 Flow Rate FiO2 09/24/16 17:18 99 21 98 30 09/24/16 16:16 99.6 139/85 09/22/16 23:30 Mechanical Ventilator Intake and Output 09/23/16 09/23/16 09/24/16 15:00 23:00 07:00 Intake Total 690 ml 1020 ml 780 ml Output Total 2000 ml Balance -1310 ml 1020 ml 780 ml Exam Review of Systems: CONSTITUTIONAL: No fevers, chills. PULMONARY: trached CARDIOVASCULAR: No obvious chest pain/palpitations GASTROINTESTINAL: No nausea/vomiting. GENITOURINARY: No hematuria/dysuria. MUSCULOSKELETAL: No myagias/arthalgias. PSYCHIATRIC: No documented depression. NEUROLOGIC: No weakness Constitutional: other (sleeping) Psych: no complaints ENMT: mucosa pink and moist Neck: other (trached) Respiratory: diminished breath sounds (at bases/B) Cardiovascular: regular rate and rhythm Gastrointestinal: non-tender, soft Musculoskeletal: muscle weakness (generalizes) Extremities: edema (none) Neurological: lethargic Results Result Diagram: 09/24/16 0525 09/24/16 0525 Results 24 hrs Laboratory Tests Test 09/24/16 05:25 White Blood Count 7.9 # Red Blood Count 2.83 L Hemoglobin 8.5 L Hematocrit 26.6 L Mean Corpuscular Volume 94.0 Mean Corpuscular Hemoglobin 30.0 Mean Corpuscular Hemoglobin Concent 32.0 Red Cell Distribution Width 17.6 H Platelet Count 233 Mean Platelet Volume 10.4 Neutrophils % 73.6 Lymphocytes % 15.6 Monocytes % 8.3 Eosinophils % 1.7 Basophils % 0.4 Nucleated Red Blood Cells % 0.0 Neutrophils # 5.8 Lymphocytes # 1.2 Monocytes # 0.7 Eosinophils # 0.1 Basophils # 0.0 Nucleated Red Blood Cells # 0.0 Sodium Level 141 Potassium Level 4.0 Chloride Level 101 Carbon Dioxide Level 27 Anion Gap 17 H Blood Urea Nitrogen 40 #H Creatinine 6.17 H Glucose Level 132 Calcium Level 10.5 H Medications Medications Current Medications Amiodarone HCl (Cordarone) 200 mg DAILY GTB Last administered on 09/24/16 09:37 ; Admin Dose 200 MG; Start 09/23/16 at 09:00 Cinacalcet (Sensipar) 60 mg DAILY GTB Last administered on 09/24/16 09:33; Admin Dose 60 MG; Start 09/23/16 at 09:00 Clonazepam (Klonopin) 0.5 mg Q12 GTB Last administered on 09/24/16 09:36; Admin Dose 0.5 MG; Start 09/23/16 at 09:00 Docusate Sodium (Colace Liquid Cup) 100 mg BID GTB Last administered on 09:32; Admin Dose 100 MG; Start 09/23/16 at 09:00 Metoclopramide HCl (Reglan Liq) 10 mg Q8 GTB Last administered on 09/24/16 14: 19; Admin Dose 10 MG; Start 09/23/16 at 06:00 Multivit/Ca Carb/ B Cmplx/FA/Prenat (Oumou-Jayesh) 1 tab DAILY GTB Last administered on 09/24/16 09:33; Admin Dose 1 TAB; Start 09/23/16 at 09:00 Levetiracetam (Keppra Liquid) 1,000 mg DAILY GTB Last administered on 09/24/16 09:32; Admin Dose 1,000 MG; Start 09/23/16 at 09:00 Lansoprazole 30 mg 30 mg DAILY@06 GTB Last administered on 09/24/16 06:05; Admin Dose 30 MG; Start 09/23/16 at 06:00 Meropenem (Merrem 500 Mg/ 100 ml (Pmx)) 100 ml @ 200 mls/hr Q24H IVPB Last administered on 09/23/16 20:51; Admin Dose 200 MLS/HR; Start 09/23/16 at 21:00 Metoprolol Tartrate (Lopressor) 25 mg BID GTB Last administered on 09/24/16 09: 36; Admin Dose 25 MG; Start 09/23/16 at 10:30 Aspirin (Aspirin) 81 mg DAILY GTB Last administered on 09/24/16 09:33; Admin Dose 81 MG; Start 09/23/16 at 10:30 Acetaminophen (Tylenol Tab) 500 mg Q4H PRN PO PAIN AND OR ELEVATED TEMP Last administered on 09/24/16 13:16; Admin Dose 500 MG; Start 09/23/16 at 10:30 Morphine Sulfate (morphine) 2 mg Q4H PRN IV PAIN LEVEL 4-7; Start 09/23/16 at 10 :30 Tobramycin Sulfate (Tobrex 0.3% Oph Drop) 1 drop Q6 LEFT EYE Last administered on 09/24/16 18:19; Admin Dose 1 DROP; Start 09/23/16 at 12:00; Stop 09/30/16 at 11:59 Miscellaneous Information (*Rx Drug Level Order Reminder*) 1 ONCE ONCE XX ; Start 09/25/16 at 05:00; Stop 09/25/16 at 05:01 MARICARMEN STEVE Sep 24, 2016 18:41
--- NOTE | 2016-09-24 18:58 | CONS ---
Date/Time of Note Date/Time of Note DATE: 09/24/16 TIME: 18:57 Assessment/Plan Assessment/Plan Chief Complaint/Hosp Course - probable recurrent sepsis; possible etiologies include recurrent bacteremia, HCAP/tracheobronchitis, Cdiff (diarrhea noted) - h/o polymicrobial infections: h/o 05/2016 due to E. faecalis bacteremia and C. glabrata fungemia in 05/2016; CoNS bacteremia in early 08/2016; XDR-klebsiella bacteremia in mid-08/2016. at [facility] on 09/13/2016 was negative for valvular vegetation. 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 Pt had full TB workup at [facility]: AFB of sputum was negative x3, MTB PCR was negative x2. ID [employer] consultant there recommended deferring anti-latent tuberculosis treatment until all 3 sputum samples are negative for AFB [id number] - anoxic brain injury after cardiac arrest - encephalopathy - ESRD on HD. A new permacath was placed on 09/14/2016 at [facility] - seizure disorder - s/p cardiac arrest - A fib - seizure disorder - VDRF - GT dependent status recommendations - pending results: blood cultures x2 from 09/22/2016 -f/u blood culture x2 from HD catheter, stool for culture and C diff, sputum culture, culture of discharge from L conjunctiva - I recommend: continuing empiric IV vancomycin and meropenem for now -await microbiology results from [facility] Problems: Consultation Date/Type/Reason Admit Date/Time Sep 22, 2016 at 21:05 Initial Consult Date 09/23/16 Type of Consultation: id Referring Provider: BLESSING CONNELLY MD Exam/Review of Systems Vital Signs Vitals Vital Signs Date Time Temp Pulse Resp B/P Pulse Ox O2 Delivery O2 Flow Rate FiO2 09/24/16 17:18 99 21 98 30 09/24/16 16:16 99.6 139/85 09/22/16 23:30 Mechanical Ventilator Intake and Output 09/23/16 09/23/16 09/24/16 14:59 22:59 06:59 Intake Total 690 ml 1020 ml Output Total 2000 ml Balance -1310 ml 1020 ml Results Result Diagram: 09/24/16 0525 09/24/16 0525 Results 24 hrs Laboratory Tests Test 09/24/16 05:25 White Blood Count 7.9 # Red Blood Count 2.83 L Hemoglobin 8.5 L Hematocrit 26.6 L Mean Corpuscular Volume 94.0 Mean Corpuscular Hemoglobin 30.0 Mean Corpuscular Hemoglobin Concent 32.0 Red Cell Distribution Width 17.6 H Platelet Count 233 Mean Platelet Volume 10.4 Neutrophils % 73.6 Lymphocytes % 15.6 Monocytes % 8.3 Eosinophils % 1.7 Basophils % 0.4 Nucleated Red Blood Cells % 0.0 Neutrophils # 5.8 Lymphocytes # 1.2 Monocytes # 0.7 Eosinophils # 0.1 Basophils # 0.0 Nucleated Red Blood Cells # 0.0 Sodium Level 141 Potassium Level 4.0 Chloride Level 101 Carbon Dioxide Level 27 Anion Gap 17 H Blood Urea Nitrogen 40 #H Creatinine 6.17 H Glucose Level 132 Calcium Level 10.5 H Medications Medications Current Medications Amiodarone HCl (Cordarone) 200 mg DAILY GTB Last administered on 09/24/16 09:37 ; Admin Dose 200 MG; Start 09/23/16 at 09:00 Cinacalcet (Sensipar) 60 mg DAILY GTB Last administered on 09/24/16 09:33; Admin Dose 60 MG; Start 09/23/16 at 09:00 Clonazepam (Klonopin) 0.5 mg Q12 GTB Last administered on 09/24/16 09:36; Admin Dose 0.5 MG; Start 09/23/16 at 09:00 Docusate Sodium (Colace Liquid Cup) 100 mg BID GTB Last administered on 09:32; Admin Dose 100 MG; Start 09/23/16 at 09:00 Metoclopramide HCl (Reglan Liq) 10 mg Q8 GTB Last administered on 09/24/16 14: 19; Admin Dose 10 MG; Start 09/23/16 at 06:00 Multivit/Ca Carb/ B Cmplx/FA/Prenat (Oumou-Jayesh) 1 tab DAILY GTB Last administered on 09/24/16 09:33; Admin Dose 1 TAB; Start 09/23/16 at 09:00 Levetiracetam (Keppra Liquid) 1,000 mg DAILY GTB Last administered on 09/24/16 09:32; Admin Dose 1,000 MG; Start 09/23/16 at 09:00 Lansoprazole 30 mg 30 mg DAILY@06 GTB Last administered on 09/24/16 06:05; Admin Dose 30 MG; Start 09/23/16 at 06:00 Meropenem (Merrem 500 Mg/ 100 ml (Pmx)) 100 ml @ 200 mls/hr Q24H IVPB Last administered on 09/23/16 20:51; Admin Dose 200 MLS/HR; Start 09/23/16 at 21:00 Metoprolol Tartrate (Lopressor) 25 mg BID GTB Last administered on 09/24/16 09: 36; Admin Dose 25 MG; Start 09/23/16 at 10:30 Aspirin (Aspirin) 81 mg DAILY GTB Last administered on 09/24/16 09:33; Admin Dose 81 MG; Start 09/23/16 at 10:30 Acetaminophen (Tylenol Tab) 500 mg Q4H PRN PO PAIN AND OR ELEVATED TEMP Last administered on 09/24/16 13:16; Admin Dose 500 MG; Start 09/23/16 at 10:30 Morphine Sulfate (morphine) 2 mg Q4H PRN IV PAIN LEVEL 4-7; Start 09/23/16 at 10 :30 Tobramycin Sulfate (Tobrex 0.3% Oph Drop) 1 drop Q6 LEFT EYE Last administered on 09/24/16 18:19; Admin Dose 1 DROP; Start 09/23/16 at 12:00; Stop 09/30/16 at 11:59 Miscellaneous Information (*Rx Drug Level Order Reminder*) 1 ONCE ONCE XX ; Start 09/25/16 at 05:00; Stop 09/25/16 at 05:01 SOHAN BRAVO MD Sep 24, 2016 18:58
--- NOTE | 2016-09-24 19:22 | CONS ---
Date/Time of Note Date/Time of Note DATE: 09/24/16 TIME: 19:21 Assessment/Plan Assessment/Plan Chief Complaint/Hosp Course IMPRESSION: 1. Anemia. 2. End-stage renal disease. 3. Hypertension. 4. G-tube placement. 5. Tracheostomy. 6. Ejection fraction 45%. 7. History of chronic systolic dysfunction. 8. History of multiple catheter related infections. 9. History of extended icigtfox-kosk-pgadhwnga infection recently. 10. The patient has anasarca. plan hd Problems: Consultation Date/Type/Reason Admit Date/Time Sep 22, 2016 at 21:05 Initial Consult Date 09/23/16 Type of Consultation: renal Referring Provider: BLESSING CONNELLY MD 24 HR Interval Summary Subjective hx not possible: pt non-verbal Exam/Review of Systems Vital Signs Vitals Vital Signs Date Time Temp Pulse Resp B/P Pulse Ox O2 Delivery O2 Flow Rate FiO2 09/24/16 19:15 105 09/24/16 18:15 20 09/24/16 17:18 98 30 09/24/16 16:16 99.6 139/85 09/22/16 23:30 Mechanical Ventilator Intake and Output 09/23/16 09/23/16 09/24/16 15:00 23:00 07:00 Intake Total 690 ml 1020 ml 780 ml Output Total 2000 ml Balance -1310 ml 1020 ml 780 ml Exam Respiratory: clear to auscultation Cardiovascular: regular rate and rhythm Gastrointestinal: bowel sounds, soft Results Result Diagram: 09/24/16 0525 09/24/16 0525 Results 24 hrs Laboratory Tests Test 09/24/16 05:25 White Blood Count 7.9 # Red Blood Count 2.83 L Hemoglobin 8.5 L Hematocrit 26.6 L Mean Corpuscular Volume 94.0 Mean Corpuscular Hemoglobin 30.0 Mean Corpuscular Hemoglobin Concent 32.0 Red Cell Distribution Width 17.6 H Platelet Count 233 Mean Platelet Volume 10.4 Neutrophils % 73.6 Lymphocytes % 15.6 Monocytes % 8.3 Eosinophils % 1.7 Basophils % 0.4 Nucleated Red Blood Cells % 0.0 Neutrophils # 5.8 Lymphocytes # 1.2 Monocytes # 0.7 Eosinophils # 0.1 Basophils # 0.0 Nucleated Red Blood Cells # 0.0 Sodium Level 141 Potassium Level 4.0 Chloride Level 101 Carbon Dioxide Level 27 Anion Gap 17 H Blood Urea Nitrogen 40 #H Creatinine 6.17 H Glucose Level 132 Calcium Level 10.5 H Medications Medications Current Medications Amiodarone HCl (Cordarone) 200 mg DAILY GTB Last administered on 09/24/16 09:37 ; Admin Dose 200 MG; Start 09/23/16 at 09:00 Cinacalcet (Sensipar) 60 mg DAILY GTB Last administered on 09/24/16 09:33; Admin Dose 60 MG; Start 09/23/16 at 09:00 Clonazepam (Klonopin) 0.5 mg Q12 GTB Last administered on 09/24/16 09:36; Admin Dose 0.5 MG; Start 09/23/16 at 09:00 Docusate Sodium (Colace Liquid Cup) 100 mg BID GTB Last administered on 09:32; Admin Dose 100 MG; Start 09/23/16 at 09:00 Metoclopramide HCl (Reglan Liq) 10 mg Q8 GTB Last administered on 09/24/16 14: 19; Admin Dose 10 MG; Start 09/23/16 at 06:00 Multivit/Ca Carb/ B Cmplx/FA/Prenat (Oumou-Jayesh) 1 tab DAILY GTB Last administered on 09/24/16 09:33; Admin Dose 1 TAB; Start 09/23/16 at 09:00 Levetiracetam (Keppra Liquid) 1,000 mg DAILY GTB Last administered on 09/24/16 09:32; Admin Dose 1,000 MG; Start 09/23/16 at 09:00 Lansoprazole 30 mg 30 mg DAILY@06 GTB Last administered on 09/24/16 06:05; Admin Dose 30 MG; Start 09/23/16 at 06:00 Meropenem (Merrem 500 Mg/ 100 ml (Pmx)) 100 ml @ 200 mls/hr Q24H IVPB Last administered on 09/23/16 20:51; Admin Dose 200 MLS/HR; Start 09/23/16 at 21:00 Metoprolol Tartrate (Lopressor) 25 mg BID GTB Last administered on 09/24/16 09: 36; Admin Dose 25 MG; Start 09/23/16 at 10:30 Aspirin (Aspirin) 81 mg DAILY GTB Last administered on 09/24/16 09:33; Admin Dose 81 MG; Start 09/23/16 at 10:30 Acetaminophen (Tylenol Tab) 500 mg Q4H PRN PO PAIN AND OR ELEVATED TEMP Last administered on 09/24/16 13:16; Admin Dose 500 MG; Start 09/23/16 at 10:30 Morphine Sulfate (morphine) 2 mg Q4H PRN IV PAIN LEVEL 4-7; Start 09/23/16 at 10 :30 Tobramycin Sulfate (Tobrex 0.3% Oph Drop) 1 drop Q6 LEFT EYE Last administered on 09/24/16 18:19; Admin Dose 1 DROP; Start 09/23/16 at 12:00; Stop 09/30/16 at 11:59 Miscellaneous Information (*Rx Drug Level Order Reminder*) 1 ONCE ONCE XX ; Start 09/25/16 at 05:00; Stop 09/25/16 at 05:01 CHUYITA PASTOR MD Sep 24, 2016 19:22
--- NOTE | 2016-09-24 20:12 | RADRPT ---
Echocardiogram Report Patient Name: GAIL ÁLVAREZ Gender: Male Date: 1960 Study Date: 23-Sep-2016 Test Lead Application Testing: [facility] Location: 530 Ref. Physician: ALEM DIAZ Quality: Technically Difficult Study Procedures: Transthoracic echocardiogram with complete 2D, M-Mode, and doppler examination. Indications: Shortness of breath. 2D/M Mode Doppler Measurement Value Normal Ranges Measurement Value Normal Ranges LVIDd 2D 4.1 3.5 - 5.6 cm AV Peak Krish 1.1 m/sec LVIDs 2D 3.1 2.1 - 4.1 cm AV Peak PG 4.7 mmHg LVPWd 2D 1.2 0.6 - 1.1 cm LVOT Peak Krish 0.9 m/sec IVSd 2D 1.2 0.6 - 1.1 cm LVOT Peak PG 2.9 mmHg AoR Diam 2D 3.1 2.0 - 3.7 cm EDV 2D 73.0 cm3 ESV 2D 30.3 cm3 LA Dimen 2D 3.4 2.3 - 4.0 cm Findings Left Ventricle: Lower limits of normal systolic function. Normal left ventricular cavity size. Left ventricular wall thickness upper limits of normal. Ejection fraction is visually estimated at 50 %. Abnormal Diastolic Function. Right Ventricle: Normal right ventricular size. Normal right ventricular systolic function. Left Atrium: The left atrium is normal in size. Right Atrium: The right atrium is normal in size. Mitral Valve: Mild mitral annular calcification. Trace mitral regurgitation. Aortic Valve: No significant aortic stenosis or insufficiency. Aortic valve not well visualized. Tricuspid Valve: Normal appearance and function of the tricuspid valve with trace physiologic regurgitation. Unable to obtain RVSP due to minimal presence of tricuspid regurgitation. Pericardium: Normal pericardium with no significant pericardial effusion. Aorta: Normal aortic root. IVC: Inferior vena cava without respiratory collapse, however, patient on ventilator. Conclusions 1.TDE with very limited views. 2.Lower limits of normal systolic function. Normal left ventricular cavity size. Left ventricular wall thickness upper limits of normal. Ejection fraction is visually estimated at 50 %. Abnormal Diastolic Function. 3.Mild mitral annular calcification. Trace mitral regurgitation. 4.Normal appearance and function of the tricuspid valve with trace physiologic regurgitation. Unable to obtain RVSP due to minimal presence of tricuspid regurgitation. 5.Aortic valve not well visualized. Electronically Signed By: Florentin Duffy 24-Sep-2016 20:10:49 0700 Patient Name: GAIL ÁLVAREZ Study Date: 23-Sep-[id number]
[2016-09-24] MEDS: MEROPENEM 500 MG/100 ML (PMX) 100 ML IVPB SCH (21:02)
[2016-09-25] VITALS (22 sets, daily range): BP systolic 98–114; BP diastolic 64–79; PULSE 94–130; RESP 14–24
[2016-09-25 05:41] LABS: ADD SCAN DIFF NO
[2016-09-25] MEDS: TOBRAMYCIN 0.3% 5 ML OPH LEFT EYE SCH ×3 (05:53→17:54)
[2016-09-25] MEDS: LANSOPRAZOLE 30 MG CAP GTB SCH (05:53)
[2016-09-25] MEDS: METOCLOPRAMIDE (1 MG/ML) 10 ML CUP GTB SCH ×3 (05:53→21:21)
[2016-09-25 05:55] LABS: BASOPHILS % 0.2 % (0.0-2.0); EOSINOPHILS # 0.1 10^3/ul (0.0-0.5); EOSINOPHILS % 1.6 % (0.0-7.0); HEMATOCRIT 29.1 % (42.0-52.0); HEMOGLOBIN 9.3 g/dl (14.0-18.0); LYMPHOCYTES # 1.4 10^3/ul (0.8-2.9); LYMPHOCYTES % 17.8 % (15.0-51.0); MEAN CORPUSCULAR HEMOGLOBIN 29.9 pg (29.0-33.0); MEAN CORPUSCULAR VOLUME 93.6 fl (82.0-101.0); MEAN PLATELET VOLUME 9.9 fl (7.4-10.4); MONOCYTE # 0.6 10^3/ul (0.3-0.9); MONOCYTES % 7.3 % (0.0-11.0); NEUTROPHIL # 5.9 10^3/ul (1.6-7.5); NEUTROPHILS % 72.7 % (39.0-77.0); PLATELET COUNT 235 10^3/UL (140-415); RED BLOOD COUNT 3.11 10^6/ul (4.70-6.10); WHITE BLOOD COUNT 8.1 10^3/ul (4.8-10.8)
[2016-09-25 06:13] LABS: CALCIUM 10.4 mg/dl (8.4-10.2); CREATININE 5.31 mg/dl (0.61-1.24); POTASSIUM 3.9 mmol/L (3.5-5.1)
[2016-09-25] MEDS: DOCUSATE SODIUM 10 MG/ML (10ML CUP) GTB SCH ×2 (08:22→21:00)
[2016-09-25] MEDS: SEVELAMER CARBONATE 0.8 GM PKT GTB SCH ×3 (08:22→17:54)
[2016-09-25] MEDS: ASPIRIN 81 MG TAB GTB SCH (08:22)
[2016-09-25] MEDS: MULTIVIT/CA CARB/B CMPLX/FA TAB GTB SCH (08:22)
[2016-09-25] MEDS: LEVETIRACETAM (100 MG/ML) 5ML CUP GTB SCH (08:22)
[2016-09-25] MEDS: CINACALCET 30 MG TAB GTB SCH (08:22)
[2016-09-25] MEDS: ACETAMINOPHEN 500 MG TAB PO PRN (08:22)
[2016-09-25] MEDS: AMIODARONE 200 MG TAB GTB SCH (08:24)
[2016-09-25] MEDS: METOPROLOL 25 MG TAB GTB SCH ×2 (08:24→21:21)
[2016-09-25] MEDS: clonAZEPAM 0.5 MG TAB GTB SCH ×2 (08:28→21:21)
--- NOTE | 2016-09-25 09:51 | CONS ---
Date/Time of Note Date/Time of Note DATE: 09/25/16 TIME: 09:48 Assessment/Plan Assessment/Plan Additional Assessment/Plan 1. The patient has history fibrillation, now with significant anemia as well as atrial fibrillation - NOW IN SINUS. 2. Hypertension. Blood pressure well maintained. Continue to follow, responded to blood transfusion. 3. Respiratory failure: Continue respiratory therapy as indicated. 4. End-stage renal disease, on hemodialysis. Renal team follows. 5. History of anoxic brain injury. No significant change is expected. Consultation Date/Type/Reason Admit Date/Time Sep 22, 2016 at 21:05 Initial Consult Date 09/23/16 Type of Consultation: renal Referring Provider: BLESSING CONNELLY MD 24 HR Interval Summary Free Text/Dictation No acute change - in sinus now. ROS: No fever, no chills, no nausea, no vomiting, no diarrhea/constipation No recent weight changes No chest pain, no PND, no orthopnea No dizziness, blurred vision No thirst, no heat or cold intolerance (per nurse) Exam/Review of Systems Vital Signs Vitals Vital Signs Date Time Temp Pulse Resp B/P Pulse Ox O2 Delivery O2 Flow Rate FiO2 09/25/16 08:05 100.5 110 22 113/79 98 09/25/16 05:33 30 09/22/16 23:30 Mechanical Ventilator Intake and Output 09/24/16 09/24/16 09/25/16 15:00 23:00 07:00 Intake Total 1290 ml 880 ml Output Total 2300 ml 1 ml Balance -1010 ml 879 ml Exam General: WN/WD/NAD, AOx 0 HEENT: Unicetric/atraumatic/EOMI (does not follow commands) NECK: no thyromegaly TRACH Lymph: no lymphadenopathy HEART: regular with no S3, II/ systolic murmur at apex LUNGS: Coarse sounds ABD: soft, NT, ND, +BS : Intact Neuro: non focal SKIN: chronic changes EXT: trace edema Results Result Diagram: 09/25/1630 09/25/16 0530 Results 24 hrs Laboratory Tests Test 09/25/16 05:30 09/25/16 06:30 White Blood Count 8.1 Red Blood Count 3.11 L Hemoglobin 9.3 L Hematocrit 29.1 L Mean Corpuscular Volume 93.6 Mean Corpuscular Hemoglobin 29.9 Mean Corpuscular Hemoglobin Concent 32.0 Red Cell Distribution Width 17.0 H Platelet Count 235 Mean Platelet Volume 9.9 Neutrophils % 72.7 Lymphocytes % 17.8 Monocytes % 7.3 Eosinophils % 1.6 Basophils % 0.2 Nucleated Red Blood Cells % 0.0 Neutrophils # 5.9 Lymphocytes # 1.4 Monocytes # 0.6 Eosinophils # 0.1 Basophils # 0.0 Nucleated Red Blood Cells # 0.0 Sodium Level 139 Potassium Level 3.9 Chloride Level 99 Carbon Dioxide Level 27 Anion Gap 17 H Blood Urea Nitrogen 38 H Creatinine 5.31 H Glucose Level 161 Calcium Level 10.4 H Random Vancomycin Level 25.8 Lab Scanned Report BLOOD TRANSFUSION Medications Medications Current Medications Amiodarone HCl (Cordarone) 200 mg DAILY GTB Last administered on 09/25/16 08:24 ; Admin Dose 200 MG; Start 09/23/16 at 09:00 Cinacalcet (Sensipar) 60 mg DAILY GTB Last administered on 09/25/16 08:22; Admin Dose 60 MG; Start 09/23/16 at 09:00 Clonazepam (Klonopin) 0.5 mg Q12 GTB Last administered on 09/25/16 08:28; Admin Dose 0.5 MG; Start 09/23/16 at 09:00 Docusate Sodium (Colace Liquid Cup) 100 mg BID GTB Last administered on 08:22; Admin Dose 100 MG; Start 09/23/16 at 09:00 Metoclopramide HCl (Reglan Liq) 10 mg Q8 GTB Last administered on 09/25/16 05: 53; Admin Dose 10 MG; Start 09/23/16 at 06:00 Multivit/Ca Carb/ B Cmplx/FA/Prenat (Oumou-Jayesh) 1 tab DAILY GTB Last administered on 09/25/16 08:22; Admin Dose 1 TAB; Start 09/23/16 at 09:00 Levetiracetam (Keppra Liquid) 1,000 mg DAILY GTB Last administered on 09/25/16 08:22; Admin Dose 1,000 MG; Start 09/23/16 at 09:00 Lansoprazole 30 mg 30 mg DAILY@06 GTB Last administered on 09/25/16 05:53; Admin Dose 30 MG; Start 09/23/16 at 06:00 Meropenem (Merrem 500 Mg/ 100 ml (Pmx)) 100 ml @ 200 mls/hr Q24H IVPB Last administered on 09/24/16 21:02; Admin Dose 200 MLS/HR; Start 09/23/16 at 21:00 Metoprolol Tartrate (Lopressor) 25 mg BID GTB Last administered on 09/25/16 08: 24; Admin Dose 25 MG; Start 09/23/16 at 10:30 Aspirin (Aspirin) 81 mg DAILY GTB Last administered on 09/25/16 08:22; Admin Dose 81 MG; Start 09/23/16 at 10:30 Acetaminophen (Tylenol Tab) 500 mg Q4H PRN PO PAIN AND OR ELEVATED TEMP Last administered on 09/25/16 08:22; Admin Dose 500 MG; Start 09/23/16 at 10:30 Morphine Sulfate (morphine) 2 mg Q4H PRN IV PAIN LEVEL 4-7; Start 09/23/16 at 10 :30 Tobramycin Sulfate (Tobrex 0.3% Oph Drop) 1 drop Q6 LEFT EYE Last administered on 09/25/16 05:53; Admin Dose 1 DROP; Start 09/23/16 at 12:00; Stop 09/30/16 at 11:59 ALEM DIAZ MD Sep 25, 2016 09:51
--- NOTE | 2016-09-25 16:39 | CONS ---
Date/Time of Note Date/Time of Note DATE: 09/25/16 TIME: 16:37 Assessment/Plan Assessment/Plan Chief Complaint/Hosp Course - probable recurrent sepsis; possible etiologies include recurrent bacteremia, HCAP/tracheobronchitis, Cdiff (diarrhea noted) - h/o polymicrobial infections: h/o 05/2016 due to E. faecalis bacteremia and C. glabrata fungemia in 05/2016; CoNS bacteremia in early 08/2016; XDR-klebsiella bacteremia in mid-08/2016. at [facility] on 09/13/2016 was negative for valvular vegetation. 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 Pt had full TB workup at [facility]: AFB of sputum was negative x3, MTB PCR was negative x2. ID informatics consultant there recommended deferring anti-latent tuberculosis treatment until all 3 sputum samples are negative for AFB [id number] - anoxic brain injury after cardiac arrest - encephalopathy - ESRD on HD. A new permacath was placed on 09/14/2016 at [facility] - seizure disorder - s/p cardiac arrest - A fib - seizure disorder - VDRF - GT dependent status recommendations -f/u all recent cxs -Continue meropenem for now - probiotics Problems: Consultation Date/Type/Reason Admit Date/Time Sep 22, 2016 at 21:05 Initial Consult Date 09/23/16 Type of Consultation: id Referring Provider: BLESSING CONNELLY MD 24 HR Interval Summary Free Text/Dictation having diarrhea per nursing and low grade fever Exam/Review of Systems Vital Signs Vitals Vital Signs Date Time Temp Pulse Resp B/P Pulse Ox O2 Delivery O2 Flow Rate FiO2 09/25/16 16:29 100.0 112 22 103/79 99 09/25/16 11:30 30 09/22/16 23:30 Mechanical Ventilator Intake and Output 09/24/16 09/24/16 09/25/16 15:00 23:00 07:00 Intake Total 1290 ml 880 ml Output Total 2300 ml 1 ml Balance -1010 ml 879 ml Exam Constitutional: non-verbal Psych: confusion Head: atraumatic, normocephalic Respiratory: clear to auscultation Cardiovascular: regular rate and rhythm Gastrointestinal: soft Results Result Diagram: 09/25/16 0530 09/25/16 0530 Results 24 hrs Laboratory Tests Test 09/25/16 05:30 09/25/16 06:30 White Blood Count 8.1 Red Blood Count 3.11 L Hemoglobin 9.3 L Hematocrit 29.1 L Mean Corpuscular Volume 93.6 Mean Corpuscular Hemoglobin 29.9 Mean Corpuscular Hemoglobin Concent 32.0 Red Cell Distribution Width 17.0 H Platelet Count 235 Mean Platelet Volume 9.9 Neutrophils % 72.7 Lymphocytes % 17.8 Monocytes % 7.3 Eosinophils % 1.6 Basophils % 0.2 Nucleated Red Blood Cells % 0.0 Neutrophils # 5.9 Lymphocytes # 1.4 Monocytes # 0.6 Eosinophils # 0.1 Basophils # 0.0 Nucleated Red Blood Cells # 0.0 Sodium Level 139 Potassium Level 3.9 Chloride Level 99 Carbon Dioxide Level 27 Anion Gap 17 H Blood Urea Nitrogen 38 H Creatinine 5.31 H Glucose Level 161 Calcium Level 10.4 H Random Vancomycin Level 25.8 Lab Scanned Report BLOOD TRANSFUSION Medications Medications Current Medications Amiodarone HCl (Cordarone) 200 mg DAILY GTB Last administered on 09/25/16 08:24 ; Admin Dose 200 MG; Start 09/23/16 at 09:00 Cinacalcet (Sensipar) 60 mg DAILY GTB Last administered on 09/25/16 08:22; Admin Dose 60 MG; Start 09/23/16 at 09:00 Clonazepam (Klonopin) 0.5 mg Q12 GTB Last administered on 09/25/16 08:28; Admin Dose 0.5 MG; Start 09/23/16 at 09:00 Docusate Sodium (Colace Liquid Cup) 100 mg BID GTB Last administered on 08:22; Admin Dose 100 MG; Start 09/23/16 at 09:00 Metoclopramide HCl (Reglan Liq) 10 mg Q8 GTB Last administered on 09/25/16 15: 06; Admin Dose 10 MG; Start 09/23/16 at 06:00 Multivit/Ca Carb/ B Cmplx/FA/Prenat (Oumou-Jayesh) 1 tab DAILY GTB Last administered on 09/25/16 08:22; Admin Dose 1 TAB; Start 09/23/16 at 09:00 Levetiracetam (Keppra Liquid) 1,000 mg DAILY GTB Last administered on 09/25/16 08:22; Admin Dose 1,000 MG; Start 09/23/16 at 09:00 Lansoprazole 30 mg 30 mg DAILY@06 GTB Last administered on 09/25/16 05:53; Admin Dose 30 MG; Start 09/23/16 at 06:00 Meropenem (Merrem 500 Mg/ 100 ml (Pmx)) 100 ml @ 200 mls/hr Q24H IVPB Last administered on 09/24/16 21:02; Admin Dose 200 MLS/HR; Start 09/23/16 at 21:00 Metoprolol Tartrate (Lopressor) 25 mg BID GTB Last administered on 09/25/16 08: 24; Admin Dose 25 MG; Start 09/23/16 at 10:30 Aspirin (Aspirin) 81 mg DAILY GTB Last administered on 09/25/16 08:22; Admin Dose 81 MG; Start 09/23/16 at 10:30 Acetaminophen (Tylenol Tab) 500 mg Q4H PRN PO PAIN AND OR ELEVATED TEMP Last administered on 09/25/16 08:22; Admin Dose 500 MG; Start 09/23/16 at 10:30 Morphine Sulfate (morphine) 2 mg Q4H PRN IV PAIN LEVEL 4-7; Start 09/23/16 at 10 :30 Tobramycin Sulfate (Tobrex 0.3% Oph Drop) 1 drop Q6 LEFT EYE Last administered on 09/25/16 12:59; Admin Dose 1 DROP; Start 09/23/16 at 12:00; Stop 09/30/16 at 11:59 SOHAN BRAVO MD Sep 25, 2016 16:39
--- NOTE | 2016-09-25 20:01 | PN ---
Date/Time of Note Date/Time of Note DATE: 09/25/16 TIME: 19:56 Assessment/Plan VTE Prophylaxis VTE Prophylaxis Intervention: SCD's Lines/Catheters IV Catheter Type (from [facility] [place] Lock Urinary Cath still in place: No Assessment/Plan Chief Complaint/Hosp Course Continues to have low-grade fever and tachycardia, will adjust G-tube feeding according to dietary recommendation. Assessment and plan: - Recent possible sepsis. Dr. James is following infection disease consultation. Continue antibiotics per ID. - Anemia of chronic disease. Status post blood transfusion. - Paroxysmal atrial fibrillation with possible uncontrolled heart rate. Continue aspirin and amiodarone. Dr. Dickerson is following and cardiology consultation. - End-stage renal disease, hemodynamic hemodialysis dependent. Dr. Ordonez is following in nephrology consultation. Continue on hemodialysis. - Ventilator dependent respiratory failure. - Seizure disorder. Continue Keppra. - Status post cardiac arrest by history Further recommendations based on clinical course. Plan of care discussed with Dr. Palacio. Problems: Exam/Review of Systems Vital Signs Vitals Vital Signs Date Time Temp Pulse Resp B/P Pulse Ox O2 Delivery O2 Flow Rate FiO2 09/25/16 19:40 114 98 30 09/25/16 16:29 100.0 22 103/79 09/22/16 23:30 Mechanical Ventilator Intake and Output 09/24/16 09/24/16 09/25/16 15:00 23:00 07:00 Intake Total 1290 ml 880 ml Output Total 2300 ml 1 ml Balance -1010 ml 879 ml Exam Constitutional: frail, non-verbal Neck: other (Tracheostomy) Respiratory: diminished breath sounds Cardiovascular: nl pulses, regular rate and rhythm Gastrointestinal: non-tender, other (G-tube), soft Neurological: other (Contracted extremities) Additional Comments Right chest permacath Results Result Diagram: 09/25/16 0530 09/25/16 0530 Results 24 hrs Laboratory Tests Test 09/25/16 05:30 09/25/16 06:30 White Blood Count 8.1 Red Blood Count 3.11 L Hemoglobin 9.3 L Hematocrit 29.1 L Mean Corpuscular Volume 93.6 Mean Corpuscular Hemoglobin 29.9 Mean Corpuscular Hemoglobin Concent 32.0 Red Cell Distribution Width 17.0 H Platelet Count 235 Mean Platelet Volume 9.9 Neutrophils % 72.7 Lymphocytes % 17.8 Monocytes % 7.3 Eosinophils % 1.6 Basophils % 0.2 Nucleated Red Blood Cells % 0.0 Neutrophils # 5.9 Lymphocytes # 1.4 Monocytes # 0.6 Eosinophils # 0.1 Basophils # 0.0 Nucleated Red Blood Cells # 0.0 Sodium Level 139 Potassium Level 3.9 Chloride Level 99 Carbon Dioxide Level 27 Anion Gap 17 H Blood Urea Nitrogen 38 H Creatinine 5.31 H Glucose Level 161 Calcium Level 10.4 H Random Vancomycin Level 25.8 Lab Scanned Report BLOOD TRANSFUSION Medications Medications Current Medications Amiodarone HCl (Cordarone) 200 mg DAILY GTB Last administered on 09/25/16 08:24 ; Admin Dose 200 MG; Start 09/23/16 at 09:00 Cinacalcet (Sensipar) 60 mg DAILY GTB Last administered on 09/25/16 08:22; Admin Dose 60 MG; Start 09/23/16 at 09:00 Clonazepam (Klonopin) 0.5 mg Q12 GTB Last administered on 09/25/16 08:28; Admin Dose 0.5 MG; Start 09/23/16 at 09:00 Docusate Sodium (Colace Liquid Cup) 100 mg BID GTB Last administered on 08:22; Admin Dose 100 MG; Start 09/23/16 at 09:00 Metoclopramide HCl (Reglan Liq) 10 mg Q8 GTB Last administered on 09/25/16 15: 06; Admin Dose 10 MG; Start 09/23/16 at 06:00 Multivit/Ca Carb/ B Cmplx/FA/Prenat (Oumou-Jayesh) 1 tab DAILY GTB Last administered on 09/25/16 08:22; Admin Dose 1 TAB; Start 09/23/16 at 09:00 Levetiracetam (Keppra Liquid) 1,000 mg DAILY GTB Last administered on 09/25/16 08:22; Admin Dose 1,000 MG; Start 09/23/16 at 09:00 Lansoprazole 30 mg 30 mg DAILY@06 GTB Last administered on 09/25/16 05:53; Admin Dose 30 MG; Start 09/23/16 at 06:00 Meropenem (Merrem 500 Mg/ 100 ml (Pmx)) 100 ml @ 200 mls/hr Q24H IVPB Last administered on 09/24/16 21:02; Admin Dose 200 MLS/HR; Start 09/23/16 at 21:00 Metoprolol Tartrate (Lopressor) 25 mg BID GTB Last administered on 09/25/16 08: 24; Admin Dose 25 MG; Start 09/23/16 at 10:30 Aspirin (Aspirin) 81 mg DAILY GTB Last administered on 09/25/16 08:22; Admin Dose 81 MG; Start 09/23/16 at 10:30 Acetaminophen (Tylenol Tab) 500 mg Q4H PRN PO PAIN AND OR ELEVATED TEMP Last administered on 09/25/16 08:22; Admin Dose 500 MG; Start 09/23/16 at 10:30 Morphine Sulfate (morphine) 2 mg Q4H PRN IV PAIN LEVEL 4-7; Start 09/23/16 at 10 :30 Tobramycin Sulfate (Tobrex 0.3% Oph Drop) 1 drop Q6 LEFT EYE Last administered on 09/25/16 17:54; Admin Dose 1 DROP; Start 09/23/16 at 12:00; Stop 09/30/16 at 11:59 Saccharomyces Boulardii (Florastor) 250 mg BID PO ; Start 09/25/16 at 21:00 Nystatin (Nystatin Powder) 1 applic BID TOP ; Start 09/25/16 at 21:00 MARCELO HYMAN Sep 25, 2016 20:01
[2016-09-25] MEDS: SACCHAROMYCES BOULARDII 250 MG CAP PO SCH (21:20)
[2016-09-25] MEDS: MEROPENEM 500 MG/100 ML (PMX) 100 ML IVPB SCH (21:20)
[2016-09-25] MEDS: NYSTATIN 30 GM POWDER BTL TOP SCH (21:20)
--- NOTE | 2016-09-25 23:18 | CONS ---
Date/Time of Note Date/Time of Note DATE: 09/25/16 TIME: 23:18 Assessment/Plan Assessment/Plan Chief Complaint/Hosp Course IMPRESSION: 1. Anemia. 2. End-stage renal disease. 3. Hypertension. 4. G-tube placement. 5. Tracheostomy. 6. Ejection fraction 45%. 7. History of chronic systolic dysfunction. 8. History of multiple catheter related infections. 9. History of extended obsjfilv-[id number] infection recently. 10. The patient has anasarca. plan hd am Problems: Consultation Date/Type/Reason Admit Date/Time Sep 22, 2016 at 21:05 Initial Consult Date 09/23/16 Type of Consultation: renal Referring Provider: BLESSING CONNELLY MD 24 HR Interval Summary Constitutional: requiring IVF, requiring O2 Exam/Review of Systems Vital Signs Vitals Vital Signs Date Time Temp Pulse Resp B/P Pulse Ox O2 Delivery O2 Flow Rate FiO2 09/25/16 21:40 109 16 98 30 09/25/16 19:56 98.5 106/69 09/22/16 23:30 Mechanical Ventilator Intake and Output 09/24/16 09/24/16 09/25/16 15:00 23:00 07:00 Intake Total 1290 ml 880 ml Output Total 2300 ml 1 ml Balance -1010 ml 879 ml Exam Neck: supple Respiratory: clear to auscultation Cardiovascular: regular rate and rhythm Gastrointestinal: soft Musculoskeletal: nl extremities to inspection Results Result Diagram: 09/25/16 0530 09/25/16 0530 Results 24 hrs Laboratory Tests Test 09/25/16 05:30 09/25/16 06:30 White Blood Count 8.1 Red Blood Count 3.11 L Hemoglobin 9.3 L Hematocrit 29.1 L Mean Corpuscular Volume 93.6 Mean Corpuscular Hemoglobin 29.9 Mean Corpuscular Hemoglobin Concent 32.0 Red Cell Distribution Width 17.0 H Platelet Count 235 Mean Platelet Volume 9.9 Neutrophils % 72.7 Lymphocytes % 17.8 Monocytes % 7.3 Eosinophils % 1.6 Basophils % 0.2 Nucleated Red Blood Cells % 0.0 Neutrophils # 5.9 Lymphocytes # 1.4 Monocytes # 0.6 Eosinophils # 0.1 Basophils # 0.0 Nucleated Red Blood Cells # 0.0 Sodium Level 139 Potassium Level 3.9 Chloride Level 99 Carbon Dioxide Level 27 Anion Gap 17 H Blood Urea Nitrogen 38 H Creatinine 5.31 H Glucose Level 161 Calcium Level 10.4 H Random Vancomycin Level 25.8 Lab Scanned Report BLOOD TRANSFUSION Medications Medications Current Medications Amiodarone HCl (Cordarone) 200 mg DAILY GTB Last administered on 09/25/16 08:24 ; Admin Dose 200 MG; Start 09/23/16 at 09:00 Cinacalcet (Sensipar) 60 mg DAILY GTB Last administered on 09/25/16 08:22; Admin Dose 60 MG; Start 09/23/16 at 09:00 Clonazepam (Klonopin) 0.5 mg Q12 GTB Last administered on 09/25/16 21:21; Admin Dose 0.5 MG; Start 09/23/16 at 09:00 Docusate Sodium (Colace Liquid Cup) 100 mg BID GTB Last administered on 08:22; Admin Dose 100 MG; Start 09/23/16 at 09:00 Metoclopramide HCl (Reglan Liq) 10 mg Q8 GTB Last administered on 09/25/16 21: 21; Admin Dose 10 MG; Start 09/23/16 at 06:00 Multivit/Ca Carb/ B Cmplx/FA/Prenat (Oumou-Jayesh) 1 tab DAILY GTB Last administered on 09/25/16 08:22; Admin Dose 1 TAB; Start 09/23/16 at 09:00 Levetiracetam (Keppra Liquid) 1,000 mg DAILY GTB Last administered on 09/25/16 08:22; Admin Dose 1,000 MG; Start 09/23/16 at 09:00 Lansoprazole 30 mg 30 mg DAILY@06 GTB Last administered on 09/25/16 05:53; Admin Dose 30 MG; Start 09/23/16 at 06:00 Meropenem (Merrem 500 Mg/ 100 ml (Pmx)) 100 ml @ 200 mls/hr Q24H IVPB Last administered on 09/25/16 21:20; Admin Dose 200 MLS/HR; Start 09/23/16 at 21:00 Metoprolol Tartrate (Lopressor) 25 mg BID GTB Last administered on 09/25/16 21: 21; Admin Dose 25 MG; Start 09/23/16 at 10:30 Aspirin (Aspirin) 81 mg DAILY GTB Last administered on 09/25/16 08:22; Admin Dose 81 MG; Start 09/23/16 at 10:30 Acetaminophen (Tylenol Tab) 500 mg Q4H PRN PO PAIN AND OR ELEVATED TEMP Last administered on 09/25/16 08:22; Admin Dose 500 MG; Start 09/23/16 at 10:30 Morphine Sulfate (morphine) 2 mg Q4H PRN IV PAIN LEVEL 4-7; Start 09/23/16 at 10 :30 Tobramycin Sulfate (Tobrex 0.3% Oph Drop) 1 drop Q6 LEFT EYE Last administered on 09/25/16 17:54; Admin Dose 1 DROP; Start 09/23/16 at 12:00; Stop 09/30/16 at 11:59 Saccharomyces Boulardii (Florastor) 250 mg BID PO Last administered on 21:20; Admin Dose 250 MG; Start 09/25/16 at 21:00 Nystatin (Nystatin Powder) 1 applic BID TOP Last administered on 09/25/16 21:20 ; Admin Dose 1 APPLIC; Start 09/25/16 at 21:00 CHUYITA PASTOR MD Sep 25, 2016 23:18
[2016-09-26] VITALS (32 sets, daily range): BP systolic 97–119; BP diastolic 58–76; PULSE 91–108; RESP 16–24
[2016-09-26] MEDS: TOBRAMYCIN 0.3% 5 ML OPH LEFT EYE SCH ×4 (00:14→17:25)
[2016-09-26] MEDS: LANSOPRAZOLE 30 MG CAP GTB SCH (05:00)
[2016-09-26] MEDS: METOCLOPRAMIDE (1 MG/ML) 10 ML CUP GTB SCH ×3 (05:00→21:12)
[2016-09-26 07:04] LABS: ADD SCAN DIFF NO
[2016-09-26 07:13] LABS: BASOPHILS % 0.3 % (0.0-2.0); EOSINOPHILS # 0.2 10^3/ul (0.0-0.5); EOSINOPHILS % 2.9 % (0.0-7.0); HEMATOCRIT 26.3 % (42.0-52.0); HEMOGLOBIN 8.4 g/dl (14.0-18.0); LYMPHOCYTES # 1.1 10^3/ul (0.8-2.9); LYMPHOCYTES % 16.9 % (15.0-51.0); MEAN CORPUSCULAR HEMOGLOBIN 29.8 pg (29.0-33.0); MEAN CORPUSCULAR HGB CONC 31.9 g/dl (32.0-37.0); MEAN CORPUSCULAR VOLUME 93.3 fl (82.0-101.0); MONOCYTE # 0.4 10^3/ul (0.3-0.9); MONOCYTES % 7.1 % (0.0-11.0); NEUTROPHIL # 4.5 10^3/ul (1.6-7.5); NEUTROPHILS % 72.3 % (39.0-77.0); PLATELET COUNT 222 10^3/UL (140-415); RED BLOOD COUNT 2.82 10^6/ul (4.70-6.10); RED CELL DISTRIBUTION WIDTH 16.5 % (11.5-14.5); WHITE BLOOD COUNT 6.2 10^3/ul (4.8-10.8)
[2016-09-26 07:54] LABS: CALCIUM 10.4 mg/dl (8.4-10.2); CREATININE 5.52 mg/dl (0.61-1.24); POTASSIUM 3.5 mmol/L (3.5-5.1)
[2016-09-26] MEDS: CINACALCET 30 MG TAB GTB SCH (08:42)
[2016-09-26] MEDS: MULTIVIT/CA CARB/B CMPLX/FA TAB GTB SCH (08:42)
[2016-09-26] MEDS: SEVELAMER CARBONATE 0.8 GM PKT GTB SCH ×3 (08:42→17:24)
[2016-09-26] MEDS: METOPROLOL 25 MG TAB GTB SCH ×2 (08:43→21:13)
[2016-09-26] MEDS: clonAZEPAM 0.5 MG TAB GTB SCH ×2 (08:43→21:12)
[2016-09-26] MEDS: AMIODARONE 200 MG TAB GTB SCH (08:43)
[2016-09-26] MEDS: ASPIRIN 81 MG TAB GTB SCH (08:43)
[2016-09-26] MEDS: DOCUSATE SODIUM 10 MG/ML (10ML CUP) GTB SCH ×2 (08:43→21:12)
[2016-09-26] MEDS: LEVETIRACETAM (100 MG/ML) 5ML CUP GTB SCH (08:43)
[2016-09-26] MEDS: SACCHAROMYCES BOULARDII 250 MG CAP PO SCH ×2 (08:43→21:12)
[2016-09-26] MEDS: NYSTATIN 30 GM POWDER BTL TOP SCH ×2 (08:44→21:14)
--- NOTE | 2016-09-26 12:21 | CONS ---
Date/Time of Note Date/Time of Note DATE: 09/26/16 TIME: 12:18 Assessment/Plan Assessment/Plan Chief Complaint/Hosp Course IMP: 1.PAF-currently in SR 2.Resp failure chronic s/p trach 3.HTN 4.anemia 5.ESRD Recc: -Tele -Continue asa as tolerated given anemia -Continue amio/BB -Continue abx's and f/u cx data Problems: Consultation Date/Type/Reason Admit Date/Time Sep 22, 2016 at 21:05 Initial Consult Date 09/23/16 Type of Consultation: cardiology Reason for Consultation PAF Referring Provider: BLESSING CONNELLY MD Exam/Review of Systems Vital Signs Vitals Vital Signs Date Time Temp Pulse Resp B/P Pulse Ox O2 Delivery O2 Flow Rate FiO2 09/26/16 11:28 98.5 93 20 111/71 99 09/26/16 05:20 30 09/22/16 23:30 Mechanical Ventilator Intake and Output 09/25/16 09/25/16 09/26/16 15:00 23:00 07:00 Intake Total 1145 ml 390 ml Output Total 1 ml Balance 1144 ml 390 ml Exam Review of Systems: CONSTITUTIONAL: No fevers, chills. PULMONARY: trached CARDIOVASCULAR: No obvious chest pain/palpitations GASTROINTESTINAL: No nausea/vomiting. GENITOURINARY: No hematuria/dysuria. MUSCULOSKELETAL: No obvious myagias/arthalgias. PSYCHIATRIC: The patient denies depression. NEUROLOGIC: No weakness Constitutional: alert Psych: no complaints Head: normocephalic ENMT: mucosa pink and moist Neck: jvd (9 cm water), supple Respiratory: diminished breath sounds Cardiovascular: regular rate and rhythm Gastrointestinal: non-tender, soft Musculoskeletal: muscle tone Extremities: edema (none) Neurological: other (No focal deficits) Results Result Diagram: 09/26/16 0613 09/26/16 0613 Results 24 hrs Laboratory Tests Test 09/26/16 06:13 White Blood Count 6.2 # Red Blood Count 2.82 L Hemoglobin 8.4 L Hematocrit 26.3 L Mean Corpuscular Volume 93.3 Mean Corpuscular Hemoglobin 29.8 Mean Corpuscular Hemoglobin Concent 31.9 L Red Cell Distribution Width 16.5 H Platelet Count 222 Mean Platelet Volume 10.0 Neutrophils % 72.3 Lymphocytes % 16.9 Monocytes % 7.1 Eosinophils % 2.9 Basophils % 0.3 Nucleated Red Blood Cells % 0.0 Neutrophils # 4.5 Lymphocytes # 1.1 Monocytes # 0.4 Eosinophils # 0.2 Basophils # 0.0 Nucleated Red Blood Cells # 0.0 Sodium Level 140 Potassium Level 3.5 Chloride Level 99 Carbon Dioxide Level 28 Anion Gap 17 H Blood Urea Nitrogen 48 H Creatinine 5.52 H Glucose Level 155 Calcium Level 10.4 H Medications Medications Current Medications Amiodarone HCl (Cordarone) 200 mg DAILY GTB Last administered on 09/26/16 08:43 ; Admin Dose 200 MG; Start 09/23/16 at 09:00 Cinacalcet (Sensipar) 60 mg DAILY GTB Last administered on 09/26/16 08:42; Admin Dose 60 MG; Start 09/23/16 at 09:00 Clonazepam (Klonopin) 0.5 mg Q12 GTB Last administered on 09/26/16 08:43; Admin Dose 0.5 MG; Start 09/23/16 at 09:00 Docusate Sodium (Colace Liquid Cup) 100 mg BID GTB Last administered on 08:22; Admin Dose 100 MG; Start 09/23/16 at 09:00 Metoclopramide HCl (Reglan Liq) 10 mg Q8 GTB Last administered on 09/26/16 05: 00; Admin Dose 10 MG; Start 09/23/16 at 06:00 Multivit/Ca Carb/ B Cmplx/FA/Prenat (Oumou-Jayesh) 1 tab DAILY GTB Last administered on 09/26/16 08:42; Admin Dose 1 TAB; Start 09/23/16 at 09:00 Levetiracetam (Keppra Liquid) 1,000 mg DAILY GTB Last administered on 09/26/16 08:43; Admin Dose 1,000 MG; Start 09/23/16 at 09:00 Lansoprazole 30 mg 30 mg DAILY@06 GTB Last administered on 09/26/16 05:00; Admin Dose 30 MG; Start 09/23/16 at 06:00 Meropenem (Merrem 500 Mg/ 100 ml (Pmx)) 100 ml @ 200 mls/hr Q24H IVPB Last administered on 09/25/16 21:20; Admin Dose 200 MLS/HR; Start 09/23/16 at 21:00 Metoprolol Tartrate (Lopressor) 25 mg BID GTB Last administered on 09/26/16 08: 43; Admin Dose 25 MG; Start 09/23/16 at 10:30 Aspirin (Aspirin) 81 mg DAILY GTB Last administered on 09/26/16 08:43; Admin Dose 81 MG; Start 09/23/16 at 10:30 Acetaminophen (Tylenol Tab) 500 mg Q4H PRN PO PAIN AND OR ELEVATED TEMP Last administered on 09/25/16 08:22; Admin Dose 500 MG; Start 09/23/16 at 10:30 Morphine Sulfate (morphine) 2 mg Q4H PRN IV PAIN LEVEL 4-7; Start 09/23/16 at 10 :30 Tobramycin Sulfate (Tobrex 0.3% Oph Drop) 1 drop Q6 LEFT EYE Last administered on 09/26/16 05:00; Admin Dose 1 DROP; Start 09/23/16 at 12:00; Stop 09/30/16 at 11:59 Saccharomyces Boulardii (Florastor) 250 mg BID PO Last administered on 08:43; Admin Dose 250 MG; Start 09/25/16 at 21:00 Nystatin (Nystatin Powder) 1 applic BID TOP Last administered on 09/26/16 08:44 ; Admin Dose 1 APPLIC; Start 09/25/16 at 21:00 MARICARMEN STEVE Sep 26, 2016 12:21
--- NOTE | 2016-09-26 15:27 | CONS ---
Date/Time of Note Date/Time of Note DATE: 09/26/16 TIME: 15:21 Consult Date/Type/Reason Admit Date/Time Sep 22, 2016 at 21:05 Initial Consult Date 09/23/16 Type of Consultation: Infectious Disease f/u Ordering Provider: BLESSING CONNELLY MD Subjective unable, tracheostomy and ventilator supported Objective Vital Signs Date Time Temp Pulse Resp B/P Pulse Ox O2 Delivery O2 Flow Rate FiO2 09/26/16 12:43 92 09/26/16 11:28 98.5 20 111/71 99 09/26/16 05:20 30 09/22/16 23:30 Mechanical Ventilator Intake and Output 09/25/16 09/25/16 09/26/16 15:00 23:00 07:00 Intake Total 1145 ml 390 ml Output Total 1 ml Balance 1144 ml 390 ml Exam Constitutional: well developed, non-verbal male lying in bed in no acute distress Head: wnl Eyes: nl conjunctiva, unable to track Neck: tracheostomy in place Chest: dialysis catheter right chest Respiratory: CTA Cardiovascular: regular rate and rhythm Gastrointestinal: large, non-distended, GT in place, tube feeding infusing Extremities: warm, dry, palpable pulses, no edema Skin: warm and dry Results/Medications Result Diagram: 09/26/1613 09/26/16 0613 Results 24 hrs Laboratory Tests Test 09/26/16 06:13 White Blood Count 6.2 # Red Blood Count 2.82 L Hemoglobin 8.4 L Hematocrit 26.3 L Mean Corpuscular Volume 93.3 Mean Corpuscular Hemoglobin 29.8 Mean Corpuscular Hemoglobin Concent 31.9 L Red Cell Distribution Width 16.5 H Platelet Count 222 Mean Platelet Volume 10.0 Neutrophils % 72.3 Lymphocytes % 16.9 Monocytes % 7.1 Eosinophils % 2.9 Basophils % 0.3 Nucleated Red Blood Cells % 0.0 Neutrophils # 4.5 Lymphocytes # 1.1 Monocytes # 0.4 Eosinophils # 0.2 Basophils # 0.0 Nucleated Red Blood Cells # 0.0 Sodium Level 140 Potassium Level 3.5 Chloride Level 99 Carbon Dioxide Level 28 Anion Gap 17 H Blood Urea Nitrogen 48 H Creatinine 5.52 H Glucose Level 155 Calcium Level 10.4 H Medications Current Medications Amiodarone HCl (Cordarone) 200 mg DAILY GTB Last administered on 6/7/17at 08:43 ; Admin Dose 200 MG; Start 09/23/16 at 09:00 Cinacalcet (Sensipar) 60 mg DAILY GTB Last administered on 09/26/16 08:42; Admin Dose 60 MG; Start 09/23/16 at 09:00 Clonazepam (Klonopin) 0.5 mg Q12 GTB Last administered on 09/26/16 08:43; Admin Dose 0.5 MG; Start 09/23/16 at 09:00 Docusate Sodium (Colace Liquid Cup) 100 mg BID GTB Last administered on 08:22; Admin Dose 100 MG; Start 09/23/16 at 09:00 Metoclopramide HCl (Reglan Liq) 10 mg Q8 GTB Last administered on 09/26/16 14: 13; Admin Dose 10 MG; Start 09/23/16 at 06:00 Multivit/Ca Carb/ B Cmplx/FA/Prenat (Oumou-Jayesh) 1 tab DAILY GTB Last administered on 09/26/16 08:42; Admin Dose 1 TAB; Start 09/23/16 at 09:00 Levetiracetam (Keppra Liquid) 1,000 mg DAILY GTB Last administered on 09/26/16 08:43; Admin Dose 1,000 MG; Start 09/23/16 at 09:00 Lansoprazole 30 mg 30 mg DAILY@06 GTB Last administered on 09/26/16 05:00; Admin Dose 30 MG; Start 09/23/16 at 06:00 Meropenem (Merrem 500 Mg/ 100 ml (Pmx)) 100 ml @ 200 mls/hr Q24H IVPB Last administered on 09/25/16 21:20; Admin Dose 200 MLS/HR; Start 09/23/16 at 21:00 Metoprolol Tartrate (Lopressor) 25 mg BID GTB Last administered on 09/26/16 08: 43; Admin Dose 25 MG; Start 09/23/16 at 10:30 Aspirin (Aspirin) 81 mg DAILY GTB Last administered on 09/26/16 08:43; Admin Dose 81 MG; Start 09/23/16 at 10:30 Acetaminophen (Tylenol Tab) 500 mg Q4H PRN PO PAIN AND OR ELEVATED TEMP Last administered on 09/25/16 08:22; Admin Dose 500 MG; Start 09/23/16 at 10:30 Morphine Sulfate (morphine) 2 mg Q4H PRN IV PAIN LEVEL 4-7; Start 09/23/16 at 10 :30 Tobramycin Sulfate (Tobrex 0.3% Oph Drop) 1 drop Q6 LEFT EYE Last administered on 09/26/16 12:36; Admin Dose 1 DROP; Start 09/23/16 at 12:00; Stop 09/30/16 at 11:59 Saccharomyces Boulardii (Florastor) 250 mg BID PO Last administered on 08:43; Admin Dose 250 MG; Start 09/25/16 at 21:00 Nystatin (Nystatin Powder) 1 applic BID TOP Last administered on 09/26/16 08:44 ; Admin Dose 1 APPLIC; Start 09/25/16 at 21:00 Assessment/Plan Chief Complaint/Hosp Course - probable recurrent sepsis; possible etiologies include recurrent bacteremia, HCAP/tracheobronchitis, Cdiff (diarrhea noted) - h/o polymicrobial infections: h/o 05/2016 due to E. faecalis bacteremia and C. glabrata fungemia in 05/2016; CoNS bacteremia in early 08/2016; XDR-klebsiella bacteremia in mid-08/2016. at [facility] on 09/13/2016 was negative for valvular vegetation. 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 Pt had full TB workup at [facility]: AFB of sputum was negative x3, MTB PCR was negative x2. ID hearing consultant there recommended deferring anti-latent tuberculosis treatment until all 3 sputum samples are negative for AFB [id number] - anoxic brain injury after cardiac arrest - encephalopathy - ESRD on HD. A new permacath was placed on 09/14/2016 at [facility] - seizure disorder - s/p cardiac arrest - A fib - seizure disorder - VDRF - GT dependent status recommendations -f/u all recent cxs -Continue meropenem for now - Continue probiotics Care and management discussed with Brigitte RN and Dr. James Problems: ALISE CALDERA Sep 26, 2016 15:27
--- NOTE | 2016-09-26 17:52 | PN ---
Date/Time of Note Date/Time of Note DATE: 09/26/16 TIME: 17:48 Assessment/Plan VTE Prophylaxis VTE Prophylaxis Intervention: SCD's Lines/Catheters IV [facility] Type [facility] Saline Lock Urinary Cath still in place: No Assessment/Plan Chief Complaint/Hosp Course No fever today, remains hemodynamically stable. Assessment and plan: - Recent possible sepsis. Dr. James is following infection disease consultation. Continue antibiotics per ID. - Anemia of chronic disease. Status post blood transfusion. - Paroxysmal atrial fibrillation with possible uncontrolled heart rate. Continue aspirin and amiodarone. Dr. Dickerson is following and cardiology consultation. - End-stage renal disease, hemodynamic hemodialysis dependent. Dr. Ordonez is following in nephrology consultation. Continue on hemodialysis. - Ventilator dependent respiratory failure. Continue ventilatory support, bronchodilators - Seizure disorder. Continue Keppra. - Status post cardiac arrest by history Further recommendations based on clinical course. Plan of care discussed with Dr. Palacio. Problems: Exam/Review of Systems Vital Signs Vitals Vital Signs Date Time Temp Pulse Resp B/P Pulse Ox O2 Delivery O2 Flow Rate FiO2 09/26/16 17:08 91 09/26/16 17:07 17 99 30 09/26/16 16:20 98.7 101/62 09/22/16 23:30 Mechanical Ventilator Intake and Output 09/25/16 09/25/16 09/26/16 15:00 23:00 07:00 Intake Total 1145 ml 390 ml Output Total 1 ml Balance 1144 ml 390 ml Exam Constitutional: frail, non-verbal Neck: other (Tracheostomy) Respiratory: diminished breath sounds, other (Rhonchi bilaterally) Cardiovascular: nl pulses, regular rate and rhythm Gastrointestinal: non-tender, other (G-tube), soft Neurological: other (Contracted extremities) Additional Comments Right chest permacath Results Result Diagram: 09/26/16 0613 09/26/16 0613 Results 24 hrs Laboratory Tests Test 09/26/16 06:13 White Blood Count 6.2 # Red Blood Count 2.82 L Hemoglobin 8.4 L Hematocrit 26.3 L Mean Corpuscular Volume 93.3 Mean Corpuscular Hemoglobin 29.8 Mean Corpuscular Hemoglobin Concent 31.9 L Red Cell Distribution Width 16.5 H Platelet Count 222 Mean Platelet Volume 10.0 Neutrophils % 72.3 Lymphocytes % 16.9 Monocytes % 7.1 Eosinophils % 2.9 Basophils % 0.3 Nucleated Red Blood Cells % 0.0 Neutrophils # 4.5 Lymphocytes # 1.1 Monocytes # 0.4 Eosinophils # 0.2 Basophils # 0.0 Nucleated Red Blood Cells # 0.0 Sodium Level 140 Potassium Level 3.5 Chloride Level 99 Carbon Dioxide Level 28 Anion Gap 17 H Blood Urea Nitrogen 48 H Creatinine 5.52 H Glucose Level 155 Calcium Level 10.4 H Medications Medications Current Medications Amiodarone HCl (Cordarone) 200 mg DAILY GTB Last administered on 09/26/16 08:43 ; Admin Dose 200 MG; Start 09/23/16 at 09:00 Cinacalcet (Sensipar) 60 mg DAILY GTB Last administered on 09/26/16 08:42; Admin Dose 60 MG; Start 09/23/16 at 09:00 Clonazepam (Klonopin) 0.5 mg Q12 GTB Last administered on 09/26/16 08:43; Admin Dose 0.5 MG; Start 09/23/16 at 09:00 Docusate Sodium (Colace Liquid Cup) 100 mg BID GTB Last administered on 08:22; Admin Dose 100 MG; Start 09/23/16 at 09:00 Metoclopramide HCl (Reglan Liq) 10 mg Q8 GTB Last administered on 09/26/16 14: 13; Admin Dose 10 MG; Start 09/23/16 at 06:00 Multivit/Ca Carb/ B Cmplx/FA/Prenat (Oumou-Jayesh) 1 tab DAILY GTB Last administered on 09/26/16 08:42; Admin Dose 1 TAB; Start 09/23/16 at 09:00 Levetiracetam (Keppra Liquid) 1,000 mg DAILY GTB Last administered on 09/26/16 08:43; Admin Dose 1,000 MG; Start 09/23/16 at 09:00 Lansoprazole 30 mg 30 mg DAILY@06 GTB Last administered on 09/26/16 05:00; Admin Dose 30 MG; Start 09/23/16 at 06:00 Meropenem (Merrem 500 Mg/ 100 ml (Pmx)) 100 ml @ 200 mls/hr Q24H IVPB Last administered on 09/25/16 21:20; Admin Dose 200 MLS/HR; Start 09/23/16 at 21:00 Metoprolol Tartrate (Lopressor) 25 mg BID GTB Last administered on 09/26/16 08: 43; Admin Dose 25 MG; Start 09/23/16 at 10:30 Aspirin (Aspirin) 81 mg DAILY GTB Last administered on 09/26/16 08:43; Admin Dose 81 MG; Start 09/23/16 at 10:30 Acetaminophen (Tylenol Tab) 500 mg Q4H PRN PO PAIN AND OR ELEVATED TEMP Last administered on 09/25/16 08:22; Admin Dose 500 MG; Start 09/23/16 at 10:30 Morphine Sulfate (morphine) 2 mg Q4H PRN IV PAIN LEVEL 4-7; Start 09/23/16 at 10 :30 Tobramycin Sulfate (Tobrex 0.3% Oph Drop) 1 drop Q6 LEFT EYE Last administered on 09/26/16 17:25; Admin Dose 1 DROP; Start 09/23/16 at 12:00; Stop 09/30/16 at 11:59 Saccharomyces Boulardii (Florastor) 250 mg BID PO Last administered on 08:43; Admin Dose 250 MG; Start 09/25/16 at 21:00 Nystatin (Nystatin Powder) 1 applic BID TOP Last administered on 09/26/16 08:44 ; Admin Dose 1 APPLIC; Start 09/25/16 at 21:00 MARCELO HYMAN Sep 26, 2016 17:52
[2016-09-26] MEDS: MEROPENEM 500 MG/100 ML (PMX) 100 ML IVPB SCH (21:13)
--- NOTE | 2016-09-26 23:13 | CONS ---
Date/Time of Note Date/Time of Note DATE: 09/26/16 TIME: 23:13 Assessment/Plan Assessment/Plan Chief Complaint/Hosp Course IMPRESSION: 1. Anemia. 2. End-stage renal disease. 3. Hypertension. 4. G-tube placement. 5. Tracheostomy. 6. Ejection fraction 45%. 7. History of chronic systolic dysfunction. 8. History of multiple catheter related infections. 9. History of extended pzbzhanl-gsrw-idihhvhax infection recently. 10. The patient has anasarca. plan hd w uf Problems: Consultation Date/Type/Reason Admit Date/Time Sep 22, 2016 at 21:05 Initial Consult Date 09/23/16 Type of Consultation: renal Referring Provider: BLESSING CONNELLY MD 24 HR Interval Summary Subjective hx not possible: pt non-verbal Exam/Review of Systems Vital Signs Vitals Vital Signs Date Time Temp Pulse Resp B/P Pulse Ox O2 Delivery O2 Flow Rate FiO2 09/26/16 20:50 98.0 97 24 109/76 100 09/26/16 17:07 30 09/22/16 23:30 Mechanical Ventilator Intake and Output 09/25/16 09/25/16 09/26/16 15:00 23:00 07:00 Intake Total 1145 ml 390 ml Output Total 1 ml Balance 1144 ml 390 ml Exam Neck: supple Respiratory: clear to auscultation Cardiovascular: regular rate and rhythm Gastrointestinal: soft Extremities: edema (++) Results Result Diagram: 09/26/16 0613 09/26/16 0613 Results 24 hrs Laboratory Tests Test 09/26/16 06:13 White Blood Count 6.2 # Red Blood Count 2.82 L Hemoglobin 8.4 L Hematocrit 26.3 L Mean Corpuscular Volume 93.3 Mean Corpuscular Hemoglobin 29.8 Mean Corpuscular Hemoglobin Concent 31.9 L Red Cell Distribution Width 16.5 H Platelet Count 222 Mean Platelet Volume 10.0 Neutrophils % 72.3 Lymphocytes % 16.9 Monocytes % 7.1 Eosinophils % 2.9 Basophils % 0.3 Nucleated Red Blood Cells % 0.0 Neutrophils # 4.5 Lymphocytes # 1.1 Monocytes # 0.4 Eosinophils # 0.2 Basophils # 0.0 Nucleated Red Blood Cells # 0.0 Sodium Level 140 Potassium Level 3.5 Chloride Level 99 Carbon Dioxide Level 28 Anion Gap 17 H Blood Urea Nitrogen 48 H Creatinine 5.52 H Glucose Level 155 Calcium Level 10.4 H Medications Medications Current Medications Amiodarone HCl (Cordarone) 200 mg DAILY GTB Last administered on 09/26/16 08:43 ; Admin Dose 200 MG; Start 09/23/16 at 09:00 Cinacalcet (Sensipar) 60 mg DAILY GTB Last administered on 09/26/16 08:42; Admin Dose 60 MG; Start 09/23/16 at 09:00 Clonazepam (Klonopin) 0.5 mg Q12 GTB Last administered on 09/26/16 21:12; Admin Dose 0.5 MG; Start 09/23/16 at 09:00 Docusate Sodium (Colace Liquid Cup) 100 mg BID GTB Last administered on 21:12; Admin Dose 100 MG; Start 09/23/16 at 09:00 Metoclopramide HCl (Reglan Liq) 10 mg Q8 GTB Last administered on 09/26/16 21: 12; Admin Dose 10 MG; Start 09/23/16 at 06:00 Multivit/Ca Carb/ B Cmplx/FA/Prenat (Oumou-Jayesh) 1 tab DAILY GTB Last administered on 09/26/16 08:42; Admin Dose 1 TAB; Start 09/23/16 at 09:00 Levetiracetam (Keppra Liquid) 1,000 mg DAILY GTB Last administered on 09/26/16 08:43; Admin Dose 1,000 MG; Start 09/23/16 at 09:00 Lansoprazole 30 mg 30 mg DAILY@06 GTB Last administered on 09/26/16 05:00; Admin Dose 30 MG; Start 09/23/16 at 06:00 Meropenem (Merrem 500 Mg/ 100 ml (Pmx)) 100 ml @ 200 mls/hr Q24H IVPB Last administered on 09/26/16 21:13; Admin Dose 200 MLS/HR; Start 09/23/16 at 21:00 Metoprolol Tartrate (Lopressor) 25 mg BID GTB Last administered on 09/26/16 21: 13; Admin Dose 25 MG; Start 09/23/16 at 10:30 Aspirin (Aspirin) 81 mg DAILY GTB Last administered on 09/26/16 08:43; Admin Dose 81 MG; Start 09/23/16 at 10:30 Acetaminophen (Tylenol Tab) 500 mg Q4H PRN PO PAIN AND OR ELEVATED TEMP Last administered on 09/25/16 08:22; Admin Dose 500 MG; Start 09/23/16 at 10:30 Morphine Sulfate (morphine) 2 mg Q4H PRN IV PAIN LEVEL 4-7; Start 09/23/16 at 10 :30 Tobramycin Sulfate (Tobrex 0.3% Oph Drop) 1 drop Q6 LEFT EYE Last administered on 09/26/16 17:25; Admin Dose 1 DROP; Start 09/23/16 at 12:00; Stop 09/30/16 at 11:59 Saccharomyces Boulardii (Florastor) 250 mg BID PO Last administered on 21:12; Admin Dose 250 MG; Start 09/25/16 at 21:00 Nystatin (Nystatin Powder) 1 applic BID TOP Last administered on 09/26/16 21:14 ; Admin Dose 1 APPLIC; Start 09/25/16 at 21:00 CHUYITA PASTOR MD Sep 26, 2016 23:13
[2016-09-27] VITALS (25 sets, daily range): BP systolic 100–152; BP diastolic 59–80; PULSE 90–109; RESP 17–25
[2016-09-27 06:16] LABS: ADD SCAN DIFF NO
[2016-09-27 06:31] LABS: BASOPHILS % 0.3 % (0.0-2.0); EOSINOPHILS # 0.3 10^3/ul (0.0-0.5); EOSINOPHILS % 4.3 % (0.0-7.0); HEMATOCRIT 25.8 % (42.0-52.0); HEMOGLOBIN 8.6 g/dl (14.0-18.0); LYMPHOCYTES # 1.4 10^3/ul (0.8-2.9); LYMPHOCYTES % 19.7 % (15.0-51.0); MEAN CORPUSCULAR HEMOGLOBIN 30.9 pg (29.0-33.0); MEAN CORPUSCULAR HGB CONC 33.3 g/dl (32.0-37.0); MEAN CORPUSCULAR VOLUME 92.8 fl (82.0-101.0); MEAN PLATELET VOLUME 10.2 fl (7.4-10.4); MONOCYTE # 0.6 10^3/ul (0.3-0.9); MONOCYTES % 8.4 % (0.0-11.0); NEUTROPHIL # 4.7 10^3/ul (1.6-7.5); NEUTROPHILS % 66.6 % (39.0-77.0); NUCLEATED RED BLOOD CELLS% 0.3 /100WBC (0.0-0.0); PLATELET COUNT 226 10^3/UL (140-415); RED BLOOD COUNT 2.78 10^6/ul (4.70-6.10); RED CELL DISTRIBUTION WIDTH 16.3 % (11.5-14.5)
[2016-09-27] MEDS: METOCLOPRAMIDE (1 MG/ML) 10 ML CUP GTB SCH ×3 (06:38→20:25)
[2016-09-27] MEDS: LANSOPRAZOLE 30 MG CAP GTB SCH (06:38)
[2016-09-27] MEDS: TOBRAMYCIN 0.3% 5 ML OPH LEFT EYE SCH ×4 (06:39→17:35)
[2016-09-27 06:59] LABS: CREATININE 5.99 mg/dl (0.61-1.24); POTASSIUM 4.1 mmol/L (3.5-5.1)
[2016-09-27] MEDS: MULTIVIT/CA CARB/B CMPLX/FA TAB GTB SCH (08:10)
[2016-09-27] MEDS: AMIODARONE 200 MG TAB GTB SCH (08:10)
[2016-09-27] MEDS: ASPIRIN 81 MG TAB GTB SCH (08:10)
[2016-09-27] MEDS: SACCHAROMYCES BOULARDII 250 MG CAP PO SCH ×2 (08:10→20:19)
[2016-09-27] MEDS: SEVELAMER CARBONATE 0.8 GM PKT GTB SCH ×3 (08:10→17:34)
[2016-09-27] MEDS: LEVETIRACETAM (100 MG/ML) 5ML CUP GTB SCH (08:10)
[2016-09-27] MEDS: CINACALCET 30 MG TAB GTB SCH (08:10)
[2016-09-27] MEDS: DOCUSATE SODIUM 10 MG/ML (10ML CUP) GTB SCH ×2 (08:10→20:19)
[2016-09-27] MEDS: NYSTATIN 30 GM POWDER BTL TOP SCH ×2 (08:11→20:19)
[2016-09-27] MEDS: METOPROLOL 25 MG TAB GTB SCH ×2 (08:11→20:20)
[2016-09-27] MEDS: clonAZEPAM 0.5 MG TAB GTB SCH ×2 (08:33→20:25)
--- NOTE | 2016-09-27 13:26 | CONS ---
Date/Time of Note Date/Time of Note DATE: 09/27/16 TIME: 13:24 Assessment/Plan Assessment/Plan Chief Complaint/Hosp Course IMP: 1.PAF-currently in SR 2.Resp failure chronic s/p trach 3.HTN 4.anemia 5.ESRD Recc: -Tele -Continue asa as tolerated given anemia -Continue amio/BB -Continue abx's and f/u cx data -HD for volume removal Problems: Consultation Date/Type/Reason Admit Date/Time Sep 22, 2016 at 21:05 Initial Consult Date 09/23/16 Type of Consultation: Cardiology Reason for Consultation AF Referring Provider: BLESSING CONNELLY MD Exam/Review of Systems Vital Signs Vitals Vital Signs Date Time Temp Pulse Resp B/P Pulse Ox O2 Delivery O2 Flow Rate FiO2 09/27/16 12:39 98 09/27/16 12:02 98.0 18 118/78 99 09/27/16 11:10 30 Intake and Output 09/26/16 09/26/16 09/27/16 15:00 23:00 07:00 Intake Total 200 ml 420 ml 790 ml Output Total 2200 ml Balance -2000 ml 420 ml 790 ml Exam Review of Systems: CONSTITUTIONAL: No fevers, chills. PULMONARY: trached CARDIOVASCULAR: No obvious chest pain/palpitations GASTROINTESTINAL: No nausea/vomiting. GENITOURINARY: No hematuria/dysuria. MUSCULOSKELETAL: No obvious myagias/arthalgias. PSYCHIATRIC: No documented depression. NEUROLOGIC: encephalopathy Constitutional: other (encephalopathic) Psych: no complaints ENMT: mucosa pink and moist Neck: jvd (9 cm water), supple Respiratory: diminished breath sounds (at bases/B) Cardiovascular: regular rate and rhythm Gastrointestinal: non-tender, soft Musculoskeletal: muscle tone (normal) Extremities: edema (none) Neurological: other (No focal deficits) Results Result Diagram: 09/27/16 0540 09/27/16 0540 Results 24 hrs Laboratory Tests Test 09/27/16 05:40 White Blood Count 7.0 Red Blood Count 2.78 L Hemoglobin 8.6 L Hematocrit 25.8 L Mean Corpuscular Volume 92.8 Mean Corpuscular Hemoglobin 30.9 Mean Corpuscular Hemoglobin Concent 33.3 Red Cell Distribution Width 16.3 H Platelet Count 226 Mean Platelet Volume 10.2 Neutrophils % 66.6 Lymphocytes % 19.7 Monocytes % 8.4 Eosinophils % 4.3 Basophils % 0.3 Nucleated Red Blood Cells % 0.3 H Neutrophils # 4.7 Lymphocytes # 1.4 Monocytes # 0.6 Eosinophils # 0.3 Basophils # 0.0 Nucleated Red Blood Cells # 0.0 Sodium Level 137 Potassium Level 4.1 Chloride Level 100 Carbon Dioxide Level 25 Anion Gap 16 Blood Urea Nitrogen 59 H Creatinine 5.99 H Glucose Level 128 Calcium Level 11.0 H Medications Medications Current Medications Amiodarone HCl (Cordarone) 200 mg DAILY GTB Last administered on 09/27/16 08:10 ; Admin Dose 200 MG; Start 09/23/16 at 09:00 Cinacalcet (Sensipar) 60 mg DAILY GTB Last administered on 09/27/16 08:10; Admin Dose 60 MG; Start 09/23/16 at 09:00 Clonazepam (Klonopin) 0.5 mg Q12 GTB Last administered on 09/27/16 08:33; Admin Dose 0.5 MG; Start 09/23/16 at 09:00 Docusate Sodium (Colace Liquid Cup) 100 mg BID GTB Last administered on 08:10; Admin Dose 100 MG; Start 09/23/16 at 09:00 Metoclopramide HCl (Reglan Liq) 10 mg Q8 GTB Last administered on 09/27/16 13: 20; Admin Dose 10 MG; Start 09/23/16 at 06:00 Multivit/Ca Carb/ B Cmplx/FA/Prenat (Oumou-Jayesh) 1 tab DAILY GTB Last administered on 09/27/16 08:10; Admin Dose 1 TAB; Start 09/23/16 at 09:00 Levetiracetam (Keppra Liquid) 1,000 mg DAILY GTB Last administered on 09/27/16 08:10; Admin Dose 1,000 MG; Start 09/23/16 at 09:00 Lansoprazole 30 mg 30 mg DAILY@06 GTB Last administered on 09/27/16 06:38; Admin Dose 30 MG; Start 09/23/16 at 06:00 Meropenem (Merrem 500 Mg/ 100 ml (Pmx)) 100 ml @ 200 mls/hr Q24H IVPB Last administered on 09/26/16 21:13; Admin Dose 200 MLS/HR; Start 09/23/16 at 21:00 Metoprolol Tartrate (Lopressor) 25 mg BID GTB Last administered on 09/27/16 08: 11; Admin Dose 25 MG; Start 09/23/16 at 10:30 Aspirin (Aspirin) 81 mg DAILY GTB Last administered on 09/27/16 08:10; Admin Dose 81 MG; Start 09/23/16 at 10:30 Acetaminophen (Tylenol Tab) 500 mg Q4H PRN PO PAIN AND OR ELEVATED TEMP Last administered on 09/25/16 08:22; Admin Dose 500 MG; Start 09/23/16 at 10:30 Morphine Sulfate (morphine) 2 mg Q4H PRN IV PAIN LEVEL 4-7; Start 09/23/16 at 10 :30 Tobramycin Sulfate (Tobrex 0.3% Oph Drop) 1 drop Q6 LEFT EYE Last administered on 09/27/16 11:24; Admin Dose 1 DROP; Start 09/23/16 at 12:00; Stop 09/30/16 at 11:59 Saccharomyces Boulardii (Florastor) 250 mg BID PO Last administered on 08:10; Admin Dose 250 MG; Start 09/25/16 at 21:00 Nystatin (Nystatin Powder) 1 applic BID TOP Last administered on 09/27/16 08:11 ; Admin Dose 1 APPLIC; Start 09/25/16 at 21:00 MARICARMEN STEVE Sep 27, 2016 13:26
--- NOTE | 2016-09-27 16:23 | CONS ---
Date/Time of Note Date/Time of Note DATE: 09/27/16 TIME: 16:21 Assessment/Plan Assessment/Plan Chief Complaint/Hosp Course - probable recurrent sepsis; possible etiologies include recurrent bacteremia, HCAP/tracheobronchitis, Cdiff (diarrhea noted) - h/o polymicrobial infections: h/o 05/2016 due to E. faecalis bacteremia and C. glabrata fungemia in 05/2016; CoNS bacteremia in early 08/2016; XDR-klebsiella bacteremia in mid-08/2016. at [facility] on 09/13/2016 was negative for valvular vegetation. 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 Pt had full TB workup at [facility]: AFB of sputum was negative x3, MTB PCR was negative x2. ID information systems consultant there recommended deferring anti-latent tuberculosis treatment until all 3 sputum samples are negative for AFB [id number] - anoxic brain injury after cardiac arrest - encephalopathy - ESRD on HD. A new permacath was placed on 09/14/2016 at [facility] - seizure disorder - s/p cardiac arrest - A fib - seizure disorder - VDRF - GT dependent status recommendations -f/u all recent cxs -Continue meropenem for now as patient is clinically responding despite recent cx results. - probiotics Problems: Consultation Date/Type/Reason Admit Date/Time Sep 22, 2016 at 21:05 Initial Consult Date 09/23/16 Type of Consultation: id Referring Provider: BLESSING CONNELLY MD Exam/Review of Systems Vital Signs Vitals Vital Signs Date Time Temp Pulse Resp B/P Pulse Ox O2 Delivery O2 Flow Rate FiO2 09/27/16 16:05 98.4 90 18 107/73 99 09/27/16 15:00 30 Intake and Output 09/26/16 09/26/16 09/27/16 15:00 23:00 07:00 Intake Total 200 ml 420 ml 790 ml Output Total 2200 ml Balance -2000 ml 420 ml 790 ml Exam Constitutional: alert, oriented, well developed Head: atraumatic, normocephalic Eyes: EOMI, PERRL, nl conjunctiva, nl lids, nl sclera Neck: non-tender, supple Respiratory: clear to auscultation, normal air movement Cardiovascular: nl pulses, regular rate and rhythm Gastrointestinal: nl liver, spleen, non-tender, soft Musculoskeletal: nl extremities to inspection, nl gait and stance 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3 Basophils # 0.0 Nucleated Red Blood Cells # 0.0 Sodium Level 137 Potassium Level 4.1 Chloride Level 100 Carbon Dioxide Level 25 Anion Gap 16 Blood Urea Nitrogen 59 H Creatinine 5.99 H Glucose Level 128 Calcium Level 11.0 H Medications Medications Current Medications Amiodarone HCl (Cordarone) 200 mg DAILY GTB Last administered on 09/27/16 08:10 ; Admin Dose 200 MG; Start 09/23/16 at 09:00 Cinacalcet (Sensipar) 60 mg DAILY GTB Last administered on 09/27/16 08:10; Admin Dose 60 MG; Start 09/23/16 at 09:00 Clonazepam (Klonopin) 0.5 mg Q12 GTB Last administered on 09/27/16 08:33; Admin Dose 0.5 MG; Start 09/23/16 at 09:00 Docusate Sodium (Colace Liquid Cup) 100 mg BID GTB Last administered on 08:10; Admin Dose 100 MG; Start 09/23/16 at 09:00 Metoclopramide HCl (Reglan Liq) 10 mg Q8 GTB Last administered on 09/27/16 13: 20; Admin Dose 10 MG; Start 09/23/16 at 06:00 Multivit/Ca Carb/ B Cmplx/FA/Prenat (Oumou-Jayesh) 1 tab DAILY GTB Last administered on 09/27/16 08:10; Admin Dose 1 TAB; Start 09/23/16 at 09:00 Levetiracetam (Keppra Liquid) 1,000 mg DAILY GTB Last administered on 09/27/16 08:10; Admin Dose 1,000 MG; Start 09/23/16 at 09:00 Lansoprazole 30 mg 30 mg DAILY@06 GTB Last administered on 09/27/16 06:38; Admin Dose 30 MG; Start 09/23/16 at 06:00 Meropenem (Merrem 500 Mg/ 100 ml (Pmx)) 100 ml @ 200 mls/hr Q24H IVPB Last administered on 09/26/16 21:13; Admin Dose 200 MLS/HR; Start 09/23/16 at 21:00 Metoprolol Tartrate (Lopressor) 25 mg BID GTB Last administered on 09/27/16 08: 11; Admin Dose 25 MG; Start 09/23/16 at 10:30 Aspirin (Aspirin) 81 mg DAILY GTB Last administered on 09/27/16 08:10; Admin Dose 81 MG; Start 09/23/16 at 10:30 Acetaminophen (Tylenol Tab) 500 mg Q4H PRN PO PAIN AND OR ELEVATED TEMP Last administered on 09/25/16 08:22; Admin Dose 500 MG; Start 09/23/16 at 10:30 Morphine Sulfate (morphine) 2 mg Q4H PRN IV PAIN LEVEL 4-7; Start 09/23/16 at 10 :30 Tobramycin Sulfate (Tobrex 0.3% Oph Drop) 1 drop Q6 LEFT EYE Last administered on 09/27/16 11:24; Admin Dose 1 DROP; Start 09/23/16 at 12:00; Stop 09/30/16 at 11:59 Saccharomyces Boulardii (Florastor) 250 mg BID PO Last administered on 08:10; Admin Dose 250 MG; Start 09/25/16 at 21:00 Nystatin (Nystatin Powder) 1 applic BID TOP Last administered on 09/27/16 08:11 ; Admin Dose 1 APPLIC; Start 09/25/16 at 21:00 SOHAN BRAVO MD Sep 27, 2016 16:23
--- NOTE | 2016-09-27 17:05 | DS ---
Date/Time of Note Date/Time of Note DATE: 09/27/16 TIME: 17:05 Discharge Summary Admission/Discharge Info Admit Date/Time Sep 22, 2016 at 21:05 Discharge Date/Time Hospital Course - probable recurrent sepsis; possible etiologies include recurrent bacteremia, HCAP/tracheobronchitis, Cdiff (diarrhea noted) - h/o polymicrobial infections: h/o 05/2016 due to E. faecalis bacteremia and C. glabrata fungemia in 05/2016; CoNS bacteremia in early 08/2016; XDR-klebsiella bacteremia in mid-08/2016. at [facility] on 09/13/2016 was negative for valvular vegetation. 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 Pt had full TB workup at [facility]: AFB of sputum was negative x3, MTB PCR was negative x2. 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 A new permacath was placed on 09/14/2016 at [facility] - seizure disorder - s/p cardiac arrest - A fib - seizure disorder - VDRF - GT dependent status recommendations -f/u all recent cxs -Continue meropenem for now as patient is clinically responding despite recent cx results. - probiotics Home Meds Reported Medications Multivit/Ca Carb/B Cmplx/Fa* (Oumou-Jayesh*) 1 Tab Tab, 1 TAB GTB DAILY, TAB 04/16/16 Cinacalcet* (Sensipar*) 60 Mg Tablet, 60 MG GTB DAILY, TAB 04/16/16 Midodrine* (Midodrine*) 5 Mg Tablet, 5 MG GTB Q8H, TAB HOLD IF SBP>130 04/16/16 Metoclopramide* (Reglan*) 10 Mg/10 Ml Soln, 10 MG GTB Q8, ML 04/16/16 Sevelamer Carbonate* (Renvela*) 0.8 Gm Powd.pack, 1.6 GM GTB WITH MEALS, PACKET 10/14/15 Levetiracetam* (Keppra* (Ped)) 100 Mg/Ml Liq, 1000 MG GTB DAILY for 30 Days, BOTTLE 10/14/15 Docusate Sodium* (Docusate Sodium* Liq) 50 Mg/5 Ml Liquid, 100 MG GTB BID, ML 10/14/15 Omeprazole* (Prilosec*) 40 Mg Capsule.dr, 40 MG GTB DAILY 04/12/12 Clonazepam* (Klonopin*) 0.5 Mg Tab, 0.5 MG GTB Q12 04/12/12 Amiodarone Hcl* (Amiodarone Hcl*) 200 Mg Tablet, 200 MG GTB DAILY 04/12/12 Primary Care Provider Brannon Palacio MD Pending Labs Laboratory Tests Test 09/27/16 05:40 White Blood Count 7.010^3/ul (4.8-10.8) Red Blood Count 2.7810^6/ul (4.70-6.10) Hemoglobin 8.6g/dl (14.0-18.0) Hematocrit 25.8% (42.0-52.0) Mean Corpuscular Volume 92.8fl (82.0-101.0) Mean Corpuscular Hemoglobin 30.9pg (29.0-33.0) Mean Corpuscular Hemoglobin Concent 33.3g/dl (32.0-37.0) Red Cell Distribution Width 16.3% (11.5-14.5) Platelet Count 45852^3/UL (140-415) Mean Platelet Volume 10.2fl (7.4-10.4) Neutrophils % 66.6% (39.0-77.0) Lymphocytes % 19.7% (15.0-51.0) Monocytes % 8.4% (0.0-11.0) Eosinophils % 4.3% (0.0-7.0) Basophils % 0.3% (0.0-2.0) Nucleated Red Blood Cells % 0.3/100WBC (0.0-0.0) Neutrophils # 4.710^3/ul (1.6-7.5) Lymphocytes # 1.410^3/ul (0.8-2.9) Monocytes # 0.610^3/ul (0.3-0.9) Eosinophils # 0.310^3/ul (0.0-0.5) Basophils # 0.010^3/ul (0.0-0.1) Nucleated Red Blood Cells # 0.010^3/ul (0.0-0.0) Sodium Level 137mmol/L (135-144) Potassium Level 4.1mmol/L (3.5-5.1) Chloride Level 100mmol/L (97-110) Carbon Dioxide Level 25mmol/L (21-31) Anion Gap 16 (8-16) Blood Urea Nitrogen 59mg/dl (7-20) Creatinine 5.99mg/dl (0.61-1.24) Glucose Level 128mg/dl (70-220) Calcium Level 11.0mg/dl (8.4-10.2) PAXTON RETANA Sep 27, 2016 17:05
--- NOTE | 2016-09-27 17:05 | PDOCDIS ---
Discharge Instructions CONDITION Patient Condition: Stable HOME CARE INSTRUCTIONS: Special Diet: GT FEEDING ACTIVITY: Activity Restrictions: Slowly Increase Activity Rest between Activity Bathing Restrictions: Sponge Bath FOLLOW UP/APPOINTMENTS Appointments FU with PMD call 911 or transfer to the nearest hospital if symptoms worsen dw dr Palacio/staff PAXTON RETANA Sep 27, 2016 17:05
--- NOTE | 2016-09-27 17:47 | PN ---
Date/Time of Note Date/Time of Note DATE: 09/27/16 TIME: 17:46 Assessment/Plan VTE Prophylaxis VTE Prophylaxis Intervention: other Lines/Catheters IV Catheter Type (from [facility]): Saline Lock Urinary Cath still in place: Yes Reason Cath still needed: other (indicate) Assessment/Plan Chief Complaint/Hosp Course IMPRESSION: 1. Anemia. 2. End-stage renal disease. 3. Hypertension. 4. G-tube placement. 5. Tracheostomy. 6. Ejection fraction 45%. 7. History of chronic systolic dysfunction. 8. History of multiple catheter related infections. 9. History of extended qjdyqgry-rath-snvvyblki infection recently. 10. The patient has anasarca. plan hd w uf am Problems: Subjective 24 Hr Interval Summary Subjective hx not possible: pt non-verbal Exam/Review of Systems Vital Signs Vitals Vital Signs Date Time Temp Pulse Resp B/P Pulse Ox O2 Delivery O2 Flow Rate FiO2 09/27/16 17:34 109 09/27/16 17:05 18 97 30 09/27/16 16:05 98.4 107/73 Intake and Output 09/26/16 09/26/16 09/27/16 15:00 23:00 07:00 Intake Total 200 ml 420 ml 790 ml Output Total 2200 ml Balance -2000 ml 420 ml 790 ml Exam ENMT: nl external ears & nose Neck: supple Cardiovascular: regular rate and rhythm Gastrointestinal: soft Results Result Diagram: 09/27/16 0540 09/27/16 0540 Results 24 hrs Laboratory Tests Test 09/27/16 05:40 White Blood Count 7.0 Red Blood Count 2.78 L Hemoglobin 8.6 L Hematocrit 25.8 L Mean Corpuscular Volume 92.8 Mean Corpuscular Hemoglobin 30.9 Mean Corpuscular Hemoglobin Concent 33.3 Red Cell Distribution Width 16.3 H Platelet Count 226 Mean Platelet Volume 10.2 Neutrophils % 66.6 Lymphocytes % 19.7 Monocytes % 8.4 Eosinophils % 4.3 Basophils % 0.3 Nucleated Red Blood Cells % 0.3 H Neutrophils # 4.7 Lymphocytes # 1.4 Monocytes # 0.6 Eosinophils # 0.3 Basophils # 0.0 Nucleated Red Blood Cells # 0.0 Sodium Level 137 Potassium Level 4.1 Chloride Level 100 Carbon Dioxide Level 25 Anion Gap 16 Blood Urea Nitrogen 59 H Creatinine 5.99 H Glucose Level 128 Calcium Level 11.0 H Medications Medications Current Medications Amiodarone HCl (Cordarone) 200 mg DAILY GTB Last administered on 09/27/16 08:10 ; Admin Dose 200 MG; Start 09/23/16 at 09:00 Cinacalcet (Sensipar) 60 mg DAILY GTB Last administered on 09/27/16 08:10; Admin Dose 60 MG; Start 09/23/16 at 09:00 Clonazepam (Klonopin) 0.5 mg Q12 GTB Last administered on 09/27/16 08:33; Admin Dose 0.5 MG; Start 09/23/16 at 09:00 Docusate Sodium (Colace Liquid Cup) 100 mg BID GTB Last administered on 08:10; Admin Dose 100 MG; Start 09/23/16 at 09:00 Metoclopramide HCl (Reglan Liq) 10 mg Q8 GTB Last administered on 09/27/16 13: 20; Admin Dose 10 MG; Start 09/23/16 at 06:00 Multivit/Ca Carb/ B Cmplx/FA/Prenat (Oumou-Jayesh) 1 tab DAILY GTB Last administered on 09/27/16 08:10; Admin Dose 1 TAB; Start 09/23/16 at 09:00 Levetiracetam (Keppra Liquid) 1,000 mg DAILY GTB Last administered on 09/27/16 08:10; Admin Dose 1,000 MG; Start 09/23/16 at 09:00 Lansoprazole 30 mg 30 mg DAILY@06 GTB Last administered on 09/27/16 06:38; Admin Dose 30 MG; Start 09/23/16 at 06:00 Meropenem (Merrem 500 Mg/ 100 ml (Pmx)) 100 ml @ 200 mls/hr Q24H IVPB Last administered on 09/26/16 21:13; Admin Dose 200 MLS/HR; Start 09/23/16 at 21:00 Metoprolol Tartrate (Lopressor) 25 mg BID GTB Last administered on 09/27/16 08: 11; Admin Dose 25 MG; Start 09/23/16 at 10:30 Aspirin (Aspirin) 81 mg DAILY GTB Last administered on 09/27/16 08:10; Admin Dose 81 MG; Start 09/23/16 at 10:30 Acetaminophen (Tylenol Tab) 500 mg Q4H PRN PO PAIN AND OR ELEVATED TEMP Last administered on 09/25/16 08:22; Admin Dose 500 MG; Start 09/23/16 at 10:30 Morphine Sulfate (morphine) 2 mg Q4H PRN IV PAIN LEVEL 4-7; Start 09/23/16 at 10 :30 Tobramycin Sulfate (Tobrex 0.3% Oph Drop) 1 drop Q6 LEFT EYE Last administered on 09/27/16 17:35; Admin Dose 1 DROP; Start 09/23/16 at 12:00; Stop 09/30/16 at 11:59 Saccharomyces Boulardii (Florastor) 250 mg BID PO Last administered on 08:10; Admin Dose 250 MG; Start 09/25/16 at 21:00 Nystatin (Nystatin Powder) 1 applic BID TOP Last administered on 09/27/16 08:11 ; Admin Dose 1 APPLIC; Start 09/25/16 at 21:00 CHUYITA PASTOR MD Sep 27, 2016 17:47
[2016-09-27] MEDS: MEROPENEM 500 MG/100 ML (PMX) 100 ML IVPB SCH (20:19)
[2016-09-28 00:28] VITALS: PULSE 92
== END 2016-09-28 00:48 | DRG 314 ==
LOC: E/R 17:16 → TEL 21:05
PROVIDERS: ADMIT Internal Medicine; ATTEND Internal Medicine
PROC: 5A1935Z Respiratory Ventilation, Less than 24 Consecutive Hours (ICD-10-PCS; principal; 2016-09-22)
PROC: 30233N1 Transfusion of Nonautologous Red Blood Cells into Peripheral Vein, Percutaneous Approach (ICD-10-PCS; 2016-09-22)
PROC: 5A1D60Z (ICD-10-PCS; 2016-09-23)
DX: T82.7XXA Infection and inflammatory reaction due to other cardiac and vascular devices, implants and grafts, initial encounter (principal); N18.6 End stage renal disease; A41.89 Other specified sepsis; I13.2 Hypertensive heart and chronic kidney disease with heart failure and with stage 5 chronic kidney disease, or end stage renal disease; J96.10 Chronic respiratory failure, unspecified whether with hypoxia or hypercapnia; B96.7 Clostridium perfringens [C. perfringens] as the cause of diseases classified elsewhere; Z93.0 Tracheostomy status; I50.22 Chronic systolic (congestive) heart failure; I48.0 Paroxysmal atrial fibrillation; G40.909 Epilepsy, unspecified, not intractable, without status epilepticus; D63.8 Anemia in other chronic diseases classified elsewhere; H10.9 Unspecified conjunctivitis; R19.7 Diarrhea, unspecified; R60.1 Generalized edema; R41.82 Altered mental status, unspecified; Z93.1 Gastrostomy status; Z99.2 Dependence on renal dialysis; Z87.820 Personal history of traumatic brain injury; Z86.74 Personal history of sudden cardiac arrest
CPT/HCPCS: 36430; 71010; 80048; 80053; 80202; 82270; 83605; 84484; 85025; 85610; 85730; 86850; 86900; 86901; 86920; 87040; 87045; 87070; 87075; 89220; 90935; 93005; 93306; 94002; 94003; J2185; J3370; J7040; P9016

== ENCOUNTER 2016-11-03 01:14 | Inpatient (IN) | payer MEDICAID, OTHER ==
[2016-11-03] VITALS (19 sets, daily range): BP systolic 115–131; BP diastolic 68–96; PULSE 86–96; RESP 18–20; TEMP 97.8; Ht 170.2 cm; Wt 74.5 kg
[~2016-11-03] VITALS: Ht 170.2 cm; Wt 74.5 kg
--- NOTE | 2016-11-03 01:45 | ERA ---
ER Documentation Chief Complaint Date/Time DATE: 11/03/16 TIME: 01:44 Chief Complaint dejuan cath bleeding since 2199. chronic vent, full code HPI The patient is a 56-year-old male, presenting to the ER because of bleeding from the left femoral Dejuan catheter beginning about 10 PM. The nurse have been changing the dressing frequently. He is noncommunicative, the history is is obtained from the half-way notes and the medical record Past medical history: Chronic respiratory failure on ventilator, seizure disorder, chronic kidney disease on hemodialysis Saturday and Saturday, anemia, history of paroxysmal atrial fibrillation, history of cardiac arrest Past surgical history: Tracheostomy, G-tube ROS All systems reviewed and are negative except as per history of present illness. Medications Home Meds Reported Medications Calcium Acetate* (Phoslo*) 667 Mg Tablet, 667 MG GTB WITH MEALS, TAB 11/03/16 Lactobacillus Acidophilus* (Lactinex*) 1 Tab Chew, 1 TAB G-TUBE BID, TAB 11/03/16 Multivit/Ca Carb/B Cmplx/Fa* (Oumou-Jayesh*) 1 Tab Tab, 1 TAB GTB DAILY, TAB 04/16/16 Cinacalcet* (Sensipar*) 60 Mg Tablet, 60 MG GTB DAILY, TAB 04/16/16 Midodrine* (Midodrine*) 5 Mg Tablet, 5 MG GTB Q8H, TAB HOLD IF SBP>130 04/16/16 Metoclopramide* (Reglan*) 10 Mg/10 Ml Soln, 10 MG GTB Q8, ML 04/16/16 Sevelamer Carbonate* (Renvela*) 0.8 Gm Powd.pack, 1.6 GM GTB WITH MEALS, PACKET 10/14/15 Levetiracetam* (Keppra* (Ped)) 100 Mg/Ml Liq, 1000 MG GTB DAILY for 30 Days, BOTTLE 10/14/15 Docusate Sodium* (Docusate Sodium* Liq) 50 Mg/5 Ml Liquid, 100 MG GTB BID, ML 10/14/15 Omeprazole* (Prilosec*) 40 Mg Capsule.dr, 40 MG GTB DAILY 04/12/12 Clonazepam* (Klonopin*) 0.5 Mg Tab, 0.5 MG GTB Q12 04/12/12 Amiodarone Hcl* (Amiodarone Hcl*) 200 Mg Tablet, 200 MG GTB DAILY 04/12/12 Allergies Allergies: Coded Allergies: No Known Allergy (Unverified , 08/26/16) PMhx/Soc Hx Cardiac Disorders: Yes (HTN, chronic systolic dysfunction) Hx Tobacco Use: No (unable to assess due to patient's condition) Physical Exam Vitals Vital Signs Date Time Temp Pulse Resp B/P Pulse Ox O2 Delivery O2 Flow Rate FiO2 11/03/16 03:51 97.8 89 18 118/96 100 Mechanical Ventilator Trach Collar 11/03/16 03:28 88 18 100 30 11/03/16 01:30 90 18 100 30 11/03/16 01:22 97.8 80 20 133/98 100 Physical Exam Const: No acute distress. On ventilator Head: Atraumatic. Eyes: Normal Conjunctiva. ENT: Normal External Ears, Nose and Mouth. Neck: Full range of motion. No meningismus. Resp: Clear to auscultation bilaterally. Cardio: Irregularly irregular Abd: Soft, non distended, normal bowel sounds, non tender. Skin: No petechiae or rashes. Back: No midline or flank tenderness. Ext: No cyanosis, or edema. Minimal blood oozing from the insertion site of the left femoral vein Dejuan catheter Neur: Unable to perform due to his condition Psych: Unable to perform due to his condition. Result Diagram: 11/03/16 0139 11/03/16 0130 Results 24 hrs Laboratory Tests Test 11/03/16 01:30 11/03/16 01:39 Sodium Level 151mmol/L Potassium Level 4.7mmol/L Chloride Level 101mmol/L Carbon Dioxide Level 30mmol/L Anion Gap 25 Blood Urea Nitrogen 35mg/dl Creatinine 6.83mg/dl Glucose Level 101mg/dl Calcium Level 12.3mg/dl Total Bilirubin 0.1mg/dl Direct Bilirubin 0.00mg/dl Indirect Bilirubin 0.1mg/dl Aspartate Amino Transf (AST/SGOT) 31IU/L Alanine Aminotransferase (ALT/SGPT) 33IU/L Alkaline Phosphatase 140IU/L Total Protein 9.3g/dl Albumin 4.8g/dl Globulin 4.50g/dl Albumin/Globulin Ratio 1.06 White Blood Count 5.410^3/ul Red Blood Count 2.9410^6/ul Hemoglobin 9.0g/dl Hematocrit 28.9% Mean Corpuscular Volume 98.3fl Mean Corpuscular Hemoglobin 30.6pg Mean Corpuscular Hemoglobin Concent 31.1g/dl Red Cell Distribution Width 17.1% Platelet Count 81631^3/UL Mean Platelet Volume 9.6fl Neutrophils % 68.2% Lymphocytes % 21.7% Monocytes % 6.3% Eosinophils % 2.8% Basophils % 0.4% Nucleated Red Blood Cells % 0.0/100WBC Neutrophils # 3.710^3/ul Lymphocytes # 1.210^3/ul Monocytes # 0.310^3/ul Eosinophils # 0.210^3/ul Basophils # 0.010^3/ul Nucleated Red Blood Cells # 0.010^3/ul Prothrombin Time 13.8Sec Prothrombin Time Ratio 1.1 INR International Normalized Ratio 1.06 Activated Partial Thromboplast Time 45.3Sec Procedures/MDM EKG: Read by emergency physician Rate/Rhythm: Atrial fibrillation 92 beats/min QRS, ST, T-waves: No ST elevation, no T inversion, low voltage Impression: Abnormal EKG [place] [address] Radiology Main Line: [phone] DIAGNOSTIC IMAGING REPORT Patient: GAIL ÁLVAREZ : 1960 Age: 56 Sex: M MR #: [id number] DOS: 11/03/16 0154 Ordering MD: DESIREE OLMSTEAD MD Location: E/R Room/Bed: PROCEDURE: XR Chest. CLINICAL INDICATION: Shortness of breath. TECHNIQUE: AP Portable chest. COMPARISON: 04/14/2016 FINDINGS: There is mild cardiomegaly. Some minimal atelectasis or scarring is noted at the left lung base. The osseous structures are unremarkable. A tracheostomy tube tip is within the proximal trachea. IMPRESSION: Minimal atelectasis or scarring at the left lung base. RPTAT: HIKT .Joon Barber MD, MD Date Time Electronically viewed and signed by .Joon Barber MD, MD on 11/03/2016 03:19 .T/ CC: DESIREE OLMSTEAD MD MEDICAL MAKING DECISION: The patient is a 56-year-old male, presenting with acute bleeding from the left femoral vein Dejuan catheter, acute hypercalcemia , acute hypernatremia. The dressing has been changed and dressed with Surgicel and pressure dressing. He will be admitted for further evaluation by the vascular surgeon Departure Diagnosis: Primary Impression: Complication of vascular access for dialysis Additional Impressions: Hypercalcemia Hypernatremia Anemia Condition: Stable Comments I discussed the findings with the patient. I discussed the patient with his physician Dr. Palacio at 3:50 AM who was made aware of the lab, the treatment, the patient condition. The patient is admitted to telemetry DESIREE OLMSTEAD MD Nov 03, 2016 01:45
[2016-11-03 02:11] LABS: ADD SCAN DIFF NO
[2016-11-03 02:14] LABS: BASOPHILS % 0.4 % (0.0-2.0); EOSINOPHILS # 0.2 10^3/ul (0.0-0.5); EOSINOPHILS % 2.8 % (0.0-7.0); HEMATOCRIT 28.9 % (42.0-52.0); LYMPHOCYTES # 1.2 10^3/ul (0.8-2.9); LYMPHOCYTES % 21.7 % (15.0-51.0); MEAN CORPUSCULAR HEMOGLOBIN 30.6 pg (29.0-33.0); MEAN CORPUSCULAR HGB CONC 31.1 g/dl (32.0-37.0); MEAN CORPUSCULAR VOLUME 98.3 fl (82.0-101.0); MEAN PLATELET VOLUME 9.6 fl (7.4-10.4); MONOCYTE # 0.3 10^3/ul (0.3-0.9); MONOCYTES % 6.3 % (0.0-11.0); NEUTROPHIL # 3.7 10^3/ul (1.6-7.5); NEUTROPHILS % 68.2 % (39.0-77.0); PLATELET COUNT 201 10^3/UL (140-415); RED BLOOD COUNT 2.94 10^6/ul (4.70-6.10); RED CELL DISTRIBUTION WIDTH 17.1 % (11.5-14.5); WHITE BLOOD COUNT 5.4 10^3/ul (4.8-10.8)
[2016-11-03 02:29] LABS: INR 1.06; PROTIME 13.8 Sec (12.2-14.2); PT RATIO 1.1
[2016-11-03 02:30] LABS: PARTIAL THROMBOPLASTIN TIME 45.3 Sec (25.0-35.0)
[2016-11-03 02:37] LABS: ALBUMIN 4.8 g/dl (3.3-4.9); ALBUMIN/GLOBULIN RATIO 1.06; BILIRUBIN,INDIRECT 0.1 mg/dl (0-1.1); BILIRUBIN,TOTAL 0.1 mg/dl (0.2-1.3); CALCIUM 12.3 mg/dl (8.4-10.2); CREATININE 6.83 mg/dl (0.61-1.24); POTASSIUM 4.7 mmol/L (3.5-5.1); TOTAL PROTEIN 9.3 g/dl (6.1-8.1)
--- NOTE | 2016-11-03 03:19 | RADRPT ---
PROCEDURE: XR Chest. CLINICAL INDICATION: Shortness of breath. TECHNIQUE: AP Portable chest. COMPARISON: 04/14/2016 FINDINGS: There is mild cardiomegaly. Some minimal atelectasis or scarring is noted at the left lung base. T he osseous structures are unremarkable. A tracheostomy tube tip is within the proximal trachea. IMPRESSION: Minimal atelectasis or scarring at the left lung base. RPTAT: HIKT .Joon Barber MD, MD Date Time Electronically viewed and signed by .oJon Barber MD, MD on 11/03/2016 03:19 .T/
[2016-11-03] MEDS ORDERED: CALC667T2 GTB (03:53)
[2016-11-03] MEDS ORDERED: LACTINEX G-TUBE (03:53)
[2016-11-03 06:55] LABS: ADD SCAN DIFF NO
[2016-11-03 07:03] LABS: BASOPHILS % 0.4 % (0.0-2.0); EOSINOPHILS # 0.1 10^3/ul (0.0-0.5); EOSINOPHILS % 2.4 % (0.0-7.0); HEMATOCRIT 29.4 % (42.0-52.0); HEMOGLOBIN 8.9 g/dl (14.0-18.0); LYMPHOCYTES % 19.5 % (15.0-51.0); MEAN CORPUSCULAR HEMOGLOBIN 29.7 pg (29.0-33.0); MEAN CORPUSCULAR HGB CONC 30.3 g/dl (32.0-37.0); MEAN PLATELET VOLUME 9.8 fl (7.4-10.4); MONOCYTE # 0.4 10^3/ul (0.3-0.9); MONOCYTES % 7.4 % (0.0-11.0); NEUTROPHIL # 3.5 10^3/ul (1.6-7.5); NEUTROPHILS % 69.9 % (39.0-77.0); PLATELET COUNT 193 10^3/UL (140-415)
[2016-11-03 07:28] LABS: ALBUMIN 4.9 g/dl (3.3-4.9); ALBUMIN/GLOBULIN RATIO 1.19; BILIRUBIN,INDIRECT 0.1 mg/dl (0-1.1); BILIRUBIN,TOTAL 0.1 mg/dl (0.2-1.3); CREATININE 7.11 mg/dl (0.61-1.24); POTASSIUM 4.6 mmol/L (3.5-5.1)
[2016-11-03] MEDS ORDERED: SENNA TAB GTB PRN (07:30)
[2016-11-03 07:34] LABS: INR 1.04; PROTIME 13.6 Sec (12.2-14.2); PT RATIO 1.1
[2016-11-03 07:35] LABS: PARTIAL THROMBOPLASTIN TIME 44.6 Sec (25.0-35.0)
[2016-11-03] MEDS: LEVETIRACETAM (100 MG/ML) 5ML CUP GTB SCH ×2 (09:49→21:16)
[2016-11-03] MEDS: CALCIUM ACETATE 667 MG CAP GTB SCH ×3 (09:49→21:16)
[2016-11-03] MEDS: LACTOBACILLUS RHAMNOSUS CAP GTB SCH ×2 (09:49→21:16)
[2016-11-03] MEDS: OCULAR LUBRICANT 3.5 GM OPH OINT BOTH EYES SCH ×2 (09:49→22:33)
[2016-11-03] MEDS: MULTIVIT/CA CARB/B CMPLX/FA TAB GTB SCH (09:50)
[2016-11-03] MEDS: DOCUSATE SODIUM 10 MG/ML (10ML CUP) GTB SCH ×2 (09:50→21:16)
[2016-11-03] MEDS: MIDODRINE 5 MG TAB GTB SCH ×3 (09:50→19:57)
[2016-11-03] MEDS: clonAZEPAM 0.5 MG TAB GTB SCH ×2 (09:59→21:16)
[2016-11-03] MEDS: AMIODARONE 200 MG TAB GTB SCH (09:59)
[2016-11-03] MEDS: LANSOPRAZOLE 30 MG CAP GTB SCH (09:59)
--- NOTE | 2016-11-03 17:08 | CONS ---
Date/Time of Note Date/Time of Note DATE: 11/03/16 TIME: 17:04 Assessment/Plan Assessment/Plan Chief Complaint/Hosp Course 1. ESRD 2. bleeding from the left femoral Dejuan catheter 3. Chronic respiratory failure on ventilator, 4. seizure disorder, 5. Hemodialysis dependent Saturday and Saturday, 6. anemia, 7. history of paroxysmal atrial fibrillation, 8. history of cardiac arrest 9. Tracheostomy, 10. G-tube 11. Morbid obesity 12. hypernatremia Problems: Additional Assessment/Plan 1. Continue HD, for sufety reasons to avoid bleeding HD better to be done tomorrow, lab work reviewed , spoke to ALFREDO Ramirez 2. Free water via GT 250 q 6 hours 3. Consultation Date/Type/Reason Admit Date/Time Nov 03, 2016 at 03:58 Initial Consult Date 11/03/2016 Type of Consultation: nephrology Reason for Consultation Dr Ordonez 24 HR Interval Summary Subjective hx not possible: pt non-verbal Exam/Review of Systems Vital Signs Vitals Vital Signs Date Time Temp Pulse Resp B/P Pulse Ox O2 Delivery O2 Flow Rate FiO2 11/03/16 16:35 86 11/03/16 15:10 18 95 30 11/03/16 15:09 98.2 117/78 11/03/16 05:05 Mechanical Ventilator Exam Constitutional: non-verbal, obese Head: atraumatic, normocephalic Neck: other (tracheostomy), supple Cardiovascular: regular rate and rhythm Gastrointestinal: soft Genitourinary - Male: nl penis, nl scrotum Musculoskeletal: muscle weakness Skin: other (left Dejuan cath not bleeding) Results Result Diagram: 11/03/16 0613 11/03/16 0613 Results 24 hrs Laboratory Tests Test 11/03/16 01:30 11/03/16 01:39 11/03/16 06:13 Sodium Level 151 H 150 H Potassium Level 4.7 4.6 Chloride Level 101 104 Carbon Dioxide Level 30 24 Anion Gap 25 H 27 H Blood Urea Nitrogen 35 H 37 H Creatinine 6.83 H 7.11 H Glucose Level 101 99 Calcium Level 12.3 H 12.0 H Total Bilirubin 0.1 L 0.1 L Direct Bilirubin 0.00 0.00 Indirect Bilirubin 0.1 0.1 Aspartate Amino Transf (AST/SGOT) 31 32 Alanine Aminotransferase (ALT/SGPT) 33 36 Alkaline Phosphatase 140 H 144 H Total Protein 9.3 H 9.0 H Albumin 4.8 4.9 Globulin 4.50 H 4.10 H Albumin/Globulin Ratio 1.06 1.19 White Blood Count 5.4 # 5.0 Red Blood Count 2.94 L 3.00 L Hemoglobin 9.0 L 8.9 L Hematocrit 28.9 L 29.4 L Mean Corpuscular Volume 98.3 98.0 Mean Corpuscular Hemoglobin 30.6 29.7 Mean Corpuscular Hemoglobin Concent 31.1 L 30.3 L Red Cell Distribution Width 17.1 H 17.0 H Platelet Count 201 193 Mean Platelet Volume 9.6 9.8 Neutrophils % 68.2 69.9 Lymphocytes % 21.7 19.5 Monocytes % 6.3 7.4 Eosinophils % 2.8 2.4 Basophils % 0.4 0.4 Nucleated Red Blood Cells % 0.0 0.0 Neutrophils # 3.7 3.5 Lymphocytes # 1.2 1.0 Monocytes # 0.3 0.4 Eosinophils # 0.2 0.1 Basophils # 0.0 0.0 Nucleated Red Blood Cells # 0.0 0.0 Prothrombin Time 13.8 13.6 Prothrombin Time Ratio 1.1 1.1 INR International Normalized Ratio 1.06 1.04 Activated Partial Thromboplast Time 45.3 H 44.6 H Medications Medications Current Medications Amiodarone HCl (Cordarone) 200 mg DAILY GTB Last administered on 11/03/16 09: 59; Admin Dose 200 MG; Start 11/03/16 at 09:00 Docusate Sodium (Colace Liquid Cup) 100 mg BID GTB Last administered on 09:50; Admin Dose 100 MG; Start 11/03/16 at 09:00 Midodrine (Proamatine) 5 mg TID@, GTB Last administered on 11/03/16 13: 53; Admin Dose 5 MG; Start 11/03/16 at 09:00 Levetiracetam (Keppra Liquid) 500 mg BID GTB Last administered on 11/03/16 09: 49; Admin Dose 500 MG; Start 11/03/16 at 09:00 Multivit/Ca Carb/ B Cmplx/FA/Prenat (Oumou-Jayesh) 1 tab DAILY GTB Last administered on 11/03/16 09:50; Admin Dose 1 TAB; Start 11/03/16 at 09:00 Clonazepam (Klonopin) 0.5 mg Q12 GTB Last administered on 11/03/16 09:59; Admin Dose 0.5 MG; Start 11/03/16 at 09:00 Eye Lubricant (Akwa Oint) 1 applic Q12 BOTH EYES Last administered on 09:49; Admin Dose 1 APPLIC; Start 11/03/16 at 09:00 Senna (Senokot) 1 tab HS PRN GTB CONSTIPATION; Start 11/03/16 at 07:30 Lactobacillus Acidophilus/ Rhamnosus (Culturelle) 1 cap BID GTB Last administered on 11/03/16 09:49; Admin Dose 1 CAP; Start 11/03/16 at 09:00 Calcium Acetate (Phoslo) 667 mg TID GTB Last administered on 11/03/16 13:52; Admin Dose 667 MG; Start 11/03/16 at 09:00 Lansoprazole (Prevacid) 30 mg DAILY@06 GTB Last administered on 11/03/16 09:59 ; Admin Dose 30 MG; Start 11/03/16 at 08:00 KAMINI HUANG Nov 03, 2016 17:08
--- NOTE | 2016-11-03 17:49 | HP ---
Date/Time of Note Date/Time of Note DATE: 11/03/16 TIME: 17:45 Assessment/Plan Lines/Catheters IV Catheter Type (from Nrs): Saline Lock Urinary Cath still in place: No Assessment/Plan Assessment/Plan Complication of vascular access for dialysis Hypercalcemia Hypernatremia Anemia HPI/ROS Admit Date/Time Admit Date/Time Nov 03, 2016 at 03:58 Hx of Present Illness Chief Complaint dejuan cath bleeding since 2199. chronic vent, full code HPI The patient is a 56-year-old male, presenting to the ER because of bleeding from the left femoral Dejuan catheter beginning about 10 PM. The nurse have been changing the dressing frequently. He is noncommunicative, the history is is obtained from the custodial notes and the medical record Past medical history: Chronic respiratory failure on ventilator, seizure disorder, chronic kidney disease on hemodialysis Saturday and Saturday, anemia, history of paroxysmal atrial fibrillation, history of cardiac arrest Past surgical history: Tracheostomy, G-tube ROS All systems reviewed and are negative except as per history of present illness. Allergies No Known Allergy (Unverified , 08/26/16) PMH/Family/Social Past Medical History PMhx/Soc Hx Cardiac Disorders: Yes (HTN, chronic systolic dysfunction) Hx Tobacco Use: No (unable to assess due to patient's condition) Social History Smoking Status: Unknown if ever smoked Exam/Review of Systems Vital Signs Vitals Vital Signs Date Time Temp Pulse Resp B/P Pulse Ox O2 Delivery O2 Flow Rate FiO2 11/03/16 16:35 86 11/03/16 15:10 18 95 30 11/03/16 15:09 98.2 117/78 11/03/16 05:05 Mechanical Ventilator Exam Constitutional: non-verbal ENMT: nl external ears & nose Neck: supple Respiratory: clear to auscultation, normal air movement Cardiovascular: nl pulses, regular rate and rhythm Gastrointestinal: non-tender, soft Musculoskeletal: muscle weakness Extremities: normal pulses Neurological: confused, unresponsive Labs Result Diagram: 11/03/1661211/03/16612 Medications Medications Current Medications Amiodarone HCl (Cordarone) 200 mg DAILY GTB Last administered on 11/03/16t 09: 59; Admin Dose 200 MG; Start 11/03/16 at 09:00 Docusate Sodium (Colace Liquid Cup) 100 mg BID GTB Last administered on 09:50; Admin Dose 100 MG; Start 11/03/16 at 09:00 Midodrine (Proamatine) 5 mg TID@, GTB Last administered on 11/03/16 13: 53; Admin Dose 5 MG; Start 11/03/16 at 09:00 Levetiracetam (Keppra Liquid) 500 mg BID GTB Last administered on 11/03/16 09: 49; Admin Dose 500 MG; Start 11/03/16 at 09:00 Multivit/Ca Carb/ B Cmplx/FA/Prenat (Oumou-Jayesh) 1 tab DAILY GTB Last administered on 11/03/16 09:50; Admin Dose 1 TAB; Start 11/03/16 at 09:00 Clonazepam (Klonopin) 0.5 mg Q12 GTB Last administered on 11/03/16 09:59; Admin Dose 0.5 MG; Start 11/03/16 at 09:00 Eye Lubricant (Akwa Oint) 1 applic Q12 BOTH EYES Last administered on 09:49; Admin Dose 1 APPLIC; Start 11/03/16 at 09:00 Senna (Senokot) 1 tab HS PRN GTB CONSTIPATION; Start 11/03/16 at 07:30 Lactobacillus Acidophilus/ Rhamnosus (Culturelle) 1 cap BID GTB Last administered on 11/03/16 09:49; Admin Dose 1 CAP; Start 11/03/16 at 09:00 Calcium Acetate (Phoslo) 667 mg TID GTB Last administered on 11/03/16 13:52; Admin Dose 667 MG; Start 11/03/16 at 09:00 Lansoprazole (Prevacid) 30 mg DAILY@06 GTB Last administered on 11/03/16 09:59 ; Admin Dose 30 MG; Start 11/03/16 at 08:00 Procedures Procedures Rate/Rhythm: Atrial fibrillation 92 beats/min QRS, ST, T-waves: No ST elevation, no T inversion, low voltage Impression: Abnormal EKG CXR -Minimal atelectasis or scarring at the left lung base. PAXTON RETANA Nov 03, 2016 17:49
[2016-11-04] VITALS (29 sets, daily range): BP systolic 90–128; BP diastolic 58–88; PULSE 93–112; RESP 16–23
[2016-11-04] MEDS: LANSOPRAZOLE 30 MG CAP GTB SCH (05:49)
[2016-11-04 06:24] LABS: ADD SCAN DIFF NO
[2016-11-04 06:31] LABS: BASOPHILS % 0.4 % (0.0-2.0); EOSINOPHILS # 0.1 10^3/ul (0.0-0.5); EOSINOPHILS % 2.3 % (0.0-7.0); HEMATOCRIT 27.5 % (42.0-52.0); HEMOGLOBIN 8.5 g/dl (14.0-18.0); LYMPHOCYTES # 1.1 10^3/ul (0.8-2.9); LYMPHOCYTES % 20.4 % (15.0-51.0); MEAN CORPUSCULAR HGB CONC 30.9 g/dl (32.0-37.0); MEAN CORPUSCULAR VOLUME 97.2 fl (82.0-101.0); MONOCYTE # 0.3 10^3/ul (0.3-0.9); MONOCYTES % 4.9 % (0.0-11.0); NEUTROPHILS % 71.5 % (39.0-77.0); RED BLOOD COUNT 2.83 10^6/ul (4.70-6.10); RED CELL DISTRIBUTION WIDTH 17.5 % (11.5-14.5); WHITE BLOOD COUNT 5.6 10^3/ul (4.8-10.8)
[2016-11-04 06:48] LABS: CALCIUM 11.8 mg/dl (8.4-10.2); CREATININE 8.6 mg/dl (0.61-1.24); POTASSIUM 4.9 mmol/L (3.5-5.1)
[2016-11-04 07:34] LABS: MEAN PLATELET VOLUME 10.3 fl (7.4-10.4); PLATELET COUNT 216 10^3/UL (140-415)
[2016-11-04] MEDS: MULTIVIT/CA CARB/B CMPLX/FA TAB GTB SCH (09:29)
[2016-11-04] MEDS: clonAZEPAM 0.5 MG TAB GTB SCH ×2 (09:29→21:13)
[2016-11-04] MEDS: LEVETIRACETAM (100 MG/ML) 5ML CUP GTB SCH ×2 (09:29→21:13)
[2016-11-04] MEDS: DOCUSATE SODIUM 10 MG/ML (10ML CUP) GTB SCH ×2 (09:29→21:13)
[2016-11-04] MEDS: AMIODARONE 200 MG TAB GTB SCH (09:30)
[2016-11-04] MEDS: CALCIUM ACETATE 667 MG CAP GTB SCH ×2 (09:31→12:49)
[2016-11-04] MEDS: MIDODRINE 5 MG TAB GTB SCH ×3 (09:31→18:24)
[2016-11-04] MEDS: LACTOBACILLUS RHAMNOSUS CAP GTB SCH ×2 (09:32→21:13)
[2016-11-04] MEDS: OCULAR LUBRICANT 3.5 GM OPH OINT BOTH EYES SCH ×2 (09:32→21:13)
--- NOTE | 2016-11-04 14:44 | PN ---
Date/Time of Note Date/Time of Note DATE: 11/04/16 TIME: 14:41 Assessment/Plan VTE Prophylaxis VTE Prophylaxis Intervention: other Lines/Catheters IV Catheter Type (from Nrs): Saline Lock Urinary Cath still in place: No Assessment/Plan Assessment/Plan Complication of vascular access for dialysis Hypercalcemia Hypernatremia Anemia dw dr Palacio Subjective 24 Hr Interval Summary Free Text/Dictation No bleeding from norberto cath reported. dw staff Constitutional: requiring IVF, requiring O2 Exam/Review of Systems Vital Signs Vitals Vital Signs Date Time Temp Pulse Resp B/P Pulse Ox O2 Delivery O2 Flow Rate FiO2 11/04/16 13:10 94 18 100 30 11/04/16 07:43 98.0 127/78 11/03/16 05:05 Mechanical Ventilator Intake and Output 11/03/16 11/03/16 11/04/16 15:00 23:00 07:00 Intake Total 670 ml 475 ml Balance 670 ml 475 ml Exam Constitutional: non-verbal ENMT: other Respiratory: clear to auscultation, normal air movement Cardiovascular: nl pulses, regular rate and rhythm Gastrointestinal: non-tender, other, soft Neurological: lethargic Results Result Diagram: 11/04/16 0530 11/04/16 0532 Results 24 hrs Laboratory Tests Test 11/04/16 05:30 11/04/16 05:32 White Blood Count 5.6 Red Blood Count 2.83 L Hemoglobin 8.5 L Hematocrit 27.5 L Mean Corpuscular Volume 97.2 Mean Corpuscular Hemoglobin 30.0 Mean Corpuscular Hemoglobin Concent 30.9 L Red Cell Distribution Width 17.5 H Platelet Count 216 Mean Platelet Volume 10.3 Neutrophils % 71.5 Lymphocytes % 20.4 Monocytes % 4.9 Eosinophils % 2.3 Basophils % 0.4 Nucleated Red Blood Cells % 0.0 Neutrophils # 4.0 Lymphocytes # 1.1 Monocytes # 0.3 Eosinophils # 0.1 Basophils # 0.0 Nucleated Red Blood Cells # 0.0 Sodium Level 147 H Potassium Level 4.9 Chloride Level 100 Carbon Dioxide Level 26 Anion Gap 26 H Blood Urea Nitrogen 55 H Creatinine 8.60 H Glucose Level 110 Calcium Level 11.8 H Medications Medications Current Medications Amiodarone HCl (Cordarone) 200 mg DAILY GTB Last administered on 11/04/16t 09: 30; Admin Dose 200 MG; Start 11/03/16 at 09:00 Docusate Sodium (Colace Liquid Cup) 100 mg BID GTB Last administered on 09:29; Admin Dose 100 MG; Start 11/03/16 at 09:00 Midodrine (Proamatine) 5 mg TID@,, GTB Last administered on 11/04/16 12: 49; Admin Dose 5 MG; Start 11/03/16 at 09:00 Levetiracetam (Keppra Liquid) 500 mg BID GTB Last administered on 11/04/16 09: 29; Admin Dose 500 MG; Start 11/03/16 at 09:00 Multivit/Ca Carb/ B Cmplx/FA/Prenat (Oumou-Jayesh) 1 tab DAILY GTB Last administered on 11/04/16 09:29; Admin Dose 1 TAB; Start 11/03/16 at 09:00 Clonazepam (Klonopin) 0.5 mg Q12 GTB Last administered on 11/04/16 09:29; Admin Dose 0.5 MG; Start 11/03/16 at 09:00 Eye Lubricant (Akwa Oint) 1 applic Q12 BOTH EYES Last administered on 09:32; Admin Dose 1 APPLIC; Start 11/03/16 at 09:00 Senna (Senokot) 1 tab HS PRN GTB CONSTIPATION; Start 11/03/16 at 07:30 Lactobacillus Acidophilus/ Rhamnosus (Culturelle) 1 cap BID GTB Last administered on 11/04/16 09:32; Admin Dose 1 CAP; Start 11/03/16 at 09:00 Calcium Acetate (Phoslo) 667 mg TID GTB Last administered on 11/04/16 12:49; Admin Dose 667 MG; Start 11/03/16 at 09:00 Lansoprazole (Prevacid) 30 mg DAILY@06 GTB Last administered on 11/04/16 05:49 ; Admin Dose 30 MG; Start 11/03/16 at 08:00 PAXTON RETANA Nov 04, 2016 14:44
--- NOTE | 2016-11-04 18:06 | RADRPT ---
PROCEDURE: Right upper extremity venous ultrasound CLINICAL INDICATION: Right arm pain and swelling, deep venous thrombosis TECHNIQUE: Avina scale, color doppler, spectral doppler ultrasound imaging of the venous system of the right upper extremity. Augmentation maneuvers were utilized. COMPARISON: No prior studies are available for comparison. FINDINGS: RIGHT: Internal jugular vein: Patent. Subclavian vein: Patent. Axillary vein: Patent. Brachial vein: Patent. Basilic vein: Thrombus is present at the level of the antecubital fossa which is nono cclusive. Cephalic vein: Patent. Radial vein: Patent. Ulnar vein: Patent. IMPRESSION: Superficial venous thrombosis involving the basilic vein at the level of the antecubital fossa which is nonocclusive. No evidence of a deep vein thrombosis involving the right upper extremity. RPTAT: AADD .Jaziel Magaña MD, MD Date Time Electronically viewed and signed by .Jaziel Magaña MD, on 11/04/2016 18:05 .B/
--- NOTE | 2016-11-04 18:24 | QN ---
Documentation Comment [id number] ESRD HTN ANEMIA ASHD PLAN HD CK LABS CHUYITA PASTOR MD Nov 04, 2016 18:24
[2016-11-05] VITALS (25 sets, daily range): BP systolic 93–118; BP diastolic 59–78; PULSE 86–107; RESP 16–24
[2016-11-05] MEDS: LANSOPRAZOLE 30 MG CAP GTB SCH (05:38)
[2016-11-05 05:58] LABS: ADD SCAN DIFF NO
[2016-11-05 06:01] LABS: BASOPHILS % 0.5 % (0.0-2.0); EOSINOPHILS # 0.1 10^3/ul (0.0-0.5); EOSINOPHILS % 2.1 % (0.0-7.0); HEMATOCRIT 27.6 % (42.0-52.0); HEMOGLOBIN 8.8 g/dl (14.0-18.0); LYMPHOCYTES # 1.2 10^3/ul (0.8-2.9); MEAN CORPUSCULAR HEMOGLOBIN 30.4 pg (29.0-33.0); MEAN CORPUSCULAR HGB CONC 31.9 g/dl (32.0-37.0); MEAN CORPUSCULAR VOLUME 95.5 fl (82.0-101.0); MEAN PLATELET VOLUME 10.5 fl (7.4-10.4); MONOCYTE # 0.3 10^3/ul (0.3-0.9); MONOCYTES % 5.6 % (0.0-11.0); NEUTROPHIL # 4.1 10^3/ul (1.6-7.5); NEUTROPHILS % 71.5 % (39.0-77.0); PLATELET COUNT 193 10^3/UL (140-415); RED BLOOD COUNT 2.89 10^6/ul (4.70-6.10); RED CELL DISTRIBUTION WIDTH 17.8 % (11.5-14.5); WHITE BLOOD COUNT 5.8 10^3/ul (4.8-10.8)
[2016-11-05 06:46] LABS: ALBUMIN 4.7 g/dl (3.3-4.9); ALBUMIN/GLOBULIN RATIO 1.04; BILIRUBIN,INDIRECT 0.1 mg/dl (0-1.1); BILIRUBIN,TOTAL 0.1 mg/dl (0.2-1.3); CALCIUM 10.9 mg/dl (8.4-10.2); CREATININE 6.73 mg/dl (0.61-1.24); POTASSIUM 5.2 mmol/L (3.5-5.1); TOTAL PROTEIN 9.2 g/dl (6.1-8.1)
--- NOTE | 2016-11-05 06:52 | HP ---
DATE OF ADMISSION: 11/03/2016 Vascular Surgery History and Physical Dear Doctors: Mr. Juan is a 56-year-old gentleman with a plethora of medical conditions whom was sent to [facility] for evaluation of bleeding from the site of the left femoral tunneled catheter site. Vascular Surgery consultation was obtained for further evaluation. The patient is nonverbal, on a ventilator secondary to chronic respiratory failure. Nonverbal and has a G-tube. The patient is also noncommunicative from his nursing location. During evaluation there is no family at the bedside so medical records were reviewed. REVIEW OF SYSTEMS: Difficult to ascertain as patient is nonverbal and noncommunicative. PAST MEDICAL HISTORY: 1. Hypertension. 2. Systolic congestive heart failure. 3. End-stage renal disease, on dialysis. 4. Chronic respiratory failure on ventilator. 5. Seizure disorder. 6. Anemia of chronic disease. 7. Paroxysmal atrial fibrillation. 8. History of cardiac arrest. SURGICAL HISTORY: Tracheostomy, G-tube, multiple perm catheter placements. ALLERGIES: NO KNOWN DRUG ALLERGIES. FAMILY HISTORY: Noncontributory. SOCIAL HISTORY: Denies tobacco, alcohol, or illicit drug use. PHYSICAL EXAMINATION: GENERAL: Patient is noncommunicative and nonverbal. HEENT: Trach tube intact. NECK: Supple. No carotid bruit. LUNGS: Coarse breath sounds bilaterally. No crackles. CARDIOVASCULAR: S1, S2 present. Irregularly irregular. ABDOMEN: Soft, nontender, nondistended. Bowel sounds positive. G-tube intact. EXTREMITIES: Lower extremities palpable femoral pulse. Contracted at the knee. Nonpalpable pedal pulse. Motor and sensory is unable to ascertain as the patient is noncommunicative and on trach. Left lower extremity, palpable femoral pulse. Nonpalpable pedal pulse. Contracted legs. Motor and sensory unable to test as was as the patient is noncommunicative and contracted Left tunneled catheter evaluated, no bleeding identified and looks intact. No signs of erythema or drainage. ASSESSMENT AND PLAN: End-stage renal disease: It seems the patient's left common femoral vein perm catheter is intact without any site of bleeding. Would recommend for dialysis. Continue to use his perm catheter for his dialysis sessions and we will re-evaluate as needed for possible concern of bleeding. Optimize vascular status (diet, nutrition, exercise, sugar control, antiplatelets). Discussed findings, plan and management with the primary service. Thank you for allowing us to partake in the care of your patient. Please call with any questions. Dictated By: Beck Paez MD /german/italia /Document#: [id number]
[2016-11-05] MEDS: DOCUSATE SODIUM 10 MG/ML (10ML CUP) GTB SCH ×3 (09:00→21:00)
[2016-11-05] MEDS: clonAZEPAM 0.5 MG TAB GTB SCH ×2 (09:32→23:00)
[2016-11-05] MEDS: LACTOBACILLUS RHAMNOSUS CAP GTB SCH ×2 (09:32→23:00)
[2016-11-05] MEDS: OCULAR LUBRICANT 3.5 GM OPH OINT BOTH EYES SCH ×2 (09:32→23:00)
[2016-11-05] MEDS: LEVETIRACETAM (100 MG/ML) 5ML CUP GTB SCH ×2 (09:32→23:00)
[2016-11-05] MEDS: AMIODARONE 200 MG TAB GTB SCH (09:32)
[2016-11-05] MEDS: MULTIVIT/CA CARB/B CMPLX/FA TAB GTB SCH (09:33)
[2016-11-05] MEDS: MIDODRINE 5 MG TAB GTB SCH ×3 (09:33→17:36)
--- NOTE | 2016-11-05 14:11 | PN ---
Date/Time of Note Date/Time of Note DATE: 11/05/16 TIME: 14:04 Assessment/Plan VTE Prophylaxis VTE Prophylaxis Intervention: SCD's Lines/Catheters IV [facility] Type [facility]from [facility] Saline Lock Urinary Cath still in place: No Assessment/Plan Chief Complaint/Hosp Course No bleeding from the Dejuan catheter site, patient was able to have dialysis today in a.m., no acute events reported per RN. Problems: Assessment/Plan - Complication of vascular access for dialysis, patient admitted complains of bleeding from the left femoral hemodialysis catheter, Dr. Paez is following in vascular surgery consultation. - End-stage renal disease, hemodialysis dependent. Dr. Ordonez is following in nephrology consultation - Anemia of chronic disease. Status post blood transfusion. - Paroxysmal atrial fibrillation. Continue amiodarone. - Ventilator dependent respiratory failure. - Seizure disorder. Continue Keppra. - Status post cardiac arrest by history Further recommendations based on clinical course. Plan of care discussed with Dr. Palacio. Exam/Review of Systems Vital Signs Vitals Vital Signs Date Time Temp Pulse Resp B/P Pulse Ox O2 Delivery O2 Flow Rate FiO2 11/05/16 13:32 102 18 99 30 11/05/16 11:03 98.6 109/59 11/03/16 05:05 Mechanical Ventilator Intake and Output 11/04/16 11/04/16 11/05/16 15:00 23:00 07:00 Intake Total 400 ml 620 ml 635 ml Output Total 2000 ml Balance -1600 ml 620 ml 635 ml Exam Constitutional: non-verbal Head: normocephalic Eyes: nl conjunctiva Neck: other Respiratory: diminished breath sounds Cardiovascular: nl pulses Gastrointestinal: non-tender, soft Extremities: normal pulses, other (Contracted) Neurological: other (Chronic encephalopathy) Results Result Diagram: 11/05/16 0532 11/05/16 0532 Results 24 hrs Laboratory Tests Test 11/05/16 05:32 White Blood Count 5.8 Red Blood Count 2.89 L Hemoglobin 8.8 L Hematocrit 27.6 L Mean Corpuscular Volume 95.5 Mean Corpuscular Hemoglobin 30.4 Mean Corpuscular Hemoglobin Concent 31.9 L Red Cell Distribution Width 17.8 H Platelet Count 193 Mean Platelet Volume 10.5 H Neutrophils % 71.5 Lymphocytes % 20.0 Monocytes % 5.6 Eosinophils % 2.1 Basophils % 0.5 Nucleated Red Blood Cells % 0.0 Neutrophils # 4.1 Lymphocytes # 1.2 Monocytes # 0.3 Eosinophils # 0.1 Basophils # 0.0 Nucleated Red Blood Cells # 0.0 Sodium Level 141 Potassium Level 5.2 H Chloride Level 95 L Carbon Dioxide Level 25 Anion Gap 26 H Blood Urea Nitrogen 50 H Creatinine 6.73 H Glucose Level 110 Calcium Level 10.9 H Total Bilirubin 0.1 L Direct Bilirubin 0.00 Indirect Bilirubin 0.1 Aspartate Amino Transf (AST/SGOT) 82 #H Alanine Aminotransferase (ALT/SGPT) 44 Alkaline Phosphatase 139 H Total Protein 9.2 H Albumin 4.7 Globulin 4.50 H Albumin/Globulin Ratio 1.04 Medications Medications Current Medications Amiodarone HCl (Cordarone) 200 mg DAILY GTB Last administered on 11/05/16 09: 32; Admin Dose 200 MG; Start 11/03/16 at 09:00 Docusate Sodium (Colace Liquid Cup) 100 mg BID GTB Last administered on 21:13; Admin Dose 100 MG; Start 11/03/16 at 09:00 Midodrine (Proamatine) 5 mg TID@ GTB Last administered on 11/05/16 13: 26; Admin Dose 5 MG; Start 11/03/16 at 09:00 Levetiracetam (Keppra Liquid) 500 mg BID GTB Last administered on 11/05/16 09: 32; Admin Dose 500 MG; Start 11/03/16 at 09:00 Multivit/Ca Carb/ B Cmplx/FA/Prenat (Oumou-Jayesh) 1 tab DAILY GTB Last administered on 11/05/16 09:33; Admin Dose 1 TAB; Start 11/03/16 at 09:00 Clonazepam (Klonopin) 0.5 mg Q12 GTB Last administered on 11/05/16 09:32; Admin Dose 0.5 MG; Start 11/03/16 at 09:00 Eye Lubricant (Akwa Oint) 1 applic Q12 BOTH EYES Last administered on 09:32; Admin Dose 1 APPLIC; Start 11/03/16 at 09:00 Senna (Senokot) 1 tab HS PRN GTB CONSTIPATION; Start 11/03/16 at 07:30 Lactobacillus Acidophilus/ Rhamnosus (Culturelle) 1 cap BID GTB Last administered on 11/05/16 09:32; Admin Dose 1 CAP; Start 11/03/16 at 09:00 Lansoprazole (Prevacid) 30 mg DAILY@06 GTB Last administered on 11/05/16 05:38 ; Admin Dose 30 MG; Start 11/03/16 at 08:00 MARCELO HYMAN Nov 05, 2016 14:11
--- NOTE | 2016-11-05 21:19 | CONS ---
Date/Time of Note Date/Time of Note DATE: 11/05/16 TIME: 21:17 Assessment/Plan Assessment/Plan Chief Complaint/Hosp Course ESRD AFIB HTN PEG VDRF HYPERCALCEMIA PLAN HD Problems: Consultation Date/Type/Reason Admit Date/Time Nov 03, 2016 at 03:58 Initial Consult Date Type of Consultation: nephrology 24 HR Interval Summary Subjective hx not possible: pt non-verbal Exam/Review of Systems Vital Signs Vitals Vital Signs Date Time Temp Pulse Resp B/P Pulse Ox O2 Delivery O2 Flow Rate FiO2 11/05/16 20:16 98.1 87 22 108/70 98 11/05/16 19:45 30 11/03/16 05:05 Mechanical Ventilator Intake and Output 11/04/16 11/04/16 11/05/16 15:00 23:00 07:00 Intake Total 400 ml 620 ml 635 ml Output Total 2000 ml Balance -1600 ml 620 ml 635 ml Exam Neck: supple Respiratory: clear to auscultation Cardiovascular: regular rate and rhythm Gastrointestinal: soft Extremities: edema (+) Results Result Diagram: 11/05/16 0532 11/05/16 0532 Results 24 hrs Laboratory Tests Test 11/05/16 05:32 White Blood Count 5.8 Red Blood Count 2.89 L Hemoglobin 8.8 L Hematocrit 27.6 L Mean Corpuscular Volume 95.5 Mean Corpuscular Hemoglobin 30.4 Mean Corpuscular Hemoglobin Concent 31.9 L Red Cell Distribution Width 17.8 H Platelet Count 193 Mean Platelet Volume 10.5 H Neutrophils % 71.5 Lymphocytes % 20.0 Monocytes % 5.6 Eosinophils % 2.1 Basophils % 0.5 Nucleated Red Blood Cells % 0.0 Neutrophils # 4.1 Lymphocytes # 1.2 Monocytes # 0.3 Eosinophils # 0.1 Basophils # 0.0 Nucleated Red Blood Cells # 0.0 Sodium Level 141 Potassium Level 5.2 H Chloride Level 95 L Carbon Dioxide Level 25 Anion Gap 26 H Blood Urea Nitrogen 50 H Creatinine 6.73 H Glucose Level 110 Calcium Level 10.9 H Total Bilirubin 0.1 L Direct Bilirubin 0.00 Indirect Bilirubin 0.1 Aspartate Amino Transf (AST/SGOT) 82 #H Alanine Aminotransferase (ALT/SGPT) 44 Alkaline Phosphatase 139 H Total Protein 9.2 H Albumin 4.7 Globulin 4.50 H Albumin/Globulin Ratio 1.04 Medications Medications Current Medications Amiodarone HCl (Cordarone) 200 mg DAILY GTB Last administered on 11/05/16 09: 32; Admin Dose 200 MG; Start 11/03/16 at 09:00 Docusate Sodium (Colace Liquid Cup) 100 mg BID GTB Last administered on 21:13; Admin Dose 100 MG; Start 11/03/16 at 09:00 Midodrine (Proamatine) 5 mg TID@,, GTB Last administered on 11/05/16 17: 36; Admin Dose 5 MG; Start 11/03/16 at 09:00 Levetiracetam (Keppra Liquid) 500 mg BID GTB Last administered on 11/05/16 09: 32; Admin Dose 500 MG; Start 11/03/16 at 09:00 Multivit/Ca Carb/ B Cmplx/FA/Prenat (Oumou-Jayesh) 1 tab DAILY GTB Last administered on 11/05/16 09:33; Admin Dose 1 TAB; Start 11/03/16 at 09:00 Clonazepam (Klonopin) 0.5 mg Q12 GTB Last administered on 11/05/16 09:32; Admin Dose 0.5 MG; Start 11/03/16 at 09:00 Eye Lubricant (Akwa Oint) 1 applic Q12 BOTH EYES Last administered on 09:32; Admin Dose 1 APPLIC; Start 11/03/16 at 09:00 Senna (Senokot) 1 tab HS PRN GTB CONSTIPATION; Start 11/03/16 at 07:30 Lactobacillus Acidophilus/ Rhamnosus (Culturelle) 1 cap BID GTB Last administered on 11/05/16 09:32; Admin Dose 1 CAP; Start 11/03/16 at 09:00 Lansoprazole (Prevacid) 30 mg DAILY@06 GTB Last administered on 11/05/16 05:38 ; Admin Dose 30 MG; Start 11/03/16 at 08:00 CHUYITA PASTOR MD Nov 05, 2016 21:19
[2016-11-06] VITALS (30 sets, daily range): BP systolic 105–122; BP diastolic 55–77; PULSE 85–107; RESP 14–24
[2016-11-06] MEDS: LANSOPRAZOLE 30 MG CAP GTB SCH (05:28)
[2016-11-06] MEDS: DOCUSATE SODIUM 10 MG/ML (10ML CUP) GTB SCH ×2 (09:00→19:34)
[2016-11-06] MEDS: LEVETIRACETAM (100 MG/ML) 5ML CUP GTB SCH ×2 (09:10→22:23)
[2016-11-06] MEDS: LACTOBACILLUS RHAMNOSUS CAP GTB SCH ×2 (09:10→22:23)
[2016-11-06] MEDS: clonAZEPAM 0.5 MG TAB GTB SCH ×2 (09:10→22:28)
[2016-11-06] MEDS: MULTIVIT/CA CARB/B CMPLX/FA TAB GTB SCH (09:10)
[2016-11-06] MEDS: AMIODARONE 200 MG TAB GTB SCH (09:10)
[2016-11-06] MEDS: MIDODRINE 5 MG TAB GTB SCH ×3 (09:11→17:44)
[2016-11-06] MEDS: OCULAR LUBRICANT 3.5 GM OPH OINT BOTH EYES SCH ×2 (09:11→22:23)
[2016-11-06 12:35] LABS: ADD SCAN DIFF NO
[2016-11-06 12:37] LABS: BASOPHILS % 0.4 % (0.0-2.0); EOSINOPHILS # 0.1 10^3/ul (0.0-0.5); EOSINOPHILS % 2.2 % (0.0-7.0); HEMATOCRIT 28.8 % (42.0-52.0); HEMOGLOBIN 9.3 g/dl (14.0-18.0); LYMPHOCYTES # 1.2 10^3/ul (0.8-2.9); LYMPHOCYTES % 21.7 % (15.0-51.0); MEAN CORPUSCULAR HEMOGLOBIN 31.2 pg (29.0-33.0); MEAN CORPUSCULAR HGB CONC 32.3 g/dl (32.0-37.0); MEAN CORPUSCULAR VOLUME 96.6 fl (82.0-101.0); MEAN PLATELET VOLUME 9.9 fl (7.4-10.4); MONOCYTE # 0.5 10^3/ul (0.3-0.9); MONOCYTES % 8.3 % (0.0-11.0); NEUTROPHIL # 3.6 10^3/ul (1.6-7.5); PLATELET COUNT 176 10^3/UL (140-415); RED BLOOD COUNT 2.98 10^6/ul (4.70-6.10); RED CELL DISTRIBUTION WIDTH 17.3 % (11.5-14.5); WHITE BLOOD COUNT 5.4 10^3/ul (4.8-10.8)
[2016-11-06 13:17] LABS: CREATININE 5.88 mg/dl (0.61-1.24); POTASSIUM 4.8 mmol/L (3.5-5.1)
--- NOTE | 2016-11-06 17:56 | PN ---
Date/Time of Note Date/Time of Note DATE: 11/06/16 TIME: 17:53 Assessment/Plan VTE Prophylaxis VTE Prophylaxis Intervention: SCD's Lines/Catheters [facility] Urinary Cath still in place: No Assessment/Plan Chief Complaint/Hosp Course Patient remains hemodynamically stable, no acute events overnight. Assessment/Plan - Complication of vascular access for dialysis, patient admitted complains of bleeding from the left femoral hemodialysis catheter, Dr. Paez is following in vascular surgery consultation. - End-stage renal disease, hemodialysis dependent. Dr. Ordonez is following in nephrology consultation - Anemia of chronic disease. Status post blood transfusion. - Paroxysmal atrial fibrillation. Continue amiodarone. - Ventilator dependent respiratory failure. - Seizure disorder. Continue Keppra. - Status post cardiac arrest by history Further recommendations based on clinical course. Plan of care discussed with Dr. Palacio. Problems: Exam/Review of Systems Vital Signs Vitals Vital Signs Date Time Temp Pulse Resp B/P Pulse Ox O2 Delivery O2 Flow Rate FiO2 11/06/16 16:19 92 11/06/16 15:14 98.1 24 110/66 96 11/06/16 08:30 30 11/03/16 05:05 Mechanical Ventilator Intake and Output 11/05/16 11/05/16 11/06/16 15:00 23:00 07:00 Intake Total 720 ml 770 ml Balance 720 ml 770 ml Exam Constitutional: non-verbal Head: normocephalic Eyes: nl conjunctiva Neck: other Respiratory: diminished breath sounds Cardiovascular: nl pulses Gastrointestinal: non-tender, soft Extremities: normal pulses, other (Contracted) Neurological: other (Chronic encephalopathy) Results Result Diagram: 11/06/16 1227 11/06/16 1227 Results 24 hrs Laboratory Tests Test 11/06/16 12:27 White Blood Count 5.4 Red Blood Count 2.98 L Hemoglobin 9.3 L Hematocrit 28.8 L Mean Corpuscular Volume 96.6 Mean Corpuscular Hemoglobin 31.2 Mean Corpuscular Hemoglobin Concent 32.3 Red Cell Distribution Width 17.3 H Platelet Count 176 Mean Platelet Volume 9.9 Neutrophils % 67.0 Lymphocytes % 21.7 Monocytes % 8.3 Eosinophils % 2.2 Basophils % 0.4 Nucleated Red Blood Cells % 0.0 Neutrophils # 3.6 Lymphocytes # 1.2 Monocytes # 0.5 Eosinophils # 0.1 Basophils # 0.0 Nucleated Red Blood Cells # 0.0 Sodium Level 145 H Potassium Level 4.8 Chloride Level 104 Carbon Dioxide Level 22 Anion Gap 24 H Blood Urea Nitrogen 44 H Creatinine 5.88 H Glucose Level 115 Calcium Level 11.0 H Medications Medications Current Medications Amiodarone HCl (Cordarone) 200 mg DAILY GTB Last administered on 11/06/16 09: 10; Admin Dose 200 MG; Start 11/03/16 at 09:00 Docusate Sodium (Colace Liquid Cup) 100 mg BID GTB Last administered on 21:13; Admin Dose 100 MG; Start 11/03/16 at 09:00 Midodrine (Proamatine) 5 mg TID@,,17 GTB Last administered on 11/06/16 17: 44; Admin Dose 5 MG; Start 11/03/16 at 09:00 Levetiracetam (Keppra Liquid) 500 mg BID GTB Last administered on 11/06/16 09: 10; Admin Dose 500 MG; Start 11/03/16 at 09:00 Multivit/Ca Carb/ B Cmplx/FA/Prenat (Oumou-Jayesh) 1 tab DAILY GTB Last administered on 11/06/16 09:10; Admin Dose 1 TAB; Start 11/03/16 at 09:00 Clonazepam (Klonopin) 0.5 mg Q12 GTB Last administered on 11/06/16 09:10; Admin Dose 0.5 MG; Start 11/03/16 at 09:00 Eye Lubricant (Akwa Oint) 1 applic Q12 BOTH EYES Last administered on 09:11; Admin Dose 1 APPLIC; Start 11/03/16 at 09:00 Senna (Senokot) 1 tab HS PRN GTB CONSTIPATION; Start 11/03/16 at 07:30 Lactobacillus Acidophilus/ Rhamnosus (Culturelle) 1 cap BID GTB Last administered on 11/06/16 09:10; Admin Dose 1 CAP; Start 11/03/16 at 09:00 Lansoprazole (Prevacid) 30 mg DAILY@06 GTB Last administered on 11/06/16 05:28 ; Admin Dose 30 MG; Start 11/03/16 at 08:00 MARCELO HYMAN Nov 06, 2016 17:55
--- NOTE | 2016-11-06 23:18 | CONS ---
Date/Time of Note Date/Time of Note DATE: 11/06/16 TIME: 23:17 Assessment/Plan Assessment/Plan Chief Complaint/Hosp Course ESRD AFIB HTN PEG VDRF HYPERCALCEMIA PLAN HD Problems: Consultation Date/Type/Reason Admit Date/Time Nov 03, 2016 at 03:58 Type of Consultation: nephrology 24 HR Interval Summary Constitutional: no complaints Exam/Review of Systems Vital Signs Vitals Vital Signs Date Time Temp Pulse Resp B/P Pulse Ox O2 Delivery O2 Flow Rate FiO2 11/06/16 21:24 84 18 98 30 11/06/16 20:08 99.4 109/77 11/03/16 05:05 Mechanical Ventilator Intake and Output 11/05/16 11/05/16 11/06/16 15:00 23:00 07:00 Intake Total 720 ml 770 ml Balance 720 ml 770 ml Exam Respiratory: diminished breath sounds Cardiovascular: regular rate and rhythm Gastrointestinal: bowel sounds (+), soft Results Result Diagram: 11/06/16 1227 11/06/16 1227 Results 24 hrs Laboratory Tests Test 11/06/16 12:27 White Blood Count 5.4 Red Blood Count 2.98 L Hemoglobin 9.3 L Hematocrit 28.8 L Mean Corpuscular Volume 96.6 Mean Corpuscular Hemoglobin 31.2 Mean Corpuscular Hemoglobin Concent 32.3 Red Cell Distribution Width 17.3 H Platelet Count 176 Mean Platelet Volume 9.9 Neutrophils % 67.0 Lymphocytes % 21.7 Monocytes % 8.3 Eosinophils % 2.2 Basophils % 0.4 Nucleated Red Blood Cells % 0.0 Neutrophils # 3.6 Lymphocytes # 1.2 Monocytes # 0.5 Eosinophils # 0.1 Basophils # 0.0 Nucleated Red Blood Cells # 0.0 Sodium Level 145 H Potassium Level 4.8 Chloride Level 104 Carbon Dioxide Level 22 Anion Gap 24 H Blood Urea Nitrogen 44 H Creatinine 5.88 H Glucose Level 115 Calcium Level 11.0 H Medications Medications Current Medications Amiodarone HCl (Cordarone) 200 mg DAILY GTB Last administered on 11/06/16 09: 10; Admin Dose 200 MG; Start 11/03/16 at 09:00 Docusate Sodium (Colace Liquid Cup) 100 mg BID GTB Last administered on 21:13; Admin Dose 100 MG; Start 11/03/16 at 09:00 Midodrine (Proamatine) 5 mg TID@,, GTB Last administered on 11/06/16 17: 44; Admin Dose 5 MG; Start 11/03/16 at 09:00 Levetiracetam (Keppra Liquid) 500 mg BID GTB Last administered on 11/06/16 22: 23; Admin Dose 500 MG; Start 11/03/16 at 09:00 Multivit/Ca Carb/ B Cmplx/FA/Prenat (Oumou-Jayesh) 1 tab DAILY GTB Last administered on 11/06/16 09:10; Admin Dose 1 TAB; Start 11/03/16 at 09:00 Clonazepam (Klonopin) 0.5 mg Q12 GTB Last administered on 11/06/16 22:28; Admin Dose 0.5 MG; Start 11/03/16 at 09:00 Eye Lubricant (Akwa Oint) 1 applic Q12 BOTH EYES Last administered on 22:23; Admin Dose 1 APPLIC; Start 11/03/16 at 09:00 Senna (Senokot) 1 tab HS PRN GTB CONSTIPATION; Start 11/03/16 at 07:30 Lactobacillus Acidophilus/ Rhamnosus (Culturelle) 1 cap BID GTB Last administered on 11/06/16 22:23; Admin Dose 1 CAP; Start 11/03/16 at 09:00 Lansoprazole (Prevacid) 30 mg DAILY@06 GTB Last administered on 11/06/16 05:28 ; Admin Dose 30 MG; Start 11/03/16 at 08:00 CHUYITA PASTOR MD Nov 06, 2016 23:18
[2016-11-07] VITALS (22 sets, daily range): BP systolic 112–130; BP diastolic 72–95; PULSE 80–97; RESP 16–18
[2016-11-07] MEDS: LANSOPRAZOLE 30 MG CAP GTB SCH (06:45)
[2016-11-07] MEDS: LACTOBACILLUS RHAMNOSUS CAP GTB SCH ×2 (08:27→21:03)
[2016-11-07] MEDS: AMIODARONE 200 MG TAB GTB SCH (08:27)
[2016-11-07] MEDS: MULTIVIT/CA CARB/B CMPLX/FA TAB GTB SCH (08:27)
[2016-11-07] MEDS: DOCUSATE SODIUM 10 MG/ML (10ML CUP) GTB SCH ×2 (08:27→21:00)
[2016-11-07] MEDS: OCULAR LUBRICANT 3.5 GM OPH OINT BOTH EYES SCH ×2 (08:27→21:03)
[2016-11-07] MEDS: LEVETIRACETAM (100 MG/ML) 5ML CUP GTB SCH ×2 (08:27→21:03)
[2016-11-07] MEDS: MIDODRINE 5 MG TAB GTB SCH ×3 (08:29→17:33)
[2016-11-07] MEDS: clonAZEPAM 0.5 MG TAB GTB SCH ×2 (08:29→21:03)
[2016-11-07 09:09] LABS: CALCIUM 11.2 mg/dl (8.4-10.2); CREATININE 7.15 mg/dl (0.61-1.24); POTASSIUM 4.8 mmol/L (3.5-5.1)
--- NOTE | 2016-11-07 19:24 | DS ---
Date/Time of Note Date/Time of Note DATE: 11/07/16 TIME: 19:19 Discharge Summary Admission/Discharge Info Admit Date/Time Nov 03, 2016 at 03:58 Discharge Date/Time Patient Condition: Stable Hx of Present Illness Chief Complaint dejuan cath bleeding since 2199. chronic vent, full code HPI The patient is a 56-year-old male, presenting to the ER because of bleeding from the left femoral Dejuan catheter beginning about 10 PM. The nurse have been changing the dressing frequently. He is noncommunicative, the history is is obtained from the snf notes and the medical record Past medical history: Chronic respiratory failure on ventilator, seizure disorder, chronic kidney disease on hemodialysis Saturday and Saturday, anemia, history of paroxysmal atrial fibrillation, history of cardiac arrest Past surgical history: Tracheostomy, G-tube ROS All systems reviewed and are negative except as per history of present illness. Allergies No Known Allergy (Unverified , 08/26/16) Hospital Course - Complication of vascular access for dialysis, patient admitted complains of bleeding from the left femoral hemodialysis catheter. Dr. Paez evaluated patient from vascular surgery standpoint and cleared catheter for use, bleeding resolved, patient was able to undergo hemodialysis. - End-stage renal disease, hemodialysis dependent. Dr. Ordonez is following in nephrology consultation - Anemia of chronic disease. Status post blood transfusion. - Paroxysmal atrial fibrillation. Continue amiodarone. - Ventilator dependent respiratory failure. - Seizure disorder. Continue Keppra. - Status post cardiac arrest by history - Dysphagia with PEG. Home Meds Reported Medications Calcium Acetate* (Phoslo*) 667 Mg Tablet, 667 MG GTB TID, TAB 11/03/16 Lactobacillus Acidophilus* (Lactinex*) 1 Tab Chew, 1 TAB G-TUBE BID, TAB 11/03/16 Multivit/Ca Carb/B Cmplx/Fa* (Oumou-Jayesh*) 1 Tab Tab, 1 TAB GTB DAILY, TAB 04/16/16 Cinacalcet* (Sensipar*) 60 Mg Tablet, 60 MG GTB DAILY, TAB 04/16/16 Midodrine* (Midodrine*) 5 Mg Tablet, 5 MG GTB Q8H, TAB HOLD IF SBP>130 04/16/16 Metoclopramide* (Reglan*) 10 Mg/10 Ml Soln, 10 MG GTB Q8, ML 04/16/16 Sevelamer Carbonate* (Renvela*) 0.8 Gm Powd.pack, 1.6 GM GTB WITH MEALS, PACKET 10/14/15 Levetiracetam* (Keppra* (Ped)) 100 Mg/Ml Liq, 500 MG GTB BID for 30 Days, BOTTLE 10/14/15 Docusate Sodium* (Docusate Sodium* Liq) 50 Mg/5 Ml Liquid, 100 MG GTB BID, ML 10/14/15 Omeprazole* (Prilosec*) 40 Mg Capsule.dr, 40 MG GTB DAILY 04/12/12 Clonazepam* (Klonopin*) 0.5 Mg Tab, 0.5 MG GTB Q12 04/12/12 Amiodarone Hcl* (Amiodarone Hcl*) 200 Mg Tablet, 200 MG GTB DAILY 04/12/12 Follow-up Plan Follow-up with hemodialysis center for next hemodialysis. Primary Care Provider Care Physician No Primary Time spent on discharge: > 30 minutes Pending Labs Laboratory Tests Test 11/07/16 07:35 Sodium Level 143mmol/L (135-144) Potassium Level 4.8mmol/L (3.5-5.1) Chloride Level 97mmol/L (97-110) Carbon Dioxide Level 25mmol/L (21-31) Anion Gap 26 (8-16) Blood Urea Nitrogen 62mg/dl (7-20) Creatinine 7.15mg/dl (0.61-1.24) Glucose Level 97mg/dl (70-220) Calcium Level 11.2mg/dl (8.4-10.2) MARCELO HYMAN Nov 07, 2016 19:24
--- NOTE | 2016-11-07 22:48 | CONS ---
Date/Time of Note Date/Time of Note DATE: 11/07/16 TIME: 22:47 Assessment/Plan Assessment/Plan Chief Complaint/Hosp Course ESRD AFIB HTN PEG VDRF HYPERCALCEMIA PLAN renal stable Problems: Consultation Date/Type/Reason Admit Date/Time Nov 03, 2016 at 03:58 Type of Consultation: nephrology 24 HR Interval Summary Constitutional: other (seen) Exam/Review of Systems Vital Signs Vitals Vital Signs Date Time Temp Pulse Resp B/P Pulse Ox O2 Delivery O2 Flow Rate FiO2 11/07/16 21:18 98.5 100 17 130/85 99 11/07/16 17:45 30 Intake and Output 11/06/16 11/06/16 11/07/16 15:00 23:00 07:00 Intake Total 1000 ml 770 ml 720 ml Output Total 3000 ml Balance -2000 ml 770 ml 720 ml Exam Respiratory: clear to auscultation Cardiovascular: regular rate and rhythm Gastrointestinal: soft Musculoskeletal: nl extremities to inspection Results Result Diagram: 11/06/16 1227 11/07/16 0735 Results 24 hrs Laboratory Tests Test 11/07/16 07:35 Sodium Level 143 Potassium Level 4.8 Chloride Level 97 Carbon Dioxide Level 25 Anion Gap 26 H Blood Urea Nitrogen 62 H Creatinine 7.15 H Glucose Level 97 Calcium Level 11.2 H CHUYITA PASTOR MD Nov 07, 2016 22:48
== END 2016-11-07 22:00 | DRG 314 ==
LOC: E/R 01:14 → TEL 03:58
PROVIDERS: ADMIT Internal Medicine; ATTEND Internal Medicine
PROC: 5A1955Z Respiratory Ventilation, Greater than 96 Consecutive Hours (ICD-10-PCS; principal; 2016-11-03)
PROC: 5A1D60Z (ICD-10-PCS; 2016-11-04)
DX: T82.838A Hemorrhage due to vascular prosthetic devices, implants and grafts, initial encounter (principal); N18.6 End stage renal disease; G93.1 Anoxic brain damage, not elsewhere classified; J96.10 Chronic respiratory failure, unspecified whether with hypoxia or hypercapnia; Z93.0 Tracheostomy status; I13.2 Hypertensive heart and chronic kidney disease with heart failure and with stage 5 chronic kidney disease, or end stage renal disease; R13.10 Dysphagia, unspecified; E87.0 Hyperosmolality and hypernatremia; I50.22 Chronic systolic (congestive) heart failure; Z86.74 Personal history of sudden cardiac arrest; E83.52 Hypercalcemia; D63.8 Anemia in other chronic diseases classified elsewhere; G40.909 Epilepsy, unspecified, not intractable, without status epilepticus; I48.0 Paroxysmal atrial fibrillation; I25.10 Atherosclerotic heart disease of native coronary artery without angina pectoris; Y83.8 Other surgical procedures as the cause of abnormal reaction of the patient, or of later complication, without mention of misadventure at the time of the procedure; Z99.2 Dependence on renal dialysis; Z93.1 Gastrostomy status
CPT/HCPCS: 36415; 71010; 80048; 80053; 85025; 85610; 85730; 86850; 86900; 86901; 87075; 87081; 90935; 93005; 93971; 94002; 94003

== ENCOUNTER 2018-04-04 06:57 | Emergency (ER) | END 2018-04-04 09:24 | disposition home or self-care (01) ==